=== PATIENT | male | born 1945 | race Caucasian/White ===

== ENCOUNTER 2017-10-28 10:18 | Inpatient (IN) ==
[2017-10-28] MEDS ORDERED: Nitroglycerin 0.4 MG TAB.SUBL SL PRN (10:34)
--- NOTE | 2017-10-28 10:44 | Emergency Department Note ---
Disposition Clinical Impression: NSTEMI (non-ST elevated myocardial infarction) Chest pain Qualifiers: Chest pain type: unspecified Qualified Code(s): R07.9 - Chest pain, unspecified Disposition: Admitted As Inpatient Condition: Good Referrals: Adalberto Up MD [Primary Care Provider] - Forms: ED Satisfaction Letter Time of Disposition: 12:44 Chest Pain HPI - General Chief Complaint: ED Chest Pain Stated Complaint: CP Time Seen by Provider: 10/28/17 10:20 Source: patient, family Mode of arrival: ambulatory Limitations: no limitations Vital Signs Reviewed: Yes Nursing Notes Reviewed: Yes - History of Present Illness HPI Narrative: Patient is a 71-year-old male with past medical history of hypertension, hyperlipidemia, diabetes, iliac artery stents, COPD. No previous ID or heart stents. He presents today due to chest pain. He states that over the past 3-4 days, he has had intermittent substernal chest pain. 4 days ago, he said that he was getting ready tomorrow is long, took 6 or 7 steps outside and then had substernal chest pressure that was so bad that he had to lean up against a wall and wait for the pain to subside. This has intermittently happened with exertion over the past 3 days. This morning, 45 minutes prior to arrival, the patient was taking out trash and started having chest discomfort while he was walking. He describes substernal chest pressure, no radiation anywhere else, associated sweating and shortness of breath. Pain gets worse with walking or climbing stairs. Rated at 10 out of 10 when it first started. He took aspirin 325 mg at home and states that the pain has since subsided down to a 5 out of 10 after resting. He states that this chest discomfort feels different from his usual chest tightness from COPD. He believes that this is different from COPD exacerbation and denies any wheezing or cough about his usual baseline. Denies any other recent surgeries, long car rides, leg swelling, calf pain, previous DVT or PE. Severity scale (1-10): 5 - Related Data Home Medications Medication Instructions Recorded Confirmed Aspirin Enteric Coated [Aspirin EC] 81 mg PO DAILY 01/09/16 10/28/17 Insulin Glargine,Hum.rec.anlog 60 - 70 unit SQ BID 01/09/16 10/28/17 [Lantus Solostar] Insulin LISPRO [Humalog Kwikpen 0 unit SQ TIDAC 01/09/16 10/28/17 U-100] Meloxicam [Mobic] 7.5 mg PO DAILY 01/09/16 10/28/17 Metformin HCl [Fortamet] 1,000 mg PO BID 01/09/16 10/28/17 Metoprolol XL (24 HR) Succ [Toprol 50 mg PO DAILY 01/09/16 10/28/17 Xl] Omega3/Dha/Epa/Fish Oil/Vit D3 1 each PO DAILY 01/09/16 10/28/17 [Fish Oil + Vitamin D-3 Softgel] Valsartan [Diovan] 160 mg PO DAILY 01/09/16 10/28/17 Clopidogrel [Plavix] 75 mg PO DAILY 11/17/16 10/28/17 Oxygen 1 - 2 l NS HS PRN 11/17/16 10/28/17 Tamsulosin HCl [Flomax] 0.4 mg PO DAILY 11/17/16 10/28/17 Fluticasone/Salmeterol [Advair 1 puff IH DAILY 10/28/17 10/28/17 100-50 Diskus] Allergies Allergy/AdvReac Type Severity Reaction Status Date / Time Amoxicillin Allergy Unknown UNKOWN Verified 10/28/17 10:33 lisinopril Allergy Unknown Anaphylaxis Verified 10/28/17 10:33 levofloxacin [From Levaquin] Allergy Anaphylaxis Verified 10/28/17 10:33 carvedilol [From Coreg] AdvReac Intermediate MUSCLE Verified 10/28/17 10:33 CRAMPS losartan AdvReac Intermediate MUSCLE Verified 10/28/17 10:33 CRAMPS Jgclabj-Kth-Xdz Reductase AdvReac Anaphylaxis Verified 10/28/17 10:33 Inhibitor [Statins] All systems ED: reviewed and negative except as stated. Constitutional: Denies: fever Cardiovascular: Reports: chest pain Respiratory: Reports: dyspnea. Denies: cough, wheezes Gastrointestinal: Denies: abdominal pain, nausea, vomiting, diarrhea Genitourinary: Denies: urgency, dysuria Integumentary: Denies: rash Neurological: Denies: headache, weakness, numbness, paresthesias Chest Pain PMH - Past Medical History Medical history: Reports: COPD, diabetes, hypertension, other Surgical history: Reports: herniorrhaphy, knee replacement, other Psychiatric history: Reports: no psych history - Social History Smoking Status: Former smoker Alcohol use: Reports: none Drug use: Reports: none Physical Exam - General Limitations: no limitations General appearance: alert, in no apparent distress - Head Head exam: atraumatic, normocephalic, normal inspection - Eye Eye exam: Present: normal appearance, PERRL, EOMI - ENT ENT exam: normal exam, normal oropharynx, mucous membranes moist - Neck Neck exam: Present: normal inspection, full ROM, trachea midline - Chest Chest inspection: Present: normal inspection, symmetric chest wall rise. Absent : tenderness, rash - Respiratory Respiratory exam: Present: normal lung sounds bilaterally - Cardiovascular Cardiovascular exam: Present: regular rate, normal rhythm, normal heart sounds - Abdominal Exam Abdominal exam: Present: soft, Non-Tender. Absent: tenderness, distention, guarding, rebound, rigidity - Extremities Exam Extremities exam: Present: normal inspection, full ROM. Absent: tenderness, pedal edema - Neurological Exam Neurological exam: Present: alert, oriented X3 - Psychiatric Psychiatric exam: Present: normal affect, normal mood - Skin Skin exam: Present: warm, dry, intact, normal color Course Course Narrative: EKG shows NSR with ST elevation in lead 3. T-wave inversion in lead aVF. Mild ST depression in lead 1. These are new from previous EKG on 01/06/2017. Patient already took aspirin 325 home. We will give the patient nitroglycerin to see if this helps ease his discomfort. Pain was a 10 out of 10 when it started, currently 5 or 6 out of 10 after taking aspirin. Currently concern for ACS at this time. We will perform basic blood work, troponin, chest x-ray. Patient will need to be admitted for further care. We will perform follow-up EKG in 10-15 minutes to reevaluate due to ST changes. 12:23 repeat EKG showed continued changes in leads 3, aVF but did show improvement and ST depression in lead 1, second EKG no longer shows any ST depression in lead 1. Troponin level 0.6. Patient currently rates his chest pain is 0 out of 10 before he even received any nitroglycerin. Nitroglycerin was not given. I spoke with Dr. Gama who is agreeable with us starting heparin drip here in the emergency department. He has requested that we keep the patient nothing by mouth for likely heart cath later today. Vital Signs Pulse Rate 96 10/28/17 10:25 Respiratory Rate 22 10/28/17 10:25 Blood Pressure 138/66 10/28/17 10:25 O2 Sat by Pulse Oximetry 94 10/28/17 10:25 Temperature 97.7 F 10/28/17 10:29 Pulse Rate 74 10/28/17 11:27 Respiratory Rate 20 10/28/17 11:27 Blood Pressure 137/68 10/28/17 11:27 O2 Sat by Pulse Oximetry 96 10/28/17 11:27 Oxygen Delivery Oxygen Delivery Room Air Chest Pain - MDM Narrative Medical decision making narrative: EKG shows NSR with ST elevation in lead 3. T-wave inversion in lead aVF. Mild ST depression in lead 1. These are new from previous EKG on 01/06/2017. Patient already took aspirin 325 home. We will give the patient nitroglycerin to see if this helps ease his discomfort. Pain was a 10 out of 10 when it started, currently 5 or 6 out of 10 after taking aspirin. Currently concern for ACS at this time. We will perform basic blood work, troponin, chest x-ray. Patient will need to be admitted for further care. We will perform follow-up EKG in 10-15 minutes to reevaluate due to ST changes. 12:23 repeat EKG showed continued changes in leads 3, aVF but did show improvement and ST depression in lead 1, second EKG no longer shows any ST depression in lead 1. Troponin level 0.6. Patient currently rates his chest pain is 0 out of 10 before he even received any nitroglycerin. Nitroglycerin was not given. I spoke with Dr. Gama who is agreeable with us starting heparin drip here in the emergency department. He has requested that we keep the patient nothing by mouth for likely heart cath later today. - Medical Records Medical records reviewed: Yes I reviewed the patient's medical records. - Lab Data Lab results reviewed: Yes I reviewed the patient's lab results. Result diagrams: 10/28/17 11:22 10/28/17 11:22 Lab Results 10/28/17 10/28/17 10/28/17 Range/Units 11:22 11:22 11:22 WBC 5.7 (4.3-11.1) K/mcL RBC 4.27 (4.19-5.50) M/mcL Hgb 14.1 (12.9-16.9) g/dL Hct 40.9 (37.5-50.1) % MCV 95.8 (83.0-100.0) fL MCH 33.0 (28.0-33.3) pg MCHC 34.5 (31.6-35.5) g/dL RDW 13.0 (11.5-14.5) % Plt Count 152 (140-400) K/mcL MPV 10.3 (9.4-12.4) fL Immature Gran % 0.5 (0-4) % Seg Neutrophils % 60.1 % Lymphocytes % 26.7 % Monocytes % 9.4 % Eosinophils % 2.8 % Basophils % 0.5 % Neutrophils # 3.4 (1.6-8.9) K/mcL Lymphocytes # 1.5 (0.6-4.6) K/mcL Monocytes # 0.5 (0.0-1.3) K/mcL Eosinophils # 0.2 (0.0-0.6) K/mcL Basophils # 0.0 (0.0-0.2) K/mcL PT 11.2 (9.4-12.1) Seconds INR 1.0 APTT 26.5 (26.0-36.0) Seconds Sodium 134 L (136-145) mEq/L Potassium 4.8 (3.5-5.1) mEq/L Chloride 101 (98-107) mEq/L Carbon Dioxide 24 (23-29) mEq/L BUN 28 H (8-23) mg/dL Creatinine 1.17 (0.70-1.30) mg/dL Est GFR ( Amer) > 60 (> 60) Est GFR (Non-Af Amer) > 60 (> 60) BUN/Creatinine Ratio 24 (6-26) Glucose 294 H (70-105) mg/dL Calculated Osmolality 294 (280-300) Calcium 9.2 (8.6-10.3) mg/dL Troponin I 0.60 H* (< 0.04) ng/mL - Radiology Data Radiology results reviewed: Yes I reviewed the patient's radiology results. Chest X-Ray 10/28/17 10:21 IMPRESSION: No acute process. D/ / Collin Jones MD / Collin Jones MD Interpreting Provider: Collin Jones MD - EKG Data EKG attestation: Yes I reviewed and interpreted this EKG. EKG results narrative: 10/28/2017 at 10:19. Normal sinus rhythm. Rate 96. HI 181. QRS 112. QTC 391. Normal axis. ST elevation in lead 3. T-wave inversion in lead aVF. Mild ST depression in lead 1. These are new from previous EKG on 01/06/2017. EKG #2. 10/28/2017 at 11:05. Normal sinus rhythm. Rate 66. HI 180. QRS 109. QTC 374. Normal axis. ST elevation in lead 3. T-wave inversion in lead aVF. Patient no longer has ST depression in lead 1. Heart Score - Score History: Moderately Suspicious EKG: Non Specific repolarisation Disturbance Age: Greater than 65 Risk Factors: Equal/Greater than 3 risk factor or history of atherosclerotic disease Troponin: Less than normal limit HEART Score Total: 6 S.B.A.R. - Rocco.Alen.A.Pamela Situation: Demographics, MOA Background: Presenting Complaint, Relevant PMH, Meds, & Allergies Assessment: Vital Signs, Course and respsone to treatment, Exam Concerns, Patient/Family Expectation, Pertinant Lab Results Recommendation: Barrier(s) to disposition, Recommendation based on pending studies, treatments, or consults S.B.A.Pamela Report Given to: dr. Katherine Jackson Repor Time: 12:44
--- NOTE | 2017-10-28 11:16 | Emergency Department Note ---
Disposition Clinical Impression: Chest pain Qualifiers: Chest pain type: unspecified Qualified Code(s): R07.9 - Chest pain, unspecified Disposition: Admitted As Inpatient Forms: ED Satisfaction Letter General Adult HPI - General Chief complaint: ED Chest Pain Stated complaint: CP Time Seen by Provider: 10/28/17 10:20 Source: patient, family Mode of arrival: ambulatory Limitations: no limitations - History of Present Illness Pain Scale: 5 - Related Data Home Medications Medication Instructions Recorded Confirmed Albuterol Sulfate [Proair Hfa] 2 puff IH Q6HR PRN 01/09/16 11/17/16 Aspirin Enteric Coated [Aspirin EC] 81 mg PO DAILY 01/09/16 11/17/16 Insulin Glargine,Hum.rec.anlog 45 unit SQ BID 01/09/16 11/17/16 [Lantus Solostar] Insulin LISPRO [Humalog Kwikpen 0 unit SQ TIDAC 01/09/16 11/17/16 U-100] Meloxicam [Mobic] 7.5 mg PO DAILY 01/09/16 11/17/16 Metformin HCl [Fortamet] 1,000 mg PO BID 01/09/16 11/17/16 Metoprolol XL (24 HR) Succ [Toprol 50 mg PO DAILY 01/09/16 11/17/16 Xl] Omega3/Dha/Epa/Fish Oil/Vit D3 1 each PO DAILY 01/09/16 11/17/16 [Fish Oil + Vitamin D-3 Softgel] Valsartan [Diovan] 160 mg PO DAILY 01/09/16 11/17/16 amLODIPine [Norvasc] 10 mg PO DAILY 01/09/16 11/17/16 hydroCHLOROthiazide 25 mg PO DAILY 01/09/16 11/17/16 [Hydrochlorothiazide] Clopidogrel [Plavix] 75 mg PO DAILY 11/17/16 11/17/16 Doxycycline 100 mg PO BID 11/17/16 11/17/16 Fluticasone Propionate Nasal 2 spray NS DAILY PRN 11/17/16 11/17/16 [Flonase] Furosemide [Lasix] 40 mg PO DAILY 11/17/16 11/17/16 Oxygen 1 l .ROUTE AD PRN 11/17/16 11/17/16 Tamsulosin HCl [Flomax] 0.4 mg PO DAILY 11/17/16 11/17/16 Tiotropium [Spiriva] 18 mcg IH 0700 11/17/16 11/17/16 Previous Rx's Medication Instructions Recorded HYDROcodone/Acet 7.5/325 mg [[place] 1 tab PO Q6H PRN #30 tablet 11/17/16 7.5-325 mg] Azithromycin [Azithromycin 6-Tab 250 mg PO PER PKG DI #6 tab 03/01/17 Pack] Benzonatate [Tessalon] 200 mg PO TID PRN #30 capsule 03/01/17 GuaiFENesin ER [Mucinex] 1,200 mg PO BID #20 tbbp.12hr 03/01/17 methylPREDNISolone [Medrol] 4 mg PO TAPER #21 tablet 03/01/17 Oxycodone HCl/Acetaminophen 1 each PO Q6HR PRN #7 tablet 04/08/17 [Percocet 5-325 mg Tablet] Allergies Allergy/AdvReac Type Severity Reaction Status Date / Time Amoxicillin Allergy Unknown UNKOWN Verified 10/28/17 10:33 lisinopril Allergy Unknown Anaphylaxis Verified 10/28/17 10:33 levofloxacin [From Levaquin] Allergy Anaphylaxis Verified 10/28/17 10:33 carvedilol [From Coreg] AdvReac Intermediate MUSCLE Verified 10/28/17 10:33 CRAMPS losartan AdvReac Intermediate MUSCLE Verified 10/28/17 10:33 CRAMPS Rzfcqpp-Fwi-Cke Reductase AdvReac Anaphylaxis Verified 10/28/17 10:33 Inhibitor [Statins] Constitutional: Denies: fever Cardiovascular: Reports: chest pain Respiratory: Reports: dyspnea. Denies: cough, wheezes Gastrointestinal: Denies: abdominal pain, nausea, vomiting, diarrhea Genitourinary: Denies: urgency, dysuria Integumentary: Denies: rash Neurological: Denies: headache, weakness, numbness, paresthesias Past Medical History - Past Medical History Medical history: Reports: COPD, diabetes, hypertension, other Surgical history: Reports: herniorrhaphy, knee replacement, other Psychiatric history: Reports: no psych history - Social History Smoking Status: Former smoker Smokeless Tobacco Status: No Alcohol use: Reports: none Drug use: Reports: none Physical Exam - General Limitations: no limitations General appearance: alert, in no apparent distress Course Vital Signs Pulse Rate 96 10/28/17 10:25 Respiratory Rate 22 10/28/17 10:25 Blood Pressure 138/66 10/28/17 10:25 O2 Sat by Pulse Oximetry 94 10/28/17 10:25 Temperature 97.7 F 10/28/17 10:29 Pulse Rate 96 10/28/17 10:29 Respiratory Rate 22 10/28/17 10:29 Blood Pressure 138/66 10/28/17 10:29 O2 Sat by Pulse Oximetry 94 10/28/17 10:29 Oxygen Delivery Oxygen Delivery Room Air Attestation Statement - Attestation Attestation: I examined this patient and my medical decision-making was reviewed with the Resident Physician. I agree with the documented findings, disposition and treatment plan as described except to the extent set forth below. 71 year old male prsentes to the eD for chest pain that is present during exertion (i.e. walk ing up 5 stairs, taking his garbage out) that has been worsening over the past few days and has a history of COPD and [id number] at home at night. He states he feels incresingly more dyspneic. He has minor changes on his EKG that are subtle for ischemic pathology. We will treat him with ASA and nitro and admit to medicne.
[2017-10-28 11:32] LABS: Basophils % 0.5 %; Eosinophils # 0.2 K/mcL (0.0-0.6); Eosinophils % 2.8 %; Hematocrit 40.9 % (37.5-50.1); Hemoglobin 14.1 g/dL (12.9-16.9); Immature Granulocytes % 0.5 % (0-4); Lymphocytes # 1.5 K/mcL (0.6-4.6); Lymphocytes % 26.7 %; Mean Corpuscular HGB Conc 34.5 g/dL (31.6-35.5); Mean Corpuscular Volume 95.8 fL (83.0-100.0); Mean Platelet Volume 10.3 fL (9.4-12.4); Monocytes # 0.5 K/mcL (0.0-1.3); Monocytes % 9.4 %; Neutrophils # 3.4 K/mcL (1.6-8.9); Platelet Count 152 K/mcL (140-400); Red Blood Count 4.27 M/mcL (4.19-5.50); Segmented Neutrophils % 60.1 %
[2017-10-28 11:37] LABS: Prothrombin Time 11.2 Seconds (9.4-12.1)
[2017-10-28 11:40] LABS: Activated Partial Thrombo Time 26.5 Seconds (26.0-36.0)
[2017-10-28 11:55] LABS: BUN/Creatinine Ratio 24 (6-26); Blood Urea Nitrogen 28 mg/dL (8-23); Calcium 9.2 mg/dL (8.6-10.3); Carbon Dioxide 24 mEq/L (23-29); Chloride 101 mEq/L (98-107); Glucose 294 mg/dL (70-105); Osmolality,Calculated 294 (280-300); Potassium 4.8 mEq/L (3.5-5.1); Sodium 134 mEq/L (136-145); eGFR For African Americans > 60 (> 60); eGFR For Non-African Americans > 60 (> 60)
[2017-10-28] MEDS ORDERED: *HR* Heparin 5,000 UNIT/ML VIAL IVP PRN ×2 (12:19)
[2017-10-28] MEDS ORDERED: *HR* Heparin 5,000 UNIT/ML VIAL IVP ONE (12:19)
[2017-10-28] MEDS ORDERED: Heparin 25,000 UNIT/500 ML D5W 25,000 UNIT/500 ML BAG IVC SCH (12:30)
--- NOTE | 2017-10-28 12:45 | Cardiology Consult Note ---
Date of Encounter: 10/28/17 Time of Encounter: 12:38 Assessment and Plan (1) NSTEMI (non-ST elevated myocardial infarction) Current Visit: Yes Status: Acute Initial troponin 0.60. Typical symptoms--exertional chest pain over the past week, progressively worsening, associated with dyspnea and diaphoresis, relieved with rest. Diffuse ischemic EKG changes on initial EKG, now improved. Multiple risk factors for CAD--prior tobacco abuse, HTN, HLD, DMII insulin dependent, family hx, morbid obesity, PVD, carotid disease. Recommend [facility]. R/B/A discussed. Pt agrees to proceed. [facility] today. TTE to evaluate structure and function. On Heparin gtt. Start ASA and BB. Allergy to statins--muscle aches, elevated CK. No statin due to this. Continue to follow. Discussion w patient/family: The assessment and plan as outlined above was discussed with the patient and/or family members who expressed understanding and agreement. All questions were answered. Thank you for involving us in the care of your patient. Please call with any questions. I will discuss all the above with Dr. Gama and make changes as necessary. History of Present Illness Consult date: 10/28/17 Requesting physician: uT Michaels Consult reason: NSTEMI Chief complaint: chest pain History of present illness: Mr. Saavedra is a 71 year old male with PMH of carotid stenosis, PVD with hx of iliac stents, DMII insulin dependent, CVA, hypertension, hyperlipidemia, VESTA and COPD. He presented to ED for exertional chest pain that started over the past week and has been getting progressively worse. Midsternal, burning in nature without radiation associated with dyspnea and diaphoresis. Chest pain improves with rest. EKG changes noted on presentation and initial troponin 0.60. Cardiology consulted for further recs. Pt chest pain free currently. Stress test 08/2016 Small sized, mild intensity, reversible apex/apical inferior perfusion defect possibly due to a small area of ischemia, has been medically managed. Has never had a [facility]. Past Med Surg Social Fam HX - Past Medical History Medical history: COPD, diabetes, hyperlipidemia, hypertension, other Psychiatric history: no psych history - Past Surgical History Surgical History: herniorrhaphy, knee replacement, other - Social History Smoking Status: Former smoker Smokeless Tobacco Status: No Alcohol use: none Drug use: none Medications and Allergies Aspirin Enteric Coated [Aspirin EC] 81 mg PO DAILY 01/09/16 [History] Insulin Glargine,Hum.rec.anlog [Lantus Solostar] 60 - 70 unit SQ BID 01/09/16 [ History] Insulin LISPRO [Humalog Kwikpen U-100] 0 unit SQ TIDAC 01/09/16 [History] Meloxicam [Mobic] 7.5 mg PO DAILY 01/09/16 [History] Metformin HCl [Fortamet] 1,000 mg PO BID 01/09/16 [History] Metoprolol XL (24 HR) Succ [Toprol Xl] 50 mg PO DAILY 01/09/16 [History] Omega3/Dha/Epa/Fish Oil/Vit D3 [Fish Oil + Vitamin D-3 Softgel] 1 each PO DAILY 01/09/16 [History] Valsartan [Diovan] 160 mg PO DAILY 01/09/16 [History] Clopidogrel [Plavix] 75 mg PO DAILY 11/17/16 [History] Oxygen 1 - 2 l NS HS PRN 11/17/16 [History] Tamsulosin HCl [Flomax] 0.4 mg PO DAILY 11/17/16 [History] Fluticasone/Salmeterol [Advair 100-50 Diskus] 1 puff IH DAILY 10/28/17 [History] 3 Allergy/AdvReac Type Severity Reaction Status Date / Time Amoxicillin Allergy Unknown UNKOWN Verified 10/28/17 10:33 lisinopril Allergy Unknown Anaphylaxis Verified 10/28/17 10:33 levofloxacin [From Levaquin] Allergy Anaphylaxis Verified 10/28/17 10:33 carvedilol [From Coreg] AdvReac Intermediate MUSCLE Verified 10/28/17 10:33 CRAMPS losartan AdvReac Intermediate MUSCLE Verified 10/28/17 10:33 CRAMPS Vquyuwe-Yjp-Gkx Reductase AdvReac Anaphylaxis Verified 10/28/17 10:33 Inhibitor [Statins] All Systems Review: The remainder of the systems were reviewed and are negative - Cardiovascular Cardiovascular: as per HPI, chest pain with exertion, diaphoresis, dyspnea on exertion - Respiratory Respiratory: dyspnea Physical Examination Vital Signs, Last 4 Hours Temp Pulse Resp BP Pulse Ox 10/28/17 11:27 74 20 137/68 96 10/28/17 10:29 97.7 F 96 22 138/66 94 10/28/17 10:25 96 22 138/66 94 Vital Signs Temp Pulse Resp BP Pulse Ox 10/28/17 11:27 74 20 137/68 96 10/28/17 10:29 97.7 F 96 22 138/66 94 10/28/17 10:25 96 22 138/66 94 Intake and Output 10/27/17 10/28/17 10/28/17 23:59 07:59 15:59 Other: Weight 141.067 kg Patient Weight 10/28/17 23:59 Weight 141.067 kg General: Conversant, No Apparent Distress HEENT: Atraumatic, Normocephaly, Mucus Membranes Moist Neck: No JVD, Normal carotid pulses Cardiac: Reg Rate and Rhythm, Normal S1 and S2, No Murmur Lungs: Normal Breath Sounds, No Wheeze, Rales, Rhonchi Neuro: Alert and responsive, No focal deficits noted Abdomen: Soft, Non-Tender Skin: No rashes noted on visualized skin Musculoskeletal: No Chest Wall Tenderness Extremities: No Clubbing, No Cyanosis, No Edema, Normal Pulses Results 10/28/17 11:22 10/28/17 11:22 Lab Results 10/28/17 10/28/17 10/28/17 11:22 11:22 11:22 WBC 5.7 Hgb 14.1 Hct 40.9 Plt Count 152 INR 1.0 APTT 26.5 Sodium 134 L Potassium 4.8 Chloride 101 Carbon Dioxide 24 BUN 28 H Creatinine 1.17 Glucose 294 H Calcium 9.2 Troponin I 0.60 H* Short CBC 10/28/17 Range/Units 11:22 WBC 5.7 (4.3-11.1) K/mcL Hgb 14.1 (12.9-16.9) g/dL Hct 40.9 (37.5-50.1) % Plt Count 152 (140-400) K/mcL Neutrophils # 3.4 (1.6-8.9) K/mcL BMP 10/28/17 Range/Units 11:22 Sodium 134 L (136-145) mEq/L Potassium 4.8 (3.5-5.1) mEq/L Chloride 101 (98-107) mEq/L Carbon Dioxide 24 (23-29) mEq/L BUN 28 H (8-23) mg/dL Creatinine 1.17 (0.70-1.30) mg/dL Glucose 294 H (70-105) mg/dL Calcium 9.2 (8.6-10.3) mg/dL Cardiac Enzymes 10/28/17 Range/Units 11:22 Troponin I 0.60 H* (< 0.04) ng/mL Impressions Chest X-Ray 10/28/17 10:21 IMPRESSION: No acute process. D/ / Collin Jones MD / Collin Jones MD Interpreting Provider: Collin Jones MD Active Medications Heparin Sodium (Porcine) (Heparin) 4,000 unit IVP Q6HR PRN PRN Reason: SEE COMMENTS Stop: 04/29/18 12:20 Heparin Sodium (Porcine) (Heparin) 2,000 unit IVP Q6H PRN PRN Reason: SEE COMMENTS Stop: 04/29/18 12:20 Heparin Sodium/Dextrose (Heparin 25,000 Unit/500 Ml D5w) 25,000 unit in 500 mls @ 19.998 mls/hr IVC .Q24H CECELIA; 7.088 UNIT/KG/HR PRN Reason: Protocol Stop: 04/29/18 12:31 Nitroglycerin (Nitroglycerin) 0.4 mg SL Q5MIN PRN PRN Reason: Chest Pain Stop: 04/29/18 10:35 - Imaging and Cardiology Stress Test: report reviewed - EKG Interpretation EKG results cardiology: personally reviewed (initial EKG ischemic changes diffuse.) Consult Discharge Plan - Plan Referrals: Adalberto Up MD [Primary Care Provider] -
--- NOTE | 2017-10-28 14:36 | Pre-Sedation Evaluation ---
Pre-sedation evaluation - Pre-sedation checklist Date of procedure: 10/28/17 Procedure: LHC Recent Vitals: Last Vital Signs Temp 97.7 F 10/28/17 10:29 Pulse 74 10/28/17 11:27 Resp 20 10/28/17 13:21 BP 130/66 10/28/17 13:21 Pulse Ox 96 10/28/17 11:27 ASA Classification *see protocol: CLASS II-Mild systemic disease
[2017-10-28] MEDS ORDERED: *HR* Midazolam HCl 2 MG/2 ML VIAL ONE ×2 (15:59→17:25)
[2017-10-28] MEDS ORDERED: *HR* FentaNYL (PF) 100 MCG/2 ML VIAL ONE ×2 (15:59→17:25)
[2017-10-28] MEDS ORDERED: Heparin 1,000 UNITS/500 mL 500 ML ONE (16:00)
[2017-10-28] MEDS ORDERED: 0.9 % Sodium Chloride 1,000 ML ONE ×2 (16:00→16:32)
[2017-10-28] MEDS ORDERED: ISOVUE-370 200 ML INFUS..BTL IV ONE ×2 (16:00→17:18)
[2017-10-28] MEDS ORDERED: *HR* Heparin 10,000 UNIT/10 ML VIAL ONE (16:00)
[2017-10-28] MEDS ORDERED: Nitroglycerin 1,000 MCG/10 ML VIAL IV ONE (16:06)
--- NOTE | 2017-10-28 16:18 | Internal Med History&Physical ---
Date of Encounter: 10/28/17 Time of Encounter: 15:00 Internal Medicine - H&P: HPI Chief complaint: Chest pain Admitted From: Home Plans for Post Hospital Care: Home History of present illness: Patient is a 71-year-old male with past medical history significant for hypertension, diabetes and COPD who presents to the ER on 10/28/17 due to chest pain. Patient reported a 3 to four-day history of substernal chest tightness which has gradually gotten worse. Patient denies any radiation of discomfort and denies any provoking/relieving factors. Patient does report of associated symptoms of shortness of breath with the chest tightness. Patient was concerned and decided to come to the ER for evaluation. In the ER, patient was found to have an elevated troponin of 0.60. Cardiology was consulted from the ER with recommendations for left heart catheterization this afternoon. Patient will be admitted to medical surgical floor for ACS rule out. Past Med Surg Social Fam HX - Past Medical History Medical history: COPD, diabetes, hyperlipidemia, hypertension, other Psychiatric history: no psych history - Past Surgical History Surgical History: herniorrhaphy, knee replacement, other - Social History Smoking Status: Former smoker Smokeless Tobacco Status: No Alcohol use: none Drug use: none - Family History Mother Brother Hx Family Cardiac Disorders: Yes (CAD) Internal Medicine - H&P: Meds Aspirin Enteric Coated [Aspirin EC] 81 mg PO DAILY 01/09/16 [History] Insulin Glargine,Hum.rec.anlog [Lantus Solostar] 60 - 70 unit SQ BID 01/09/16 [ History] Insulin LISPRO [Humalog Kwikpen U-100] 0 unit SQ TIDAC 01/09/16 [History] Meloxicam [Mobic] 7.5 mg PO DAILY 01/09/16 [History] Metformin HCl [Fortamet] 1,000 mg PO BID 01/09/16 [History] Metoprolol XL (24 HR) Succ [Toprol Xl] 50 mg PO DAILY 01/09/16 [History] Omega3/Dha/Epa/Fish Oil/Vit D3 [Fish Oil + Vitamin D-3 Softgel] 1 each PO DAILY 01/09/16 [History] Valsartan [Diovan] 160 mg PO DAILY 01/09/16 [History] Clopidogrel [Plavix] 75 mg PO DAILY 11/17/16 [History] Oxygen 1 - 2 l NS HS PRN 11/17/16 [History] Tamsulosin HCl [Flomax] 0.4 mg PO DAILY 11/17/16 [History] Fluticasone/Salmeterol [Advair 100-50 Diskus] 1 puff IH DAILY 10/28/17 [History] 3 Allergy/AdvReac Type Severity Reaction Status Date / Time Amoxicillin Allergy Unknown UNKOWN Verified 10/28/17 10:33 lisinopril Allergy Unknown Anaphylaxis Verified 10/28/17 10:33 levofloxacin [From Levaquin] Allergy Anaphylaxis Verified 10/28/17 10:33 carvedilol [From Coreg] AdvReac Intermediate MUSCLE Verified 10/28/17 10:33 CRAMPS losartan AdvReac Intermediate MUSCLE Verified 10/28/17 10:33 CRAMPS Fgzzxvl-Ayi-Lsw Reductase AdvReac Anaphylaxis Verified 10/28/17 10:33 Inhibitor [Statins] All Systems PM: A 10-system review of systems was performed and is negative for pertinent findings except as documented above in the HPI. - Constitutional Vitals: Temp Pulse Resp BP Pulse Ox 98.6 F 64 16 134/86 95 10/28/17 14:28 10/28/17 14:28 10/28/17 14:28 10/28/17 14:28 10/28/17 14:28 General appearance: Present: A&O X 3, no acute distress - Eye Eye exam: Present: normal appearance - ENT ENT exam: Present: mucous membranes moist - Respiratory Respiratory exam: Present: CTAB. Absent: accessory muscle use, rales, rhonchi, wheezes - Cardiovascular Cardiovascular exam: Present: RRR, +S1, +S2. Absent: diastolic murmur, gallop, rubs, systolic murmur - GI/Abdominal GI/Abdominal exam: Present: normal bowel sounds, soft, no peritoneal signs. Absent: distended, tenderness - Extremities Exam Extremities exam: Present: pedal edema - Neurological Exam Neurological exam: Present: oriented X3 - Psychiatric Psychiatric exam: Present: normal mood - Skin Skin exam: Present: normal color Internal Med - H&P Results - Labs CBC & Chem 7: 10/28/17 11:22 10/28/17 11:22 - Assessment and plan (1) NSTEMI (non-ST elevated myocardial infarction) Current Visit: Yes Status: Acute Assessment and plan: Patient reports of chest tightness for the last 3-4 days found to have elevated troponin of 0.60 in the ER Cardiology consulted with recommendations for left heart catheterization this afternoon (2) Insulin dependent diabetes mellitus Current Visit: No Status: Chronic Assessment and plan: Continue home medications (3) Obesity Current Visit: Yes Status: Acute Assessment and plan: BMI 47.3 Qualifiers: Body mass index: BMI 45.0-49.9 Qualified Code(s): E66.9 - Obesity, unspecified; Z68.42 - Body mass index (BMI) 45.0-49.9, adult (4) DVT prophylaxis Current Visit: No Status: Acute Assessment and plan: Heparin drip - Time Spent With Patient Total time spent is greater than 50% in coordination of care (as documented) at patient's floor/unit and/or counseling patient:
[2017-10-28] MEDS ORDERED: Naloxone 0.4 MG/ML INJ IVP PRN (16:24)
[2017-10-28] MEDS ORDERED: D5% in Water 1,000 ML IVC PRN (16:31)
[2017-10-28] MEDS ORDERED: *HR* Dextrose 50 % in Water (Syg) 50 ML SYRINGE IVP PRN (16:31)
[2017-10-28] MEDS ORDERED: Dextrose Gel 15 GM/37.5 ML TUBE PO PRN ×2 (16:31)
[2017-10-28] MEDS ORDERED: Tirofiban 12.5 MG/250ML 12.5 MG/250 ML BAG ONE (17:07)
[2017-10-28] MEDS ORDERED: Tirofiban 12.5 MG/250ML 12.5 MG/250 ML BAG IVC SCH (17:45)
--- NOTE | 2017-10-28 17:54 | Invasive Diagnostic Lab Proc ---
Name: Carlos Saavedra Date of Study: 10/28/2017 Date: 1945 Ht: 68.0in Medical Record#: [id number] Age: 71 Wt: 310.63lb Gender: Male BSA: 2.46 Order #: [id number] BMI: 47.24 Physicians Procedure Physician: Ammy Boggs MD Referring MD: Referring MD: Staff Name Position Time In Heidi Gooden RT (R) Scrub 04:38 PM Sammy Trevino RN Tank Welder 04:38 PM Daylin Arce RT (R) Monitor 04:39 PM Indications Indication Non-Stemi Procedures Performed Procedure L HRT ARTERY/VENTRICLE ANGIO PRQ CARD BRIANNE STENT W/ANGIO 1 VSL Pre-Procedure Checklist Informed consent is complete signed and on chart. H&P is on chart. ID band is on and ID verified with patient. Patient NPO for procedure The procedure was described for the patient and questions were answered. Blood Pressure: 146/69 ECG is on chart. Rhythm: NSR Plan of Care Patient will tolerate the procedure without complications. Adequate level of comfort will be maintained. Hemodynamics will remain stable Patient will recover from procedure without complications. Respiratory function will be maintained. Cardiac rhythm will remain stable. Patient temperature will be maintained. Patient and/or family have verbalized understanding of the procedure. Patient Education Chief Complaint/Reason for Test: Cardiac Cath Developmental Category: Geriatric (65+ years) Developmentally Appropriate for Age: Yes Learning Barriers: None Education Needs: Procedure Education Method: Verbal Information Taught: Cardiac Cath Educational Evaluation: Able to repeat information Intravenous Access Time IV Size Location DC'd Fluid/Drip Rate Units RN 04:32 PM 18g 1 1/" Peripheral-Lock On Arrival Lt Arm 0.9NaCl ml/hr Allergies Zbwhzds-Izs-Lzk Reductase Inhibitor LEVIQUIN Simvastatin Atorvastatin lisinopril Amoxicillin carvedilol losartan LEVAQUIN levofloxacin Vital Signs Time BP (mmHg) HR (bpm) O2 Sat. RR (bpm) LOC 04:32 PM / % 5 = Fully awake and oriented or at pre-proc level 04:40 PM / % 4 = Oriented but drowsy 04:40 PM / % 4 = Oriented but drowsy 04:56 PM / % 4 = Oriented but drowsy 05:11 PM / % 4 = Oriented but drowsy 04:36 PM 148 / 70 67 89 % 04:42 PM 147 / 73 59 94 % 04:46 PM 142 / 65 59 92 % 04:51 PM 142 / 66 59 91 % 04:56 PM 120 / 65 59 92 % 05:02 PM 103 / 72 71 93 % 05:07 PM 139 / 62 75 91 % 05:11 PM 133 / 65 70 92 % 05:17 PM 156 / 77 74 94 % 05:22 PM 158 / 78 72 94 % 05:27 PM 139 / 76 74 91 % 05:32 PM 146 / 69 71 95 % Procedural Medications Time Medication Dose Units Method Given By 04:40 PM Oxygen 4 L/min Oxy Mask Daylin Arce RT (R) 04:40 PM Versed 1 mg Intravenous JmthorneSammy RN 04:40 PM Fentanyl 50 mcg Intravenous Sammy Trevino RN 04:48 PM Lidocaine 2% 10 ml Subcutaneous Ammy Boggs MD 04:51 PM Lidocaine 2% 5 ml Subcutaneous Ammy Boggs MD 04:59 PM Versed 0.5 mg Intravenous SungornSammy ward RN 04:59 PM Fentanyl 25 mcg Intravenous Sammy Trevino RN 05:05 PM Heparin 5000 units Intravenous Sammy Trevino RN 05:11 PM Aggrastat Bolus: 71 ml Intravenous Sammy Trevino RN 05:11 PM Aggrastat 12.5mg/250ml 25.5 ml Intravenous Sammy Trevino RN 05:24 PM Nitroglycerin 200 mcg Intracoronary En Boggs MD 05:30 PM Plavix 300 mg Orally Sammy Trevino RN ASA Classification: CLASS II- Mild systemic disease (i.e. well-controlled diabetes, hypertension, asthma, cigarette smoking) Abdirahman Score Preprocedure Postprocedure Activity 2- Moves 4 extremities sustained head lift Activity 2- Moves 4 extremities sustained head lift Circulation 2- SBP +/= 20 points of pre-anesthetic level Circulation 2- SBP +/= 20 points of pre-anesthetic level Consciousness 2- Awake and alert oriented x 3 Consciousness 2- Awake and alert oriented x 3 O2 Saturation 2- Able to maintain O2 satruation of 92% on room air O2 Saturation 2- Able to maintain O2 satruation of 92% on room air Respiratory 2- Able to deep breathe and cough well Respiratory 2- Able to deep breathe and cough well Total Score 10 Total Score 10 Contrast Agent: Isovue Diagnostic Contrast: 181 ml Total Contrast: 181 ml Fluoro Dose: 2506 mGy Activated Clotting Time Time Seconds to Clot 05:03 PM 120 Procedure Log Time Note Enter By 04:34 PM CathStat 04:36 PM Vitals capture started with the following parameters, Patient=Adult, Interval=5 min, Initial Nwevkxko=305 mmHg, Deflation Rate=5 mmHg, Cuff placed on Right Arm 04:36 PM Recorded ECG: HR=68 Condition=Condition 1 04:36 PM HR=67 bpm, SSRW=379/70 mmhg, SpO2=89.0 %, Comment=NSR 04:38 PM Pt arrived to director of labor relations 2 at 16:38 [email or web address] 04:38 PM Heidi Gooden RT (R) Position: Scrub Time in: 16:38 [email or web address] 04:39 PM Sammy Trevino RN Position: Tank Welder Time in: 16:38 [email or web address] 04:39 PM Daylin Arce RT (R) Position: Monitor Time in: 16:39 kkner 04:39 PM Patient charges- Angio tray pack, Navilyst 3mm J, Pulse Oximetry and ACIST tubing and transducer [email or web address] 04:39 PM Hair removed from procedure site in holding area using clippers. Bilateral groin prepped with Chloraprep by Heidi Gooden RT (R), then patient was draped. Skin intact. [email or web address] 04:39 PM Physician arrived 16:39 kkallner 04:39 PM ASA Class CLASS II- Mild systemic disease (i.e. well-controlled diabetes, hypertension, asthma, cigarette smoking) [email or web address] 04:39 PM Meet and greet completed [email or web address] 04:39 PM Sign in performed according to hospital policy. [email or web address] 04:39 PM Procedure start 16:39 [email or web address] 04:40 PM Time: 16:40 Oxygen on at 4 L/min per Oxy Mask by Daylin Arce RT (R) ner 04:40 PM Time: 16:40 Versed 1 mg Intravenous Given by Sammy Trevino RN kkjens 04:40 PM Time: 16:40 Fentanyl 50 mcg Intravenous Given by Sammy Trevino RN 04:40 PM Time: 16:40 Patient comfortable and pain free: Yes [email or web address] :40 PM Time: 16:40LOC: 4 = Oriented but drowsy [email or web address] 04:42 PM HR=59 bpm, DLDY=463/73 mmhg, SpO2=94.0 % 04:45 PM Time out performed according to hospital policy [email or web address] 04:46 PM Clinical Presentation: Unstable angina [email or web address] 04:46 PM HR=59 bpm, EORM=136/65 mmhg, SpO2=92.0 % 04:48 PM Pressure channel 1 zero failed. 04:48 PM Time: 16:48 10 ml Lidocaine 2% to right groin Subcutaneous Given by Ammy Boggs MD [email or web address] 04:48 PM Micro-Introducer Kit utilized for sheath placement [email or web address] 04:48 PM Pressure channel 1 zero failed. 04:48 PM Pressure channel 1 zero failed. 04:48 PM Pressure channel 1 zero failed. 04:49 PM Pressure channel 1 zero failed. 04:49 PM Pressure channel 1 zero failed. 04:49 PM Pressure channel 1 zero failed. 04:49 PM Bolus angiogram of right Femoral complete: hand injection [email or web address] 04:50 PM Pressure channel 1 zeroed. 04:50 PM micro sheath removed. repositioning sheath kkallner 04:51 PM manual pressure applied kkallner 04:51 PM Time: 16:51 5 ml Lidocaine 2% to right groin Subcutaneous Given by Ammy Boggs MD [email or web address] 04:51 PM HR=59 bpm, UXUA=995/66 mmhg, SpO2=91.0 % 04:52 PM micro sheath reinserted [email or web address] 04:52 PM Bolus angiogram of right Femoral complete: [email or web address] 04:54 PM 5Fr FR 4 catheter inserted over the wire [facility] kkallner 04:54 PM wire removed kkallner 04:55 PM RCA angiography performed in multiple views. [email or web address] 04:55 PM Recorded Pressure: Ao, HR=62, Condition=Condition 1 (Aorta) Ao 119/78/97 04:55 PM Time: 16:40 Patient comfortable and pain free: Yes [email or web address] 04:56 PM Time: 16:40LOC: 4 = Oriented but drowsy kkallner 04:56 PM Catheter removed kkallner 04:56 PM HR=59 bpm, LDFI=843/65 mmhg, SpO2=92.0 % 04:57 PM 5Fr FL 4 catheter inserted over the wire DN kkallner 04:57 PM wire removed kkallner 04:57 PM Recorded Pressure: Ao, HR=59, Condition=Condition 1 (Aorta) Ao 131/67/91 04:59 PM Time: 16:59 Versed .5 mg Intravenous Given by Sammy Trevino RN 04:59 PM Time: 16:59 Fentanyl 25 mcg Intravenous Given by Sammy Trevino RN 05:00 PM 0.035 260cm Navilyst 3mmJ wire [id number] 05:01 PM Catheter removed 05:01 PM 5Fr Pigtail catheter inserted over the wire [facility] 05:01 PM wire removed 05:01 PM Catheter selectively placed in left ventricle kkall 05:02 PM HR=71 bpm, FGIA=945/72 mmhg, SpO2=93.0 % 05:02 PM Recorded Pressure: LV, HR=71, Condition=Condition 1 (Left Ventricle) LV 135/20/23 05:02 PM Bolus angiogram of left Ventricle complete: 10 ml/sec for a total of 20 mls 05:03 PM At 17:03 the ACT was 120 seconds. ner 05:04 PM Recorded Pressure: LV, Ao, HR=70, Condition=Condition 1 (Left Ventricle) LV 107/30/33, (Aorta) Ao 107/69/88 05:04 PM Recorded Pressure: LV, HR=73, Condition=Condition 1 (Left Ventricle) LV 4/4/4 05:05 PM Catheter removed 05:06 PM 6Fr JR 4 Runway guide catheter was used to cannulate the PCI vessel successfully. reused? No 05:06 PM wire removed 05:07 PM .014 [employer] [place] 190cm guide wire across target lesion- successful. reused? No [email or web address] 05:07 PM HR=75 bpm, EBFH=994/62 mmhg, SpO2=91.0 % 05:07 PM Inflation device was opened. [email or web address] 05:07 PM Recorded Pressure: Ao, HR=73, Condition=Condition 1 (Aorta) Ao 128/67/91 05:08 PM Time: 17:05 Heparin 5000 units Intravenous Given by Sammy Trevino RN 05:10 PM 2.0 mm x 12 mm Emerge Monorail balloon across target lesion- successful. reused? No [email or web address] 05:10 PM Time: 16:55 Patient comfortable and pain free: Yes kkner 05:11 PM Time: 16:56LOC: 4 = Oriented but drowsy [email or web address] 05:11 PM Time: 17:11 Aggrastat Bolus: 71 ml Intravenous Given by Sammy Trevino RN [place] pump kkner 05:11 PM Time: 17:11 Aggrastat 12.5mg/250ml 25.5 ml Intravenous Given by Samym Trevino RN [place] pump kkner 05:11 PM HR=70 bpm, WTBY=890/65 mmhg, SpO2=92.0 % 05:12 PM Balloon inflated @ 8 arina for 10 seconds [email or web address] 05:12 PM Balloon inflated @ 8 arina for 14 seconds [email or web address] 05:12 PM Balloon inflated @ 10 arina for 7 seconds [email or web address] 05:12 PM Balloon inflated @ 10 arina for 10 seconds kkallner 05:13 PM Balloon inflated @ 10 arina for 6 seconds kkallner 05:15 PM Balloon catheter removed intact. kkner 05:15 PM 2.75mm x 24mm Synergy drug-eluting stent across target lesion- successful Lot #[id number] [email or web address] 05:17 PM Recorded Pressure: Ao, HR=71, Condition=Condition 1 (Aorta) Ao 126/73/97 05:17 PM Stent deployed @ 11 arina for 10 seconds [email or web address] 05:17 PM HR=74 bpm, RSKH=402/77 mmhg, SpO2=94.0 % 05:17 PM Stent balloon reinflated @ 16 arina for 13 seconds [email or web address] 05:21 PM Stent delivery system removed intact. [email or web address] 05:22 PM HR=72 bpm, PTYM=688/78 mmhg, SpO2=94.0 % 05:22 PM 3.0 mm x 20mm NC Emerge balloon across target lesion- successful. reused? No [email or web address] 05:22 PM Balloon inflated @ 18 arina for 11 seconds [email or web address] 05:23 PM Balloon inflated @ 16 arina for 6 seconds [email or web address] 05:24 PM Recorded Pressure: Ao, HR=72, Condition=Condition 1 (Aorta) Ao 148/77/107 05:24 PM Time: 17:24 Nitroglycerin 200 mcg Intracoronary Given by En Boggs MD kk 05:25 PM wire removed kk 05:26 PM Time: 17:10 Patient comfortable and pain free: Yes [email or web address] 05:26 PM Recorded Pressure: Ao, HR=72, Condition=Condition 1 (Aorta) Ao 132/73/98 05:26 PM Time: 17:11LOC: 4 = Oriented but drowsy [email or web address] 05:27 PM HR=74 bpm, SRGB=694/76 mmhg, SpO2=91.0 % 05:27 PM Guide catheter removed intact. [email or web address] 05:30 PM Time: 17:30 Plavix 300 mg Orally Given by Sammy Trevino RN kkallner 05:31 PM Procedure completed at 17:31 [email or web address] 05:31 PM Did you address LINDA flow and Dominance? Yes [email or web address] 05:31 PM Sign out completed: Radiation Dose 2506.27 mGy Fluoro Time: 10.6 Isovue 370 - 200ml contrast 181 ml given by Ammy Boggs MD. Complications: NoneCardiac Rehab Consult needed: YesConfirmed administered medications: Yes [email or web address] 05:32 PM HR=71 bpm, QADV=739/69 mmhg, SpO2=95.0 % 05:35 PM Isovue 370 - 200ml,1 Bottle(s) used. [email or web address] 05:36 PM Arterial sheath pulled, Angio-seal closure device used and was Successful [id number] S/N. [email or web address] 05:36 PM Estimated Blood Loss: minimal kkallner 05:36 PM Post ECG NSR kkallner 05:36 PM Post Blood Pressure 146/69 kkallner 05:36 PM 17:36 Post Pulses Bilateral DP & PT 1+ kkallner 05:36 PM Information taught Cardiac Cath, PCI, and Angioseal kkallner 05:36 PM Education needs Procedure, Plan of Care, and Responsibilities of Patient in Care [email or web address] 05:36 PM Learning barriers :None kkallner 05:36 PM Education Methods Verbal kkallner 05:36 PM Education evaluation Able to repeat information [email or web address] 05:36 PM Site status No bleeding/hematoma - Rt Groin as reported by Heidi Gooden RT (R) at 17:36 [email or web address] 05:36 PM Opsite applied kkallner 05:37 PM Plavix, Effient or Brilinta given Yes [email or web address] 05:37 PM Delay to floor No [email or web address] 05:37 PM Patient out of room: 17:37 [email or web address] 05:37 PM Family placed in consult room. [email or web address] 05:37 PM Complications: None kkallner 05:37 PM Fluoro Time: 10.6 [email or web address] 05:37 PM Isovue 370 - 200ml contrast 181 ml given by Ammy Boggs. [email or web address] 05:37 PM Radiation Dose 2506.27 mGy kkallner 05:37 PM Coronary Dominance: right [email or web address] 05:38 PM Lesion found in Mid LAD. Pre Stenosis: 70 Pre LINDA Flow: [email or web address] 05:38 PM Lesion found in Mid RCA. Pre Stenosis: 99 Pre LINDA Flow: 3: Complete and Brisk Flow/Perfusion kkallner 05:38 PM Left Main Coronary Artery with 0% stenosis [email or web address] 05:38 PM Proximal Left Anterior Descending Coronary Artery with 0% stenosis. If graft is supplying this territory, 0 % stenosis. [email or web address] 05:38 PM Mid/Distal Left Anterior Descending Coronary Artery and diagonal branches with 70% stenosis. If graft is supplying this area, 0 % stenosis kkallner 05:38 PM Circumflex, Obtuse Marginal, Left Posterior Descending, and Left Posterolateral Coronary Arteries with 0 % stenosis. If graft is supplying this area, 0 % stenosis kkallner 05:38 PM Right Coronary, Right Posterior Descending Arteries with Right Posterolateral and Acute Marginal branches with 99 % stenosis. If graft is supplying this area, 0 % stenosis kkallner 05:38 PM Ramus with 0% stenosis. If graft is supplying this area, 0 % stenosis kkallner 05:45 PM Report given to Roseann LUQUE Pt taken to 2N Room #3. 17:45 [facility] Complications Complication None None Hemodynamics Pressures Site Systolic/A Wave Diastolic/V Wave Mean AO 119 78 97 AO 131 67 91 LV 135 20 23 LV 107 30 33 AO 107 69 88 LV 4 4 4 AO 128 67 91 AO 126 73 97 AO 148 77 107 AO 132 73 98 Post Procedure Information Blood Pressure: 146/69 mmHg Rhythm: NSR Post procedural instructions were given Closure Device Time Device Success/Fail Angio-Seal VIP Successful Site Checks Time Location Status Staff Sheath In? Note 05:36 PM Rt Groin No bleeding/hematoma Heidi Gooden RT (R) Pulses Time Site Pre-Procedure Post-Procedure Note 10/28/2017 4:32:00 PM Bilateral DP & PT 1+ 5:36:00 PM Bilateral DP & PT 1+ Updated by Jeri Craft, RT (R) on 10/28/2017 5:46:16 PM electronically signed on 10/28/2017 5:46:44 PM with status of Final
[2017-10-29] MEDS ORDERED: Acetaminophen 325 MG TABLET PO PRN ×2 (03:05→03:10)
[2017-10-29 05:39] LABS: Basophils % 0.3 %; Eosinophils # 0.2 K/mcL (0.0-0.6); Eosinophils % 3.5 %; Hemoglobin 13.6 g/dL (12.9-16.9); Immature Granulocytes % 0.3 % (0-4); Lymphocytes # 1.6 K/mcL (0.6-4.6); Lymphocytes % 26.6 %; Mean Corpuscular Hemoglobin 32.5 pg (28.0-33.3); Mean Corpuscular Volume 95.7 fL (83.0-100.0); Mean Platelet Volume 10.1 fL (9.4-12.4); Monocytes # 0.8 K/mcL (0.0-1.3); Monocytes % 12.3 %; Neutrophils # 3.5 K/mcL (1.6-8.9); Platelet Count 157 K/mcL (140-400); Red Blood Count 4.18 M/mcL (4.19-5.50); Red Cell Distribution Width 13.1 % (11.5-14.5)
[2017-10-29 05:55] LABS: BUN/Creatinine Ratio 24 (6-26); Blood Urea Nitrogen 25 mg/dL (8-23); Carbon Dioxide 25 mEq/L (23-29); Chloride 102 mEq/L (98-107); Glucose 164 mg/dL (70-105); Osmolality,Calculated 288 (280-300); Potassium 4.4 mEq/L (3.5-5.1); Sodium 135 mEq/L (136-145); eGFR For African Americans > 60 (> 60); eGFR For Non-African Americans > 60 (> 60)
[2017-10-29] MEDS ORDERED: Insulin LISPRO 300 UNITS/3 ML VIAL SQ SCH (07:30)
--- NOTE | 2017-10-29 08:50 | Cardiology Progress Note ---
Date of Encounter: 10/29/17 Time of Encounter: 08:48 Assessment and Plan (1) NSTEMI (non-ST elevated myocardial infarction) Current Visit: Yes Status: Acute Initial troponin 0.60 with typical symptoms. Diffuse ischemic EKG changes on initial EKG, now improved. LHC yesterday--received BRIANNE to mRCA. Remaining 70% mLAD lesion remains with recommendations to have staged PCI as outpt--will coordinate. DAPT (ASA and Plavix) uninterrupted x 1 year. Pt verbalizes understanding. Continue BB, ARB. Allergy to statins--muscle aches, elevated CK. No statin due to this. Right femoral access site healing well. No bleeding or hematoma noted, mild ecchymosis. Pt denies chest pain or dyspnea overnight. TTE to evaluate structure and function. Okay to d/c home once echo is completed. Does not need to wait to be read. Cardiology signing off. Reconsult PRN. Will coordinate outpt follow-up and staged PCI. (2) CAD (coronary artery disease) Current Visit: Yes Status: Acute S/P BRIANNE to mRCA, needs mLAD staged. ASA, Plavix, BB, ARB. No statin due to allergy. Qualifiers: Coronary Disease-Associated Artery/Lesion type: [place] artery [place] vs. transplanted heart: [place] heart Associated angina: angina presence unspecified Qualified Code(s): I25.10 - Atherosclerotic heart disease of [place] coronary artery without angina pectoris Discussion w patient/family: The assessment and plan as outlined above was discussed with the patient and/or family members who expressed understanding and agreement. All questions were answered. Thank you for involving us in the care of your patient. Please call with any questions. I will discuss all the above with Dr. Gama and make changes as necessary. Subjective Principal diagnosis: NSTEMI Interval history: S/P LHC yesterday for NSTEMI--BRIANNE to mRCA, recommended staged PCI to mLAD as outpt. Final report pending. Echo ordered, not yet completed. Pt denies chest pain or dyspnea overnight. Objective Vital Signs, Last 4 Hours Temp Pulse Resp BP Pulse Ox 10/29/17 07:25 98.2 F 85 18 140/87 92 Vital Signs Temp Pulse Resp BP Pulse Ox 10/29/17 07:25 98.2 F 85 18 140/87 92 10/29/17 03:41 98.0 F 66 16 133/71 96 10/28/17 23:09 98.2 F 68 18 151/76 96 10/28/17 20:00 97.6 F 59 20 129/75 91 10/28/17 18:27 97.5 F L 69 18 125/77 93 10/28/17 14:28 98.6 F 64 16 134/86 95 10/28/17 13:21 20 130/66 10/28/17 11:27 74 20 137/68 96 10/28/17 10:29 97.7 F 96 22 138/66 94 10/28/17 10:25 96 22 138/66 94 Intake and Output 10/28/17 10/29/17 10/29/17 23:59 07:59 15:59 Intake Total 840 / 840 Output Total 800 / 800 650 / 650 Balance -800 / -800 190 / 190 Intake: IV Fluids 0 / 0 Heparin 25,000 UNIT/500 ML D5W 0 / 0 25,000 unit In 500 ml @ 7.088 UNIT/KG/HR 19.998 mls/hr IVC . Q24H CECELIA Rx#:[id number] Oral 840 / 840 Output: Urine 800 / 800 650 / 650 Other: Blood Glucose* 160 General: Conversant, No Apparent Distress HEENT: Atraumatic, Normocephaly, Mucus Membranes Moist Neck: No JVD, Normal carotid pulses Cardiac: Reg Rate and Rhythm, Normal S1 and S2, No Murmur Lungs: Normal Breath Sounds, No Wheeze, Rales, Rhonchi Neuro: Alert and responsive, No focal deficits noted Abdomen: Soft, Non-Tender Skin: Other (right femoral access site healing well. No bleeding or hematoma noted, mild ecchymosis. ) Musculoskeletal: No Chest Wall Tenderness Extremities: No Clubbing, No Cyanosis, No Edema, Normal Pulses Results 10/29/17 04:59 10/29/17 04:59 Lab Results 10/28/17 10/29/17 10/29/17 18:57 04:59 04:59 WBC 6.1 Hgb 13.6 Hct 40.0 Plt Count 157 APTT 72.5 H D Sodium 135 L Potassium 4.4 Chloride 102 Carbon Dioxide 25 BUN 25 H Creatinine 1.03 Glucose 164 H Calcium 9.0 Short CBC 10/29/17 10/28/17 Range/Units 04:59 11:22 WBC 6.1 5.7 (4.3-11.1) K/mcL Hgb 13.6 14.1 (12.9-16.9) g/dL Hct 40.0 40.9 (37.5-50.1) % Plt Count 157 152 (140-400) K/mcL Neutrophils # 3.5 3.4 (1.6-8.9) K/mcL BMP 10/29/17 10/28/17 Range/Units 04:59 11:22 Sodium 135 L 134 L (136-145) mEq/L Potassium 4.4 4.8 (3.5-5.1) mEq/L Chloride 102 101 (98-107) mEq/L Carbon Dioxide 25 24 (23-29) mEq/L BUN 25 H 28 H (8-23) mg/dL Creatinine 1.03 1.17 (0.70-1.30) mg/dL Glucose 164 H 294 H (70-105) mg/dL Calcium 9.0 9.2 (8.6-10.3) mg/dL Cardiac Enzymes 10/28/17 Range/Units 11:22 Troponin I 0.60 H* (< 0.04) ng/mL Impressions Chest X-Ray 10/28/17 10:21 IMPRESSION: No acute process. D/ / Collin Jones MD / Collin Jones MD Interpreting Provider: Collin Jones MD Active Medications Acetaminophen (Tylenol) 650 mg PO Q6HR PRN PRN Reason: Headache Stop: 04/30/18 03:06 Last Admin: 10/29/17 03:19 Dose: 650 mg Aspirin (Aspirin Ec) 81 mg PO DAILY [facility] Stop: 04/30/18 09:01 Last Admin: 10/29/17 07:36 Dose: Not Given Aspirin (Aspirin) 81 mg PO DAILY [facility] Stop: 04/30/18 09:01 Last Admin: 10/29/17 07:34 Dose: 81 mg Budesonide/Formoterol Fumarate (Symbicort) 2 puff IH DAILYR [facility] Stop: 04/30/18 10:01 Last Admin: 10/29/17 07:21 Dose: Not Given Clopidogrel Bisulfate (Plavix) 75 mg PO DAILY [facility] Stop: 04/30/18 09:01 Last Admin: 10/29/17 07:34 Dose: 75 mg Dextrose/Water (Dextrose 50% (Syg)) 25 ml IVP AD PRN PRN Reason: Hypoglycemia Stop: 04/29/18 16:32 Glucagon (Glucagen) 1 mg IM ONCE PRN PRN Reason: Hypoglycemia Stop: 04/29/18 16:32 Glucose (Gluctose) 15 gm PO ONCE PRN PRN Reason: Hypoglycemia Stop: 04/29/18 16:32 Glucose (Gluctose) 30 gm PO ONCE PRN PRN Reason: Hypoglycemia Stop: 04/29/18 16:32 Heparin Sodium (Porcine) (Heparin) 4,000 unit IVP Q6HR PRN PRN Reason: SEE COMMENTS Stop: 04/29/18 12:20 Heparin Sodium (Porcine) (Heparin) 2,000 unit IVP Q6H PRN PRN Reason: SEE COMMENTS Stop: 04/29/18 12:20 Heparin Sodium/Dextrose (Heparin 25,000 Unit/500 Ml D5w) 25,000 unit in 500 mls @ 19.998 mls/hr IVC .Q24H CECELIA; 7.088 UNIT/KG/HR PRN Reason: Protocol Stop: 04/29/18 12:31 Last Titration: 10/29/17 07:42 Dose: 0 unit/kg/hr, 0 mls/hr Dextrose (Dextrose 5%) 1,000 mls @ 100 mls/hr IVC .Q10H PRN PRN Reason: HYPOGLYCEMIA Stop: 04/29/18 16:32 Insulin Human Lispro (Humalog) 0 units SQ TIDAC C[facility]IA PRN Reason: Protocol Stop: 04/30/18 07:31 Last Admin: 10/29/17 07:35 Dose: 4 units Meloxicam (Mobic) 7.5 mg PO DAILY [facility] Stop: 04/30/18 09:01 Last Admin: 10/29/17 07:34 Dose: 7.5 mg Metoprolol Succinate (Toprol Xl) 50 mg PO DAILY [facility] Stop: 04/30/18 09:01 Last Admin: 10/29/17 07:34 Dose: 50 mg Naloxone HCl (Narcan) 0.4 mg IVP Q2MIN PRN PRN Reason: SEE COMMENTS Stop: 04/29/18 16:25 Nitroglycerin (Nitroglycerin) 0.4 mg SL Q5MIN PRN PRN Reason: Chest Pain Stop: 04/29/18 10:35 Pharmacy Profile Note (Patient Taking Own Medication) 0 each PO DAILY [facility] Stop: 04/30/18 09:01 Last Admin: 10/29/17 07:36 Dose: Not Given Tamsulosin HCl (Flomax) 0.4 mg PO DAILY [facility] PRN Reason: Protocol Stop: 04/30/18 09:01 Last Admin: 10/29/17 07:34 Dose: 0.4 mg Valsartan (Diovan) 160 mg PO DAILY [facility] Stop: 04/30/18 09:01 Last Admin: 10/29/17 07:34 Dose: 160 mg - Imaging and Cardiology Echo: pending Cardiac cath: report reviewed - EKG Interpretation EKG results cardiology: other (12 hr tele AVG HR 68, SR, no significant pauses or arrhythmias noted.) Consult Discharge Plan - Plan Additional Instructions: RISK FACTORS: STOP SMOKING: If you smoke, STOP. Smoking or tobacco use significantly increases your risk of heart disease because nicotine causes the arteries to narrow or constrict. It also causes fats to stick to the artery. Your chances of having a heart attack are greatly increased if you continue to smoke. For more information, call the education line for smoking cessation 0-454-OTNXUHN EAT A LOW FAT/CHOLESTEROL/SODIUM DIET: This diet may help reduce your chances of having a heart attack. LIFTING: Avoid lifting anything more than 10 pounds for 5-7 days Prior to straining, laughing, sneezing and/or coughing, apply manual pressure directly over insertion site. ACTIVITY: You may walk or climb stairs as tolerated You can resume sexual activity as tolerated In general, you are encouraged to engage in a minimum of 30 minutes or more of moderate intensity physical activity, such as brisk walking, daily or at least 3 -4 times weekly BATHING Do not submerge the site into water (bath tub, hot tub, swimming pool) for 1 week. This can be a source for infection into the blood stream. You may shower after 24 hours SITE CARE: After 24 hours, you may remove the dressing and leave the site open to air. Keep the site clean and dry. Clean gently and pat dry. You can expect bruising and tenderness that gradually resolve within a week or two. Return to work as instructed per your physician Resume driving as instructed per physician Keep all scheduled follow up appointments Resume medications as instructed IMPORTANT: If prescribed a Platelet Aggregation Inhibitor such as, Plavix, Brilinta or Effient: Duration of therapy is minimum one year These medications are often used in combination with Aspirin in prevention of future heart attacks Never discontinue unless consult with your Hammer Setter STROKE (CVA) Risk factors for a stroke are: Age, cigarette smoking, diabetes, excessive alcohol consumption, family history, high blood pressure, overweight, physical inactivity, prior stroke, heart attack, diagnosis of carotid artery stenosis or other artery disease. Warning signs: Sudden numbness or weakness of the face, arm or leg; especially on one side of the body, sudden confusion, trouble speaking or understanding, sudden trouble seeing in one or both eyes, sudden trouble walking, dizziness, loss of balance or coordination, sudden severe headache with no cause. Call 911 or go to the Emergency Room. CONGESTIVE HEART FAILURE: If you have been diagnosed with Congestive Heart Failure (CHF) and your symptoms return, make an appointment with your physician Weigh yourself daily. Notify your physician if you have a weight gain of two or more pounds in one day or five or more pounds in one week. If you experience any difficulty breathing, please call 911 BLEEDING: Although the risk of bleeding is minimal, it can happen. If you have any bleeding from the site, apply firm pressure above the puncture site for 10-15 minutes. If the bleeding does not stop, continue manual pressure and call 911 Contact your physician if: You develop a fever greater than 101 degrees Fahrenheit Your site becomes reddened or has any drainage You have an increase in pain or burning at the site or if a large knot forms at the site. If you experience chest pain, shortness of breath, dizziness, or extreme tiredness, stop the activity and rest. Please notify your physicians office if you experience any of these symptoms and they are not relieved by rest please call 911! Referrals: Adalberto Up MD [Primary Care Provider] -
[2017-10-29] MEDS ORDERED: FISH OIL PO SCH (09:00)
[2017-10-29] MEDS ORDERED: Valsartan 160 MG TABLET PO SCH (09:00)
[2017-10-29] MEDS ORDERED: Metoprolol XL (24 HR) Succ 50 MG TAB.ER.24H PO SCH (09:00)
[2017-10-29] MEDS ORDERED: OMEGA3 PO SCH (09:00)
[2017-10-29] MEDS ORDERED: VIT D3 PO SCH (09:00)
[2017-10-29] MEDS ORDERED: DHA PO SCH (09:00)
[2017-10-29] MEDS ORDERED: Aspirin Enteric Coated 81 MG Tablet PO SCH (09:00)
[2017-10-29] MEDS ORDERED: Aspirin 81 MG TAB.CHEW PO SCH (09:00)
[2017-10-29] MEDS ORDERED: EPA PO SCH (09:00)
[2017-10-29] MEDS ORDERED: Budesonide/Formoterol 80/4.5 MDI IH SCH (10:00)
--- NOTE | 2017-10-29 10:02 | Discharge Summary ---
- NOTES TO OUTPATIENT PROVIDER Notes to Outpatient Provider: Follow-up with primary care physician within the next week. Follow-up with cardiology within next 2 weeks. Continue aspirin and Plavix. Continue metoprolol XL. Echocardiogram pending, follow up with cardiology for report Orders not resulted at time of discharge: Pending orders 10/29/17 07:00 EV echocardiogram Routine Date of Encounter: 10/29/17 Time of Encounter: 09:59 - Discharge Diagnosis (1) NSTEMI (non-ST elevated myocardial infarction) Priority: Primary Status: Acute Assessment and Plan: Status post drug-eluting stent to the RCA (2) Insulin dependent diabetes mellitus Priority: Secondary Status: Chronic (3) DVT prophylaxis Priority: Secondary Status: Acute (4) Obesity Priority: Secondary Status: Acute Assessment and Plan: Morbid obesity Qualifiers: Body mass index: BMI 45.0-49.9 Qualified Code(s): E66.9 - Obesity, unspecified; Z68.42 - Body mass index (BMI) 45.0-49.9, adult (5) Carotid stenosis Priority: Secondary Status: Acute Qualifiers: Laterality: right Qualified Code(s): I65.21 - Occlusion and stenosis of right carotid artery Hospital course: Mr. Saavedra is a 71 year old male with PMH of carotid stenosis, PVD with hx of iliac stents, DMII insulin dependent, CVA, hypertension, hyperlipidemia, VESTA and COPD. He presented to ED for exertional chest pain that started over the past week and has been getting progressively worse. Midsternal, burning in nature without radiation associated with dyspnea and diaphoresis. Chest pain improved with rest. EKG changes noted on presentation and initial troponin 0.60. Cardiology consulted.Pt chest pain free currently. Stress test 08/2016 Small sized, mild intensity, reversible apex/apical inferior perfusion defect possibly due to a small area of ischemia, has been medically managed. Has never had a LHC. Had a cardiac catheterization and received BRIANNE to mRCA. Remaining 70% mLAD lesion remains with recommendations to have staged PCI as outpt-cardiology will coordinate. DAPT (ASA and Plavix) uninterrupted x 1 year (takes Plavix for carotid stenosis already). No statin due to allergy. - Time Spent with Patient Total time spent providing and/or coordinating discharge services: Greater than 30 minutes (40 min) - Discharge Medications Prescriptions: Clopidogrel [Plavix] 75 mg PO DAILY #30 tablet Home Medications: Aspirin Enteric Coated [Aspirin EC] 81 mg PO DAILY 01/09/16 [History] Insulin Glargine,Hum.rec.anlog [Lantus Solostar] 60 - 70 unit SQ BID 01/09/16 [ History] Insulin LISPRO [Humalog Kwikpen U-100] 0 unit SQ TIDAC 01/09/16 [History] Meloxicam [Mobic] 7.5 mg PO DAILY 01/09/16 [History] Metformin HCl [Fortamet] 1,000 mg PO BID 01/09/16 [History] Metoprolol XL (24 HR) Succ [Toprol Xl] 50 mg PO DAILY 01/09/16 [History] Omega3/Dha/Epa/Fish Oil/Vit D3 [Fish Oil + Vitamin D-3 Softgel] 1 each PO DAILY 01/09/16 [History] Valsartan [Diovan] 160 mg PO DAILY 01/09/16 [History] Oxygen 1 - 2 l NS HS PRN 11/17/16 [History] Tamsulosin HCl [Flomax] 0.4 mg PO DAILY 11/17/16 [History] Fluticasone/Salmeterol [Advair 100-50 Diskus] 1 puff IH DAILY 10/28/17 [History] Clopidogrel [Plavix] 75 mg PO DAILY #30 tablet 10/29/17 [Rx] Allergies/Adverse Reactions: 3 Allergy/AdvReac Type Severity Reaction Status Date / Time Amoxicillin Allergy Unknown UNKOWN Verified 10/28/17 10:33 lisinopril Allergy Unknown Anaphylaxis Verified 10/28/17 10:33 levofloxacin [From Levaquin] Allergy Anaphylaxis Verified 10/28/17 10:33 carvedilol [From Coreg] AdvReac Intermediate MUSCLE Verified 10/28/17 10:33 CRAMPS losartan AdvReac Intermediate MUSCLE Verified 10/28/17 10:33 CRAMPS Ofkxuka-Kge-Sqe Reductase AdvReac Anaphylaxis Verified 10/28/17 10:33 Inhibitor [Statins] Date of admission: 10/28/17 17:43 Primary care physician: Adalberto Up MD - Constitutional Vitals: Temp Pulse Resp BP Pulse Ox 98.2 F 85 18 140/87 92 10/29/17 07:25 10/29/17 07:25 10/29/17 07:25 10/29/17 07:25 10/29/17 07:25 General appearance: Present: A&O X 3, morbidly obese, no acute distress - Head Head exam: Present: atraumatic, normocephalic - Eye Eye exam: Present: PERRL, conjuntiva pink, sclera anicteric Pupils: Present: PERRL - Neck Neck exam general surgery: Present: supple, trachea midline. Absent: lymphadenopathy - Respiratory Respiratory exam: Present: CTAB. Absent: accessory muscle use, rales, rhonchi, wheezes - Cardiovascular Cardiovascular exam: Present: RRR, +S1, +S2. Absent: diastolic murmur, gallop, rubs, systolic murmur - GI/Abdominal GI/Abdominal exam: Present: normal bowel sounds, soft, no peritoneal signs. Absent: distended, tenderness - Extremities Exam Extremities exam: Present: warm, radial pulses palpable and symmetrical. Absent : calf tenderness, cyanotic, pedal edema Additional comments: Right inguinal wound without signs of hematoma or infection - Neurological Exam Neurological exam: Present: CN II-XII intact, oriented X3, no focal deficits. Absent: pronater drift, facial droop, speech deficit - Skin Skin exam: Present: dry, intact - Patient Status Disposition: Home, Self-Care Condition: Good Overall status at discharge: patient is back to baseline - Discharge Instructions Follow Up With: Adalberto Up MD [Primary Care Provider] - Additional Instructions: RISK FACTORS: STOP SMOKING: If you smoke, STOP. Smoking or tobacco use significantly increases your risk of heart disease because nicotine causes the arteries to narrow or constrict. It also causes fats to stick to the artery. Your chances of having a heart attack are greatly increased if you continue to smoke. For more information, call the education line for smoking cessation 6-578-GWRGGEQ EAT A LOW FAT/CHOLESTEROL/SODIUM DIET: This diet may help reduce your chances of having a heart attack. LIFTING: Avoid lifting anything more than 10 pounds for 5-7 days Prior to straining, laughing, sneezing and/or coughing, apply manual pressure directly over insertion site. ACTIVITY: You may walk or climb stairs as tolerated You can resume sexual activity as tolerated In general, you are encouraged to engage in a minimum of 30 minutes or more of moderate intensity physical activity, such as brisk walking, daily or at least 3 -4 times weekly BATHING Do not submerge the site into water (bath tub, hot tub, swimming pool) for 1 week. This can be a source for infection into the blood stream. You may shower after 24 hours SITE CARE: After 24 hours, you may remove the dressing and leave the site open to air. Keep the site clean and dry. Clean gently and pat dry. You can expect bruising and tenderness that gradually resolve within a week or two. Return to work as instructed per your physician Resume driving as instructed per physician Keep all scheduled follow up appointments Resume medications as instructed IMPORTANT: If prescribed a Platelet Aggregation Inhibitor such as, Plavix, Brilinta or Effient: Duration of therapy is minimum one year These medications are often used in combination with Aspirin in prevention of future heart attacks Never discontinue unless consult with your Reuse Technician STROKE (CVA) Risk factors for a stroke are: Age, cigarette smoking, diabetes, excessive alcohol consumption, family history, high blood pressure, overweight, physical inactivity, prior stroke, heart attack, diagnosis of carotid artery stenosis or other artery disease. Warning signs: Sudden numbness or weakness of the face, arm or leg; especially on one side of the body, sudden confusion, trouble speaking or understanding, sudden trouble seeing in one or both eyes, sudden trouble walking, dizziness, loss of balance or coordination, sudden severe headache with no cause. Call 911 or go to the Emergency Room. CONGESTIVE HEART FAILURE: If you have been diagnosed with Congestive Heart Failure (CHF) and your symptoms return, make an appointment with your physician Weigh yourself daily. Notify your physician if you have a weight gain of two or more pounds in one day or five or more pounds in one week. If you experience any difficulty breathing, please call 911 BLEEDING: Although the risk of bleeding is minimal, it can happen. If you have any bleeding from the site, apply firm pressure above the puncture site for 10-15 minutes. If the bleeding does not stop, continue manual pressure and call 911 Contact your physician if: You develop a fever greater than 101 degrees Fahrenheit Your site becomes reddened or has any drainage You have an increase in pain or burning at the site or if a large knot forms at the site. If you experience chest pain, shortness of breath, dizziness, or extreme tiredness, stop the activity and rest. Please notify your physicians office if you experience any of these symptoms and they are not relieved by rest please call 911! - Diet and Activity Activity: increase activity as tolerated Diet: diabetic diet
[2017-10-29 11:22] VITALS: BP 134/66
[2017-10-29] MEDS ORDERED: Perflutren Lipid Microsphere 1.3 ML in 0.9 % Sodium Chloride 8.7 ML IVP ONE (13:21)
--- NOTE | 2017-10-31 05:55 | Electrocardiograph Report ---
[address] [employer] [place], [place] [address] Test Date: 2017-10-28 Pat Name: Carlos Saavedra Department: 103 Room: 2N03 Gender: M Visitor Service Assistant: [facility] : 1945 Requested By: Tu Michaels Order Number: [id number] Reading MD: Fam Gama Measurements Intervals [place] Rate: 66 P: 24 ID: 180 QRS: 6 QRSD: 109 T: -32 QT: 360 QTc: 374 Interpretive Statements SINUS RHYTHM WITH MARKED SINUS ARRHYTHMIA Electronically Signed On 10-31-2017 5:54:20 EDT by Fam Gama
--- NOTE | 2017-10-31 13:12 | Electrocardiograph Report ---
[address] [place] [address] Test Date: 2017-10-28 Pat Name: Carlos Saavedra Department: 110 Room: 2N03 Gender: M Medical Review Specialist: : 1945 Requested By: Ammy Boggs Order Number: [id number] Reading MD: Fam Gama Measurements Intervals [place] Rate: 61 P: 23 ND: 177 QRS: 1 QRSD: 113 T: -24 QT: 383 QTc: 387 Interpretive Statements SINUS RHYTHM INFERIOR MYOCARDIAL INFARCTION, OF INDETERMINATE AGE Electronically Signed On 10-31-2017 9:04:32 EDT by Fam Gama
--- NOTE | 2017-10-31 13:14 | Electrocardiograph Report ---
[place] [address] Test Date: 2017-10-28 Pat Name: Carlos Saavedra Department: 103 Room: 2N03 Gender: M Park Interpretive Ranger: JACOB : 1945 Requested By: Marco Antonio Murphy Order Number: [id number] Reading MD: Fam Gama Measurements Intervals [place] Rate: 96 P: 55 [place]: 181 QRS: 22 QRSD: 112 T: -27 QT: 337 QTc: 391 Interpretive Statements SINUS RHYTHM Electronically Signed On 10-31-2017 9:56:03 EDT by Fam Gama
== END 2017-10-29 14:01 | disposition home or self-care (01) | DRG 247 ==
LOC: 3BNU 10:18 → EMEROO 10:18 → 3BNU 14:00 → 2NNU 18:18
PROVIDERS: ADMIT Hospitalist; ATTEND Hospitalist

== ENCOUNTER 2017-12-11 18:21 | Inpatient (IN) ==
--- NOTE | 2017-12-11 19:07 | Emergency Department Note ---
Disposition Clinical Impression: Transient cerebral ischemia Qualifiers: Transient cerebral ischemia type: other Qualified Code(s): G45.8 - Other transient cerebral ischemic attacks and related syndromes Disposition: Admitted As Inpatient Condition: Fair Time of Disposition: 20:31 Neuro HPI - General Chief Complaint: ED Neuro Symptoms/Deficit Stated Complaint: stroke like symptoms Time Seen by Provider: 12/11/17 18:26 Source: patient Mode of arrival: ambulatory Limitations: no limitations Nursing Notes Reviewed: Yes Vital Signs Reviewed: Yes - History of Present Illness HPI Narrative: 72-year-old male presented to the emergency department complaining of right- sided facial droop. Patient states this all occurred approximately 30, one hour prior to his arrival. He says is also going down into his right arm and right leg where he had tingling and weakness. He said at approximately noon he had generalized dizziness. Until progress to this facial weakness and droop and where it sensation as well as right arm and leg changes. Patient states she has never had these symptoms before. Patient otherwise says he is fairly healthy. Patient had no events leading up to this. He said he was just sitting at home. Patient otherwise has no complaints including fever, nausea, vomiting, chills, chest pain, shortness of breath, abdominal pain, changes in bowel movements, pain with urination, generalized weakness. - Related Data Home Medications: Home Medications Medication Instructions Recorded Confirmed Aspirin Enteric Coated [Aspirin EC] 81 mg PO DAILY 01/09/16 11/17/17 Insulin Glargine,Hum.rec.anlog 60 - 70 unit SQ BID 01/09/16 11/17/17 [Lantus Solostar] Insulin LISPRO [Humalog Kwikpen 35 unit SQ TIDAC 01/09/16 11/17/17 U-100] Meloxicam [Mobic] 7.5 mg PO DAILY 01/09/16 11/17/17 Metformin HCl [Fortamet] 1,000 mg PO BID 01/09/16 11/17/17 Metoprolol XL (24 HR) Succ [Toprol 50 mg PO DAILY 01/09/16 11/17/17 Xl] Omega3/Dha/Epa/Fish Oil/Vit D3 1 each PO DAILY 01/09/16 11/17/17 [Fish Oil + Vitamin D-3 Softgel] Valsartan [Diovan] 160 mg PO DAILY 01/09/16 11/17/17 Oxygen 1 - 2 l NS HS PRN 11/17/16 11/17/17 Tamsulosin HCl [Flomax] 0.4 mg PO DAILY 11/17/16 11/17/17 Albuterol Sulfate [Ventolin Hfa] 1 - 2 puff IH Q4H PRN 11/17/17 11/17/17 Furosemide [Lasix] 40 mg PO DAILY 11/17/17 11/17/17 Previous Rx's Medication Instructions Recorded Clopidogrel [Plavix] 75 mg PO DAILY #30 tablet 10/29/17 Nitroglycerin 0.4 mg SL Q5MIN PRN #30 tab.subl 11/18/17 Allergies/Adverse Reactions: Allergies Allergy/AdvReac Type Severity Reaction Status Date / Time Amoxicillin Allergy Unknown UNKOWN Verified 10/28/17 10:33 lisinopril Allergy Unknown Anaphylaxis Verified 10/28/17 10:33 levofloxacin [From Levaquin] Allergy Anaphylaxis Verified 10/28/17 10:33 carvedilol [From Coreg] AdvReac Intermediate MUSCLE Verified 10/28/17 10:33 CRAMPS losartan AdvReac Intermediate MUSCLE Verified 10/28/17 10:33 CRAMPS budesonide [From Symbicort] AdvReac See Verified 11/17/17 08:46 Comments fluticasone AdvReac See Verified 11/17/17 08:45 [From Advair Diskus] Comments Formoterol [From Symbicort] AdvReac See Verified 11/17/17 08:46 Comments salmeterol AdvReac See Verified 11/17/17 08:45 [From Advair Diskus] Comments [id number] Reductase AdvReac Anaphylaxis Verified 10/28/17 10:33 Inhibitor [Statins] Review of Systems: 10 point review of systems done and negative unless otherwise stated in the history of present illness. All systems ED: reviewed and negative except as stated. Review of Systems: As Per HPI Past Medical History - Past Medical History Attestation: Yes The following information was validated with the patient. Source: patient Medical history: Reports: COPD, diabetes, hyperlipidemia, hypertension, other Surgical history: Reports: herniorrhaphy, knee replacement, other Psychiatric history: Reports: no psych history - Social History Smoking Status: Former smoker Smokeless Tobacco Status: No Alcohol use: Reports: none Drug use: Reports: none Physical Exam - General General appearance: alert - Head Head exam: atraumatic - Eye Eye exam: Present: normal appearance, PERRL, EOMI - ENT ENT exam: normal exam, normal oropharynx, mucous membranes moist - Neck Neck exam: Present: normal inspection, full ROM, trachea midline - Chest Chest inspection: Present: normal inspection, symmetric chest wall rise - Respiratory Respiratory exam: Present: normal lung sounds bilaterally - Cardiovascular Cardiovascular exam: Present: regular rate, normal rhythm, normal heart sounds - Abdominal Exam Abdominal exam: Present: soft, Non-Tender. Absent: tenderness, distention, guarding, rebound, rigidity - Extremities Exam Extremities exam: Present: normal inspection, full ROM. Absent: tenderness, pedal edema - Back Exam Back exam: Present: normal inspection, full ROM. Absent: tenderness - Neurological Exam Neurological exam: Present: alert, oriented X3, CN II-XII intact - Expanded Neurological Exam Patient oriented to: Present: person, place, time Speech: Present: fluid speech Cranial nerves: EOM function (II, III, IV, ): Normal, facial sensation (V): Normal, facial palsy (VII): Abnormal Right, spinal accessory function (XI): Normal, tongue deviation (XII): Abnormal Right Cerebellar function: finger to nose: Normal, heel to dinh: Normal Cerebellar function: normal gait Motor strength - LUE: 5/5 Motor strength - RUE: 3/5 Motor strength - LLE: 5/5 Motor strength - RLE: 3/5 Upper motor neuron exam: ele neglect: Absent bilaterally, pronator drift: Absent bilaterally, Babinski sign: Absent bilaterally, sensory extinction: Absent bilaterally Sensory exam upper extremity: light touch: Abnormal Right Sensory exam lower extremity: light touch: Abnormal Right Coma Scale Eye Opening: Spontaneous Coma Scale Motor Response: Obeys Commands Coma Scale Verbal Response: Oriented Coma Scale Total: 15 - Skin Skin exam: Present: warm, dry, intact, normal color Course Course Narrative: 9-year-old male present to the emergency department complaining of right-sided facial drooping and right-sided weakness. Stroke alert was called at that time. As his last known normal was 1830. He went over for stat head CT which came back negative. We did do normal stroke labs. NIH score was 4. - Reevaluation(s) Reevaluation #1: Tele-stroke from [facility] did see the patient and they did not recommend TPA and said patient cannot is to a normal stroke workup and that could be done her home facility. Patient's symptoms have now completely resolved where he does have mild right-sided facial droop but his strength in the right arm and right leg are back to normal. At this time we will continue the workup and plan to admit to our hospitalist service for further evaluation. Time: 19:12 - Consultations Consultation #1: Spoke with the hospitalist Dr. Ruff who agreed to admit the patient to their service and said they would see them. Time: 20:28 Vital Signs Temperature 97.7 F 12/11/17 18:39 Pulse Rate 87 12/11/17 18:39 Respiratory Rate 15 12/11/17 18:39 Blood Pressure 149/81 12/11/17 18:39 O2 Sat by Pulse Oximetry 98 12/11/17 18:39 Temperature 97.7 F 12/11/17 18:47 Pulse Rate 67 12/11/17 18:58 Respiratory Rate 16 12/11/17 18:58 Blood Pressure 151/79 12/11/17 18:58 O2 Sat by Pulse Oximetry 93 12/11/17 18:47 Oxygen Delivery Oxygen Delivery Room Air Neuro Symptoms/Deficit - MDM Narrative Medical decision making narrative: 72-year-old now presented to the emergency department complaining of strokelike symptoms. He had right sided facial droop as well as right word tongue deviation including right-sided weakness and right leg weakness he did have right arm drift. At this time we did decide to call a code stroke as his last known well was 1930 and he arrived at 2029. We are still within the three-hour window. The head CT came back with no acute changes was called to me from [facility]. At this time went to reevaluate the patient. His symptoms and his right side have nearly completely alleviated where he only had tingling but the weakness was completely gone. There was no right-sided drift. [facility] did see the patient and did not recommend TPA via their tele-neurologist. At this time we felt the patient could be admitted here. We did give patient 324 mg of aspirin. Patient also had labs drawn which all came back completely normal. Due to this most likely being a TIA we felt further evaluation is needed so we felt admission to the hospital was warranted. I spoke with the hospitalist who agreed to admit the patient to their service. Patient is admitted in stable condition. Head CT 12/11/17 18:31 IMPRESSION: No acute intracranial abnormality. Critical results were called by Dr. Antione Levine MD to Kartik Phoenix on 12/11/2017 at 18:51. D/ / Antione Levine MD / Antione Levine MD Interpreting Provider: Antione Levine MD - Medical Records Medical records reviewed: Yes I reviewed the patient's medical records. - Lab Data Lab results reviewed: Yes I reviewed the patient's lab results. Result diagrams: 12/11/17 19:05 12/11/17 18:36 Lab Results 12/11/17 12/11/17 12/11/17 Range/Units 17:09 18:36 18:36 WBC (4.3-11.1) K/mcL RBC (4.19-5.50) M/mcL Hgb (12.9-16.9) g/dL Hct (37.5-50.1) % MCV (83.0-100.0) fL MCH (28.0-33.3) pg MCHC (31.6-35.5) g/dL RDW (11.5-14.5) % Plt Count (140-400) K/mcL MPV (9.4-12.4) fL Immature Gran % (0-4) % Seg Neutrophils % % Lymphocytes % % Monocytes % % Eosinophils % % Basophils % % Neutrophils # (1.6-8.9) K/mcL Lymphocytes # (0.6-4.6) K/mcL Monocytes # (0.0-1.3) K/mcL Eosinophils # (0.0-0.6) K/mcL Basophils # (0.0-0.2) K/mcL PT (9.4-12.1) Seconds INR APTT (26.0-36.0) Seconds Sodium 136 (136-145) mEq/L Potassium 4.1 (3.5-5.1) mEq/L Chloride 100 (98-107) mEq/L Carbon Dioxide 28 (23-29) mEq/L BUN 25 H (8-23) mg/dL Creatinine 1.22 (0.70-1.30) mg/dL Est GFR ( Amer) > 60 (> 60) Est GFR (Non-Af Amer) 59 L (> 60) BUN/Creatinine Ratio 20 (6-26) Glucose 178 H (70-105) mg/dL Calculated Osmolality 291 (280-300) Calcium 9.0 (8.6-10.3) mg/dL Troponin I < 0.03 (< 0.04) ng/mL Urine Color Yellow (Yellow) Urine Clarity Clear (Clear) Urine pH 6.0 (5.0-8.0) pH Units Ur Specific [place] 1.014 (1.010-1.025) Urine Protein Negative (Neg-Trace) mg/dL Urine Glucose (UA) Normal (Normal) mg/dL Urine Ketones Negative (Negative) mg/dL Urine Blood Negative (Negative) Urine Nitrite Negative (Negative) Urine Bilirubin Negative (Negative) Urine Urobilinogen Normal (Normal) mg/dL Ur Leukocyte Esterase Negative (Negative) Ur Culture Indicated? NO (NO) Specimen Rejected Clotted 12/11/17 12/11/17 Range/Units 19:05 19:05 WBC 5.5 (4.3-11.1) K/mcL RBC 4.21 (4.19-5.50) M/mcL Hgb 13.2 (12.9-16.9) g/dL Hct 39.8 (37.5-50.1) % MCV 94.5 (83.0-100.0) fL MCH 31.4 (28.0-33.3) pg MCHC 33.2 (31.6-35.5) g/dL RDW 13.7 (11.5-14.5) % Plt Count 148 (140-400) K/mcL MPV 9.8 (9.4-12.4) fL Immature Gran % 0.2 (0-4) % Seg Neutrophils % 44.6 % Lymphocytes % 37.4 % Monocytes % 13.2 % Eosinophils % 4.2 % Basophils % 0.4 % Neutrophils # 2.5 (1.6-8.9) K/mcL Lymphocytes # 2.1 (0.6-4.6) K/mcL Monocytes # 0.7 (0.0-1.3) K/mcL Eosinophils # 0.2 (0.0-0.6) K/mcL Basophils # 0.0 (0.0-0.2) K/mcL PT 11.2 (9.4-12.1) Seconds INR 1.0 APTT 28.0 (26.0-36.0) Seconds Sodium (136-145) mEq/L Potassium (3.5-5.1) mEq/L Chloride (98-107) mEq/L Carbon Dioxide (23-29) mEq/L BUN (8-23) mg/dL Creatinine (0.70-1.30) mg/dL Est GFR ( Amer) (> 60) Est GFR (Non-Af Amer) (> 60) BUN/Creatinine Ratio (6-26) Glucose (70-105) mg/dL Calculated Osmolality (280-300) Calcium (8.6-10.3) mg/dL Troponin I (< 0.04) ng/mL Urine Color (Yellow) Urine Clarity (Clear) Urine pH (5.0-8.0) pH Units Ur Specific [place] (1.010-1.025) Urine Protein (Neg-Trace) mg/dL Urine Glucose (UA) (Normal) mg/dL Urine Ketones (Negative) mg/dL Urine Blood (Negative) Urine Nitrite (Negative) Urine Bilirubin (Negative) Urine Urobilinogen (Normal) mg/dL Ur Leukocyte Esterase (Negative) Ur Culture Indicated? (NO) Specimen Rejected - Radiology Data Radiology results reviewed: Yes I reviewed the patient's radiology results. - EKG Data EKG attestation: Yes I reviewed and interpreted this EKG. EKG results narrative: EKG done at 1918 review myself and attending shows sinus rhythm at a rate of 61 , MN interval 187, QRS 109, QTC 392. No acute ST changes no acute T-wave abnormalities no other signs of ischemia. No signs of heart block, heart strain , hypertrophy. No WPW/Brugada syndrome. No old EKG to compare with NIH Stroke Scale - Level of Consciousness LOC: Alert - LOC Questions LOC Questions: Answers both correctly - LOC Commands LOC Commands: Performs both correctly - Best Gaze Best Gaze: Normal - Visual Visual: No visual loss - Facial Palsy Facial Palsy: Partial, total, or near-total paralysis of lower face - Motor Arms Motor Arm-Left: No drift for 10 seconds Motor Arm-Right: Drift, does NOT hit bed - Motor Legs Motor Leg-Left: No drift for 5 seconds Motor Leg-Right: Drift, does NOT hit bed - Limb Ataxia Limb Ataxia: Absent of affected limb too weak to perform exam - Sensory Sensory: Normal - Best Language Best Language: No aphasia - Dysarthria Dysarthria: Normal - Extinction and Inattention Extinction and Inattention: Normal - NIHSS Total Score NIHSS Total Score: 4 TPA Checklist - LKW: 3-4.5 hrs Add. Warnings/Precautions Patient/family understanding: The patient/family members have been counseled and understood the risk, benefit , and alternatives of treatment.
[2017-12-11 19:10] LABS: BUN/Creatinine Ratio 20 (6-26); Blood Urea Nitrogen 25 mg/dL (8-23); Carbon Dioxide 28 mEq/L (23-29); Chloride 100 mEq/L (98-107); Glucose 178 mg/dL (70-105); Osmolality,Calculated 291 (280-300); Potassium 4.1 mEq/L (3.5-5.1); Sodium 136 mEq/L (136-145); Troponin I < 0.03 ng/mL (< 0.04); eGFR For African Americans > 60 (> 60); eGFR For Non-African Americans 59 (> 60)
[2017-12-11 19:16] LABS: Bilirubin,Urine Negative (Negative); Blood,Urine Negative (Negative); Clarity,Urine Clear (Clear); Color,Urine Yellow (Yellow); Glucose,Urine (UA) Normal (Normal); Ketones,Urine Negative (Negative); Leukocyte Esterase,Urine Negative (Negative); Nitrite,Urine Negative (Negative); Protein,Urine Negative (Neg-Trace); Specific Gravity,Urine 1.014 (1.010-1.025); Urobilinogen,Urine Normal (Normal)
[2017-12-11] MEDS ORDERED: Aspirin 81 MG TAB.CHEW PO ONE (19:18)
--- NOTE | 2017-12-11 19:19 | Emergency Department Note ---
Disposition Clinical Impression: Transient cerebral ischemia Qualifiers: Transient cerebral ischemia type: other Qualified Code(s): G45.8 - Other transient cerebral ischemic attacks and related syndromes Disposition: Still a Patient Forms: ED Satisfaction Letter General Adult HPI - General Chief complaint: ED Neuro Symptoms/Deficit Stated complaint: stroke like symptoms Time Seen by Provider: 12/11/17 18:26 Source: patient Mode of arrival: ambulatory Limitations: no limitations - History of Present Illness Pain Scale: 0 - Related Data Home Medications Medication Instructions Recorded Confirmed Aspirin Enteric Coated [Aspirin EC] 81 mg PO DAILY 01/09/16 11/17/17 Insulin Glargine,Hum.rec.anlog 60 - 70 unit SQ BID 01/09/16 11/17/17 [Lantus Solostar] Insulin LISPRO [Humalog Kwikpen 35 unit SQ TIDAC 01/09/16 11/17/17 U-100] Meloxicam [Mobic] 7.5 mg PO DAILY 01/09/16 11/17/17 Metformin HCl [Fortamet] 1,000 mg PO BID 01/09/16 11/17/17 Metoprolol XL (24 HR) Succ [Toprol 50 mg PO DAILY 01/09/16 11/17/17 Xl] Omega3/Dha/Epa/Fish Oil/Vit D3 1 each PO DAILY 01/09/16 11/17/17 [Fish Oil + Vitamin D-3 Softgel] Valsartan [Diovan] 160 mg PO DAILY 01/09/16 11/17/17 Oxygen 1 - 2 l NS HS PRN 11/17/16 11/17/17 Tamsulosin HCl [Flomax] 0.4 mg PO DAILY 11/17/16 11/17/17 Albuterol Sulfate [Ventolin Hfa] 1 - 2 puff IH Q4H PRN 11/17/17 11/17/17 Furosemide [Lasix] 40 mg PO DAILY 11/17/17 11/17/17 Previous Rx's Medication Instructions Recorded Clopidogrel [Plavix] 75 mg PO DAILY #30 tablet 10/29/17 Nitroglycerin 0.4 mg SL Q5MIN PRN #30 tab.subl 11/18/17 Allergies Allergy/AdvReac Type Severity Reaction Status Date / Time Amoxicillin Allergy Unknown UNKOWN Verified 10/28/17 10:33 lisinopril Allergy Unknown Anaphylaxis Verified 10/28/17 10:33 levofloxacin [From Levaquin] Allergy Anaphylaxis Verified 10/28/17 10:33 carvedilol [From Coreg] AdvReac Intermediate MUSCLE Verified 10/28/17 10:33 CRAMPS losartan AdvReac Intermediate MUSCLE Verified 10/28/17 10:33 CRAMPS budesonide [From Symbicort] AdvReac See Verified 11/17/17 08:46 Comments fluticasone AdvReac See Verified 11/17/17 08:45 [From Advair Diskus] Comments Formoterol [From Symbicort] AdvReac See Verified 11/17/17 08:46 Comments salmeterol AdvReac See Verified 11/17/17 08:45 [From Advair Diskus] Comments [id number]-Jgf Reductase AdvReac Anaphylaxis Verified 10/28/17 10:33 Inhibitor [Statins] Past Medical History - Past Medical History Medical history: Reports: COPD, diabetes, hyperlipidemia, hypertension, other Surgical history: Reports: herniorrhaphy, knee replacement, other Psychiatric history: Reports: no psych history - Social History Smoking Status: Former smoker Smokeless Tobacco Status: No Alcohol use: Reports: none Drug use: Reports: none Physical Exam - General Limitations: no limitations General appearance: alert Course Vital Signs Temperature 97.7 F 12/11/17 18:39 Pulse Rate 87 12/11/17 18:39 Respiratory Rate 15 12/11/17 18:39 Blood Pressure 149/81 12/11/17 18:39 O2 Sat by Pulse Oximetry 98 12/11/17 18:39 Temperature 97.7 F 12/11/17 18:47 Pulse Rate 67 12/11/17 18:58 Respiratory Rate 16 12/11/17 18:58 Blood Pressure 151/79 12/11/17 18:58 O2 Sat by Pulse Oximetry 93 12/11/17 18:47 Oxygen Delivery Oxygen Delivery Room Air Medical Decision Making - Lab Data Result diagrams: 12/11/17 18:36 Lab Results 12/11/17 Range/Units 18:36 Sodium 136 (136-145) mEq/L Potassium 4.1 (3.5-5.1) mEq/L Chloride 100 (98-107) mEq/L Carbon Dioxide 28 (23-29) mEq/L BUN 25 H (8-23) mg/dL Creatinine 1.22 (0.70-1.30) mg/dL Est GFR ( Amer) > 60 (> 60) Est GFR (Non-Af Amer) 59 L (> 60) BUN/Creatinine Ratio 20 (6-26) Glucose 178 H (70-105) mg/dL Calculated Osmolality 291 (280-300) Calcium 9.0 (8.6-10.3) mg/dL Troponin I < 0.03 (< 0.04) ng/mL Attestation Statement - Attestation Attestation: I examined this patient and my medical decision-making was reviewed with the Resident Physician. I agree with the documented findings, disposition and treatment plan as described except to the extent set forth below. This was a 72-year-old male presented to the emergency room for right facial droop and right leg weakness. States around noon today started feeling dizziness. Approximate one hour prior to ER arrival he started feeling numbness and weakness to the right side of his face. He also noted his tongue felt weird at that time. States he was almost unable to ambulate as he was unable to really lift his right leg. The right leg weakness has essentially dissipated at this time. On exam, he still has a right facial droop with a flattening of the right nasolabial fold. CT of the brain was unremarkable. It seems as though his symptoms are improving. His speech is clear. GCS of 15. No other focal motor or sensory deficits. The radiologist did read the head CT is negative. His labs are all pending at this time. Patient will need to be admitted for a TIA. Aspirin will be given. no critical care time
[2017-12-11 19:48] LABS: Basophils % 0.4 %; Eosinophils # 0.2 K/mcL (0.0-0.6); Eosinophils % 4.2 %; Hematocrit 39.8 % (37.5-50.1); Hemoglobin 13.2 g/dL (12.9-16.9); Immature Granulocytes % 0.2 % (0-4); Lymphocytes # 2.1 K/mcL (0.6-4.6); Lymphocytes % 37.4 %; Mean Corpuscular HGB Conc 33.2 g/dL (31.6-35.5); Mean Corpuscular Hemoglobin 31.4 pg (28.0-33.3); Mean Corpuscular Volume 94.5 fL (83.0-100.0); Mean Platelet Volume 9.8 fL (9.4-12.4); Monocytes # 0.7 K/mcL (0.0-1.3); Monocytes % 13.2 %; Neutrophils # 2.5 K/mcL (1.6-8.9); Platelet Count 148 K/mcL (140-400); Red Blood Count 4.21 M/mcL (4.19-5.50); Red Cell Distribution Width 13.7 % (11.5-14.5); Segmented Neutrophils % 44.6 %
[2017-12-11 19:55] LABS: Prothrombin Time 11.2 Seconds (9.4-12.1)
[2017-12-11] MEDS ORDERED: Acetaminophen 325 MG TABLET PO PRN (21:21)
[2017-12-11] MEDS ORDERED: Naloxone 0.4 MG/ML INJ IVP PRN (21:21)
[2017-12-11] MEDS ORDERED: D5% in Water 1,000 ML IVC PRN (21:23)
[2017-12-11] MEDS ORDERED: Dextrose Gel 15 GM/37.5 ML TUBE PO PRN ×2 (21:23)
[2017-12-11] MEDS ORDERED: *HR* Dextrose 50 % in Water (Syg) 50 ML SYRINGE IVP PRN (21:23)
[2017-12-11] MEDS ORDERED: Insulin DETEMIR 100 UNIT/ML X5UNITS SQ SCH (21:30)
--- NOTE | 2017-12-11 22:06 | Internal Med History&Physical ---
Date of Encounter: 12/11/17 Time of Encounter: 20:00 Internal Medicine - H&P: HPI Chief complaint: Right-sided weakness Admitted From: Home Plans for Post Hospital Care: Home History of present illness: Mr. Saavedra is a 72 year old male presented to ER for right-sided weakness. Past medical history is significant for diabetes, CAD S/P stent, carotid stenosis, COPD, hypertension, VESTA on BiPAP during night. Patient said started the from this afternoon around 12 PM he feels lightheaded. Around 4 PM, he started to feel dizziness, which he described as surroundings spinning. Patient has right-sided weakness, numbness, which involved both right leg and right arm. Patient has right-sided facial drop as well. Patient denies slurred speech. Patient denies chest pain or shortness of breath. In the emergency room, stroke alert was called, CT head shows no acute founding. [facility] neurology consult was also called. Patient's symptoms has improved to almost completely resolved in emergency room. [facility] neurology decide patient is not a candidate for TPA. Patient was admitted for further management. When I saw patient in 3B, he still feel dizziness but weakness has improved. Past Med Surg Social Fam HX - Past Medical History Medical history: COPD, diabetes, hyperlipidemia, hypertension, other Additional medical history: bilateral carotid artery stenosis. morbid obesity Psychiatric history: no psych history - Past Surgical History Surgical History: herniorrhaphy, knee replacement, other Additional surgical history: spinal fusion. [place] with stents - Social History Smoking Status: Former smoker Smokeless Tobacco Status: No Alcohol use: none Drug use: none - Family History Mother Living Status: Cause of : [place] Hx Family Cardiac Disorders: Yes Hx Family Respiratory Disorders: No Hx Family Cancer: No Hx Family GI Disorders: No Hx Family Genitourinary Disorders: No Hx Family Endocrine Disorder: Yes (dm) Hx Family Musculoskeletal Disorders: No Hx Family Neuromuscular Disorders: No Hx Family Neurologic Disorders: No Hx Family HEENT Disorders: No Hx Family Autoimmune Disorders: No Hx Family Reproductive Disorders: No Hx Family Psychosocial Disorders: No Hx Family Medical Disorders: No Mother Brother Hx Family Cardiac Disorders: Yes (CAD) Father Living Status: Hx Family Cardiac Disorders: Yes (mi) Hx Family Respiratory Disorders: No Hx Family Cancer: No Hx Family GI Disorders: No Hx Family Genitourinary Disorders: No Hx Family Endocrine Disorder: Yes (dm) Hx Family Musculoskeletal Disorders: No Hx Family Neuromuscular Disorders: No Hx Family Neurologic Disorders: No Hx Family HEENT Disorders: No Hx Family Autoimmune Disorders: No Hx Family Reproductive Disorders: No Hx Family Psychosocial Disorders: No Hx Family Medical Disorders: No Internal Medicine - H&P: Meds Aspirin Enteric Coated [Aspirin EC] 81 mg PO DAILY 01/09/16 [History] Insulin Glargine,Hum.rec.anlog [Lantus Solostar] 60 - 70 unit SQ BID 01/09/16 [ History] Insulin LISPRO [Humalog Kwikpen U-100] 35 unit SQ TIDAC 01/09/16 [History] Meloxicam [Mobic] 7.5 mg PO DAILY 01/09/16 [History] Metformin HCl [Fortamet] 1,000 mg PO BID 01/09/16 [History] Metoprolol XL (24 HR) Succ [Toprol Xl] 50 mg PO DAILY 01/09/16 [History] Omega3/Dha/Epa/Fish Oil/Vit D3 [Fish Oil + Vitamin D-3 Softgel] 1 each PO DAILY 01/09/16 [History] Valsartan [Diovan] 160 mg PO DAILY 01/09/16 [History] Tamsulosin HCl [Flomax] 0.4 mg PO DAILY 11/17/16 [History] Clopidogrel [Plavix] 75 mg PO DAILY #30 tablet 10/29/17 [Rx] Albuterol Sulfate [Ventolin Hfa] 1 - 2 puff IH Q4H PRN 11/17/17 [History] Furosemide [Lasix] 40 mg PO DAILY 11/17/17 [History] Nitroglycerin 0.4 mg SL Q5MIN PRN #30 tab.subl 11/18/17 [Rx] 3 Allergy/AdvReac Type Severity Reaction Status Date / Time Amoxicillin Allergy Unknown UNKOWN Verified 10/28/17 10:33 lisinopril Allergy Unknown Anaphylaxis Verified 10/28/17 10:33 levofloxacin [From Levaquin] Allergy Anaphylaxis Verified 10/28/17 10:33 carvedilol [From Coreg] AdvReac Intermediate MUSCLE Verified 10/28/17 10:33 CRAMPS losartan AdvReac Intermediate MUSCLE Verified 10/28/17 10:33 CRAMPS budesonide [From Symbicort] AdvReac See Verified 11/17/17 08:46 Comments fluticasone AdvReac See Verified 11/17/17 08:45 [From Advair Diskus] Comments Formoterol [From Symbicort] AdvReac See Verified 11/17/17 08:46 Comments salmeterol AdvReac See Verified 11/17/17 08:45 [From Advair Diskus] Comments [place]-Irv-Cve Reductase AdvReac Anaphylaxis Verified 10/28/17 10:33 Inhibitor [Statins] All Systems PM: A 10-system review of systems was performed and is negative for pertinent findings except as documented above in the HPI. - Constitutional Vitals: Temp Pulse Resp BP Pulse Ox 98.3 F 62 18 150/68 92 12/11/17 21:50 12/11/17 21:50 12/11/17 21:50 12/11/17 21:50 12/11/17 21:50 General appearance: Present: A&O X 3, no acute distress, answers questions appropriately - Head Head exam: Present: atraumatic, normocephalic - Eye Eye exam: Present: PERRL, conjuntiva pink, sclera anicteric Pupils: Present: PERRL - Neck Neck exam general surgery: Present: supple, trachea midline. Absent: lymphadenopathy - Respiratory Respiratory exam: Present: CTAB. Absent: accessory muscle use, rales, rhonchi, wheezes - Cardiovascular Cardiovascular exam: Present: RRR, +S1, +S2. Absent: diastolic murmur, gallop, rubs, systolic murmur - GI/Abdominal GI/Abdominal exam: Present: normal bowel sounds, soft, no peritoneal signs. Absent: distended, tenderness - Extremities Exam Extremities exam: Present: warm, radial pulses palpable and symmetrical. Absent : calf tenderness, cyanotic, pedal edema - Neurological Exam Neurological exam: Present: CN II-XII intact, oriented X3, no focal deficits. Absent: pronater drift, facial droop, speech deficit - Skin Skin exam: Present: dry, intact Internal Med - H&P Results - Labs CBC & Chem 7: 12/11/17 19:05 12/11/17 18:36 - Assessment and plan (1) Diabetes Current Visit: Yes Status: Acute Assessment and plan: We will continue basal and sliding scale insulin coverage. Closely monitor glucose. 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 Patient is not on statin because of allergy. (3) Vertigo Current Visit: Yes Status: Acute Assessment and plan: Need to rule out Central vertigo. Will have MRI brain tomorrow. Will give meclizine as needed (4) Transient cerebral ischemia Current Visit: Yes Status: Acute Assessment and plan: Patient has right sided weakness and right facial drop. Symptoms resolved spontaneously. Consider TIA. Patient had bilateral carotid stenosis and a history of CVA, high risk of for further stroke. - Aspirin 324 mg by mouth once given by ER - Continue cardiac monitoring - NIHSS protocol - MRI in AM - Echo - Consult vascular surgeon for carotid stenosis, nonurgent consult, day shift to call. Qualifiers: Transient cerebral ischemia type: other Qualified Code(s): G45.8 - Other transient cerebral ischemic attacks and related syndromes (5) CAD (coronary artery disease) Current Visit: No Status: Acute Assessment and plan: Denies chest pain. Continue home medications Qualifiers: Coronary Disease-Associated Artery/Lesion type: [place] artery [place] vs. transplanted heart: [place] heart Associated angina: without angina Qualified Code(s): I25.10 - Atherosclerotic heart disease of [place] coronary artery without angina pectoris (6) Carotid stenosis Current Visit: No Status: Acute Assessment and plan: We will consult vascular surgeon. Continue aspirin and Plavix. Patient had a recent CTA neck in September, no need further imaging test at this point. Qualifiers: Laterality: bilateral Qualified Code(s): I65.23 - Occlusion and stenosis of bilateral carotid arteries (7) DVT prophylaxis Current Visit: No Status: Acute Assessment and plan: Heparin subcutaneously (8) Obesity Current Visit: No Status: Acute Assessment and plan: Need the lifestyle modification as outpatient. Qualifiers: Obesity type: unspecified obesity type Body mass index: BMI 45.0-49.9 Qualified Code(s): E66.9 - Obesity, unspecified; Z68.42 - Body mass index (BMI) 45.0-49.9, adult (9) COPD (chronic obstructive pulmonary disease) Current Visit: No Status: Chronic Assessment and plan: No wheezing, continue albuterol inhaler when necessary. Qualifiers: COPD type: unspecified COPD Qualified Code(s): J44.9 - Chronic obstructive pulmonary disease, unspecified (10) VESTA (obstructive sleep apnea) Current Visit: Yes Status: Acute Assessment and plan: Patient said he uses BiPAP during night, will continue. Continuous pulse oximetry monitoring. - Time Spent With Patient Total time spent is greater than 50% in coordination of care (as documented) at patient's floor/unit and/or counseling patient: 40 minutes Greater than 35 minutes
[2017-12-12 04:58] LABS: Basophils % 0.6 %; Eosinophils # 0.2 K/mcL (0.0-0.6); Eosinophils % 4.5 %; Hematocrit 41.7 % (37.5-50.1); Hemoglobin 13.9 g/dL (12.9-16.9); Immature Granulocytes % 0.6 % (0-4); Lymphocytes % 37.3 %; Mean Corpuscular HGB Conc 33.3 g/dL (31.6-35.5); Mean Corpuscular Hemoglobin 31.9 pg (28.0-33.3); Mean Corpuscular Volume 95.6 fL (83.0-100.0); Mean Platelet Volume 10.3 fL (9.4-12.4); Monocytes # 0.7 K/mcL (0.0-1.3); Monocytes % 12.2 %; Neutrophils # 2.4 K/mcL (1.6-8.9); Platelet Count 133 K/mcL (140-400); Red Blood Count 4.36 M/mcL (4.19-5.50); Red Cell Distribution Width 13.6 % (11.5-14.5); Segmented Neutrophils % 44.8 %
[2017-12-12 05:05] LABS: BUN/Creatinine Ratio 23 (6-26); Blood Urea Nitrogen 27 mg/dL (8-23); Calcium 8.9 mg/dL (8.6-10.3); Carbon Dioxide 25 mEq/L (23-29); Chloride 103 mEq/L (98-107); Chol/HDL Ratio 5.9 (0-4.9); Cholesterol 212 mg/dL (< 200); Glucose 238 mg/dL (70-105); HDL Cholesterol 36 mg/dL (40-59); LDL Cholesterol,Calculated 126 mg/dL (0-99); Osmolality,Calculated 295 (280-300); Potassium 4.8 mEq/L (3.5-5.1); Sodium 136 mEq/L (136-145); Triglycerides 251 mg/dL (< 150); eGFR For African Americans > 60 (> 60); eGFR For Non-African Americans > 60 (> 60)
[2017-12-12] MEDS: *HR* Heparin 5,000 UNIT/ML VIAL SQ SCH ×2 (05:07→17:33)
[2017-12-12] MEDS: Furosemide 40 MG TABLET PO SCH (09:20)
[2017-12-12] MEDS: Aspirin Enteric Coated 81 MG Tablet PO SCH (09:20)
[2017-12-12] MEDS: Insulin DETEMIR 100 UNIT/ML X5UNITS SQ SCH ×2 (09:21→21:53)
[2017-12-12] MEDS: Valsartan 160 MG TABLET PO SCH (09:21)
[2017-12-12] MEDS: Metoprolol XL (24 HR) Succ 50 MG TAB.ER.24H PO SCH (09:21)
[2017-12-12] MEDS: Insulin LISPRO 300 UNITS/3 ML VIAL SQ SCH ×3 (09:27→17:34)
[2017-12-12] MEDS: VITAMIN D PO SCH (09:28)
[2017-12-12] MEDS: FISH OIL PO SCH (09:28)
--- NOTE | 2017-12-12 16:25 | Electrocardiograph Report ---
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
--- NOTE | 2017-12-12 16:33 | Internal Med Progress Note ---
Date of Encounter: 12/12/17 Time of Encounter: 16:28 - Assessment and plan (1) Transient cerebral ischemia Current Visit: Yes Status: Acute Assessment and plan: Patient has right sided weakness and right facial drop. Symptoms resolved spontaneously. Consider TIA. Patient had bilateral carotid stenosis and a history of CVA, high risk of for further stroke. - Continue DAPT and statin - Continue cardiac monitoring - NIHSS protocol - MRI completed with no acute infarct no acute intracranial abnormality minimal chronic microvascular ischemic changes - Echo-echo with grossly normal LV systolic function mild increased LV wall thickness mild left ventricular diastolic dysfunction RVs probably dilated function appears normal no significant valvular dysfunction and pulmonary hypertension IVC is not well visualized no evidence of PFO - Consult vascular surgeon for carotid stenosis,-spoke with Dr. Ortiz anticipate possible carotid endarterectomy on if patient in agreement. Patient will need to be cleared by cardiology prior to procedure since he did have a recent non-STEMI Qualifiers: Transient cerebral ischemia type: other Qualified Code(s): G45.8 - Other transient cerebral ischemic attacks and related syndromes (2) COPD (chronic obstructive pulmonary disease) Current Visit: No Status: Chronic Assessment and plan: Stable No wheezing, continue albuterol inhaler when necessary oxygen as needed Qualifiers: COPD type: unspecified COPD Qualified Code(s): J44.9 - Chronic obstructive pulmonary disease, unspecified (3) Obesity Current Visit: No Status: Acute Assessment and plan: Need the lifestyle modification as outpatient. Qualifiers: Obesity type: unspecified obesity type Obesity classification: adult class 3 (BMI >= 40) Serious obesity comorbidity presence: unspecified whether serious comorbidity present Body mass index: BMI 45.0-49.9 Qualified Code(s) : E66.9 - Obesity, unspecified; Z68.42 - Body mass index (BMI) 45.0-49.9, adult (4) CAD (coronary artery disease) Current Visit: No Status: Acute Assessment and plan: Denies chest pain. Continue home medications-aspirin Plavix statin beta nicole Continue with nitroglycerin as needed for chest pain Qualifiers: Coronary Disease-Associated Artery/Lesion type: [place] artery [place] vs. transplanted heart: [place] heart Associated angina: without angina Qualified Code(s): I25.10 - Atherosclerotic heart disease of [place] coronary artery without angina pectoris (5) Carotid stenosis Current Visit: No Status: Acute Assessment and plan: Vascular surgery was consulted I did speak with Dr. Ortiz who will review images-anticipating possible carotid endarterectomy however patient will need cardiology clearance if patient is agreement for surgery We will continue with DAPT recent CTA neck in September as well as carotid duplex no further imaging needed at this time . Qualifiers: Laterality: bilateral Qualified Code(s): I65.23 - Occlusion and stenosis of bilateral carotid arteries (6) Diabetes Current Visit: Yes Status: Acute Assessment and plan: We will continue basal and sliding scale insulin coverage. 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 Patient is not on statin because of allergy. (8) Vertigo Current Visit: Yes Status: Acute Assessment and plan: Need to rule out [place] vertigo. Will have MRI no acute intracranial abnormality no acute infarcts minimal chronic microvascular ischemic changes . Will give meclizine as needed (9) VESTA (obstructive sleep apnea) Current Visit: Yes Status: Acute Assessment and plan: Patient said he uses BiPAP during night, will continue. Continuous pulse oximetry monitoring. (10) DVT prophylaxis Current Visit: No Status: Acute Assessment and plan: Heparin subcutaneously - Time Spent With Patient Total time spent is greater than 50% in coordination of care (as documented) at patient's floor/unit and/or counseling patient: - Subjective Interval history: Patient was seen and examined at bedside neurologically is intact alert and oriented appropriate. Patient states he feels weak no dizziness at this time. Denies any pain or discomfort at this time. Review treatment plan the patient who verbalized understanding. - Constitutional Vitals: Temp Pulse Resp BP Pulse Ox 97.8 F 64 17 167/104 92 12/12/17 07:58 12/12/17 07:58 12/12/17 07:58 12/12/17 07:58 12/12/17 07:58 General appearance: Present: A&O X 3, no acute distress, answers questions appropriately - Head Head exam: Present: atraumatic, normocephalic - Eye Eye exam: Present: PERRL, conjuntiva pink, sclera anicteric Pupils: Present: PERRL - Neck Neck exam general surgery: Present: supple, trachea midline. Absent: lymphadenopathy - Respiratory Respiratory exam: Present: CTAB. Absent: accessory muscle use, rales, rhonchi, wheezes - Cardiovascular Cardiovascular exam: Present: RRR, +S1, +S2. Absent: diastolic murmur, gallop, rubs, systolic murmur - GI/Abdominal GI/Abdominal exam: Present: normal bowel sounds, soft, no peritoneal signs. Absent: distended, tenderness - Extremities Exam Extremities exam: Present: warm, radial pulses palpable and symmetrical. Absent : calf tenderness, cyanotic, pedal edema - Neurological Exam Neurological exam: Present: CN II-XII intact, oriented X3, no focal deficits, strengths equal and symetr throughout. Absent: pronater drift, facial droop, speech deficit - Skin Skin exam: Present: dry, intact Internal Medicine: Result - Labs CBC & Chem 7: 12/12/17 04:41 12/12/17 04:41 Labs: Short CBC 12/12/17 Range/Units 04:41 WBC 5.4 (4.3-11.1) K/mcL Hgb 13.9 (12.9-16.9) g/dL Hct 41.7 (37.5-50.1) % Plt Count 133 L (140-400) K/mcL Neutrophils # 2.4 (1.6-8.9) K/mcL BMP 12/12/17 04:41 Sodium 136 Potassium 4.8 Chloride 103 Carbon Dioxide 25 BUN 27 H Creatinine 1.15 Glucose 238 H Calcium 8.9 - ABG Interpretation ABG results: PT/INR, D-dimer PT 11.2 Seconds (9.4-12.1) 12/11/17 19:05 - Impressions Impressions Brain MRI 12/12/17 07:42 IMPRESSION: 1. No acute intracranial abnormality. No acute infarct. 2. Minimal chronic microvascular ischemic changes. D/ / Kalia Jama MD / Kalia Jama MD Interpreting Provider: Kalia Jama MD Echocardiogram 12/12/17 22:13 Impressions: Grossly normal LV systolic function. Not all LV wall segments were well visualized. Mild increased LV wall thickness. Mild left ventricular diastolic dysfunction. RV is probably dilated. Function appears normal. No significant valvular dysfunction. No pulmonary hypertension. IVC is not well visualized. No evidence of PFO with agitated saline contrast. Left Ventricular Wall Motion: Rest Echo Findings The apical anterior, mid anterior, basal anterior, apical lateral, mid anterior lateral and basal anterior lateral bullard were not visualized. All other wall segments showed normal motion. Findings: Study Quality * Technically adequate exam. ECG Findings * Normal sinus rhythm. Left Ventricle * Grossly normal LV systolic function. * Normal LV chamber size. * Mild left ventricular diastolic dysfunction. * Mild concentric left ventricular hypertrophy. Right Ventricle * RV is probably dilated. Function appears normal. Left Atrium * Moderately dilated left atrium. Right Atrium * Normal right atrial size. Mitral Valve * Normal mitral valve structure. * No mitral stenosis. * No mitral regurgitation. Aortic Valve * No aortic regurgitation. * Trileaflet aortic valve. * Mildly thickened aortic valve leaflets. * No aortic stenosis. Tricuspid Valve * Tricuspid valve not well visualized. * Trace tricuspid regurgitation. Pulmonic Valve * Pulmonic valve is not well visualized. * No pulmonic stenosis. * No pulmonic regurgitation. Pulmonary Artery * Pulmonary artery not well visualized. Aorta * Normally sized aortic root. Pericardium * There is no pericardial effusion present. Interatrial Septum * No evidence of PFO by color Doppler. * No evidence of PFO with agitated saline contrast. IVC * The IVC is not well evaluated. Consult Discharge Plan - Plan Referrals: Adalberto Up MD [Primary Care Provider] -
[2017-12-12] MEDS ORDERED: Nitroglycerin 0.4 MG TAB.SUBL SL PRN (16:37)
--- NOTE | 2017-12-12 18:29 | Vascular/Endovasc Consult Note ---
Date of Encounter: 12/12/17 Time of Encounter: 18:23 Assessment and Plan (1) TIA (transient ischemic attack) Current Visit: Yes Status: Acute Patient presents with left hemispheric TIA. This is resolved. A shunt is now comfortable and without neurologic deficit. Due to his known carotid artery stenosis and left vertebral stenosis as well as previous neurologic event the patient presents with a high risk profile for stroke. The patient also has multiple concomitant medical risk factors as outlined elsewhere. Because of these issues I have recommended that the patient undergo a left carotid endarterectomy this week. He should continue his dual antiplatelet therapy unabated. Of note the patient is not on statin agents. I suggested to the primary service that they consult cardiology so that they are aware of our intention for general anesthesia. The timing of this operation is not ideal as it is approximately only 1 month since his coronary intervention but his risk of stroke is real and further protection of the cerebrovascular system is indicated. This was explained in great detail to the patient and his , including risks versus benefits and complications and alternatives. All questions were answered I will request Dr. Moon to see the patient tomorrow as a second opinion at the patient's request. I have suggested the carotid endarterectomy be performed on if I am to be the operating surgeon. If they ask Dr. Moon to perform the surgery he will review his schedule for availability. Qualifiers: Transient cerebral ischemia type: other Qualified Code(s): G45.8 - Other transient cerebral ischemic attacks and related syndromes (2) NSTEMI (non-ST elevated myocardial infarction) Current Visit: No Status: Acute Patient is status post non-STEMI. Patient had coronary intervention on November 17 with placement of 3 stents. (3) Obesity Current Visit: Yes Status: Chronic Chronic obesity Qualifiers: Obesity type: unspecified obesity type Obesity classification: adult class 3 (BMI >= 40) Serious obesity comorbidity presence: unspecified whether serious comorbidity present Body mass index: BMI 45.0-49.9 Qualified Code(s) : E66.9 - Obesity, unspecified; Z68.42 - Body mass index (BMI) 45.0-49.9, adult (4) Transient cerebral ischemia Current Visit: Yes Status: Acute Left hemispheric TIA. No residual effect at this time. See above for further discussion regarding treatment plan. Qualifiers: Transient cerebral ischemia type: carotid artery syndrome (hemispheric) Qualified Code(s): G45.1 - Carotid artery syndrome (hemispheric) (5) Diabetes Current Visit: Yes Status: Chronic Patient has long history of diabetes with complications involving the cerebrovascular and cardiovascular systems. 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 Saavedra is a 72 year old male He was admitted yesterday because of the progressive onset of right-sided neurologic symptoms. The patient states he had been having headaches for the past few days on the left parietal and exited little area. When he woke up yesterday morning he had some mild dizziness and when he was at [employer] yesterday the dizziness continued. He then went home with his . He subsequently developed numbness on his face and weakness on the right side. This then progressed down into his right upper extremity and hand and the right lower extremity. When he attempted to stand up he had abnormal sensations in his right arm and right leg and was unable to walk. He then came to the hospital. He was admitted and underwent a stroke protocol. The emergent CT scan showed no acute findings. He was judged to be an appropriate candidate for thrombolytic therapy. The patient had resolution of his symptoms. On my visit with him this evening he is comfortable and awake. He has no complaints. He states he's back to his baseline with no residual effect. Of note the patient had some type of left hemispheric event in remote past. The patient has known bilateral carotid artery disease. He has been seen in the past by Dr. Moon and he was last in the clinic on October 17. The patient has had duplex scans in December 2015, July 2016, and August 2017. These have consistently shown a 60-79% stenosis bilaterally with gradual further deterioration and exacerbation of the stenosis. This then led to a CT angiogram performed in August of this year. This demonstrated at least a 75% if not greater stenosis in the proximal aspect of the internal carotid arteries bilaterally. In addition there is significant calcific changes at the proximal internal carotid artery by CT scanning which limits the stenosis and the degree of stenosis may actually be greater. In addition to this the patient was identified as having significant left vertebral artery disease. Thus 3 out of the 4 major vessels to the brain are affected by hemodynamically significant stenosis. Complicating all of this the patient suffered a non-STEMI in late October. He went on to have 3 drug-eluting stents placed on November 17. The patient has been observant of the desired medical treatment and he has been taking dual antiplatelet therapy with aspirin and clopidogrel as well as his long-term medications. This is worrisome as he has had this TIA despite active antiplatelet therapy. Past Med Surg Social Fam HX - Past Medical History Medical history: COPD, diabetes, hyperlipidemia, hypertension, other Additional medical history: bilateral carotid artery stenosis. morbid obesity Psychiatric history: no psych history - Past Surgical History Surgical History: herniorrhaphy, knee replacement, other Additional surgical history: spinal fusion. [place] with stents - Social History Smoking Status: Former smoker Smokeless Tobacco Status: No Alcohol use: none Drug use: none - Family History Mother Living Status: Cause of : [place] Hx Family Cardiac Disorders: Yes Hx Family Respiratory Disorders: No Hx Family Cancer: No Hx Family GI Disorders: No Hx Family Genitourinary Disorders: No Hx Family Endocrine Disorder: Yes (dm) Hx Family Musculoskeletal Disorders: No Hx Family Neuromuscular Disorders: No Hx Family Neurologic Disorders: No Hx Family HEENT Disorders: No Hx Family Autoimmune Disorders: No Hx Family Reproductive Disorders: No Hx Family Psychosocial Disorders: No Hx Family Medical Disorders: No Mother Brother Hx Family Cardiac Disorders: Yes (CAD) Father Living Status: Hx Family Cardiac Disorders: Yes (mi) Hx Family Respiratory Disorders: No Hx Family Cancer: No Hx Family GI Disorders: No Hx Family Genitourinary Disorders: No Hx Family Endocrine Disorder: Yes (dm) Hx Family Musculoskeletal Disorders: No Hx Family Neuromuscular Disorders: No Hx Family Neurologic Disorders: No Hx Family HEENT Disorders: No Hx Family Autoimmune Disorders: No Hx Family Reproductive Disorders: No Hx Family Psychosocial Disorders: No Hx Family Medical Disorders: No Medications and Allergies Aspirin Enteric Coated [Aspirin EC] 81 mg PO DAILY 01/09/16 [History] Insulin Glargine,Hum.rec.anlog [Lantus Solostar] 60 - 70 unit SQ BID 01/09/16 [ History] Insulin LISPRO [Humalog Kwikpen U-100] 35 unit SQ TIDAC 01/09/16 [History] Meloxicam [Mobic] 7.5 mg PO DAILY 01/09/16 [History] Metformin HCl [Fortamet] 1,000 mg PO BID 01/09/16 [History] Metoprolol XL (24 HR) Succ [Toprol Xl] 50 mg PO DAILY 01/09/16 [History] Omega3/Dha/Epa/Fish Oil/Vit D3 [Fish Oil + Vitamin D-3 Softgel] 1 each PO DAILY 01/09/16 [History] Valsartan [Diovan] 160 mg PO DAILY 01/09/16 [History] Tamsulosin HCl [Flomax] 0.4 mg PO DAILY 11/17/16 [History] Clopidogrel [Plavix] 75 mg PO DAILY #30 tablet 10/29/17 [Rx] Albuterol Sulfate [Ventolin Hfa] 1 - 2 puff IH Q4H PRN 11/17/17 [History] Furosemide [Lasix] 40 mg PO DAILY 11/17/17 [History] Nitroglycerin 0.4 mg SL Q5MIN PRN #30 tab.subl 11/18/17 [Rx] 3 Allergy/AdvReac Type Severity Reaction Status Date / Time Amoxicillin Allergy Unknown UNKOWN Verified 10/28/17 10:33 lisinopril Allergy Unknown Anaphylaxis Verified 10/28/17 10:33 levofloxacin [From Levaquin] Allergy Anaphylaxis Verified 10/28/17 10:33 carvedilol [From Coreg] AdvReac Intermediate MUSCLE Verified 10/28/17 10:33 CRAMPS losartan AdvReac Intermediate MUSCLE Verified 10/28/17 10:33 CRAMPS budesonide [From Symbicort] AdvReac See Verified 11/17/17 08:46 Comments fluticasone AdvReac See Verified 11/17/17 08:45 [From Advair Diskus] Comments Formoterol [From Symbicort] AdvReac See Verified 11/17/17 08:46 Comments salmeterol AdvReac See Verified 11/17/17 08:45 [From Advair Diskus] Comments Rxxvirw-Zlo-Lnn Reductase AdvReac Anaphylaxis Verified 10/28/17 10:33 Inhibitor [Statins] All Systems Review: The remainder of the systems were reviewed and are negative Exam General: Present: Conversant, No Apparent Distress, Well developed, Well nourished, Other (Significantly obese male with weight of over 300 pounds) HEENT: Present: Atraumatic, Normocephaly, Trachea midline, Pupils equal Neck: Absent: JVD, Lymphadenopathy, Left Carotid bruit, Right Carotid bruit, Midline deformity, Tracheal deviation Cardiac: Present: Reg Rate and Rhythm, Normal S1 and S2, No Murmur. Absent: Irregular Rhythm Lungs: Present: Normal Breath Sounds, No Wheeze, Rales, Rhonchi Neuro: Present: Alert and responsive, No focal deficits noted, Cranial nerves grossly intact, Motor nerves grossly intact, Sensory nerves grossly intact Abdomen: Present: Soft, Non-tender, Other (Obese) Vascular: Present: Pulse, normal (2+ palpable brachial and radial pulses) Skin: Present: No rashes noted on visualized skin Consult Discharge Plan - Plan Referrals: Adalberto Up MD [Primary Care Provider] -
[2017-12-12] MEDS ORDERED: Insulin LISPRO 300 UNITS/3 ML VIAL SQ SCH (21:00)
[2017-12-13] MEDS: *HR* Heparin 5,000 UNIT/ML VIAL SQ SCH (05:39)
[2017-12-13 07:24] LABS: Basophils % 0.6 %; Eosinophils # 0.2 K/mcL (0.0-0.6); Hematocrit 43.2 % (37.5-50.1); Hemoglobin 14.1 g/dL (12.9-16.9); Immature Granulocytes % 0.4 % (0-4); Lymphocytes # 1.7 K/mcL (0.6-4.6); Lymphocytes % 34.1 %; Mean Corpuscular HGB Conc 32.6 g/dL (31.6-35.5); Mean Corpuscular Hemoglobin 31.4 pg (28.0-33.3); Mean Corpuscular Volume 96.2 fL (83.0-100.0); Mean Platelet Volume 10.2 fL (9.4-12.4); Monocytes # 0.7 K/mcL (0.0-1.3); Monocytes % 12.9 %; Neutrophils # 2.4 K/mcL (1.6-8.9); Platelet Count 143 K/mcL (140-400); Red Blood Count 4.49 M/mcL (4.19-5.50); Red Cell Distribution Width 13.8 % (11.5-14.5)
[2017-12-13 07:45] LABS: BUN/Creatinine Ratio 22 (6-26); Blood Urea Nitrogen 26 mg/dL (8-23); Calcium 9.5 mg/dL (8.6-10.3); Carbon Dioxide 27 mEq/L (23-29); Chloride 102 mEq/L (98-107); Glucose 165 mg/dL (70-105); Osmolality,Calculated 292 (280-300); Potassium 4.6 mEq/L (3.5-5.1); Sodium 137 mEq/L (136-145); eGFR For African Americans > 60 (> 60); eGFR For Non-African Americans 60 (> 60)
[2017-12-13] MEDS: Metoprolol XL (24 HR) Succ 50 MG TAB.ER.24H PO SCH (09:04)
[2017-12-13] MEDS: Aspirin Enteric Coated 81 MG Tablet PO SCH (09:04)
[2017-12-13] MEDS: Valsartan 160 MG TABLET PO SCH (09:04)
[2017-12-13] MEDS: Insulin LISPRO 300 UNITS/3 ML VIAL SQ SCH ×5 (09:04→19:56)
[2017-12-13] MEDS: Furosemide 40 MG TABLET PO SCH (09:04)
[2017-12-13] MEDS: FISH OIL PO SCH (09:05)
[2017-12-13] MEDS: VITAMIN D PO SCH (09:05)
[2017-12-13] MEDS: Insulin DETEMIR 100 UNIT/ML X5UNITS SQ SCH ×2 (09:09→19:59)
[2017-12-13 09:32] LABS: Estimated Average Glucose 212 mg/dl
--- NOTE | 2017-12-13 10:33 | Cardiology Consult Note ---
Date of Encounter: 12/13/17 Time of Encounter: 09:00 Assessment and Plan (1) Preoperative cardiovascular examination Current Visit: Yes Status: Acute Preoperative risk operative stratification prior to left carotid endartecomy under general anesthesia Hx of CAD s/p recent PCI (October 2017); reports compliance with all medications including DAPT (asa + plavix). No ischemic changes noted upon ECG, troponin negative. Patient denies any chest pain symptoms or angina since PCI at the end of last month. States fatigue has resolved. TTE this admission shows grossly normal LVEF. Patient is an acceptable intermediate risk candidate to proceed with high risk surgical procedure. Recommend uninterrupted DAPT (asa + plavix) and BB in the pre and xena-operative procedure. No further recommendations from cardiology as inpatient. Will further discuss and review with Dr. Gama. (2) TIA (transient ischemic attack) Current Visit: Yes Status: Acute Hx of TIA in the past, has known severe carotid disease. Given recurrent TIA, plan for left carotid endartectomy on . Mgmt per Vascular surgery. Qualifiers: Transient cerebral ischemia type: carotid artery syndrome (hemispheric) Qualified Code(s): G45.1 - Carotid artery syndrome (hemispheric) (3) CAD (coronary artery disease) Current Visit: Yes Status: Chronic Hx of CAD s/p recent PCI 11/17/17. Recommend uninterrupted DAPT (asa + plavix) for a minimum of 1 year. Continue BB. Unfortunately not on statin d/t myalgias and elevated CK while on statin. Qualifiers: Coronary Disease-Associated Artery/Lesion type: bel[place]ski artery [place] vs. transplanted heart: belk[place]ski heart Associated angina: without angina Qualified Code(s): I25.10 - Atherosclerotic heart disease of belk[place]ski coronary artery without angina pectoris Discussion w patient/family: The assessment and plan as outlined above was discussed with the patient and/or family members who expressed understanding and agreement. All questions were answered. Thank you for involving us in the care of your patient. Please call with any questions. The patient will be discussed and reviewed with Dr. Gama; changes to be made accordingly. History of Present Illness Consult date: 12/13/17 Requesting physician: Issa Rincon Consult reason: Pre-operative risk stratification Chief complaint: TIA symptoms History of present illness: Mr. Saavedra is a 72 year old male with PMHx significant for CAD s/p recent PCI, prior TIA, HTN, HLD, DMII, COPD, VESTA on CPAP, and known carotid disease who presented to the ED after TIA symptoms that started on Tuesday and progressively worsened throughout the day. Symptoms included dizziness, right sideded lip numbness, right arm tingling, and right leg weakness. He was felt to have TIA. Given his known severe carotid disease, he was recommended to undergo left carotid endartectomy with Dr. Watts under general anesthesia, scheduled for . He denies chest pain or discomfort. He denies anginal symptoms s/p recent PCI. No ischemic ECG changes noted upon admission. Prior CV testing: [facility] 10/28/17: EF 55%, s/p successful PTCA/BRIANNE to mRCA (NSTEMI) [facility] 11/17/17 (staged): s/p successful PTCA/BRIANNE to mLAD and mid to distal LAD Past Med Surg Social Fam HX - Past Medical History Attestation: Yes The following information was validated with the patient. Source: patient Medical history: COPD, coronary artery disease, diabetes, hyperlipidemia, hypertension, peripheral artery disease, other Additional medical history: bilateral carotid artery stenosis. morbid obesity Psychiatric history: no psych history - Past Surgical History Surgical History: angioplasty/stent, herniorrhaphy, knee replacement, other Additional surgical history: spinal fusion. [place] with stents - Social History Smoking Status: Former smoker Smokeless Tobacco Status: No Alcohol use: none Drug use: none - Family History Mother Living Status: Cause of : [place] Hx Family Cardiac Disorders: Yes Hx Family Respiratory Disorders: No Hx Family Cancer: No Hx Family GI Disorders: No Hx Family Genitourinary Disorders: No Hx Family Endocrine Disorder: Yes (dm) Hx Family Musculoskeletal Disorders: No Hx Family Neuromuscular Disorders: No Hx Family Neurologic Disorders: No Hx Family HEENT Disorders: No Hx Family Autoimmune Disorders: No Hx Family Reproductive Disorders: No Hx Family Psychosocial Disorders: No Hx Family Medical Disorders: No Mother Brother Hx Family Cardiac Disorders: Yes (CAD) Father Living Status: Hx Family Cardiac Disorders: Yes (mi) Hx Family Respiratory Disorders: No Hx Family Cancer: No Hx Family GI Disorders: No Hx Family Genitourinary Disorders: No Hx Family Endocrine Disorder: Yes (dm) Hx Family Musculoskeletal Disorders: No Hx Family Neuromuscular Disorders: No Hx Family Neurologic Disorders: No Hx Family HEENT Disorders: No Hx Family Autoimmune Disorders: No Hx Family Reproductive Disorders: No Hx Family Psychosocial Disorders: No Hx Family Medical Disorders: No Medications and Allergies Aspirin Enteric Coated [Aspirin EC] 81 mg PO DAILY 01/09/16 [History] Insulin Glargine,Hum.rec.anlog [Lantus Solostar] 60 - 70 unit SQ BID 01/09/16 [ History] Insulin LISPRO [Humalog Kwikpen U-100] 35 unit SQ TIDAC 01/09/16 [History] Meloxicam [Mobic] 7.5 mg PO DAILY 01/09/16 [History] Metformin HCl [Fortamet] 1,000 mg PO BID 01/09/16 [History] Metoprolol XL (24 HR) Succ [Toprol Xl] 50 mg PO DAILY 01/09/16 [History] Omega3/Dha/Epa/Fish Oil/Vit D3 [Fish Oil + Vitamin D-3 Softgel] 1 each PO DAILY 01/09/16 [History] Valsartan [Diovan] 160 mg PO DAILY 01/09/16 [History] Tamsulosin HCl [Flomax] 0.4 mg PO DAILY 11/17/16 [History] Clopidogrel [Plavix] 75 mg PO DAILY #30 tablet 10/29/17 [Rx] Albuterol Sulfate [Ventolin Hfa] 1 - 2 puff IH Q4H PRN 11/17/17 [History] Furosemide [Lasix] 40 mg PO DAILY 11/17/17 [History] Nitroglycerin 0.4 mg SL Q5MIN PRN #30 tab.subl 11/18/17 [Rx] 3 Allergy/AdvReac Type Severity Reaction Status Date / Time Amoxicillin Allergy Unknown UNKOWN Verified 10/28/17 10:33 lisinopril Allergy Unknown Anaphylaxis Verified 10/28/17 10:33 levofloxacin [From Levaquin] Allergy Anaphylaxis Verified 10/28/17 10:33 carvedilol [From Coreg] AdvReac Intermediate MUSCLE Verified 10/28/17 10:33 CRAMPS losartan AdvReac Intermediate MUSCLE Verified 10/28/17 10:33 CRAMPS budesonide [From Symbicort] AdvReac See Verified 11/17/17 08:46 Comments fluticasone AdvReac See Verified 11/17/17 08:45 [From Advair Diskus] Comments Formoterol [From Symbicort] AdvReac See Verified 11/17/17 08:46 Comments salmeterol AdvReac See Verified 11/17/17 08:45 [From Advair Diskus] Comments Fnqjltv-Qdd-Mjd Reductase AdvReac Anaphylaxis Verified 10/28/17 10:33 Inhibitor [Statins] All Systems Review: The remainder of the systems were reviewed and are negative - Cardiovascular Cardiovascular: as per HPI Physical Examination Vital Signs, Last 4 Hours Temp Pulse Resp BP Pulse Ox 12/13/17 07:50 97.9 F 66 17 166/74 92 General: Conversant, No Apparent Distress, Other (obese) HEENT: Atraumatic, Normocephaly Cardiac: Reg Rate and Rhythm, Normal S1 and S2 Lungs: Normal Breath Sounds Neuro: Alert and responsive Abdomen: Soft Skin: No rashes noted on visualized skin Musculoskeletal: No Chest Wall Tenderness Extremities: Other (mild, non-pitting BLE edema) Results 12/13/17 06:52 12/13/17 06:52 Lab Results 12/13/17 12/13/17 06:52 06:52 WBC 5.0 Hgb 14.1 Hct 43.2 Plt Count 143 Sodium 137 Potassium 4.6 Chloride 102 Carbon Dioxide 27 BUN 26 H Creatinine 1.20 Glucose 165 H Calcium 9.5 Active Medications Acetaminophen (Tylenol) 650 mg PO Q6H PRN PRN Reason: Mild Pain/Fever Stop: 06/12/18 21:22 Albuterol Sulfate (Albuterol Inhaler) 2 puff IH [id number] PRN PRN Reason: Shortness Of Breath Stop: 06/13/18 00:01 Aspirin (Aspirin Ec) 81 mg PO DAILY CECELIA Stop: 06/13/18 09:01 Last Admin: 12/13/17 09:04 Dose: 81 mg Clopidogrel Bisulfate (Plavix) 75 mg PO DAILY CECELIA Stop: 06/13/18 09:01 Last Admin: 12/13/17 09:04 Dose: 75 mg Dextrose/Water (Dextrose 50% (Syg)) 25 ml IVP AD PRN PRN Reason: Hypoglycemia Stop: 06/12/18 21:24 Furosemide (Lasix) 40 mg PO DAILY CECELIA Stop: 06/13/18 09:01 Last Admin: 12/13/17 09:04 Dose: 40 mg Glucagon (Glucagen) 1 mg IM ONCE PRN PRN Reason: Hypoglycemia Stop: 06/12/18 21:24 Glucose (Gluctose) 15 gm PO ONCE PRN PRN Reason: Hypoglycemia Stop: 06/12/18 21:24 Glucose (Gluctose) 30 gm PO ONCE PRN PRN Reason: Hypoglycemia Stop: 06/12/18 21:24 Heparin Sodium (Porcine) (Heparin) 5,000 unit SQ Q12HCO [facility] Stop: 06/13/18 06:01 Last Admin: 12/13/17 05:39 Dose: 5,000 unit Dextrose (Dextrose 5%) 1,000 mls @ 100 mls/hr IVC .Q10H PRN PRN Reason: HYPOGLYCEMIA Stop: 06/12/18 21:24 Insulin Detemir (Levemir) 50 unit SQ BID [facility] Stop: 06/12/18 22:08 Last Admin: 12/13/17 09:09 Dose: 50 unit Insulin Human Lispro (Humalog) 0 units SQ HS [facility] PRN Reason: Protocol Stop: 06/13/18 21:01 Last Admin: 12/12/17 21:52 Dose: 3 units Insulin Human Lispro (Humalog) 0 units SQ TIDAC [facility] PRN Reason: Protocol Stop: 06/13/18 07:31 Last Admin: 12/13/17 09:04 Dose: 2 units Meclizine HCl (Antivert) 25 mg PO TID PRN PRN Reason: DIZZINESS Stop: 06/12/18 21:24 Metoprolol Succinate (Toprol Xl) 50 mg PO DAILY [facility] Stop: 06/13/18 09:01 Last Admin: 12/13/17 09:04 Dose: 50 mg Naloxone HCl (Narcan) 0.4 mg IVP Q2MIN PRN PRN Reason: SEE COMMENTS Stop: 06/12/18 21:22 Nitroglycerin (Nitroglycerin) 0.4 mg SL Q5MIN PRN PRN Reason: Chest Pain Stop: 06/13/18 16:38 (Fish Oil + Vitamin (D)) 1 each PO DAILY [facility] Stop: 06/13/18 09:01 Last Admin: 12/13/17 09:05 Dose: Not Given Tamsulosin HCl (Flomax) 0.4 mg PO DAILY [facility] PRN Reason: Protocol Stop: 06/13/18 09:01 Last Admin: 12/13/17 09:04 Dose: 0.4 mg Valsartan (Diovan) 160 mg PO DAILY [facility]IA Stop: 06/13/18 09:01 Last Admin: 12/13/17 09:04 Dose: 160 mg - Imaging and Cardiology Echo: report reviewed Cardiac cath: report reviewed Other Results: 12 hour tele: avg HR=67 SR. No significant event noted. - EKG Interpretation EKG results cardiology: personally reviewed Consult Discharge Plan - Plan Instructions: Carotid Endarterectomy (DC) Referrals: Adalberto Up MD [Primary Care Provider] -
--- NOTE | 2017-12-13 10:45 | Internal Med Progress Note ---
Date of Encounter: 12/13/17 Time of Encounter: 10:45 - Assessment and plan (1) Transient cerebral ischemia Current Visit: Yes Status: Acute Assessment and plan: Presented with right sided weakness and right facial drop Symptoms resolution of symptoms, likely 2/2 TIA H/O CVA and bilateral carotid stenosis, high risk of for further stroke Vascular surgery seeing in consultation; appreciate it d/t history, current presentation, and risk patient will likely need carotid endarterectomy; defer to vascular surgeon - Continue DAPT, not taking statin d/t allergy - Continue cardiac monitoring - NIHSS protocol - MRI completed with no acute infarct no acute intracranial abnormality minimal chronic microvascular ischemic changes - Echo-echo with grossly normal LV systolic function mild increased LV wall thickness mild left ventricular diastolic dysfunction RVs probably dilated function appears normal no significant valvular dysfunction and pulmonary hypertension IVC is not well visualized no evidence of PFO Qualifiers: Transient cerebral ischemia type: carotid artery syndrome (hemispheric) Qualified Code(s): G45.1 - Carotid artery syndrome (hemispheric) (2) COPD (chronic obstructive pulmonary disease) Current Visit: Yes Status: Chronic Assessment and plan: Stable No wheezing, continue albuterol inhaler and PRN oxygen Qualifiers: COPD type: unspecified COPD Qualified Code(s): J44.9 - Chronic obstructive pulmonary disease, unspecified (3) Obesity Current Visit: Yes Status: Chronic Assessment and plan: Discussed lifestyle modifications Qualifiers: Obesity type: unspecified obesity type Obesity classification: adult class 3 (BMI >= 40) Serious obesity comorbidity presence: unspecified whether serious comorbidity present Body mass index: BMI 45.0-49.9 Qualified Code(s) : E66.9 - Obesity, unspecified; Z68.42 - Body mass index (BMI) 45.0-49.9, adult (4) CAD (coronary artery disease) Current Visit: Yes Status: Chronic Assessment and plan: H/O CAD Denies chest pain Cont aspirin Plavix, and beta nicole Continue with nitroglycerin as needed for chest pain Qualifiers: Coronary Disease-Associated Artery/Lesion type: [place] artery [place] vs. transplanted heart: [place] heart Associated angina: without angina Qualified Code(s): I25.10 - Atherosclerotic heart disease of [place] coronary artery without angina pectoris (5) Carotid stenosis Current Visit: No Status: Acute Assessment and plan: Bilateral proximal ICA has a severe, 60-79% stenosis Dr. 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 Diabetes mellitus complication status: without complication Qualified Code(s): E11.9 - Type 2 diabetes mellitus without complications; Z79.4 - terminal system operator (current) use of insulin (7) History of CVA (cerebrovascular accident) Current Visit: Yes Status: Acute Assessment and plan: Taking DAPT, Patient is not on statin because of allergy (8) Vertigo Current Visit: Yes Status: Resolved Assessment and plan: resolved (9) VESTA (obstructive sleep apnea) Current Visit: Yes Status: Acute Assessment and plan: H/O VESTA, uses BiPAP at night, continue (10) DVT prophylaxis Current Visit: No Status: Acute Assessment and plan: SQ heparin - Time Spent With Patient Total time spent is greater than 50% in coordination of care (as documented) at patient's floor/unit and/or counseling patient: 25 - 35 minutes - Subjective Interval history: No acute changes over night. - Constitutional Vitals: Temp Pulse Resp BP Pulse Ox 97.9 F 66 17 166/74 92 12/13/17 07:50 12/13/17 07:50 12/13/17 07:50 12/13/17 07:50 12/13/17 07:50 General appearance: Present: A&O X 3, no acute distress, answers questions appropriately - Head Head exam: Present: atraumatic, normocephalic - Eye Eye exam: Present: PERRL, conjuntiva pink, sclera anicteric Pupils: Present: PERRL - Neck Neck exam general surgery: Present: supple, trachea midline. Absent: lymphadenopathy - Respiratory Respiratory exam: Present: CTAB. Absent: accessory muscle use, rales, rhonchi, wheezes - Cardiovascular Cardiovascular exam: Present: RRR, +S1, +S2. Absent: diastolic murmur, gallop, rubs, systolic murmur - GI/Abdominal GI/Abdominal exam: Present: normal bowel sounds, soft, no peritoneal signs. Absent: distended, tenderness - Extremities Exam Extremities exam: Present: warm, radial pulses palpable and symmetrical. Absent : calf tenderness, cyanotic, pedal edema - Neurological Exam Neurological exam: Present: CN II-XII intact, oriented X3, no focal deficits. Absent: pronater drift, facial droop, speech deficit - Skin Skin exam: Present: dry, intact Internal Medicine: Result - Labs CBC & Chem 7: 12/13/17 06:52 12/13/17 06:52 Labs: Short CBC 12/13/17 Range/Units 06:52 WBC 5.0 (4.3-11.1) K/mcL Hgb 14.1 (12.9-16.9) g/dL Hct 43.2 (37.5-50.1) % Plt Count 143 (140-400) K/mcL Neutrophils # 2.4 (1.6-8.9) K/mcL BMP 12/13/17 06:52 Sodium 137 Potassium 4.6 Chloride 102 Carbon Dioxide 27 BUN 26 H Creatinine 1.20 Glucose 165 H Calcium 9.5 - ABG Interpretation ABG results: PT/INR, D-dimer PT 11.2 Seconds (9.4-12.1) 12/11/17 19:05 - Impressions Impressions Echocardiogram 12/12/17 22:13 Impressions: Grossly normal LV systolic function. Not all LV wall segments were well visualized. Mild increased LV wall thickness. Mild left ventricular diastolic dysfunction. RV is probably dilated. Function appears normal. No significant valvular dysfunction. No pulmonary hypertension. IVC is not well visualized. No evidence of PFO with agitated saline contrast. Left Ventricular Wall Motion: Rest Echo Findings The apical anterior, mid anterior, basal anterior, apical lateral, mid anterior lateral and basal anterior lateral bullard were not visualized. All other wall segments showed normal motion. Findings: Study Quality * Technically adequate exam. ECG Findings * Normal sinus rhythm. Left Ventricle * Grossly normal LV systolic function. * Normal LV chamber size. * Mild left ventricular diastolic dysfunction. * Mild concentric left ventricular hypertrophy. Right Ventricle * RV is probably dilated. Function appears normal. Left Atrium * Moderately dilated left atrium. Right Atrium * Normal right atrial size. Mitral Valve * Normal mitral valve structure. * No mitral stenosis. * No mitral regurgitation. Aortic Valve * No aortic regurgitation. * Trileaflet aortic valve. * Mildly thickened aortic valve leaflets. * No aortic stenosis. Tricuspid Valve * Tricuspid valve not well visualized. * Trace tricuspid regurgitation. Pulmonic Valve * Pulmonic valve is not well visualized. * No pulmonic stenosis. * No pulmonic regurgitation. Pulmonary Artery * Pulmonary artery not well visualized. Aorta * Normally sized aortic root. Pericardium * There is no pericardial effusion present. Interatrial Septum * No evidence of PFO by color Doppler. * No evidence of PFO with agitated saline contrast. IVC * The IVC is not well evaluated. Consult Discharge Plan - Plan Instructions: Carotid Endarterectomy (DC) Referrals: Adalberto Up MD [Primary Care Provider] -
[2017-12-13] MEDS ORDERED: *HR* Heparin 5,000 UNIT/ML VIAL IVP ONE (15:25)
[2017-12-13] MEDS ORDERED: *HR* Heparin 5,000 UNIT/ML VIAL IVP PRN (15:25)
[2017-12-13 16:02] LABS: Hematocrit 45.3 % (37.5-50.1); Hemoglobin 14.9 g/dL (12.9-16.9); Mean Corpuscular HGB Conc 32.9 g/dL (31.6-35.5); Mean Corpuscular Hemoglobin 31.6 pg (28.0-33.3); Mean Platelet Volume 9.9 fL (9.4-12.4); Platelet Count 162 K/mcL (140-400); Red Blood Count 4.72 M/mcL (4.19-5.50); Red Cell Distribution Width 13.6 % (11.5-14.5)
[2017-12-13 16:08] LABS: Prothrombin Time 11.2 Seconds (9.4-12.1)
[2017-12-13 16:11] LABS: Activated Partial Thrombo Time 29.2 Seconds (26.0-36.0)
[2017-12-13] MEDS: Heparin 25,000 UNIT/500 ML D5W 25,000 UNIT/500 ML BAG IVC SCH (16:11)
--- NOTE | 2017-12-13 20:44 | Event Note ---
Date of Encounter: 12/13/17 Time of Encounter: 20:[address] Moon earlier today. We agree on indication for left carotid endarterectomy. Plan on surgery on .
[2017-12-13] MEDS: *HR* Heparin 5,000 UNIT/ML VIAL IVP PRN (23:02)
--- NOTE | 2017-12-13 23:46 | Vascular/[facility] Progress Note ---
Date of Encounter: 12/13/17 Time of Encounter: 13:15 - Assessment and plan (1) Carotid stenosis Current Visit: No Status: Chronic The patient recently had a TIA. His symptoms have resolved and not recurred. A carotid endarterectomy is recommended. The risks, benefits and alternatives were discussed and all questions were answered. He expressed understanding and wishes to proceed. Qualifiers: Laterality: bilateral Qualified Code(s): I65.23 - Occlusion and stenosis of bilateral carotid arteries - Subjective Interval history: The patient denies any recurrent symptoms of CVA, TIA or amaurosis fugax. He denies any chest pain or shortness of breath. Vital Signs, Last 4 Hours Temp Pulse Resp BP Pulse Ox 12/13/17 22:53 97.6 F 85 16 131/62 94 12/13/17 21:00 98.6 F 67 16 132/66 - Physical Examination General: Present: Conversant, No Apparent Distress HEENT: Present: Pupils equal Cardiac: Present: Reg Rate and Rhythm Lungs: Present: Normal Breath Sounds Neuro: Present: Alert and responsive, No focal deficits noted, Motor nerves grossly intact, Sensory nerves grossly intact Vascular: Present: Normal capillary refill. Absent: Cyanosis, Edema Abdomen: Present: Soft Results 12/13/17 15:42 12/13/17 06:52 Lab Results, Last 24 hours 12/13/17 12/13/17 12/13/17 06:52 06:52 15:42 WBC 5.0 5.5 Hgb 14.1 14.9 Hct 43.2 45.3 Plt Count 143 162 INR APTT Sodium 137 Potassium 4.6 Chloride 102 Carbon Dioxide 27 BUN 26 H Creatinine 1.20 Glucose 165 H Calcium 9.5 12/13/17 12/13/17 15:42 22:06 WBC Hgb Hct Plt Count INR 1.0 APTT 29.2 52.1 H D Sodium Potassium Chloride Carbon Dioxide BUN Creatinine Glucose Calcium Consult Discharge Plan - Plan Instructions: Carotid Endarterectomy (DC) Referrals: Adalberto Up MD [Primary Care Provider] - (Follow up appointment has been requested. Office will contact patient with time and day of appointment.)
[2017-12-14] MEDS: Insulin DETEMIR 100 UNIT/ML X5UNITS SQ SCH ×2 (08:59→20:40)
[2017-12-14] MEDS: Insulin LISPRO 300 UNITS/3 ML VIAL SQ SCH ×7 (08:59→20:40)
[2017-12-14] MEDS: Aspirin Enteric Coated 81 MG Tablet PO SCH (09:00)
[2017-12-14] MEDS: Valsartan 160 MG TABLET PO SCH (09:00)
[2017-12-14] MEDS: VITAMIN D PO SCH (09:00)
[2017-12-14] MEDS: Furosemide 40 MG TABLET PO SCH (09:00)
[2017-12-14] MEDS: Metoprolol XL (24 HR) Succ 50 MG TAB.ER.24H PO SCH (09:00)
[2017-12-14] MEDS: FISH OIL PO SCH (09:00)
--- NOTE | 2017-12-14 10:02 | Internal Med Progress Note ---
Date of Encounter: 12/14/17 Time of Encounter: 09:59 - Assessment and plan (1) Transient cerebral ischemia Current Visit: Yes Status: Acute Assessment and plan: Presented with right sided weakness and right facial drop Likely 2/2 TIA, has had complete resolution of symptoms without recurrence H/O CVA and severe bilateral carotid stenosis, high risk of for further stroke Vascular surgery seeing in consultation; appreciate it-plan for carotid endarterectomy tomorrow - Continue DAPT, not taking statin d/t allergy - Continue cardiac monitoring - NIHSS protocol every shift - Nothing by mouth after midnight - MRI completed with no acute infarct no acute intracranial abnormality minimal chronic microvascular ischemic changes - Echo-echo with grossly normal LV systolic function mild increased LV wall thickness mild left ventricular diastolic dysfunction RVs probably dilated function appears normal no significant valvular dysfunction and pulmonary hypertension IVC is not well visualized no evidence of PFO Qualifiers: Transient cerebral ischemia type: carotid artery syndrome (hemispheric) Qualified Code(s): G45.1 - Carotid artery syndrome (hemispheric) (2) COPD (chronic obstructive pulmonary disease) Current Visit: Yes Status: Chronic Assessment and plan: Stable No wheezing, continue albuterol inhaler and PRN oxygen Qualifiers: COPD type: unspecified COPD Qualified Code(s): J44.9 - Chronic obstructive pulmonary disease, unspecified (3) Obesity Current Visit: Yes Status: Chronic Assessment and plan: Discussed lifestyle modifications Qualifiers: Obesity type: unspecified obesity type Obesity classification: adult class 3 (BMI >= 40) Serious obesity comorbidity presence: unspecified whether serious comorbidity present Body mass index: BMI 45.0-49.9 Qualified Code(s) : E66.9 - Obesity, unspecified; Z68.42 - Body mass index (BMI) 45.0-49.9, adult (4) CAD (coronary artery disease) Current Visit: Yes Status: Chronic Assessment and plan: H/O CAD Denies chest pain Cont aspirin Plavix, and beta nicole Continue with nitroglycerin as needed for chest pain Qualifiers: Coronary Disease-Associated Artery/Lesion type: [place] artery [place] vs. transplanted heart: [place] heart Associated angina: without angina Qualified Code(s): I25.10 - Atherosclerotic heart disease of [place] coronary artery without angina pectoris (5) Carotid stenosis Current Visit: No Status: Chronic Assessment and plan: Admitted for TIA, symptoms resolved and no recurrence Severe bilateral carotid stenosis noted Vascular surgery see in consultation, appreciate recommendations-plan for surgery tomorrow Bilateral proximal ICA has a severe, 60-79% stenosis continue with DAPT Qualifiers: Laterality: bilateral Qualified Code(s): I65.23 - Occlusion and stenosis of bilateral carotid arteries (6) Diabetes Current Visit: Yes Status: Chronic Assessment and plan: H/O DM, hyperglycemia improving today, FSBG 165 continue basal and medium insulin sliding scale Accu-Cheks before meals and at bedtime Qualifiers: Diabetes mellitus type: type 2 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 longwall machine operator helper use Diabetes mellitus complication status: without complication Qualified Code(s): E11.9 - Type 2 diabetes mellitus without complications; 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.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 (7) History of CVA (cerebrovascular accident) Current Visit: Yes Status: Acute Assessment and plan: Taking DAPT, Patient is not on statin because of allergy (8) Vertigo Current Visit: Yes Status: Resolved Assessment and plan: resolved (9) VESTA (obstructive sleep apnea) Current Visit: Yes Status: Acute Assessment and plan: H/O VESTA, uses BiPAP at night, continue (10) DVT prophylaxis Current Visit: No Status: Acute Assessment and plan: Patient now on heparin drip - Time Spent With Patient Total time spent is greater than 50% in coordination of care (as documented) at patient's floor/unit and/or counseling patient: 25 - 35 minutes - Subjective Interval history: seen and examined at bedside today. No acute changes over night. No return of stroke s/sx - Constitutional Vitals: Temp Pulse Resp BP Pulse Ox 98.0 F 63 20 137/72 93 12/14/17 07:49 12/14/17 07:49 12/14/17 07:49 12/14/17 07:49 12/14/17 07:49 General appearance: Present: A&O X 3, no acute distress, answers questions appropriately - Head Head exam: Present: atraumatic, normocephalic - Eye Eye exam: Present: EOMI, PERRL, conjuntiva pink, sclera anicteric Pupils: Present: PERRL - Neck Neck exam general surgery: Present: supple, trachea midline. Absent: lymphadenopathy - Respiratory Respiratory exam: Present: CTAB. Absent: accessory muscle use, rales, rhonchi, wheezes - Cardiovascular Cardiovascular exam: Present: RRR, +S1, +S2. Absent: diastolic murmur, gallop, rubs, systolic murmur - GI/Abdominal GI/Abdominal exam: Present: normal bowel sounds, soft, no peritoneal signs. Absent: distended, tenderness - Extremities Exam Extremities exam: Present: warm, radial pulses palpable and symmetrical. Absent : calf tenderness, cyanotic, pedal edema - Neurological Exam Neurological exam: Present: alert, CN II-XII intact, oriented X3, no focal deficits, strengths equal and symetr throughout. Absent: pronater drift, facial droop, speech deficit - Psychiatric Psychiatric exam: Present: normal affect, normal mood. Absent: agitated, anxious - Skin Skin exam: Present: dry, intact Internal Medicine: Result - Labs CBC & Chem 7: 12/13/17 15:42 12/13/17 06:52 Labs: Short CBC 12/13/17 Range/Units 15:42 WBC 5.5 (4.3-11.1) K/mcL Hgb 14.9 (12.9-16.9) g/dL Hct 45.3 (37.5-50.1) % Plt Count 162 (140-400) K/mcL - ABG Interpretation ABG results: PT/INR, D-dimer PT 11.2 Seconds (9.4-12.1) 12/13/17 15:42 Consult Discharge Plan - Plan Instructions: Carotid Endarterectomy (DC) Referrals: Adalberto Up MD [Primary Care Provider] - (Follow up appointment has been requested. Office will contact patient with time and day of appointment.)
[2017-12-14] MEDS: Heparin 25,000 UNIT/500 ML D5W 25,000 UNIT/500 ML BAG IVC SCH (13:50)
[2017-12-14] MEDS: *HR* Heparin 5,000 UNIT/ML VIAL IVP PRN (14:17)
--- NOTE | 2017-12-14 22:04 | Vascular/[facility] Progress Note ---
Date of Encounter: 12/14/17 Time of Encounter: 11:05 - Assessment and plan (1) Carotid stenosis Current Visit: No Status: Chronic The patient recently had a TIA. His symptoms have resolved and not recurred. He is scheduled for a carotid endarterectomy tomorrow. Qualifiers: Laterality: bilateral Qualified Code(s): I65.23 - Occlusion and stenosis of bilateral carotid arteries - Subjective Interval history: The patient reports no changes in his health overnight. He denies any recent symptoms of CVA, TIA or amaurosis fugax. He is otherwise comfortable. He denies any chest pain or shortness of breath. Vital Signs, Last 4 Hours Temp Pulse Resp BP Pulse Ox 12/14/17 19:07 98.1 F 80 16 122/64 94 - Physical Examination General: Present: Conversant, No Apparent Distress HEENT: Present: Pupils equal Cardiac: Present: Reg Rate and Rhythm Lungs: Present: Normal Breath Sounds Neuro: Present: Alert and responsive, No focal deficits noted, Motor nerves grossly intact, Sensory nerves grossly intact Vascular: Present: Normal capillary refill. Absent: Cyanosis, Edema Abdomen: Present: Soft, Non-tender Skin: Present: No rashes noted on visualized skin Results 12/13/17 15:42 12/13/17 06:52 Lab Results, Last 24 hours 12/13/17 12/14/17 12/14/17 22:06 06:05 13:37 APTT 52.1 H D 60.0 H 51.0 H 12/14/17 20:29 APTT 65.4 H Consult Discharge Plan - Plan Instructions: Carotid Endarterectomy (DC) Referrals: Shashi Moon MD [Partnered Physician] - 01/30/18 11:00 am Alexis Farmer [Partnered Physician] - 12/23/17 2:00 pm (Dr. Up is on Vacation so they will have to see this Doctor and then they can go back to Dr. Up)
--- NOTE | 2017-12-14 22:49 | Anesthesia Evaluation PreOp ---
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 History: TIA (12/11/2017 No residual) Other Medical History: Diabetes Type II, Other (Morbid obesity, BMI 47) Anesthesia History: No Prior Anesthetic Complications, Past Anesthesia (Multiple , incl back, knee, hernia) Alcohol Use: none Drug use: none Medications and Allergies Aspirin Enteric Coated [Aspirin EC] 81 mg PO DAILY 01/09/16 [History] Insulin Glargine,Hum.rec.anlog [Lantus Solostar] 60 - 70 unit SQ BID 01/09/16 [ History] Insulin LISPRO [Humalog Kwikpen U-100] 35 unit SQ TIDAC 01/09/16 [History] Meloxicam [Mobic] 7.5 mg PO DAILY 01/09/16 [History] Metformin HCl [Fortamet] 1,000 mg PO BID 01/09/16 [History] Metoprolol XL (24 HR) Succ [Toprol Xl] 50 mg PO DAILY 01/09/16 [History] Omega3/Dha/Epa/Fish Oil/Vit D3 [Fish Oil + Vitamin D-3 Softgel] 1 each PO DAILY 01/09/16 [History] Valsartan [Diovan] 160 mg PO DAILY 01/09/16 [History] Tamsulosin HCl [Flomax] 0.4 mg PO DAILY 11/17/16 [History] Clopidogrel [Plavix] 75 mg PO DAILY #30 tablet 10/29/17 [Rx] Albuterol Sulfate [Ventolin Hfa] 1 - 2 puff IH Q4H PRN 11/17/17 [History] Furosemide [Lasix] 40 mg PO DAILY 11/17/17 [History] Nitroglycerin 0.4 mg SL Q5MIN PRN #30 tab.subl 11/18/17 [Rx] 3 Allergy/AdvReac Type Severity Reaction Status Date / Time Amoxicillin Allergy Unknown UNKOWN Verified 10/28/17 10:33 lisinopril Allergy Unknown Anaphylaxis Verified 10/28/17 10:33 levofloxacin [From Levaquin] Allergy Anaphylaxis Verified 10/28/17 10:33 carvedilol [From Coreg] AdvReac Intermediate MUSCLE Verified 10/28/17 10:33 CRAMPS losartan AdvReac Intermediate MUSCLE Verified 10/28/17 10:33 CRAMPS budesonide [From Symbicort] AdvReac See Verified 11/17/17 08:46 Comments fluticasone AdvReac See Verified 11/17/17 08:45 [From Advair Diskus] Comments Formoterol [From Symbicort] AdvReac See Verified 11/17/17 08:46 Comments salmeterol AdvReac See Verified 11/17/17 08:45 [From Advair Diskus] Comments Cwhmxaw-Pbi-Rht Reductase AdvReac Anaphylaxis Verified 10/28/17 10:33 Inhibitor [Statins] - Meds/Allergy Pre-op Review Medications Reviewed: Yes (Patient is on DAPT and heparin gtt) Allergies Reviewed: Yes Beta Blockers on Current Med List: Yes Anesthesia Results - Labs 12/13/17 15:42 12/13/17 06:52 Laboratory Tests 12/12/17 12/13/17 12/13/17 04:41 06:52 15:42 PT 11.2 INR 1.0 APTT 29.2 Creatinine 1.20 Est GFR (Non-Af Amer) 60 Hemoglobin A1c 9.0 H Calcium 9.5 - Imaging EKG: report reviewed (SINUS RHYTHM) Additional studies: [facility] 11/17/2017: Right dominant The LMCA is angiographically free of disease. * Left Anterior Descending There is a 8 mm long, 70% stenosis in the Mid LAD. The lesion has a LINDA flow of 3. An intervention was performed on the Mid LAD with a final stenosis of 0%. There were no lesion complications. The final ILNDA flow was 3. There is a 12 mm long, 70% stenosis in the Mid-Distal LAD. The lesion has a LINDA flow of 3. An intervention was performed on the Distal LAD with a final stenosis of 0%. There were no lesion complications. The final LINDA flow was 3. The Circumflex is angiographically free of disease. The 1st Marginal is angiographically free of disease. The RCA is angiographically free of disease. The Right PDA is angiographically free of disease. 2DE 12/12/2017: Grossly normal LV systolic function. Not all LV wall segments were well visualized. Mild increased LV wall thickness. Mild left ventricular diastolic dysfunction. RV is probably dilated. Function appears normal. No significant valvular dysfunction. No pulmonary hypertension. IVC is not well visualized. No evidence of PFO with agitated saline contrast. Brain MRI 12/12/2017: 1. No acute intracranial abnormality. No acute infarct. 2. Minimal chronic microvascular ischemic changes. Neck CTA 10/09/2017: AORTIC ARCH/ARCH VESSELS: There is mild atherosclerotic plaque at the aortic arch without aneurysm or dissection. There is conventional 3 vessel arch anatomy. There is mild atherosclerotic plaque involving the innominate and proximal left subclavian artery without stenosis. The right subclavian artery is unremarkable. CAROTID ARTERIES: The right common carotid artery is normal in course and caliber. There is severe fibrocalcific plaque involving the right carotid bifurcation and right carotid bulb causing 25% stenosis of the proximal right internal carotid artery. The cervical right internal carotid artery is otherwise normal in course and caliber. The right external carotid artery is patent. The left common carotid artery is normal in course and caliber. There is moderate to severe fibrocalcific plaque involving the left carotid bifurcation and left carotid bulb causing at least 75% stenosis of the proximal left internal carotid artery with the eccentric changes stenosis difficult to measure due to image resolution. The cervical left internal carotid artery is otherwise normal in course and caliber. The left external carotid artery is patent. VERTEBRAL ARTERIES: The vertebral arteries are codominant. There is moderate stenosis at the origin of the left vertebral artery secondary to calcified plaque. There is severe, nearly occlusive stenosis of the proximal intracranial left vertebral artery. No right vertebral artery stenosis is seen. Carotid Duplex 08/30/2017: There is 60-79% stenosis in the right proximal internal carotid artery with a PSV of 253 cm/s and a EDV of 78 cm/s. There is irregular heterogeneous plaque. There is 60-79% stenosis in the right mid internal carotid artery with a PSV of 293 cm/s and a EDV of 53 cm/s. There is irregular heterogeneous plaque. There is 60-79% stenosis in the left proximal internal carotid artery with a PSV of 262 cm/s and a EDV of 67 cm/s. There is irregular heterogeneous plaque. There is 60-79% stenosis in the left mid internal carotid artery with a PSV of 234 cm/s and a EDV of 84 cm/s. There is irregular heterogeneous plaque. Sleep study 10/2015: Impression: 1. Severe obstructive sleep apnea with hypoxia and mild hypersomnia with good BiPAP titration and improvement in hypoxia with using oxygen with BiPAP. Recommendation: 1. BiPAP 17/13 CWP and bi-flex of 3 and heated humidifier and oxygen at 2 L/m in BiPAP. Anesthesia Exam 2 Height 1.73 m Weight 141.5 kg BMI 47.3 Vital Signs Temp Pulse Resp BP Pulse Ox 97.7 F 87 15 149/81 98 12/11/17 18:39 12/11/17 18:39 12/11/17 18:39 12/11/17 18:39 12/11/17 18:39 Blood Glucose* 283 NPO (# of Hours): Instructed NPO after MN - HEENT Mallampati: II Teeth: Missing Denture Type: Upper: Complete Oral Opening: Greater than 3 - [employer]AL [employer] LOC: Oriented [employer]ER Motor: Normal RUE, Normal LUE, Normal RLE, Normal LLE, Normal Face - Cardiac Rhythm: Regular - Pulmonary Breath Sounds: bilateral Clear Anesthesia Assess/Plan ASA Score: 4 Modified [place] Scale for Level of Consciousness: Cooperative, oriented, and tranquil Anesthetic Plan: General Monitoring Plan: Standard Monitors, A-Line Recovery Plan: PACU Anes Supervising Prov Stmt: Patient informed and consented. CV risks (including adverse cardiac events and stroke) benefits, and alternatives discussed. Patient wishes to proceed.
[2017-12-15] MEDS ORDERED: Vancomycin 1,000 MG, Sodium Chloride IRRigation 1,000 ML IR ONE (06:00)
[2017-12-15] MEDS ORDERED: Heparin 1,000 UNITS/500 mL 500 ML ONE (06:39)
[2017-12-15] MEDS ORDERED: Lidocaine -MPF 2% 2 ML VIAL ONE (07:04)
[2017-12-15] MEDS ORDERED: Lidocaine -MPF 4% 5 ML AMPUL ONE (07:04)
[2017-12-15] MEDS ORDERED: Ondansetron 4 MG/2 ML VIAL ONE (07:04)
[2017-12-15] MEDS ORDERED: *HR* Succinylcholine 200 MG/10 ML VIAL IVP ONE (07:04)
[2017-12-15] MEDS ORDERED: *HR* Phenylephrine 10 MG/ML VIAL ONE (07:04)
[2017-12-15] MEDS ORDERED: Dexamethasone 4 MG/ML VIAL ONE (07:04)
[2017-12-15] MEDS ORDERED: *HR* FentaNYL (PF) 100 MCG/2 ML VIAL ONE (07:07)
[2017-12-15] MEDS ORDERED: *HR* Propofol 200 MG/20 ML VIAL IVP ONE (07:07)
[2017-12-15] MEDS ORDERED: *HR* Remifentanil 1 MG VIAL IVP ONE (07:13)
[2017-12-15] MEDS ORDERED: *HR* Midazolam HCl 2 MG/2 ML VIAL ONE (07:14)
[2017-12-15] MEDS ORDERED: Water for inj. (sterile) 10 ML IV ONE ×2 (07:20→07:47)
[2017-12-15] MEDS ORDERED: Protamine Sulfate 50 MG/5 ML VIAL IVP ONE (07:28)
[2017-12-15] MEDS ORDERED: Heparin 1,000 UNITS/500 mL 1,000 ML ONE (07:29)
[2017-12-15] MEDS ORDERED: Lidocaine 1% 20 ML MDV ONE (07:29)
[2017-12-15] MEDS ORDERED: Bupivacaine-MPF 0.25% 10 ML VIAL ONE (07:29)
[2017-12-15] MEDS ORDERED: *HR* Heparin 5,000 UNIT/ML VIAL ONE ×2 (07:47→09:31)
[2017-12-15] MEDS ORDERED: Vancomycin 1,000 MG VIAL ONE (07:54)
[2017-12-15] MEDS ORDERED: EPHEDrine 50 MG/ML VIAL ONE (08:09)
[2017-12-15] MEDS ORDERED: *HR* Labetalol 20 MG/4 ML SYRINGE IVP PRN ×2 (09:24→09:38)
[2017-12-15] MEDS ORDERED: Dexamethasone 4 MG/ML VIAL IVP ONE (09:24)
[2017-12-15] MEDS ORDERED: Ondansetron 4 MG/2 ML VIAL IVP ONE (09:24)
[2017-12-15] MEDS ORDERED: Acetaminophen IV 1,000 MG/100 ML INFUS..BTL IVPB PRN (09:24)
[2017-12-15] MEDS ORDERED: D5% in Water 1,000 ML IVC PRN (09:38)
[2017-12-15] MEDS ORDERED: *HR* OxyCODONE Immed Rel 5 MG TABLET PO PRN (09:38)
[2017-12-15] MEDS ORDERED: Ondansetron 4 MG/2 ML VIAL IVP PRN (09:38)
[2017-12-15] MEDS ORDERED: OXYCODONE Oral CONC 10 MG/0.5 ML ORAL.SYG SL PRN ×2 (09:38)
[2017-12-15] MEDS ORDERED: Acetaminophen 325 MG TABLET PO PRN (09:38)
[2017-12-15] MEDS ORDERED: Naloxone 0.4 MG/ML INJ IVP PRN ×2 (09:38)
[2017-12-15] MEDS ORDERED: *HR* Dextrose 50 % in Water (Syg) 50 ML SYRINGE IVP PRN (09:38)
[2017-12-15] MEDS ORDERED: Dextrose Gel 15 GM/37.5 ML TUBE PO PRN ×2 (09:38)
[2017-12-15] MEDS ORDERED: Heparin 25,000 UNIT/500 ML D5W 25,000 UNIT/500 ML BAG IVC SCH (09:38)
[2017-12-15] MEDS ORDERED: *HR* HYDROcodone/Acet 5/325 mg TABLET PO PRN (09:38)
[2017-12-15] MEDS ORDERED: Nitroglycerin 0.4 MG TAB.SUBL SL PRN (09:38)
--- NOTE | 2017-12-15 10:49 | Operative Note ---
Date of procedure: 12/15/17 Pre-op diagnosis: Symptomatic 60-79% left internal carotid artery stenosis Post-op diagnosis: same Procedure: Left carotid endarterectomy with Hemashield patch angioplasty. Complications: None Anesthesia: KEVAN Surgeon: Shashi Moon Was there an operations assistant present: No Estimated blood loss (cc): 50 Specimen: Left carotid plaque Condition: stable Disposition: PACU Procedure in Detail: Indications: The patient is a 72-year-old male with a history of diabetes, hypertension, coronary artery disease and carotid stenosis. The patient is a history of bilateral carotid artery stenosis. He recently was admitted to [facility] with complaints of a left hemispheric transient ischemic attack manifested by right facial droop and right sided paresthesias and weakness. A left carotid endarterectomy was recommended to re reduce his risk of symptoms and/or stroke. Procedure: The patient was identified in the preoperative area. The risks, benefits, and alternatives of the procedure were discussed and all questions were answered. The patient was then taken to the operating room and placed in supine position on the operating table. After the induction of general endotracheal anesthesia, the patient was cleaned and draped in normal sterile fashion. A longitudinal incision was made anterior to the left sternocleidomastoid muscle. Hemostasis was obtained via electrocautery. Through a process of blunt , sharp, and electrocautery dissection, the platysma was traversed and the jugular vein was identified. The facial vein was dissected, clamped, divided and ligated with a 2-0 silk suture ligature. The jugular vein was retracted to expose the carotid bifurcation. The patient received 2000 units of heparin intravenously at this time. Proximal dissection of the common and external carotid arteries were performed circumferentially. Dissection of the internal carotid was performed circumferentially. Vessels loops were passed around the internal and external carotid and an umbilical tape was passed from the common carotid artery. The patient received additional 3000 units of heparin intravenously. Additional heparin was given throughout the case to maintain adequate anticoagulation. After waiting adequate time for the heparin to circulate, the vessels were occluded and a longitudinal arteriotomy was made into the common carotid artery and extended into the internal carotid beyond the plaque. The plaque was long, extended distally and was heavily calcified. Vigorous pulsatile retrograde flow was noted from the internal carotid artery upon release of the vessel loop. Due to the rapid pulsatile retrograde flow, no shunt was placed. A dental [place] was then used to perform a standard endarterectomy. Proximal and distal endpoints were inspected. No elevated flaps were noted. Additional heparin was given throughout the procedure to maintain adequate anticoagulation. A Hemashield patch was cut to fit the defect and sutured in place with running 6 -0 Prolene. Prior to completing the closure, each vessel was flushed and then reoccluded. Heparinized saline was infused into the lumen. The patch was completed. Flow was restored in the external carotid artery, followed the common carotid artery, lastly the internal carotid artery was opened. A low resistance arterialized signal was present within the internal carotid artery beyond the patch. Thrombin and Gelfoam were used to aid in hemostasis. Meticulous hemostasis was obtained throughout the wound with electrocautery. Platelet rich and platelet poor plasma were infused into the wounds. The sternocleidomastoid was reapproximated with interrupted 3-0 Vicryl. Platelet rich and platelet poor plasma were infused into the wound. A TLS drain was brought through a separate stab incision and sutured in place with 0 silk suture. The platysma was reapproximated with running 3-0 Vicryl. Local anesthetic was infused in the skin. A 3-0 Monocryl was used to reapproximate the skin. A sterile dressing was applied. The patient was extubated, taken to the recovery room in stable condition.
--- NOTE | 2017-12-15 11:44 | Anesthesia Evaluation Post Op ---
Date of Encounter: 12/15/17 Time of Encounter: 11:40 - Vital Signs Vital Signs: Vital Signs/O2 Sat/Glucose, Most Current Temp Pulse Resp BP Pulse Ox 12/15/17 11:26 97.8 F 82 18 134/51 92 12/15/17 11:16 79 18 131/61 93 12/15/17 11:06 81 16 140/61 96 12/15/17 10:56 97.4 F L 85 16 163/75 95 - Lungs Lungs: Clear Ascult./Percussion - Airway Airway: Non-obstructed - Cardiovascular Baseline Rhythm - Mental Status Mental Status: Alert & Oriented, Answers Appropriately - Pain Pain Scale: 0 Pain Scale used: Numeric (1 - 10) - Nausea Vomiting Nausea Vomiting: Not Present - Hydration Hydration: Ice chips - Discharge PostOp Status: Transfer Patient to floor Anes Supervising Prov Stmt: Pt seen/evaluated,VSS and pt has met criteria for discharge to home. - MD Alize
--- NOTE | 2017-12-15 12:07 | Anesthesia Procedures ---
Date of Encounter: 12/15/17 Time of Encounter: 07:30 Procedures: Anesthesia - Arterial Line Consent obtained: verbal consent Time out performed: Yes Supplemental Oxygen via Nasal Cannula (L/min): 2 Local Anesthetic: Lidocaine 1% Amount of Anesthetic used (mls): 1 Size (Gauge): 20 Length (inches): 1 3/4 Technique Used: sterile prep, guide wire technique Post-Procedure: line taped into place Patient tolerated procedure: well, no complications Complications: none Site: Radial R
[2017-12-15] MEDS: *HR* Metoprolol 5 MG/5 ML VIAL IVP SCH ×3 (12:20→23:42)
[2017-12-15] MEDS: Insulin LISPRO 300 UNITS/3 ML VIAL SQ SCH ×4 (12:37→17:30)
--- NOTE | 2017-12-15 15:01 | Internal Med Progress Note ---
Date of Encounter: 12/15/17 Time of Encounter: 14:59 - Assessment and plan (1) Transient cerebral ischemia Current Visit: Yes Status: Acute Assessment and plan: Presented with right sided weakness, right facial drop, right-sided paresthesias and weakness 2/2 left hemispheric TIA, has had complete resolution of symptoms without recurrence H/O CVA and severe bilateral carotid stenosis, high risk of for further stroke Vascular surgery following- s/p left carotid endarterectomy this morning - Continue DAPT, not taking statin d/t allergy - Continue cardiac monitoring - Assess neurologic status per postop protocol - MRI completed with no acute infarct no acute intracranial abnormality minimal chronic microvascular ischemic changes - Echo-echo with grossly normal LV systolic function mild increased LV wall thickness mild left ventricular diastolic dysfunction RVs probably dilated function appears normal no significant valvular dysfunction and pulmonary hypertension IVC is not well visualized no evidence of PFO Qualifiers: Transient cerebral ischemia type: carotid artery syndrome (hemispheric) Qualified Code(s): G45.1 - Carotid artery syndrome (hemispheric) (2) S/P carotid endarterectomy Current Visit: Yes Status: Acute Assessment and plan: Underwent left carotid endarterectomy this morning History of bilateral carotid artery stenosis Presented with complaints of left hemispheric TIA manifested by right facial droop and right-sided paresthesias and weakness Vascular surgery following No focal neuro deficits following surgery See assessment and plan above (3) COPD (chronic obstructive pulmonary disease) Current Visit: Yes Status: Chronic Assessment and plan: History of COPD, remained stable, No wheezing per auscultation, continue albuterol inhaler and PRN oxygen Qualifiers: COPD type: unspecified COPD Qualified Code(s): J44.9 - Chronic obstructive pulmonary disease, unspecified (4) Obesity Current Visit: Yes Status: Chronic Assessment and plan: Discussed lifestyle modifications, patient verbalizes understanding, denies any further questions Qualifiers: Obesity type: unspecified obesity type Obesity classification: adult class 3 (BMI >= 40) Serious obesity comorbidity presence: unspecified whether serious comorbidity present Body mass index: BMI 45.0-49.9 Qualified Code(s) : E66.9 - Obesity, unspecified; Z68.42 - Body mass index (BMI) 45.0-49.9, adult (5) CAD (coronary artery disease) Current Visit: Yes Status: Chronic Assessment and plan: H/O CAD Continues to deny chest pain Cont aspirin Plavix, and beta nicole Continue with nitroglycerin as needed for chest pain Qualifiers: Coronary Disease-Associated Artery/Lesion type: [place] artery [place] vs. transplanted heart: [place] heart Associated angina: without angina Qualified Code(s): I25.10 - Atherosclerotic heart disease of [place] coronary artery without angina pectoris (6) Carotid stenosis Current Visit: No Status: Chronic Assessment and plan: Admitted for TIA, symptoms resolved and no recurrence s/p left carotid endarterectomy Severe bilateral carotid stenosis Bilateral proximal ICA has a severe, 60-79% stenosis continue with DAPT See above Qualifiers: Laterality: bilateral Qualified Code(s): I65.23 - Occlusion and stenosis of bilateral carotid arteries (7) Diabetes Current Visit: Yes Status: Chronic Assessment and plan: H/O DM continue basal and medium insulin sliding scale Accu-Cheks before meals and at bedtime Qualifiers: Diabetes mellitus type: type 2 Diabetes mellitus custodial insulin use: with buttermaker continuous churn use Diabetes mellitus complication status: without complication Qualified Code(s): E11.9 - Type 2 diabetes mellitus without complications; Z79.4 - senior care (current) use of insulin (8) History of CVA (cerebrovascular accident) Current Visit: Yes Status: Acute Assessment and plan: Taking DAPT, , aspirin and Plavix. Not taking simvastatin due to allergy (9) Vertigo Current Visit: Yes Status: Resolved Assessment and plan: resolved (10) VESTA (obstructive sleep apnea) Current Visit: Yes Status: Acute Assessment and plan: H/O VESTA, continue BiPAP at night (11) DVT prophylaxis Current Visit: No Status: Acute Assessment and plan: SQ heparin - Time Spent With Patient Total time spent is greater than 50% in coordination of care (as documented) at patient's floor/unit and/or counseling patient: 25 - 35 minutes - Subjective Interval history: Patient seen and examined at bedside today. S/P left carotid endarterectomy, c/ o mild pain at surgical site, otherwise no additional complaints. - Constitutional Vitals: Temp Pulse Resp BP Pulse Ox 97.2 F L 65 17 139/58 94 12/15/17 11:49 12/15/17 14:10 12/15/17 14:10 12/15/17 14:10 12/15/17 14:10 General appearance: Present: A&O X 3, no acute distress, answers questions appropriately - Head Head exam: Present: atraumatic, normocephalic - Eye Eye exam: Present: EOMI, PERRL, conjuntiva pink, sclera anicteric Pupils: Present: PERRL - Neck Neck exam general surgery: Present: supple, trachea midline. Absent: lymphadenopathy - Respiratory Respiratory exam: Present: CTAB. Absent: accessory muscle use, rales, rhonchi, wheezes - Cardiovascular Cardiovascular exam: Present: RRR, +S1, +S2. Absent: diastolic murmur, gallop, rubs, systolic murmur - GI/Abdominal GI/Abdominal exam: Present: normal bowel sounds, soft, no peritoneal signs. Absent: distended, tenderness - Extremities Exam Extremities exam: Present: warm, radial pulses palpable and symmetrical. Absent : calf tenderness, cyanotic, pedal edema - Neurological Exam Neurological exam: Present: alert, CN II-XII intact, oriented X3, no focal deficits, strengths equal and symetr throughout. Absent: pronater drift, facial droop, speech deficit - Skin Skin exam: Present: dry, intact Internal Medicine: Result - Labs CBC & Chem 7: 12/13/17 15:42 12/13/17 06:52 - ABG Interpretation ABG results: PT/INR, D-dimer PT 11.2 Seconds (9.4-12.1) 12/13/17 15:42 - VTE Documentation of Mechanical Device: Intermittent pneumatic compression device Consult Discharge Plan - Plan Instructions: Carotid Endarterectomy (DC) Referrals: Shashi Moon MD [Partnered Physician] - 01/30/18 11:00 am Alexis Farmer [Partnered Physician] - 12/23/17 2:00 pm (Dr. Up is on Vacation so they will have to see this Doctor and then they can go back to Dr. Up)
[2017-12-15] MEDS: CeFAZolin Syr 3,000MG/30 ML 3,000 MG/30 ML SYRINGE IVPB SCH ×2 (16:12→23:42)
[2017-12-15] MEDS: Insulin DETEMIR 100 UNIT/ML X5UNITS SQ SCH (21:00)
[2017-12-15] MEDS ORDERED: Insulin LISPRO 300 UNITS/3 ML VIAL SQ SCH (21:00)
[2017-12-16 03:48] LABS: Basophils % 0.1 %; Hematocrit 38.8 % (37.5-50.1); Immature Granulocytes % 0.2 % (0-4); Lymphocytes # 1.4 K/mcL (0.6-4.6); Lymphocytes % 14.9 %; Mean Corpuscular HGB Conc 33.8 g/dL (31.6-35.5); Mean Corpuscular Hemoglobin 32.6 pg (28.0-33.3); Mean Corpuscular Volume 96.5 fL (83.0-100.0); Mean Platelet Volume 9.8 fL (9.4-12.4); Monocytes % 10.6 %; Platelet Count 144 K/mcL (140-400); Red Blood Count 4.02 M/mcL (4.19-5.50); Segmented Neutrophils % 74.2 %
[2017-12-16 03:59] LABS: Hemoglobin 13.1 g/dL (12.9-16.9)
[2017-12-16] MEDS ORDERED: *HR* Heparin 5,000 UNIT/ML VIAL SQ SCH (06:00)
[2017-12-16] MEDS: Insulin DETEMIR 100 UNIT/ML X5UNITS SQ SCH (07:58)
[2017-12-16] MEDS: Insulin LISPRO 300 UNITS/3 ML VIAL SQ SCH ×4 (08:00→11:49)
[2017-12-16 08:36] LABS: BUN/Creatinine Ratio 24 (6-26); Blood Urea Nitrogen 27 mg/dL (8-23); Carbon Dioxide 25 mEq/L (23-29); Chloride 101 mEq/L (98-107); Glucose 282 mg/dL (70-105); Osmolality,Calculated 289 (280-300); Potassium 4.9 mEq/L (3.5-5.1); Sodium 132 mEq/L (136-145); eGFR For African Americans > 60 (> 60); eGFR For Non-African Americans > 60 (> 60)
[2017-12-16] MEDS ORDERED: Aspirin Enteric Coated 81 MG Tablet PO SCH (09:00)
[2017-12-16] MEDS ORDERED: Valsartan 160 MG TABLET PO SCH (09:00)
[2017-12-16] MEDS ORDERED: VITAMIN D PO SCH (09:00)
[2017-12-16] MEDS ORDERED: Furosemide 40 MG TABLET PO SCH (09:00)
[2017-12-16] MEDS ORDERED: FISH OIL PO SCH (09:00)
[2017-12-16] MEDS ORDERED: Metoprolol XL (24 HR) Succ 50 MG TAB.ER.24H PO SCH (09:00)
[2017-12-16 15:18] VITALS: BP 144/61
--- NOTE | 2017-12-16 16:23 | Discharge Summary ---
- NOTES TO OUTPATIENT PROVIDER Notes to Outpatient Provider: Follow up with PCP in 2-3 days after discharge. Recheck BMP and CBC at that time. Follow up with vascular surgery as directed. Orders not resulted at time of discharge: Pending orders 12/15/17 04:13 Red Blood Cells [BBK] Routine Type and Screen [BBK] AM 0400 12/15/17 10:57 Surgical Pathology [PTH] Routine Date of Encounter: 12/16/17 Time of Encounter: 16:21 - Discharge Diagnosis (1) Transient cerebral ischemia Priority: Primary Status: Acute Qualifiers: Transient cerebral ischemia type: carotid artery syndrome (hemispheric) Qualified Code(s): G45.1 - Carotid artery syndrome (hemispheric) (2) Carotid stenosis Priority: Secondary Status: Chronic Qualifiers: Laterality: bilateral Qualified Code(s): I65.23 - Occlusion and stenosis of bilateral carotid arteries (3) S/P carotid endarterectomy Priority: Secondary Status: Acute (4) History of CVA (cerebrovascular accident) Priority: Secondary Status: Chronic (5) COPD (chronic obstructive pulmonary disease) Priority: Secondary Status: Chronic Qualifiers: COPD type: unspecified COPD Qualified Code(s): J44.9 - Chronic obstructive pulmonary disease, unspecified (6) Obesity Priority: Secondary Status: Chronic Qualifiers: Obesity type: unspecified obesity type Obesity classification: adult class 3 (BMI >= 40) Serious obesity comorbidity presence: unspecified whether serious comorbidity present Body mass index: BMI 45.0-49.9 Qualified Code(s) : E66.9 - Obesity, unspecified; Z68.42 - Body mass index (BMI) 45.0-49.9, adult (7) CAD (coronary artery disease) Priority: Secondary Status: Chronic Qualifiers: Coronary Disease-Associated Artery/Lesion type: [place] artery [place] vs. 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 Saavedra is a 72 year old male admitted for right sided weakness likely secondary to TIA vs CVA. He was admitted to general medical floor with telemetry. All neurological deficits had resolved prior to reaching the floor, and he had no further neurological symptoms after admission. He was continued on home aspirin and plavix, and NIHSS protocol was initiated. He is not on statin. MRI brain the next day showed no acute abnormalities. ECHO showed normal LV systolic function, mild increased LV wall thickness, mild LV diastolic dysfunction, RV probably dilated, no significant valvular dysfunction , and no pulmonary hypertension. Vascular surgery was consulted for carotid stenosis. They performed left carotid endarterectomy. He tolerated procedure well. He will be discharged home with follow up with PCP in 2-3 days after discharge. He will follow up with vascular surgery as directed. Patient has met maximum benefit of this hospitalization and will be discharged home in stable condition. Discharge discussed with: patient, family, nurse, case management, other ( Pharmacist) - Time Spent with Patient Total time spent providing and/or coordinating discharge services: Greater than 30 minutes - Discharge Medications Home Medications: Aspirin Enteric Coated [Aspirin EC] 81 mg PO DAILY 01/09/16 [History] Insulin Glargine,Hum.rec.anlog [Lantus Solostar] 60 - 70 unit SQ BID 01/09/16 [ History] Insulin LISPRO [Humalog Kwikpen U-100] 35 unit SQ TIDAC 01/09/16 [History] Metformin HCl [Fortamet] 1,000 mg PO BID 01/09/16 [History] Metoprolol XL (24 HR) Succ [Toprol Xl] 50 mg PO DAILY 01/09/16 [History] Omega3/Dha/Epa/Fish Oil/Vit D3 [Fish Oil + Vitamin D-3 Softgel] 1 each PO DAILY 01/09/16 [History] Valsartan [Diovan] 160 mg PO DAILY 01/09/16 [History] Tamsulosin HCl [Flomax] 0.4 mg PO DAILY 11/17/16 [History] Clopidogrel [Plavix] 75 mg PO DAILY #30 tablet 10/29/17 [Rx] Albuterol Sulfate [Ventolin Hfa] 1 - 2 puff IH Q4H PRN 11/17/17 [History] Furosemide [Lasix] 40 mg PO DAILY 11/17/17 [History] Nitroglycerin 0.4 mg SL Q5MIN PRN #30 tab.subl 11/18/17 [Rx] Allergies/Adverse Reactions: 3 Allergy/AdvReac Type Severity Reaction Status Date / Time Amoxicillin Allergy Unknown UNKOWN Verified 10/28/17 10:33 lisinopril Allergy Unknown Anaphylaxis Verified 10/28/17 10:33 levofloxacin [From Levaquin] Allergy Anaphylaxis Verified 10/28/17 10:33 carvedilol [From Coreg] AdvReac Intermediate MUSCLE Verified 10/28/17 10:33 CRAMPS losartan AdvReac Intermediate MUSCLE Verified 10/28/17 10:33 CRAMPS budesonide [From Symbicort] AdvReac See Verified 11/17/17 08:46 Comments fluticasone AdvReac See Verified 11/17/17 08:45 [From Advair Diskus] Comments Formoterol [From Symbicort] AdvReac See Verified 11/17/17 08:46 Comments salmeterol AdvReac See Verified 11/17/17 08:45 [From Advair Diskus] Comments Ggymwdg-Haf-Ohu Reductase AdvReac Anaphylaxis Verified 10/28/17 10:33 Inhibitor [Statins] Date of admission: 12/12/17 17:47 Primary care physician: Adalberto Up MD Consults: Vascular Surgery 12/13/17 08:11 Consult to Cardiology [CONS] Routine Comment: Consulting Provider: Cardiology [place] Reason for Consult: cardiac clearance Time Notified: 08:12 Call Completed: Yes Discharging clinician: Bryan Lauren Anticipated date of discharge: 12/16/17 - Constitutional Vitals: Temp Pulse Resp BP Pulse Ox 98.2 F 80 18 144/61 92 12/16/17 15:11 12/16/17 15:11 12/16/17 15:11 12/16/17 15:11 12/16/17 15:11 General appearance: Present: cooperative, A&O X 3, morbidly obese, no acute distress, answers questions appropriately - Respiratory Respiratory exam: Present: CTAB. Absent: accessory muscle use, rales, rhonchi, wheezes Additional comments: Normal WOB - Cardiovascular Cardiovascular exam: Present: RRR, +S1, +S2. Absent: diastolic murmur, gallop, rubs, systolic murmur Additional comments: No BLE edema - GI/Abdominal GI/Abdominal exam: Present: normal bowel sounds, soft. Absent: distended, hepatomegaly, mass, splenomegaly, tenderness - Neurological Exam Neurological exam: Present: alert, CN II-XII intact, oriented X3, no focal deficits, strengths equal and symetr throughout. Absent: motor sensory deficit , facial droop, speech deficit - Psychiatric Psychiatric exam: Present: normal affect, normal mood. Absent: agitated, anxious, depressed - Skin Skin exam: Present: dry, intact, warm. Absent: cyanosis, rash - Patient Status Disposition: Home, Self-Care Condition: Good Overall status at discharge: patient is progressing back to baseline - Discharge Instructions Instructions: Myocardial Infarction (DC), Carotid Endarterectomy (DC), Diabetes Mellitus Type 2 in Adults (DC) Follow Up With: Shashi Moon MD [Partnered Physician] - 01/30/18 11:00 am Alexis Farmer [Partnered Physician] - 12/23/17 2:00 pm (Dr. Up is on Vacation so they will have to see this Doctor and then they can go back to Dr. Up) Additional Instructions: Follow up with PCP in 2-3 days after discharge. Recheck BMP and CBC at that time. Follow up with vascular surgery as directed. - Diet and Activity Activity: resume usual activities as tolerated Diet: diabetic diet, low fat, low cholesterol, low salt diet, other (Cardiac Diet)
--- NOTE | 2017-12-16 16:26 | Vascular/[facility] Progress Note ---
Date of Encounter: 12/16/17 Time of Encounter: 16:24 - Assessment and plan (1) TIA (transient ischemic attack) Current Visit: Yes Status: Acute Patient is postoperative day #1 following left carotid endarterectomy. Patient tolerated procedure well. He had no periprocedural complications. The patient is doing well neurologically on the afternoon of postoperative day #1. Patient is suitable for discharge from a vascular surgery perspective today. Patient is to follow-up with Dr. Moon. The postoperative instructions were reviewed with the patient and his prior to discharge. Qualifiers: Qualified Code(s): G45.1 - Carotid artery syndrome (hemispheric) (2) NSTEMI (non-ST elevated myocardial infarction) Current Visit: No Status: Acute Patient is status post non-STEMI. Patient had coronary intervention on November 17 with placement of 3 stents. (3) Obesity Current Visit: Yes Status: Chronic Chronic obesity Qualifiers: Qualified Code(s): E66.9 - Obesity, unspecified; Z68.42 - Body mass index ( BMI) 45.0-49.9, adult (4) Transient cerebral ischemia Current Visit: Yes Status: Acute Left hemispheric TIA. No residual effect at this time. See above for further discussion regarding treatment plan. Qualifiers: Qualified Code(s): G45.1 - Carotid artery syndrome (hemispheric) (5) Diabetes Current Visit: Yes Status: Chronic Patient has long history of diabetes with complications involving the cerebrovascular and cardiovascular systems. 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 Saavedra is postoperative day #1 following left carotid endarterectomy. He has no complaints referable to the operation. He has no neurologic symptoms. Vital Signs, Last 4 Hours Temp Pulse Resp BP Pulse Ox 12/16/17 15:11 98.2 F 80 18 144/61 92 - Physical Examination General: Present: Conversant, No Apparent Distress, Well developed, Well nourished HEENT: Present: Atraumatic, Normocephaly, Trachea midline Neck: Absent: JVD Cardiac: Present: Reg Rate and Rhythm Lungs: Present: Decreased breath sounds Neuro: Present: Alert and responsive, No focal deficits noted, Cranial nerves grossly intact, Motor nerves grossly intact, Sensory nerves grossly intact Vascular: Present: Surgical incisions (Left neck incision is clean and dry) - VTE Documentation of Mechanical Device: Intermittent pneumatic compression device Results 12/16/17 03:19 12/16/17 08:05 Lab Results, Last 24 hours 12/16/17 12/16/17 03:19 08:05 WBC 9.4 D Hgb 13.1 D Hct 38.8 Plt Count 144 Sodium 132 L Potassium 4.9 Chloride 101 Carbon Dioxide 25 BUN 27 H Creatinine 1.11 Glucose 282 H Calcium 9.0 Consult Discharge Plan - Plan Instructions: Carotid Endarterectomy (DC) Additional Instructions: Keep left neck incision dry for total of 5 days following surgery No automobile driving for 2 weeks No lifting greater than 10 pounds. No manual labor. Patient may walk inside or outside. Patient may use stairs. Patient may be a passenger in a car when necessary. Referrals: Shashi Moon MD [Partnered Physician] - 01/30/18 11:00 am Alexis Farmer [Partnered Physician] - 12/23/17 2:00 pm (Dr. Up is on Vacation so they will have to see this Doctor and then they can go back to Dr. Up)
[2017-12-16] MEDS ORDERED: Insulin LISPRO 300 UNITS/3 ML VIAL SQ SCH ×2 (16:30→21:00)
[2017-12-16] MEDS ORDERED: Insulin DETEMIR 100 UNIT/ML X5UNITS SQ SCH (21:00)
== END 2017-12-16 17:10 | disposition home or self-care (01) | DRG 38 ==
LOC: 3BNU 18:21 → EMEROO 18:21 → 3BNU 20:29 → 2NNU 12-15 11:46
PROVIDERS: ADMIT Internal Medicine; ATTEND Internal Medicine

== ENCOUNTER 2018-02-01 10:31 | Inpatient (IN) ==
--- NOTE | 2018-02-01 09:54 | Anesthesia Evaluation PreOp ---
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 (12/05, no residual) Other Medical History: Diabetes Type II, Other (morbid obesity BMI 47) Anesthesia History: No Prior Anesthetic Complications, Past Anesthesia (left CEA , back, knee, hernia) Alcohol Use: none Drug use: none Medications and Allergies Aspirin Enteric Coated [Aspirin EC] 81 mg PO DAILY 01/09/16 [History] Insulin Glargine,Hum.rec.anlog [Lantus Solostar] 80 unit SQ BID 01/09/16 [ History] Insulin LISPRO [Humalog Kwikpen U-100] 12 unit SQ TIDAC 01/09/16 [History] Metformin HCl [Fortamet] 1,000 mg PO BID 01/09/16 [History] Metoprolol XL (24 HR) Succ [Toprol Xl] 50 mg PO DAILY 01/09/16 [History] Omega3/Dha/Epa/Fish Oil/Vit D3 [Fish Oil + Vitamin D-3 Softgel] 1 each PO DAILY 01/09/16 [History] Clopidogrel [Plavix] 75 mg PO DAILY #30 tablet 10/29/17 [Rx] Albuterol Sulfate [Ventolin Hfa] 1 - 2 puff IH Q4H PRN 11/17/17 [History] Furosemide [Lasix] 40 mg PO DAILY 11/17/17 [History] Nitroglycerin 0.4 mg SL Q5MIN PRN #30 tab.subl 11/18/17 [Rx] Beclomethasone Diprop 40mcg [Qvar 40 mcg] 1 puff IH BID 02/01/18 [History] Losartan [Cozaar] 100 mg PO DAILY 02/01/18 [History] 3 Allergy/AdvReac Type Severity Reaction Status Date / Time Amoxicillin Allergy Unknown UNKOWN Verified 10/28/17 10:33 lisinopril Allergy Unknown Anaphylaxis Verified 10/28/17 10:33 levofloxacin [From Levaquin] Allergy Anaphylaxis Verified 10/28/17 10:33 carvedilol [From Coreg] AdvReac Intermediate MUSCLE Verified 10/28/17 10:33 CRAMPS losartan AdvReac Intermediate MUSCLE Verified 10/28/17 10:33 CRAMPS budesonide [From Symbicort] AdvReac See Verified 11/17/17 08:46 Comments fluticasone AdvReac See Verified 11/17/17 08:45 [From Advair Diskus] Comments Formoterol [From Symbicort] AdvReac See Verified 11/17/17 08:46 Comments salmeterol AdvReac See Verified 11/17/17 08:45 [From Advair Diskus] Comments Dllpgjm-Itr-Mgf Reductase AdvReac Anaphylaxis Verified 10/28/17 10:33 Inhibitor [Statins] - Meds/Allergy Pre-op Review Medications Reviewed: Yes Allergies Reviewed: Yes Beta Blockers on Current Med List: Yes Anesthesia Results - Labs Laboratory Tests 01/30/18 01/30/18 01/30/18 09:37 09:37 09:37 Hgb 14.5 Hct 44.2 Plt Count 181 PT 11.1 INR 1.0 APTT 30.0 Sodium 137 Potassium 4.6 Carbon Dioxide 28 BUN 24 H - Imaging EKG: report reviewed (SINUS RHYTHM) Additional studies: echo: Impressions: Grossly normal LV systolic function. Not all LV wall segments were well visualized. Mild increased LV wall thickness. Mild left ventricular diastolic dysfunction. RV is probably dilated. Function appears normal. No significant valvular dysfunction. No pulmonary hypertension. IVC is not well visualized. No evidence of PFO with agitated saline contrast. cath: Impressions: There is severe one vessel coronary artery disease. Patient had successful PTCA/Drug-Eluting Stent placement in the mid LAD. Patient had successful PTCA/Drug-Eluting Stent placement in the mid-distal LAD. Anesthesia Exam Selected Entries 02/01/18 11:03 Temperature 98.2 F Pulse Rate 86 Respiratory Rate 18 Blood Pressure 169/75 O2 Sat by Pulse Oximetry 93 Weight: 143kg BMI 48 NPO (# of Hours): 8 - HEENT Pupil (Motor): EOMI Mallampati: II Teeth: Missing Denture Type: Upper: Complete Oral Opening: Greater than 3 - INDUSTRIAL ROB[employer] MECH[employer]IC LOC: Oriented INDUST[employer]AL ROB[employer] MECH[employer]IC Motor: Normal RUE, Normal LUE, Normal RLE, Normal LLE, Normal Face INDUST[employer]AL ROB[employer] MECH[employer]IC Sensory: Normal: RUE, LUE, RLE, LLE, Face - Cardiac Rhythm: Regular Murmur: None - Pulmonary Breath Sounds: bilateral Clear Respiratory Effort: Symmetrical Anesthesia Assess/Plan ASA Score: 3 Modified Ford Scale for Level of Consciousness: Cooperative, oriented, and tranquil Anesthetic Plan: General Monitoring Plan: Standard Monitors, A-Line Recovery Plan: PACU (agrees to GA, line, blood if needed)
[~2018-02-01 10:31] MED LIST: Vancomycin 1,000 MG, Sodium Chloride IRRigation 1,000 ML IR ONE
[2018-02-01] MEDS ORDERED: CeFAZolin Syr 3,000MG/30 ML 3,000 MG/30 ML SYRINGE IVPB ONE (10:48)
[2018-02-01] MEDS ORDERED: Ringers Solution, Lactated 1,000 ML IVC SCH (11:00)
[2018-02-01] MEDS ORDERED: *HR* Propofol 200 MG/20 ML VIAL IVP ONE (11:16)
[2018-02-01] MEDS ORDERED: *HR* FentaNYL (PF) 100 MCG/2 ML VIAL ONE ×2 (11:16→16:36)
[2018-02-01] MEDS ORDERED: Lidocaine -MPF 2% 2 ML VIAL ONE (11:18)
[2018-02-01] MEDS ORDERED: *HR* Succinylcholine 200 MG/10 ML VIAL IVP ONE (11:18)
[2018-02-01] MEDS ORDERED: Lidocaine -MPF 4% 5 ML AMPUL ONE (11:19)
[2018-02-01] MEDS ORDERED: *HR* Remifentanil 1 MG VIAL IVP ONE (11:20)
[2018-02-01] MEDS ORDERED: *HR* Phenylephrine 10 MG/ML VIAL ONE ×2 (11:23→14:59)
--- NOTE | 2018-02-01 11:30 | History & Physical Report ---
Date of Encounter: 02/01/18 Time of Encounter: 11:05 24 Hour HP Update - Instructions Instructions: If the History and Physical is less than 30 days old and was completed prior to A.M. admission and or procedure and has NOT been updated on calendar day of procedure please complete this update prior to performing procedure. - Update Patient reports changes in Medical Condition: No Changes in examination, assessment, or condition: No Changes in Medication: No Preop tests/diagnostics Reviewed: Yes Surgery Remains Indicated: Yes Consent for Planned Operative Procedure(s) Verified: Yes - Pre-Operative Checklist Preoperative Checklist Indicated: Yes Prophylactic Antibiotic Ordered: Yes (vancomycin due to MRSA risk) Home Medications Include Beta Jermaine: Yes Beta Jermaine Taken Today (Day of Surgery): Yes Beta Jermaine Taken Yesterday (Day Prior to Surgery): Yes Is VTE Prophylaxis Indicated?: Yes
[2018-02-01] MEDS ORDERED: *HR* Midazolam HCl 2 MG/2 ML VIAL ONE (11:43)
[2018-02-01] MEDS ORDERED: Heparin 1,000 UNITS/500 mL 500 ML ONE (11:48)
--- NOTE | 2018-02-01 12:11 | Anesthesia Procedures ---
Date of Encounter: 02/01/18 Time of Encounter: 12:00 Procedures: Anesthesia - Arterial Line Consent obtained: written consent Time out performed: Yes Sedation: Versed (mg): 2 Supplemental Oxygen via Nasal Cannula (L/min): 2 Local Anesthetic: Lidocaine 1% Amount of Anesthetic used (mls): 0.5 Size (Gauge): 20 Length (inches): 1 3/4 Technique Used: sterile prep, guide wire technique, direct puncture technique Post-Procedure: line taped into place, dry sterile dressing placed Patient tolerated procedure: well, no complications Complications: none Site: Radial L
[2018-02-01] MEDS ORDERED: Acetaminophen IV 1,000 MG/100 ML INFUS..BTL ONE (12:40)
[2018-02-01] MEDS ORDERED: Bupivacaine-MPF 0.25% 10 ML VIAL ONE (12:50)
[2018-02-01] MEDS ORDERED: Protamine Sulfate 50 MG/5 ML VIAL IVP ONE (12:50)
[2018-02-01] MEDS ORDERED: Lidocaine 1% 20 ML MDV ONE (12:51)
[2018-02-01] MEDS ORDERED: Heparin 1,000 UNITS/500 mL 1,500 ML ONE (12:51)
[2018-02-01] MEDS ORDERED: Lidocaine -MPF 1% 5 ML AMPUL ONE (12:57)
[2018-02-01] MEDS ORDERED: EPHEDrine 50 MG/ML VIAL ONE (13:36)
[2018-02-01] MEDS ORDERED: *HR* Rocuronium Bromide 50 MG/5 ML VIAL ONE (13:39)
[2018-02-01] MEDS ORDERED: Ondansetron 4 MG/2 ML VIAL ONE (13:54)
[2018-02-01] MEDS ORDERED: Dexamethasone 4 MG/ML VIAL ONE (13:54)
[2018-02-01] MEDS ORDERED: Ondansetron 4 MG/2 ML VIAL IVP PRN ×2 (14:21→18:26)
[2018-02-01] MEDS ORDERED: *HR* OxyCODONE Immed Rel 5 MG TABLET PO PRN ×2 (14:21→18:26)
[2018-02-01] MEDS ORDERED: *HR* HYDROmorphone (PF) 1 MG/ML SYRINGE IVP PRN (14:21)
[2018-02-01] MEDS ORDERED: *HR* Labetalol 100 MG/20 ML MDV IVP PRN (14:21)
[2018-02-01] MEDS ORDERED: *HR* Heparin 5,000 UNIT/ML VIAL ONE ×3 (14:24→16:38)
[2018-02-01] MEDS ORDERED: Neostigmine Methylsulfate 3 MG/3 ML SYRINGE ONE (16:02)
[2018-02-01] MEDS ORDERED: Ketorolac 30 MG/ML VIAL ONE (16:02)
[2018-02-01] MEDS ORDERED: *HR* Metoprolol 5 MG/5 ML VIAL IVP ONE (16:31)
--- NOTE | 2018-02-01 17:05 | Operative Note ---
Date of procedure: 02/01/18 Pre-op diagnosis: 60-79% Right internal carotid artery stenosis Post-op diagnosis: same Procedure: Right carotid Endarterectomy with Hemashield patch angioplasty Complications: None Anesthesia: GETA Surgeon: Shashi Moon Was there an desk assistant present: No Estimated blood loss (cc): 200 Specimen: Right carotid plaque Condition: stable Disposition: PACU Procedure in Detail: Indications: The patient is a 72-year-old morbidly obese male with a history of hyperlipidemia, diabetes, hypertension and carotid stenosis. The patient was found have a greater than 75% right internal carotid artery stenosis. He previously sustained a left hemispheric she will vascular accident from a similar lesion In the left internal carotid artery. A right carotid endarterectomy was recommended to reduce his risk of a right hemispheric stroke. Procedure: The patient was identified in the preoperative area. The risks, benefits, and alternatives of the procedure were discussed and all questions were answered. The patient was then taken to the operating room and placed in supine position on the operating table. After the induction of general endotracheal anesthesia, the patient was cleaned and draped in normal sterile fashion. A longitudinal incision was made anterior to the right sternocleidomastoid muscle. Hemostasis was obtained via electrocautery. Through a process of blunt , sharp, and electrocautery dissection, the platysma was traversed and the jugular vein was identified. The facial vein was dissected, clamped, divided and ligated with a 2-0 silk suture ligature. The jugular vein was retracted to expose the carotid bifurcation. Multiple small vein to be teres identified overlying the right carotid artery. These veins were carefully dissected and ligated with 3-0 silk suture and then divided. The patient received 3000 units of heparin intravenously at this time. Proximal dissection of the common and external carotid arteries were performed circumferentially. Dissection of the internal carotid was performed circumferentially. Vessels loops were passed around the internal and external carotid and an umbilical tape was passed from the common carotid artery. The patient received additional 2000 units of heparin intravenously. After waiting adequate time for the heparin to circulate, the vessels were occluded and a longitudinal arteriotomy was made into the common carotid artery and extended into the internal carotid beyond the plaque. Vigorous pulsatile retrograde flow was noted from the internal carotid artery upon release of the vessel loop. Due to the rapid pulsatile retrograde flow, no shunt was placed. A dental [place] was then used to perform a standard endarterectomy. Proximal and distal endpoints were inspected. No elevated flaps were noted. A Hemashield patch was cut to fit the arteriotomy and sutured in place with running 6-0 Prolene. Prior to completing the closure, each vessel was flushed and then reoccluded. Heparinized saline was infused into the lumen. The suture line was completed and the suture was tied. Flow was restored in the external carotid artery, followed the common carotid artery, lastly the internal carotid artery was opened. A low resistance arterialized signal was present within the internal carotid artery beyond the patch. Thrombin and Gelfoam were used to aid in hemostasis. Meticulous hemostasis was obtained throughout the wound with electrocautery. Platelet rich and platelet poor plasma were infused into the wounds. The sternocleidomastoid was reapproximated with interrupted 3-0 Vicryl. Platelet rich and platelet poor plasma were infused into the wound. A TLS drain was brought through a separate stab incision and sutured in place with 0 silk suture. The platysma was reapproximated with running 3-0 Vicryl. Local anesthetic was infused in the skin. A 3-0 Monocryl was used to reapproximate the skin. A sterile dressing was applied. The patient was extubated, taken to the recovery room in stable condition.
--- NOTE | 2018-02-01 17:59 | Anesthesia Evaluation Post Op ---
Date of Encounter: 02/01/18 Time of Encounter: 17:59 - Discharge PostOp Status: Transfer Patient to floor (Patient's vital signs have been reviewed. Patient is stable postoperatively and has adequately recovered from anesthesia. Patient is determined to have stable airway patency and respiratory function including respiratory rate and oxygen saturation. Patient has a stable heart rate, blood pressure and adequate hydration. Patients mental status is acceptable. Patients temperature is appropriate. Pain and nausea are adequately controlled.)
[2018-02-01] MEDS ORDERED: Acetaminophen 325 MG TABLET PO PRN (18:26)
[2018-02-01] MEDS ORDERED: Naloxone 0.4 MG/ML INJ IVP PRN (18:26)
[2018-02-01] MEDS ORDERED: Dextrose Gel 15 GM/37.5 ML TUBE PO PRN ×2 (18:26)
[2018-02-01] MEDS ORDERED: Nitroglycerin 0.4 MG TAB.SUBL SL PRN (18:26)
[2018-02-01] MEDS ORDERED: D5% in Water 1,000 ML IVC PRN (18:26)
[2018-02-01] MEDS ORDERED: *HR* Dextrose 50 % in Water (Syg) 50 ML SYRINGE IVP PRN (18:26)
[2018-02-01] MEDS ORDERED: OXYCODONE Oral CONC 10 MG/0.5 ML ORAL.SYG SL PRN ×2 (18:26)
[2018-02-01] MEDS ORDERED: 0.9 % Sodium Chloride 1,000 ML IVC SCH (18:26)
[2018-02-01] MEDS ORDERED: *HR* HYDROcodone/Acet 5/325 mg TABLET PO PRN (18:26)
[2018-02-01] MEDS: *HR* Metoprolol 5 MG/5 ML VIAL IVP SCH (18:55)
[2018-02-01] MEDS: Beclomethasone 40mcg MDI IH SCH (19:39)
[2018-02-01] MEDS: ceFAZolin 3,000 MG in 0.9 % Sodium Chloride 100 ML IVPB SCH (20:24)
[2018-02-01] MEDS ORDERED: Insulin LISPRO 300 UNITS/3 ML VIAL SQ SCH (21:00)
[2018-02-02] MEDS: *HR* Metoprolol 5 MG/5 ML VIAL IVP SCH ×2 (00:12→05:39)
[2018-02-02] MEDS: ceFAZolin 3,000 MG in 0.9 % Sodium Chloride 100 ML IVPB SCH (00:13)
[2018-02-02] MEDS ORDERED: *HR* Heparin 5,000 UNIT/ML VIAL SQ SCH ×2 (06:00)
--- NOTE | 2018-02-02 07:00 | Discharge Summary ---
Orders not resulted at time of discharge: Pending orders 02/01/18 16:41 Surgical Pathology [PTH] Routine Date of Encounter: 02/02/18 Time of Encounter: 07:45 - Discharge Diagnosis (1) Carotid stenosis Priority: Primary Status: Chronic Comments: The patient is postoperative day #1 after right carotid endarterectomy. He is healing well. He has no neurologic deficits. He was tolerating a diet well. He will be discharged today. Qualifiers: Laterality: right Qualified Code(s): I65.21 - Occlusion and stenosis of right carotid artery (2) COPD (chronic obstructive pulmonary disease) Priority: Secondary Status: Chronic Qualifiers: COPD type: emphysema Emphysema type: panlobular Qualified Code(s): J43.1 - Panlobular emphysema (3) CAD (coronary artery disease) Priority: Secondary Status: Chronic Qualifiers: Coronary Disease-Associated Artery/Lesion type: [place] artery [place] vs. transplanted heart: [place] heart Associated angina: without angina Qualified Code(s): I25.10 - Atherosclerotic heart disease of [place] coronary artery without angina pectoris (4) VESTA (obstructive sleep apnea) Priority: Secondary Status: Chronic (5) Diabetes Priority: Secondary Status: Chronic Comments: Patient is on the insulin sliding scale. Qualifiers: Diabetes mellitus type: type 2 Diabetes mellitus long term care administrator insulin use: with long term care administrator use Diabetes mellitus complication status: with circulatory complication Diabetes mellitus complication detail: with other circulatory complications Qualified Code(s): E11.59 - Type 2 diabetes mellitus with other circulatory complications; Z79.4 - care home (current) use of insulin (6) Obesity Priority: Secondary Status: Chronic Qualifiers: Obesity type: due to excess calories Obesity classification: adult class 3 (BMI >= 40) Serious obesity comorbidity presence: unspecified whether serious comorbidity present Body mass index: BMI 50.0-59.9 Qualified Code(s): E66.01 - Morbid (severe) obesity due to excess calories; Z68.43 - Body mass index (BMI) 50-59.9 , adult (7) CKD (chronic kidney disease), stage III Priority: Secondary Status: Chronic - Hospital Course Hospital course: Mr. Saavedra is a 72 year old male with multiple medical morbidities who has a history of carotid stenosis. He was found have significant right internal carotid stenosis. He was admitted on 02/01/2018. He underwent a right carotid endarterectomy and tolerated the procedure well. On postoperative day #1 he was healing well. He was discharged home in stable condition on postoperative day #1 without complications. - Time Spent with Patient Total time spent providing and/or coordinating discharge services: - Discharge Medications Prescriptions: OxyCODONE/APAP 5/325 [Percocet 5/325 MG] 1 each PO Q6HR PRN 5 Days #20 tablet PRN Reason: postoperative pain Home Medications: Aspirin Enteric Coated [Aspirin EC] 81 mg PO DAILY 01/09/16 [History] Insulin Glargine,Hum.rec.anlog [Lantus Solostar] 80 unit SQ BID 01/09/16 [ History] Insulin LISPRO [Humalog Kwikpen U-100] 12 unit SQ TIDAC 01/09/16 [History] Metformin HCl [Fortamet] 1,000 mg PO BID 01/09/16 [History] Metoprolol XL (24 HR) Succ [Toprol Xl] 50 mg PO DAILY 01/09/16 [History] Omega3/Dha/Epa/Fish Oil/Vit D3 [Fish Oil + Vitamin D-3 Softgel] 1 each PO DAILY 01/09/16 [History] Clopidogrel [Plavix] 75 mg PO DAILY #30 tablet 10/29/17 [Rx] Albuterol Sulfate [Ventolin Hfa] 1 - 2 puff IH Q4H PRN 11/17/17 [History] Furosemide [Lasix] 40 mg PO DAILY 11/17/17 [History] Nitroglycerin 0.4 mg SL Q5MIN PRN #30 tab.subl 11/18/17 [Rx] Beclomethasone Diprop 40mcg [QVAR 40 mcg] 1 puff IH BID 02/01/18 [History] Losartan [Cozaar] 100 mg PO DAILY 02/01/18 [History] OxyCODONE/APAP 5/325 [Percocet 5/325 MG] 1 each PO Q6HR PRN 5 Days #20 tablet [Rx] Allergies/Adverse Reactions: 3 Allergy/AdvReac Type Severity Reaction Status Date / Time Amoxicillin Allergy Unknown UNKOWN Verified 10/28/17 10:33 lisinopril Allergy Unknown Anaphylaxis Verified 10/28/17 10:33 levofloxacin [From Levaquin] Allergy Anaphylaxis Verified 10/28/17 10:33 carvedilol [From Coreg] AdvReac Intermediate MUSCLE Verified 10/28/17 10:33 CRAMPS losartan AdvReac Intermediate MUSCLE Verified 10/28/17 10:33 CRAMPS budesonide [From Symbicort] AdvReac See Verified 11/17/17 08:46 Comments fluticasone AdvReac See Verified 11/17/17 08:45 [From Advair Diskus] Comments Formoterol [From Symbicort] AdvReac See Verified 11/17/17 08:46 Comments salmeterol AdvReac See Verified 11/17/17 08:45 [From Advair Diskus] Comments Kghjswi-Oes-Ycc Reductase AdvReac Anaphylaxis Verified 10/28/17 10:33 Inhibitor [Statins] Date of admission: 02/01/18 18:18 Primary care physician: Adalberto Up MD Procedure(s) Performed: Right carotid endarterectomy Discharging clinician: Shashi Moon Anticipated date of discharge: 02/02/18 Exam Vital Signs, Last 4 Hours Temp Pulse Resp BP Pulse Ox 02/02/18 04:15 98.1 F 74 19 151/73 90 General: Present: Conversant, No Apparent Distress HEENT: Present: Trachea midline, Pupils equal Neck: Present: Other (incision clean, dry and intact, no hematoma, no pulsatile mass) Cardiac: Present: Reg Rate and Rhythm Lungs: Present: Normal Breath Sounds Neuro: Present: Alert and responsive, No focal deficits noted, Cranial nerves grossly intact Abdomen: Present: Soft Vascular: Present: Normal capillary refill, Pulse, normal (radial pulses 3+). Absent: Clubbing, Cyanosis Skin: Present: No rashes noted on visualized skin - Patient Status Disposition: Home, Self-Care Functional capacity at discharge: independent ambulation Overall status at discharge: patient is back to baseline - Discharge Instructions Instructions: Oxycodone/Acetaminophen (By mouth), Carotid Endarterectomy (DC) Follow Up With: Adalberto Up MD [Primary Care Provider] - 02/08/18 9:45 am Shashi Moon MD [Partnered Physician] - 03/13/18 2:20 pm Additional Instructions: May remove bandage and shower on 02/03/2018. Wash wound gently and pat to dry. No driving for [address] Moon at [phone] with questions or concerns. - Diet and Activity Activity: increase activity as tolerated Diet: diabetic diet - VTE Documentation of Mechanical Device: Intermittent pneumatic compression device
[2018-02-02] MEDS ORDERED: Insulin LISPRO 300 UNITS/3 ML VIAL SQ SCH (07:30)
[2018-02-02 07:41] VITALS: BP 138/72
[2018-02-02] MEDS: Beclomethasone 40mcg MDI IH SCH (08:10)
[2018-02-02] MEDS ORDERED: Metoprolol XL (24 HR) Succ 50 MG TAB.ER.24H PO SCH (09:00)
[2018-02-02] MEDS ORDERED: EPA PO SCH (09:00)
[2018-02-02] MEDS ORDERED: VIT D3 PO SCH (09:00)
[2018-02-02] MEDS ORDERED: Aspirin Enteric Coated 81 MG Tablet PO SCH (09:00)
[2018-02-02] MEDS ORDERED: FISH OIL PO SCH (09:00)
[2018-02-02] MEDS ORDERED: OMEGA3 PO SCH (09:00)
[2018-02-02] MEDS ORDERED: DHA PO SCH (09:00)
[2018-02-02] MEDS ORDERED: Furosemide 40 MG TABLET PO SCH (09:00)
== END 2018-02-02 09:56 | disposition home or self-care (01) | DRG 38 ==
LOC: SAMDAY 10:31 → 2NNU 18:18
PROVIDERS: ADMIT Surgery; ATTEND Surgery

== ENCOUNTER 2018-03-24 15:44 | Observation (INO) ==
--- NOTE | 2018-03-24 15:56 | Emergency Department Note ---
Disposition Clinical Impression: Chest pain Qualifiers: Chest pain type: unspecified Qualified Code(s): R07.9 - Chest pain, unspecified Disposition: Admitted As Inpatient Condition: Good General Adult HPI - General Chief complaint: ED Chest Pain Stated complaint: chest pain Time Seen by Provider: 03/24/18 15:51 Nursing Notes Reviewed: Yes Vital Signs Reviewed: Yes - Related Data Home Medications Medication Instructions Recorded Confirmed Aspirin Enteric Coated [Aspirin EC] 81 mg PO DAILY 01/09/16 03/24/18 Insulin Glargine,Hum.rec.anlog 80 unit SQ BID 01/09/16 03/24/18 [Lantus Solostar] Insulin LISPRO [Humalog Kwikpen 12 unit SQ TIDAC 01/09/16 03/24/18 U-100] Metformin HCl [Fortamet] 1,000 mg PO BID 01/09/16 03/24/18 Metoprolol XL (24 HR) Succ [Toprol 50 mg PO DAILY 01/09/16 03/24/18 Xl] Omega3/Dha/Epa/Fish Oil/Vit D3 1 each PO DAILY 01/09/16 03/24/18 [Fish Oil + Vitamin D-3 Softgel] Albuterol Sulfate [Ventolin Hfa] 1 - 2 puff IH Q4H PRN 11/17/17 03/24/18 Furosemide [Lasix] 40 mg PO DAILY 11/17/17 03/24/18 Irbesartan [Avapro] 150 mg PO DAILY 03/24/18 03/24/18 Meloxicam [Meloxicam] 7.5 mg PO DAILY 03/24/18 03/24/18 Tamsulosin [Flomax] 0.4 mg PO DAILY 03/24/18 03/24/18 Previous Rx's Medication Instructions Recorded Clopidogrel [Plavix] 75 mg PO DAILY #30 tablet 10/29/17 Nitroglycerin 0.4 mg SL Q5MIN PRN #30 tab.subl 11/18/17 Allergies Allergy/AdvReac Type Severity Reaction Status Date / Time Amoxicillin Allergy Unknown UNKOWN Verified 10/28/17 10:33 lisinopril Allergy Unknown Anaphylaxis Verified 10/28/17 10:33 levofloxacin [From Levaquin] Allergy Anaphylaxis Verified 10/28/17 10:33 carvedilol [From Coreg] AdvReac Intermediate MUSCLE Verified 10/28/17 10:33 CRAMPS losartan AdvReac Intermediate MUSCLE Verified 10/28/17 10:33 CRAMPS budesonide [From Symbicort] AdvReac See Verified 11/17/17 08:46 Comments fluticasone AdvReac See Verified 11/17/17 08:45 [From Advair Diskus] Comments Formoterol [From Symbicort] AdvReac See Verified 11/17/17 08:46 Comments salmeterol AdvReac See Verified 11/17/17 08:45 [From Advair Diskus] Comments Wdrwzzb-Fli-Uiw Reductase AdvReac Anaphylaxis Verified 10/28/17 10:33 Inhibitor [Statins] Past Medical History - Past Medical History Medical history: Reports: COPD, coronary artery disease, CVA, diabetes, hyperlipidemia, hypertension, myocardial infarction, peripheral artery disease, TIA, other Surgical history: Reports: angioplasty/stent, herniorrhaphy, knee replacement, other Psychiatric history: Reports: no psych history - Social History Smoking Status: Former smoker Smokeless Tobacco Status: No Alcohol use: Reports: none Drug use: Reports: none Course Vital Signs Temperature 97.5 F L 03/24/18 15:51 Pulse Rate 80 03/24/18 15:51 Respiratory Rate 16 03/24/18 15:51 Blood Pressure 104/83 03/24/18 15:51 O2 Sat by Pulse Oximetry 91 03/24/18 15:51 Temperature 97.5 F L 03/24/18 15:51 Pulse Rate 63 03/24/18 17:00 Respiratory Rate 16 03/24/18 17:00 Blood Pressure 142/56 03/24/18 17:00 O2 Sat by Pulse Oximetry 96 03/24/18 17:00 Oxygen Delivery Oxygen Delivery Nasal Cannula Medical Decision Making - [facility] Narrative Medical decision making narrative: Chest X-Ray 03/24/18 15:52 IMPRESSION: No acute cardiopulmonary disease D/ / Zak Payton MD / Zak Payton MD Interpreting Provider: Zak Payton MD 1654 hrs.: Patient remains chest pain-free. Waiting on his troponin. 1741 41 hours: Patient's troponin is negative. With his history and his heart score were negative and bring him into the hospital for further management and evaluation. Chest pain resolved history of ACS. - Lab Data Result diagrams: 03/24/18 16:19 03/24/18 16:19 Lab Results 03/24/18 03/24/18 03/24/18 Range/Units 16:19 16:19 16:19 WBC 5.8 (4.3-11.1) K/mcL RBC 4.19 (4.19-5.50) M/mcL Hgb 13.1 (12.9-16.9) g/dL Hct 39.8 (37.5-50.1) % MCV 95.0 (83.0-100.0) fL MCH 31.3 (28.0-33.3) pg MCHC 32.9 (31.6-35.5) g/dL RDW 14.7 H (11.5-14.5) % Plt Count 168 (140-400) K/mcL MPV 10.0 (9.4-12.4) fL Immature Gran % 0.5 (0-4) % Seg Neutrophils % 55.2 % Lymphocytes % 30.7 % Monocytes % 11.1 % Eosinophils % 2.2 % Basophils % 0.3 % Neutrophils # 3.2 (1.6-8.9) K/mcL Lymphocytes # 1.8 (0.6-4.6) K/mcL Monocytes # 0.7 (0.0-1.3) K/mcL Eosinophils # 0.1 (0.0-0.6) K/mcL Basophils # 0.0 (0.0-0.2) K/mcL PT 11.1 (9.4-12.1) Seconds INR 1.0 APTT 28.0 (26.0-36.0) Seconds Sodium 137 (136-145) mEq/L Potassium 4.7 (3.5-5.1) mEq/L Chloride 103 (98-107) mEq/L Carbon Dioxide 26 (23-29) mEq/L BUN 30 H (8-23) mg/dL Creatinine 1.25 (0.70-1.30) mg/dL Est GFR ( Amer) > 60 (> 60) Est GFR (Non-Af Amer) 57 L (> 60) BUN/Creatinine Ratio 24 (6-26) Glucose 157 H (70-105) mg/dL Calculated Osmolality 293 (280-300) Calcium 9.3 (8.6-10.3) mg/dL Troponin I < 0.03 (< 0.04) ng/mL Attestation Statement - Attestation Attestation: This documentation is done with the assistance of Dragon dictation. Despite efforts made to ensure accuracy, there may be inaccuracies in general road production manager or spelling and typographical errors. I examined this patient and my medical decision-making was reviewed with the Resident Physician. I agree with the documented findings, disposition and treatment plan as described except to the extent set forth below. Patient seen and evaluated on arrival with EMS and Dr. Contreras, I agree with his evaluation and management plan, supervised the care of the the patient's stay. Patient presents today with chest pain. He took a nitroglycerin at home and then medics gave him a second one his pains gone down to about a 1 he did get aspirin earlier. Cardiac workup and reassessment most likely admission. He is in agreement with plan. History of coronary disease and stent in the past.
--- NOTE | 2018-03-24 15:57 | Emergency Department Note ---
Disposition Clinical Impression: Chest pain Qualifiers: Chest pain type: unspecified Qualified Code(s): R07.9 - Chest pain, unspecified Disposition: Admitted As Inpatient Condition: Good Referrals: Adalberto Up MD [Primary Care Provider] - Forms: ED Satisfaction Letter Time of Disposition: 15:59 Chest Pain HPI - General Chief Complaint: ED Chest Pain Stated Complaint: chest pain Time Seen by Provider: 03/24/18 15:51 Source: patient, EMS Mode of arrival: EMS Limitations: no limitations Vital Signs Reviewed: Yes Nursing Notes Reviewed: Yes - History of Present Illness HPI Narrative: Patient is a 72-year-old male with past medical history of [place], stent placement 3, CVA, hypertension, hyperlipidemia, diabetes, CVA, bilateral carotid artery endarterectomy. Presents today via EMS with chest discomfort. Patient states that around 2:45 PM, he started having chest discomfort while walking outside. Rated the pain an 8 out of 10 at that time, described as a sharp aching in the center of his chest with no radiation, no nausea or vomiting. He did have some sweating, pain did worsen with exertion. He states that he sat down once he got inside of his house and the pain started to get better. He took one nitroglycerin which also improved the pain. He called EMS. EMS gave the patient 1 nitroglycerin and aspirin 324 mg. He states that after the second nitroglycerin, the patient is now rating his pain a 1 out of 10. Denies any other recent fevers, abdominal pain, dysuria, hematuria, numbness tingling or weakness. - Related Data Home Medications Medication Instructions Recorded Confirmed Aspirin Enteric Coated [Aspirin EC] 81 mg PO DAILY 01/09/16 03/24/18 Insulin Glargine,Hum.rec.anlog 80 unit SQ BID 01/09/16 03/24/18 [Lantus Solostar] Insulin LISPRO [Humalog Kwikpen 12 unit SQ TIDAC 01/09/16 03/24/18 U-100] Metformin HCl [Fortamet] 1,000 mg PO BID 01/09/16 03/24/18 Metoprolol XL (24 HR) Succ [Toprol 50 mg PO DAILY 01/09/16 03/24/18 Xl] Omega3/Dha/Epa/Fish Oil/Vit D3 1 each PO DAILY 01/09/16 03/24/18 [Fish Oil + Vitamin D-3 Softgel] Albuterol Sulfate [Ventolin Hfa] 1 - 2 puff IH Q4H PRN 11/17/17 03/24/18 Furosemide [Lasix] 40 mg PO DAILY 11/17/17 03/24/18 Irbesartan [Avapro] 150 mg PO DAILY 03/24/18 03/24/18 Meloxicam [Meloxicam] 7.5 mg PO DAILY 03/24/18 03/24/18 Tamsulosin [Flomax] 0.4 mg PO DAILY 03/24/18 03/24/18 Previous Rx's Medication Instructions Recorded Clopidogrel [Plavix] 75 mg PO DAILY #30 tablet 10/29/17 Nitroglycerin 0.4 mg SL Q5MIN PRN #30 tab.subl 11/18/17 Allergies Allergy/AdvReac Type Severity Reaction Status Date / Time Amoxicillin Allergy Unknown UNKOWN Verified 10/28/17 10:33 lisinopril Allergy Unknown Anaphylaxis Verified 10/28/17 10:33 levofloxacin [From Levaquin] Allergy Anaphylaxis Verified 10/28/17 10:33 carvedilol [From Coreg] AdvReac Intermediate MUSCLE Verified 10/28/17 10:33 CRAMPS losartan AdvReac Intermediate MUSCLE Verified 10/28/17 10:33 CRAMPS budesonide [From Symbicort] AdvReac See Verified 11/17/17 08:46 Comments fluticasone AdvReac See Verified 11/17/17 08:45 [From Advair Diskus] Comments Formoterol [From Symbicort] AdvReac See Verified 11/17/17 08:46 Comments salmeterol AdvReac See Verified 11/17/17 08:45 [From Advair Diskus] Comments Pvpbsbe-Rnd-Sga Reductase AdvReac Anaphylaxis Verified 10/28/17 10:33 Inhibitor [Statins] All systems ED: reviewed and negative except as stated. Constitutional: Denies: fever Cardiovascular: Reports: chest pain Respiratory: Reports: dyspnea. Denies: cough, wheezes, hemoptysis, stridor, sputum production Gastrointestinal: Denies: abdominal pain, nausea, vomiting, diarrhea, constipation Genitourinary: Denies: urgency Integumentary: Denies: rash Neurological: Denies: headache, weakness, numbness, paresthesias Chest Pain PMH - Past Medical History Medical history: Reports: COPD, coronary artery disease, CVA, diabetes, hyperlipidemia, hypertension, myocardial infarction, peripheral artery disease, TIA, other Surgical history: Reports: angioplasty/stent, herniorrhaphy, knee replacement, other Psychiatric history: Reports: no psych history - Social History Smoking Status: Former smoker Alcohol use: Reports: none Drug use: Reports: none Physical Exam - General Limitations: no limitations General appearance: alert, in no apparent distress - Head Head exam: atraumatic, normocephalic, normal inspection - Eye Eye exam: Present: normal appearance, PERRL, EOMI - ENT ENT exam: normal exam, normal oropharynx, mucous membranes moist - Neck Neck exam: Present: normal inspection, full ROM, trachea midline - Chest Chest inspection: Present: normal inspection, symmetric chest wall rise. Absent : tenderness, rash - Respiratory Respiratory exam: Present: normal lung sounds bilaterally - Cardiovascular Cardiovascular exam: Present: regular rate, normal rhythm, normal heart sounds - Abdominal Exam Abdominal exam: Present: soft, Non-Tender. Absent: tenderness, distention, guarding, rebound, rigidity - Extremities Exam Extremities exam: Present: normal inspection, full ROM. Absent: tenderness, pedal edema - Neurological Exam Neurological exam: Present: alert, oriented X3. Absent: motor sensory deficit - Psychiatric Psychiatric exam: Present: normal affect, normal mood - Skin Skin exam: Present: warm, dry, intact, normal color Course Course Narrative: Vitals currently stable. Physical exam fairly benign. Patient does have significant cardiac history, heart score high. We will perform cardiac workup including EKG, chest x-ray, basic blood work, troponin. Even if workup is negative, will recommend admission for trending troponins. Patient was agreeable with this plan. Pain currently resolved after 2 nitroglycerin. Patient already received aspirin 325. 17:34 EKG showed no acute ST changes. CXR negative for any acute cardiopulm processes. Trop negative. Discussed admission, patient agreeable with this plan. We will admit for chest pain and trending troponin levels. Patient accepted by Dr. Nick Vital Signs Temperature 97.5 F L 03/24/18 15:51 Pulse Rate 80 03/24/18 15:51 Respiratory Rate 16 03/24/18 15:51 Blood Pressure 104/83 03/24/18 15:51 O2 Sat by Pulse Oximetry 91 03/24/18 15:51 Temperature 97.5 F L 03/24/18 15:51 Pulse Rate 63 03/24/18 17:00 Respiratory Rate 16 03/24/18 17:00 Blood Pressure 142/56 03/24/18 17:00 O2 Sat by Pulse Oximetry 96 03/24/18 17:00 Oxygen Delivery Oxygen Delivery Nasal Cannula Chest Pain - MDM Narrative Medical decision making narrative: Vitals currently stable. Physical exam fairly benign. Patient does have significant cardiac history, heart score high. We will perform cardiac workup including EKG, chest x-ray, basic blood work, troponin. Even if workup is negative, will recommend admission for trending troponins. Patient was agreeable with this plan. Pain currently resolved after 2 nitroglycerin. Patient already received aspirin 325. 17:34 EKG showed no acute ST changes. CXR negative for any acute cardiopulm processes. Trop negative. Discussed admission, patient agreeable with this plan. We will admit for chest pain and trending troponin levels. Patient accepted by Dr. Nick - Medical Records Medical records reviewed: Yes I reviewed the patient's medical records. - Lab Data Lab results reviewed: Yes I reviewed the patient's lab results. Result diagrams: 03/24/18 16:19 03/24/18 16:19 Lab Results 03/24/18 03/24/18 03/24/18 Range/Units 16:19 16:19 16:19 WBC 5.8 (4.3-11.1) K/mcL RBC 4.19 (4.19-5.50) M/mcL Hgb 13.1 (12.9-16.9) g/dL Hct 39.8 (37.5-50.1) % MCV 95.0 (83.0-100.0) fL MCH 31.3 (28.0-33.3) pg MCHC 32.9 (31.6-35.5) g/dL RDW 14.7 H (11.5-14.5) % Plt Count 168 (140-400) K/mcL MPV 10.0 (9.4-12.4) fL Immature Gran % 0.5 (0-4) % Seg Neutrophils % 55.2 % Lymphocytes % 30.7 % Monocytes % 11.1 % Eosinophils % 2.2 % Basophils % 0.3 % Neutrophils # 3.2 (1.6-8.9) K/mcL Lymphocytes # 1.8 (0.6-4.6) K/mcL Monocytes # 0.7 (0.0-1.3) K/mcL Eosinophils # 0.1 (0.0-0.6) K/mcL Basophils # 0.0 (0.0-0.2) K/mcL PT 11.1 (9.4-12.1) Seconds INR 1.0 APTT 28.0 (26.0-36.0) Seconds Sodium 137 (136-145) mEq/L Potassium 4.7 (3.5-5.1) mEq/L Chloride 103 (98-107) mEq/L Carbon Dioxide 26 (23-29) mEq/L BUN 30 H (8-23) mg/dL Creatinine 1.25 (0.70-1.30) mg/dL Est GFR ( Amer) > 60 (> 60) Est GFR (Non-Af Amer) 57 L (> 60) BUN/Creatinine Ratio 24 (6-26) Glucose 157 H (70-105) mg/dL Calculated Osmolality 293 (280-300) Calcium 9.3 (8.6-10.3) mg/dL Troponin I < 0.03 (< 0.04) ng/mL - Radiology Data Radiology results reviewed: Yes I reviewed the patient's radiology results. - EKG Data EKG attestation: Yes I reviewed and interpreted this EKG. EKG results narrative: EKG 03/24/2018 at 15:52. Normal sinus rhythm. Heart rate 80. [place] 160. QRS 101. QTC 417. Normal axis. No acute ST elevation or depression. Heart Score - Score History: Moderately Suspicious EKG: Normal Age: Greater than 65 Risk Factors: Equal/Greater than 3 risk factor or history of atherosclerotic disease Troponin: Less than normal limit HEART Score Total: 5 S.B.A.R. - S.B.A.R. Situation: Demographics, MOA Background: Presenting Complaint, Relevant PMH, Meds, & Allergies Assessment: Vital Signs, Course and respsone to treatment, Exam Concerns, Patient/Family Expectation, Pertinant Lab Results, Outstanding Labs Recommendation: Barrier(s) to disposition, Recommendation based on pending studies, treatments, or consults S.B.A.R. Report Given to: Dr. Sandoval Jackson Repor Time: 17:36
[2018-03-24 16:44] LABS: Basophils % 0.3 %; Eosinophils # 0.1 K/mcL (0.0-0.6); Eosinophils % 2.2 %; Hematocrit 39.8 % (37.5-50.1); Hemoglobin 13.1 g/dL (12.9-16.9); Immature Granulocytes % 0.5 % (0-4); Lymphocytes # 1.8 K/mcL (0.6-4.6); Lymphocytes % 30.7 %; Mean Corpuscular HGB Conc 32.9 g/dL (31.6-35.5); Mean Corpuscular Hemoglobin 31.3 pg (28.0-33.3); Monocytes # 0.7 K/mcL (0.0-1.3); Monocytes % 11.1 %; Neutrophils # 3.2 K/mcL (1.6-8.9); Platelet Count 168 K/mcL (140-400); Red Blood Count 4.19 M/mcL (4.19-5.50); Red Cell Distribution Width 14.7 % (11.5-14.5); Segmented Neutrophils % 55.2 %
[2018-03-24 16:53] LABS: Prothrombin Time 11.1 Seconds (9.4-12.1)
[2018-03-24 17:04] LABS: Troponin I < 0.03 ng/mL (< 0.04)
[2018-03-24 17:05] LABS: BUN/Creatinine Ratio 24 (6-26); Blood Urea Nitrogen 30 mg/dL (8-23); Calcium 9.3 mg/dL (8.6-10.3); Carbon Dioxide 26 mEq/L (23-29); Chloride 103 mEq/L (98-107); Glucose 157 mg/dL (70-105); Osmolality,Calculated 293 (280-300); Potassium 4.7 mEq/L (3.5-5.1); Sodium 137 mEq/L (136-145); eGFR For Non-African Americans 57 (> 60)
[2018-03-24] MEDS ORDERED: Nitroglycerin 0.4 MG TAB.SUBL SL PRN (18:40)
[2018-03-24] MEDS ORDERED: Naloxone 0.4 MG/ML INJ IVP PRN (18:45)
--- NOTE | 2018-03-24 19:02 | Internal Med History&Physical ---
Date of Encounter: 03/24/18 Time of Encounter: 19:00 Internal Medicine - H&P: HPI Chief complaint: chest pain, stable angina Admitted From: Home Plans for Post Hospital Care: Home History of present illness: Mr. Saavedra is a 72 year old male with a PMH of COPD, coronary artery disease, CVA , diabetes, hyperlipidemia, hypertension, myocardial infarction, peripheral artery disease, TIA. Surgical history including bilateral carotid endarterectomies. Patient presents with substernal chest pain without radiation. He reports he was walking around from the back to the front of his house to unlock his door and he began to experience sharp chest pain 8/10. He reports at that time he sat down to rest but the chest pain remained persistent. He then had taken one sublingual nitroglycerin and called EMS. After the initial sublingual nitroglycerin his chest pain improved and was 4/ 10. Upon arrival EMS gave 325 mg of aspirin and additional nitroglycerin and brought the patient to the ED. Upon arrival to the ED he stated that his chest pain almost completely resolved and was 1/10 and dull. Associated symptoms include shortness of breath and diaphoresis. Denies any nausea, dizziness, fatigue. History of severe CAD with recent PCI 3. Significant risk factors include obesity, HLD, DM, HTN, prior UT, family history. As of my assessment the patient is chest pain free and resting comfortably in the chair at the bedside. He appears to be in no distress. Initial lab review is unremarkable, initial troponin negative at less than 0.03. Chest x-ray without any acute pulmonary process. Given extensive cardiac history the patient will be admitted for observation overnight and we will monitor troponins and telemetry. He appears to have had stable angina and may benefit from medical management including adding a nitrate to his home medications. Past Med Surg Social Fam HX - Past Medical History Medical history: COPD, coronary artery disease, CVA, diabetes, hyperlipidemia, hypertension, myocardial infarction, peripheral artery disease, TIA, other Additional medical history: bilateral carotid artery stenosis. morbid obesity Psychiatric history: no psych history - Past Surgical History Surgical History: angioplasty/stent, herniorrhaphy, knee replacement, other Additional surgical history: left cea, right CEA. spinal fusion. UT with stents x3. [place]ac artery stents - Social History Smoking Status: Former smoker Smokeless Tobacco Status: No Alcohol use: none Drug use: none - Family History Mother Living Status: Hx Family Cardiac Disorders: Yes Hx Family Respiratory Disorders: No Hx Family Cancer: No Hx Family GI Disorders: No Hx Family Endocrine Disorder: Yes (dm) Hx Family Neuromuscular Disorders: No Hx Family Neurologic Disorders: No Hx Family HEENT Disorders: No Hx Family Autoimmune Disorders: No Mother Brother Hx Family Cardiac Disorders: Yes (CAD) Father Living Status: Hx Family Cardiac Disorders: Yes (mi) Hx Family Respiratory Disorders: No Hx Family Cancer: No Hx Family GI Disorders: No Hx Family Endocrine Disorder: Yes (dm) Hx Family Neuromuscular Disorders: No Hx Family Neurologic Disorders: No Hx Family HEENT Disorders: No Hx Family Autoimmune Disorders: No Internal Medicine - H&P: Meds Aspirin Enteric Coated [Aspirin EC] 81 mg PO DAILY 01/09/16 [History] Insulin Glargine,Hum.rec.anlog [Lantus Solostar] 80 unit SQ BID 01/09/16 [ History] Insulin LISPRO [Humalog Kwikpen U-100] 12 unit SQ TIDAC 01/09/16 [History] Metformin HCl [Fortamet] 1,000 mg PO BID 01/09/16 [History] Metoprolol XL (24 HR) Succ [Toprol Xl] 50 mg PO DAILY 01/09/16 [History] Omega3/Dha/Epa/Fish Oil/Vit D3 [Fish Oil + Vitamin D-3 Softgel] 1 each PO DAILY 01/09/16 [History] Clopidogrel [Plavix] 75 mg PO DAILY #30 tablet 10/29/17 [Rx] Albuterol Sulfate [Ventolin Hfa] 1 - 2 puff IH Q4H PRN 11/17/17 [History] Furosemide [Lasix] 40 mg PO DAILY 11/17/17 [History] Nitroglycerin 0.4 mg SL Q5MIN PRN #30 tab.subl 11/18/17 [Rx] Irbesartan [Avapro] 150 mg PO DAILY 03/24/18 [History] Meloxicam [Meloxicam] 7.5 mg PO DAILY 03/24/18 [History] Tamsulosin [Flomax] 0.4 mg PO DAILY 03/24/18 [History] 3 Allergy/AdvReac Type Severity Reaction Status Date / Time Amoxicillin Allergy Unknown UNKOWN Verified 10/28/17 10:33 lisinopril Allergy Unknown Anaphylaxis Verified 10/28/17 10:33 levofloxacin [From Levaquin] Allergy Anaphylaxis Verified 10/28/17 10:33 carvedilol [From Coreg] AdvReac Intermediate MUSCLE Verified 10/28/17 10:33 CRAMPS losartan AdvReac Intermediate MUSCLE Verified 10/28/17 10:33 CRAMPS budesonide [From Symbicort] AdvReac See Verified 11/17/17 08:46 Comments fluticasone AdvReac See Verified 11/17/17 08:45 [From Advair Diskus] Comments Formoterol [From Symbicort] AdvReac See Verified 11/17/17 08:46 Comments salmeterol AdvReac See Verified 11/17/17 08:45 [From Advair Diskus] Comments [id number] Reductase AdvReac Anaphylaxis Verified 10/28/17 10:33 Inhibitor [Statins] All Systems PM: A 10-system review of systems was performed and is negative for pertinent findings except as documented above in the HPI. - Constitutional Constitutional: as per HPI - Cardiovascular Cardiovascular ROS IM: as per HPI - Respiratory Respiratory: as per HPI - Gastrointestinal Gastrointestinal: no abdominal pain, no diarrhea, no hematemesis, no hematochezia, no melena, no nausea, no vomiting - Constitutional Vitals: Temp Pulse Resp BP Pulse Ox 97.5 F L 63 16 147/61 96 03/24/18 15:51 03/24/18 17:00 03/24/18 18:21 03/24/18 18:21 03/24/18 17:00 General appearance: Present: A&O X 3, morbidly obese Exam: . - Eye Eye exam: Present: PERRL, conjuntiva pink, sclera anicteric Pupils: Present: PERRL - Neck Neck exam general surgery: Present: supple, trachea midline. Absent: lymphadenopathy - Respiratory Respiratory exam: Present: CTAB. Absent: accessory muscle use, rales, rhonchi, wheezes - Cardiovascular Cardiovascular exam: Present: RRR, +S1, +S2. Absent: diastolic murmur, gallop, rubs, systolic murmur - Extremities Exam Extremities exam: Present: normal capillary refill, warm, radial pulses palpable and symmetrical. Absent: calf tenderness, cyanotic, normal inspection Additional comments: BLE 1+ pitting edema Internal Med - H&P Results - Labs CBC & Chem 7: 03/24/18 16:19 03/24/18 16:19 - EKG Data -: EKG Interpreted by Myself EKG shows normal: sinus rhythm Rate: normal - EKG Data Prior EKG available for review: yes When compared to previous EKG: there is no significant change - Impressions Impressions Chest X-Ray 03/24/18 15:52 IMPRESSION: No acute cardiopulmonary disease D/ / Zak Payton MD / Zak Payton MD Interpreting Provider: Zak Payton MD - Assessment and plan (1) Chest pain Current Visit: Yes Status: Acute Assessment and plan: ASSESSMENT: - Chest pain likely due to stable angina. Chest pain occur with activity and improves with rest and nitroglycerin. 2 total doses of nitroglycerin now chest pain-free. History of CAD with recent PCI 3. Multiple risk factors including obesity, hypertension, peripheral vascular disease, hyperlipidemia, diabetes, former smoker, sedentary lifestyle and family history. Continue to closely monitor. Consult cardiology for further recommendations and evaluation regarding medication optimization. May benefit from nitrate. Withhold ordering echocardiogram recent echo 12/12/17 with the following results. Grossly normal LV systolic function, mild increased LV wall thickness, mild LV DD, RV probably dilated with normal function, no significant valvular dysfunction, no pulmonary hypertension. PLAN: - cardiac enzymes x 2 q 6 hr - Initial EKG without ST-T wave changes concerning for ischemia - Continue 81 mg ASA - Continue beta nicole and ARB - CBCD, BMP in AM - Nitroglycerin for chest pain - Lovenox Qualifiers: Chest pain type: unspecified Qualified Code(s): R07.9 - Chest pain, unspecified (2) TIA (transient ischemic attack) Current Visit: No Status: Acute Assessment and plan: Per history, no neurological deficits, continue aspirin, statin and Plavix Qualifiers: Transient cerebral ischemia type: carotid artery syndrome (hemispheric) Qualified Code(s): G45.1 - Carotid artery syndrome (hemispheric) (3) Insulin dependent diabetes mellitus Current Visit: No Status: Chronic Assessment and plan: History of insulin-dependent diabetes, continue home insulin regimen, monitor glucose before meals and at bedtime (4) COPD (chronic obstructive pulmonary disease) Current Visit: No Status: Chronic Assessment and plan: Per history, not in acute exacerbation, continue COPD medications Qualifiers: COPD type: emphysema Emphysema type: panlobular Qualified Code(s): J43.1 - Panlobular emphysema (5) Obesity Current Visit: No Status: Chronic Assessment and plan: Morbid obesity with BMI of 48 Discussed lifestyle modifications, weight loss and diet Qualifiers: Obesity type: due to excess calories Obesity classification: adult class 3 (BMI >= 40) Serious obesity comorbidity presence: unspecified whether serious comorbidity present Body mass index: BMI 45.0-49.9 Qualified Code(s): E66.01 - Morbid (severe) obesity due to excess calories; Z68.42 - Body mass index (BMI) 45.0-49.9, adult (6) CAD (coronary artery disease) Current Visit: No Status: Chronic Assessment and plan: History of CAD, presents with chest pain. Currently chest pain-free. Continue all cardiac medications. As above Qualifiers: Coronary Disease-Associated Artery/Lesion type: [place] artery [place] vs. transplanted heart: [place] heart Associated angina: without angina Qualified Code(s): I25.10 - Atherosclerotic heart disease of [place] coronary artery without angina pectoris (7) S/P carotid endarterectomy Current Visit: No Status: Acute (8) CKD (chronic kidney disease), stage III Current Visit: No Status: Chronic Assessment and plan: Per history, as CR 1.25 continue to monitor and avoid nephrotoxins (9) DVT prophylaxis Current Visit: No Status: Acute Assessment and plan: Lovenox - Time Spent With Patient Total time spent is greater than 50% in coordination of care (as documented) at patient's floor/unit and/or counseling patient: less than 15 minutes
[2018-03-24] MEDS ORDERED: Dextrose Gel 15 GM/37.5 ML TUBE PO PRN ×4 (19:07→19:09)
[2018-03-24] MEDS ORDERED: *HR* Dextrose 50 % in Water (Syg) 50 ML SYRINGE IVP PRN ×2 (19:07→19:09)
[2018-03-24] MEDS ORDERED: D5% in Water 1,000 ML IVC PRN ×2 (19:07→19:09)
[2018-03-24] MEDS: Insulin DETEMIR 100 UNIT/ML X5UNITS SQ SCH (21:50)
[2018-03-25 05:20] LABS: Hematocrit 40.9 % (37.5-50.1); Hemoglobin 13.5 g/dL (12.9-16.9); Mean Corpuscular Hemoglobin 31.4 pg (28.0-33.3); Mean Corpuscular Volume 95.1 fL (83.0-100.0); Mean Platelet Volume 9.9 fL (9.4-12.4); Platelet Count 164 K/mcL (140-400); Red Cell Distribution Width 14.7 % (11.5-14.5)
[2018-03-25 05:35] LABS: BUN/Creatinine Ratio 23 (6-26); Blood Urea Nitrogen 29 mg/dL (8-23); Carbon Dioxide 27 mEq/L (23-29); Chloride 102 mEq/L (98-107); Glucose 179 mg/dL (70-105); Osmolality,Calculated 288 (280-300); Potassium 4.6 mEq/L (3.5-5.1); Sodium 134 mEq/L (136-145); eGFR For Non-African Americans 58 (> 60)
[2018-03-25] MEDS ORDERED: *HR* Enoxaparin 40 MG/0.4 ML SYRINGE SQ SCH (07:00)
[2018-03-25] MEDS ORDERED: Furosemide 40 MG TABLET PO SCH (09:00)
[2018-03-25] MEDS ORDERED: Metoprolol XL (24 HR) Succ 50 MG TAB.ER.24H PO SCH (09:00)
[2018-03-25] MEDS ORDERED: Aspirin Enteric Coated 81 MG Tablet PO SCH (09:00)
[2018-03-25] MEDS: Insulin LISPRO 300 UNITS/3 ML VIAL SQ SCH ×2 (10:01→12:16)
[2018-03-25] MEDS ORDERED: Regadenoson 0.4 MG/5 ML SYRINGE IVP ONE (10:38)
--- NOTE | 2018-03-25 10:56 | Cardiology Consult Note ---
Date of Encounter: 03/25/18 Time of Encounter: 10:54 Assessment and Plan (1) Chest pain Current Visit: Yes Status: Acute Retrosternal chest pain occurring after significant exertion resolving 40 minutes with sublingual nitroglycerin Chemical stress test to rule out ischemia Qualifiers: Chest pain type: unspecified Qualified Code(s): R07.9 - Chest pain, unspecified (2) CAD (coronary artery disease) Current Visit: No Status: Chronic History of PCI to his RCA and mid and mid to distal LAD Qualifiers: Coronary Disease-Associated Artery/Lesion type: [place] artery [place] vs. transplanted heart: [place] heart Associated angina: without angina Qualified Code(s): I25.10 - Atherosclerotic heart disease of [place] coronary artery without angina pectoris Discussion w patient/family: The assessment and plan as outlined above was discussed with the patient and/or family members who expressed understanding and agreement. All questions were answered. Thank you for involving us in the care of your patient. Please call with any questions. History of Present Illness Consult date: 03/25/18 Consult reason: Chest Pain Chief complaint: chest pain History of present illness: Mr. Saavedra is a 72 year old male with history of coronary artery disease status post-PCI to his RCA and mid LAD presents to the department complaining of chest pain. He describes chest pain as retrosternal radiating to his bilateral upper extremities occurred after significant exertion and result in approximate 40 minutes with 2 sublingual nitros. Patient was found to have mild ST changes in V3 and V4 but negative cardiac markers and no recurrent chest pain. Patient states since his PCI he has been doing fairly well exerting himself without any symptoms. He currently is resting currently denies any chest pain, shortness breath, descensus, orthopnea, PND, presyncope or syncope Past Med Surg Social Fam HX - Past Medical History Medical history: COPD, coronary artery disease, CVA, diabetes, hyperlipidemia, hypertension, myocardial infarction, peripheral artery disease, TIA, other Additional medical history: bilateral carotid artery stenosis. morbid obesity Psychiatric history: no psych history - Past Surgical History Surgical History: angioplasty/stent, herniorrhaphy, knee replacement, other Additional surgical history: left cea, right CEA. spinal fusion. [place] with stents x3. [place] artery stents - Social History Smoking Status: Former smoker Smokeless Tobacco Status: No Alcohol use: none Drug use: none - Family History Mother Living Status: Hx Family Cardiac Disorders: Yes Hx Family Respiratory Disorders: No Hx Family Cancer: No Hx Family GI Disorders: No Hx Family Endocrine Disorder: Yes (dm) Hx Family Neuromuscular Disorders: No Hx Family Neurologic Disorders: No Hx Family HEENT Disorders: No Hx Family Autoimmune Disorders: No Mother Brother Hx Family Cardiac Disorders: Yes (CAD) Father Living Status: Hx Family Cardiac Disorders: Yes (mi) Hx Family Respiratory Disorders: No Hx Family Cancer: No Hx Family GI Disorders: No Hx Family Endocrine Disorder: Yes (dm) Hx Family Neuromuscular Disorders: No Hx Family Neurologic Disorders: No Hx Family HEENT Disorders: No Hx Family Autoimmune Disorders: No Medications and Allergies Aspirin Enteric Coated [Aspirin EC] 81 mg PO DAILY 01/09/16 [History] Insulin Glargine,Hum.rec.anlog [Lantus Solostar] 80 unit SQ BID 01/09/16 [ History] Insulin LISPRO [Humalog Kwikpen U-100] 12 unit SQ TIDAC 01/09/16 [History] Metformin HCl [Fortamet] 1,000 mg PO BID 01/09/16 [History] Metoprolol XL (24 HR) Succ [Toprol Xl] 50 mg PO DAILY 01/09/16 [History] Omega3/Dha/Epa/Fish Oil/Vit D3 [Fish Oil + Vitamin D-3 Softgel] 1 each PO DAILY 01/09/16 [History] Clopidogrel [Plavix] 75 mg PO DAILY #30 tablet 10/29/17 [Rx] Albuterol Sulfate [Ventolin Hfa] 1 - 2 puff IH Q4H PRN 11/17/17 [History] Furosemide [Lasix] 40 mg PO DAILY 11/17/17 [History] Nitroglycerin 0.4 mg SL Q5MIN PRN #30 tab.subl 11/18/17 [Rx] Irbesartan [Avapro] 150 mg PO DAILY 03/24/18 [History] Meloxicam [Meloxicam] 7.5 mg PO DAILY 03/24/18 [History] Tamsulosin [Flomax] 0.4 mg PO DAILY 03/24/18 [History] 3 Allergy/AdvReac Type Severity Reaction Status Date / Time Amoxicillin Allergy Unknown UNKOWN Verified 10/28/17 10:33 lisinopril Allergy Unknown Anaphylaxis Verified 10/28/17 10:33 levofloxacin [From Levaquin] Allergy Anaphylaxis Verified 10/28/17 10:33 carvedilol [From Coreg] AdvReac Intermediate MUSCLE Verified 10/28/17 10:33 CRAMPS losartan AdvReac Intermediate MUSCLE Verified 10/28/17 10:33 CRAMPS budesonide [From Symbicort] AdvReac See Verified 11/17/17 08:46 Comments fluticasone AdvReac See Verified 11/17/17 08:45 [From Advair Diskus] Comments Formoterol [From Symbicort] AdvReac See Verified 11/17/17 08:46 Comments salmeterol AdvReac See Verified 11/17/17 08:45 [From Advair Diskus] Comments Oucwuzu-Zzw-Aho Reductase AdvReac Anaphylaxis Verified 10/28/17 10:33 Inhibitor [Statins] All Systems Review: The remainder of the systems were reviewed and are negative Physical Examination Vital Signs, Last 4 Hours Temp Pulse Resp BP Pulse Ox 03/25/18 08:05 96 03/25/18 07:53 97.5 F L 79 16 166/69 96 General: Conversant, No Apparent Distress HEENT: Atraumatic, Normocephaly, Mucus Membranes Moist Neck: No JVD, Normal carotid pulses Cardiac: Reg Rate and Rhythm, Normal S1 and S2, No Murmur Lungs: Normal Breath Sounds, No Wheeze, Rales, Rhonchi Neuro: Alert and responsive, No focal deficits noted Abdomen: Soft, Non-Tender Skin: No rashes noted on visualized skin Musculoskeletal: No Chest Wall Tenderness Extremities: No Clubbing, No Cyanosis, No Edema, Normal Pulses Results 03/25/18 04:53 03/25/18 04:53 Lab Results 03/24/18 03/25/18 03/25/18 22:40 04:53 04:53 WBC 5.7 Hgb 13.5 Hct 40.9 Plt Count 164 Sodium 134 L Potassium 4.6 Chloride 102 Carbon Dioxide 27 BUN 29 H Creatinine 1.24 Glucose 179 H Calcium 9.0 Troponin I < 0.03 03/25/18 04:53 WBC Hgb Hct Plt Count Sodium Potassium Chloride Carbon Dioxide BUN Creatinine Glucose Calcium Troponin I < 0.03 Consult Discharge Plan - Plan Referrals: Adalberto Up MD [Primary Care Provider] - (Follow up appointment has been requested)
[2018-03-25 12:02] VITALS: BP 173/76
[2018-03-25] MEDS: Insulin DETEMIR 100 UNIT/ML X5UNITS SQ SCH (12:15)
--- NOTE | 2018-03-25 12:40 | Discharge Summary ---
Orders not resulted at time of discharge: Pending orders 03/25/18 10:03 NM jess perf SPECT multi [NM] Routine Date of Encounter: 03/25/18 Time of Encounter: 12:34 - Discharge Diagnosis (1) Chest pain Priority: Primary Status: Acute Assessment and Plan: ASSESSMENT: - Chest pain likely due to stable angina. Chest pain occur with activity and improves with rest and nitroglycerin. 2 total doses of nitroglycerin now chest pain-free. History of CAD with recent PCI 3; RCA and mid LAD as well as mid to distal LAD. Multiple risk factors including obesity, hypertension, peripheral vascular disease, hyperlipidemia, diabetes, former smoker, sedentary lifestyle and family history. Continue to closely monitor. Consult cardiology for further recommendations and evaluation regarding medication optimization. May benefit from nitrate. Withhold ordering echocardiogram recent echo 12/12/17 with the following results. Grossly normal LV systolic function, mild increased LV wall thickness, mild LV DD, RV probably dilated with normal function, no significant valvular dysfunction, no pulmonary hypertension. PLAN: - cardiac enzymes x 2 q 6 hr - Initial EKG without ST-T wave changes concerning for ischemia - Continue 81 mg ASA - Continue beta nicole and ARB - CBCD, BMP in AM - Nitroglycerin for chest pain - Lovenox 03/25--per cardiology recommendations; patient will need today's stress test. Underwent first a stress test this morning. However, patient is refusing to stay for second part of stress test on Tuesday. He reports that he is leaving today regardless of recommendations. This was discussed with Dr. Starkey for cardiology reports that if the first stress test today is negative the patient may discharge and follow-up outpatient for the second half of stress test. The patient is chest pain-free, no events on telemetry overnight. No changes to cardiac medications. It has been discussed that d/t prior hx of VA and CAD with recent PCI it would be within his best interest to stay for further monitoring and evaluation. However he remains adamant discharge and is agreed to follow-up outpatient for second part of stress test. He has been instructed to return to the ED should chest pain and/or shortness of breath return. The patient verbalizes understanding denies any further questions at this time. Qualifiers: Chest pain type: unspecified Qualified Code(s): R07.9 - Chest pain, unspecified (2) TIA (transient ischemic attack) Priority: Secondary Status: Acute Qualifiers: Transient cerebral ischemia type: carotid artery syndrome (hemispheric) Qualified Code(s): G45.1 - Carotid artery syndrome (hemispheric) (3) Insulin dependent diabetes mellitus Priority: Secondary Status: Chronic (4) COPD (chronic obstructive pulmonary disease) Priority: Secondary Status: Chronic Qualifiers: COPD type: emphysema Emphysema type: panlobular Qualified Code(s): J43.1 - Panlobular emphysema (5) Obesity Priority: Secondary Status: Chronic Qualifiers: Obesity type: due to excess calories Obesity classification: adult class 3 (BMI >= 40) Serious obesity comorbidity presence: unspecified whether serious comorbidity present Body mass index: BMI 45.0-49.9 Qualified Code(s): E66.01 - Morbid (severe) obesity due to excess calories; Z68.42 - Body mass index (BMI) 45.0-49.9, adult (6) CAD (coronary artery disease) Priority: Secondary Status: Chronic Qualifiers: Coronary Disease-Associated Artery/Lesion type: [place] artery [place] vs. transplanted heart: [place] heart Associated angina: without angina Qualified Code(s): I25.10 - Atherosclerotic heart disease of [place] coronary artery without angina pectoris (7) S/P carotid endarterectomy Priority: Secondary Status: Acute (8) CKD (chronic kidney disease), stage III Priority: Secondary Status: Chronic (9) DVT prophylaxis Priority: Secondary Status: Acute Hospital course: Mr. Saavedra is a 72 year old male admitted with exertional chest pain. Prior history of PCI with 3 stents. Stents placed recently. Concern for ACS. Underwent stress test on day of discharge. This was to be a 2 day stress test however, patient refused to stay for additional testing. Cardiology notified and discussed case with forestry support specialist who reports that step one stress test negative for ischemia. Cardiology states patient is okay to DC in follow-up Tuesday for second part of stress test. Patient has been without chest pain since admission. Hemodynamically stable without any events on telemetry. He was instructed to follow-up with cardiology on Tuesday for second part of stress test. Additionally, he was informed to return to the ED should chest pain return. The patient verbalizes understanding and denies any further questions. Additionally, he was informed that it was beneficial to stay for further monitoring and evaluation given his history and presentation. However, the patient declined further monitoring and requested discharge. See assessment and plan for hospital course Discharge discussed with: patient, nurse, platform consultant - Time Spent with Patient Total time spent providing and/or coordinating discharge services: Less than 30 minutes - Discharge Medications Home Medications: Aspirin Enteric Coated [Aspirin EC] 81 mg PO DAILY 01/09/16 [History] Insulin Glargine,Hum.rec.anlog [Lantus Solostar] 80 unit SQ BID 01/09/16 [ History] Insulin LISPRO [Humalog Kwikpen U-100] 12 unit SQ TIDAC 01/09/16 [History] Metformin HCl [Fortamet] 1,000 mg PO BID 01/09/16 [History] Metoprolol XL (24 HR) Succ [Toprol Xl] 50 mg PO DAILY 01/09/16 [History] Omega3/Dha/Epa/Fish Oil/Vit D3 [Fish Oil + Vitamin D-3 Softgel] 1 each PO DAILY 01/09/16 [History] Clopidogrel [Plavix] 75 mg PO DAILY #30 tablet 10/29/17 [Rx] Albuterol Sulfate [Ventolin Hfa] 1 - 2 puff IH Q4H PRN 11/17/17 [History] Furosemide [Lasix] 40 mg PO DAILY 11/17/17 [History] Nitroglycerin 0.4 mg SL Q5MIN PRN #30 tab.subl 11/18/17 [Rx] Irbesartan [Avapro] 150 mg PO DAILY 03/24/18 [History] Meloxicam 7.5 mg PO DAILY 03/24/18 [History] Tamsulosin [Flomax] 0.4 mg PO DAILY 03/24/18 [History] Allergies/Adverse Reactions: 3 Allergy/AdvReac Type Severity Reaction Status Date / Time Amoxicillin Allergy Unknown UNKOWN Verified 10/28/17 10:33 lisinopril Allergy Unknown Anaphylaxis Verified 10/28/17 10:33 levofloxacin [From Levaquin] Allergy Anaphylaxis Verified 10/28/17 10:33 carvedilol [From Coreg] AdvReac Intermediate MUSCLE Verified 10/28/17 10:33 CRAMPS losartan AdvReac Intermediate MUSCLE Verified 10/28/17 10:33 CRAMPS budesonide [From Symbicort] AdvReac See Verified 11/17/17 08:46 Comments fluticasone AdvReac See Verified 11/17/17 08:45 [From Advair Diskus] Comments Formoterol [From Symbicort] AdvReac See Verified 11/17/17 08:46 Comments salmeterol AdvReac See Verified 11/17/17 08:45 [From Advair Diskus] Comments Qjpwqsa-Xep-Ndf Reductase AdvReac Anaphylaxis Verified 10/28/17 10:33 Inhibitor [Statins] Date of admission: 03/24/18 17:38 Primary care physician: Adalberto Up MD Consults: 03/24/18 18:58 Consult to Cardiology [CONS] Routine Comment: Consulting Provider: Cardiology [place] Reason for Consult: Stable angina; medication recommendations. Recent PCI x3. Call Completed: No Discharging clinician: Issa Rincon Anticipated date of discharge: 03/25/18 - Constitutional Vitals: Temp Pulse Resp BP Pulse Ox 97.7 F 81 16 173/76 94 03/25/18 12:01 03/25/18 12:01 03/25/18 12:01 03/25/18 12:01 03/25/18 12:01 General appearance: Present: A&O X 3, morbidly obese Exam: . - Patient Status Disposition: Home, Self-Care Condition: Good Functional capacity at discharge: independent ambulation Overall status at discharge: patient is back to baseline - Discharge Instructions Instructions: Chest Pain (DC) Follow Up With: Adalberto Up MD [Primary Care Provider] - (Follow up appointment has been requested) Additional Instructions: Return on Tuesday at 8:30 a.m. to have your second part of your stress test done. - Diet and Activity Activity: increase activity as tolerated, resume usual activities as tolerated Diet: diabetic diet, low fat, low cholesterol, low salt diet
--- NOTE | 2018-03-27 16:43 | Electrocardiograph Report ---
[address] [address] Test Date: 2018-03-24 Pat Name: Carlos Saavedra Department: [id number] Room: 3B Gender: M [employer]: : [id number] Requested By: Tu Michaels Order Number: [id number] Reading MD: Jimi Meneses Measurements Intervals [place] Rate: 80 P: 45 MS: 160 QRS: 23 QRSD: 101 T: 18 QT: 361 QTc: 417 Interpretive Statements Sinus rhythm Electronically Signed On 03-27-2018 16:42:22 EDT by Jimi Meneses
== END 2018-03-25 14:43 | disposition home or self-care (01) ==
LOC: EMEROOARM 15:44 → 3BNU 15:44
PROVIDERS: ADMIT Internal Medicine; ATTEND Internal Medicine

== ENCOUNTER 2018-09-19 10:43 | Inpatient (IN) ==
[2018-09-19 12:16] LABS: Basophils % 0.2 %; Eosinophils # 0.1 K/mcL (0.0-0.6); Eosinophils % 1.3 %; Hematocrit 45.6 % (37.5-50.1); Hemoglobin 15.4 g/dL (12.9-16.9); Immature Granulocytes % 0.4 % (0-4); Lymphocytes # 1.8 K/mcL (0.6-4.6); Lymphocytes % 17.8 %; Mean Corpuscular HGB Conc 33.8 g/dL (31.6-35.5); Mean Corpuscular Hemoglobin 31.2 pg (28.0-33.3); Mean Corpuscular Volume 92.3 fL (83.0-100.0); Monocytes # 1.1 K/mcL (0.0-1.3); Monocytes % 10.5 %; Neutrophils # 7.1 K/mcL (1.6-8.9); Platelet Count 187 K/mcL (140-400); Red Blood Count 4.94 M/mcL (4.19-5.50); Red Cell Distribution Width 13.8 % (11.5-14.5); Segmented Neutrophils % 69.8 %
[2018-09-19 12:30] LABS: Alanine Aminotransferase 28 Units/L (7-52); Albumin 4.1 g/dL (3.5-5.7); Albumin/Globulin Ratio 1.1 (1.1-2.2); Alkaline Phosphatase 47 Units/L (34-104); Aspartate Amino Transferase 22 Units/L (13-39); BUN/Creatinine Ratio 15 (6-26); Bilirubin,Direct 0.2 mg/dL (0.0-0.2); Bilirubin,Indirect 0.5 mg/dL (0.0-1.2); Bilirubin,Total 0.7 mg/dL (0.3-1.0); Blood Urea Nitrogen 16 mg/dL (8-23); Calcium 9.9 mg/dL (8.6-10.3); Carbon Dioxide 24 mEq/L (23-29); Chloride 97 mEq/L (98-107); Globulin 3.8 g/dL (2.4-3.5); Glucose 183 mg/dL (70-105); Lipase 338 Units/L (11-82); Osmolality,Calculated 280 (280-300); Potassium 4.2 mEq/L (3.5-5.1); Sodium 132 mEq/L (136-145); Total Protein 7.9 g/dL (6.4-8.9); eGFR For Non-African Americans > 60 (> 60)
--- NOTE | 2018-09-19 13:57 | Emergency Department Note ---
Disposition Clinical Impression: Pancreatitis, Obesity, CAD (coronary artery disease), Diabetes Disposition: Admitted As Inpatient Referrals: Adalberto Up MD [Primary Care Provider] - Forms: ED Satisfaction Letter, Work/School Release General Adult HPI - General Chief complaint: ED Abdominal Pain Stated complaint: "pancreaititis" Time Seen by Provider: 09/19/18 11:03 Source: patient, family Limitations: no limitations - History of Present Illness HPI Narrative: 72-year-old male reports emergency department complaining of midabdominal pain, he was evaluated by his primary care physician who did an outpatient CT scan which demonstrated pancreatitis. The patient was sent in to the emergency Department for further evaluation and recommendations for hospitalization per his PCP. The patient has had no vomiting diarrhea or trauma. There is no history of chest pain shortness of breath or fever or rash or cough. No leg swelling or pain or syncope. The patient reports he has a history of pancreatitis and feels this is exactly the same as prior. There is no history of fever. He is currently taking antiplatelet agents but no Coumadin or other anticoagulants. There is no history of bloody stool. No bleeding of any sort. No history of confusion. Pain Scale: 8 - Related Data Home Medications Medication Instructions Recorded Confirmed Aspirin Enteric Coated [Aspirin EC] 81 mg PO DAILY 01/09/16 09/19/18 Insulin Glargine,Hum.rec.anlog 70 unit SQ BID 01/09/16 09/19/18 [Lantus Solostar] Insulin LISPRO [Humalog Kwikpen 0 unit SQ TIDAC 01/09/16 09/19/18 U-100] Metoprolol XL (24 HR) Succ [Toprol 50 mg PO DAILY 01/09/16 09/19/18 Xl] Omega3/Dha/Epa/Fish Oil/Vit D3 1,000 mg PO DAILY 01/09/16 09/19/18 [Fish Oil + Vitamin D-3 Softgel] Albuterol Sulfate [Ventolin Hfa] 2 puff IH Q4H PRN 11/17/17 09/19/18 Budesonide/Formoterol 160/4.5 2 puff IH BIDR 08/23/18 09/19/18 [Symbicort 160/4.5] amLODIPine [Norvasc] 5 mg PO DAILY 09/19/18 09/19/18 metFORMIN [Glucophage] 1,000 mg PO BIDWM 09/19/18 09/19/18 Previous Rx's Medication Instructions Recorded Clopidogrel [Plavix] 75 mg PO DAILY #30 tablet 10/29/17 Allergies Allergy/AdvReac Type Severity Reaction Status Date / Time Amoxicillin Allergy Unknown UNKOWN Verified 09/12/18 17:38 lisinopril Allergy Unknown Anaphylaxis Verified 09/12/18 17:38 levofloxacin [From Levaquin] Allergy Anaphylaxis Verified 09/12/18 17:38 carvedilol [From Coreg] AdvReac Intermediate MUSCLE Verified 09/12/18 17:38 CRAMPS losartan AdvReac Intermediate MUSCLE Verified 09/12/18 17:38 CRAMPS budesonide [From Symbicort] AdvReac See Verified 09/12/18 17:38 Comments fluticasone AdvReac See Verified 09/12/18 17:38 [From Advair Diskus] Comments salmeterol AdvReac See Verified 09/12/18 17:38 [From Advair Diskus] Comments Whwpfxs-Omn-Ayw Reductase AdvReac Anaphylaxis Verified 09/12/18 17:38 Inhibitor [Statins] All systems ED: reviewed and negative except as stated. Past Medical History - Past Medical History Medical history: Reports: coronary artery disease, diabetes, hypertension Surgical history: Reports: angioplasty/stent, herniorrhaphy, knee replacement, other Psychiatric history: Reports: no psych history - Social History Smoking Status: Never smoker Smokeless Tobacco Status: No Alcohol use: Reports: none Drug use: Reports: none Physical Exam - General Limitations: no limitations General appearance: alert, in no apparent distress - Head Head exam: atraumatic, normocephalic, normal inspection - Eye Eye exam: Present: normal appearance, PERRL, EOMI - ENT ENT exam: normal exam, normal oropharynx, mucous membranes moist - Neck Neck exam: Present: normal inspection, full ROM, trachea midline - Chest Chest inspection: Present: normal inspection, symmetric chest wall rise. Absent: tenderness - Respiratory Respiratory exam: Absent: respiratory distress Course Vital Signs Temperature 98.7 F 09/19/18 10:50 Pulse Rate 107 09/19/18 10:50 Respiratory Rate 20 09/19/18 10:50 Blood Pressure 196/101 09/19/18 10:50 O2 Sat by Pulse Oximetry 94 09/19/18 10:50 Temperature 98.7 F 09/19/18 10:50 Pulse Rate 92 09/19/18 13:35 Respiratory Rate 15 09/19/18 13:35 Blood Pressure 155/76 09/19/18 13:35 O2 Sat by Pulse Oximetry 96 09/19/18 13:35 Oxygen Delivery Oxygen Delivery Room Air Medical Decision Making - MDM Narrative Medical decision making narrative: The patient presents to the emergency department with abdominal pain which has been progressive over the last 3 days. He reports he develops severe abdominal pain even when eating Jell-O. The patient is known to have a history of pancreatitis, he is diabetic, and was evaluated by his primary care physician who did a CT scan and found changes suggestive of pancreatitis. Lipase slightly elevated. The patient does not feel comfortable going home, he has significant pain postprandial, his primary care physician recommended hospitalization the patient highly prefers hospitalization for pain control and management of his pancreatitis. Based on the patient's apparent acute pancreatitis with significant discomfort and comorbidities including diabetes mellitus I consulted with the hospitalist on-call who has accepted the patient to her care. - Lab Data Lab results reviewed: Yes I reviewed the patient's lab results. Result diagrams: 09/19/18 11:59 09/19/18 11:59 Lab Results 09/19/18 09/19/18 Range/Units 11:59 11:59 WBC 10.2 (4.3-11.1) K/mcL RBC 4.94 (4.19-5.50) M/mcL Hgb 15.4 (12.9-16.9) g/dL Hct 45.6 (37.5-50.1) % MCV 92.3 (83.0-100.0) fL MCH 31.2 (28.0-33.3) pg MCHC 33.8 (31.6-35.5) g/dL RDW 13.8 (11.5-14.5) % Plt Count 187 (140-400) K/mcL MPV 10.0 (9.4-12.4) fL Immature Gran % 0.4 (0-4) % Seg Neutrophils % 69.8 % Lymphocytes % 17.8 % Monocytes % 10.5 % Eosinophils % 1.3 % Basophils % 0.2 % Neutrophils # 7.1 (1.6-8.9) K/mcL Lymphocytes # 1.8 (0.6-4.6) K/mcL Monocytes # 1.1 (0.0-1.3) K/mcL Eosinophils # 0.1 (0.0-0.6) K/mcL Basophils # 0.0 (0.0-0.2) K/mcL Sodium 132 L (136-145) mEq/L Potassium 4.2 (3.5-5.1) mEq/L Chloride 97 L (98-107) mEq/L Carbon Dioxide 24 (23-29) mEq/L BUN 16 (8-23) mg/dL Creatinine 1.09 (0.70-1.30) mg/dL Est GFR ( Amer) > 60 (> 60) Est GFR (Non-Af Amer) > 60 (> 60) BUN/Creatinine Ratio 15 (6-26) Glucose 183 H (70-105) mg/dL Calculated Osmolality 280 (280-300) Calcium 9.9 (8.6-10.3) mg/dL Total Bilirubin 0.7 (0.3-1.0) mg/dL Direct Bilirubin 0.2 (0.0-0.2) mg/dL Indirect Bilirubin 0.5 (0.0-1.2) mg/dL AST 22 (13-39) Units/L ALT 28 (7-52) Units/L Alkaline Phosphatase 47 (34-104) Units/L Troponin I 0.03 (< 0.04) ng/mL Serum Total Protein 7.9 (6.4-8.9) g/dL Albumin 4.1 (3.5-5.7) g/dL Globulin 3.8 H (2.4-3.5) g/dL Albumin/Globulin Ratio 1.1 (1.1-2.2) Lipase 338 H (11-82) Units/L - Radiology Data Radiology results reviewed: Yes I reviewed the patient's radiology results.
[2018-09-19] MEDS ORDERED: *HR* HYDROmorphone (PF) 1 MG/ML SYRINGE IVP ONE (14:22)
[2018-09-19] MEDS ORDERED: Ondansetron 4 MG/2 ML VIAL IVP ONE (14:22)
[2018-09-19] MEDS ORDERED: 0.9 % Sodium Chloride 1,000 ML IVC ONE ×2 (14:22→17:16)
[2018-09-19 15:07] LABS: Troponin I 0.03 ng/mL (< 0.04)
[2018-09-19 15:13] LABS: Bilirubin,Urine Negative (Negative); Blood,Urine Negative (Negative); Clarity,Urine Clear (Clear); Color,Urine Yellow (Yellow); Glucose,Urine (UA) Normal (Normal); Ketones,Urine Negative (Negative); Leukocyte Esterase,Urine Negative (Negative); Nitrite,Urine Negative (Negative); PH,Urine 5.5 pH Units (5.0-8.0); Protein,Urine 30 mg/dL (Neg-Trace); Specific Gravity,Urine 1.017 (1.010-1.025); Urobilinogen,Urine Normal (Normal)
[2018-09-19 15:16] LABS: Bacteria,Urine None Seen per hpf (None-Few); Hyaline Casts,Urine None Seen per lpf (None-Few); RBC,Urine 0-3 per hpf (0-3); Squamous Epithelial Cell,Urine Moderate per lpf (None-Few); WBC,Urine 0-3 per hpf (0-3)
[2018-09-19] MEDS ORDERED: OXYCODONE Oral CONC 10 MG/0.5 ML ORAL.SYG SL PRN ×2 (17:14)
[2018-09-19] MEDS ORDERED: Ondansetron 4 MG/2 ML VIAL IVP PRN (17:14)
[2018-09-19] MEDS ORDERED: Naloxone 0.4 MG/ML INJ IVP PRN (17:14)
[2018-09-19] MEDS ORDERED: *HR* Dextrose 50 % in Water (Syg) 50 ML SYRINGE IVP PRN (17:16)
[2018-09-19] MEDS ORDERED: Dextrose Gel 15 GM/37.5 ML TUBE PO PRN ×2 (17:16)
[2018-09-19] MEDS ORDERED: D5% in Water 1,000 ML IVC PRN (17:16)
--- NOTE | 2018-09-19 17:30 | Internal Med History&Physical ---
<Zak Monreal - Last Filed: 09/19/18 17:42> Date of Encounter: 09/19/18 Time of Encounter: 17:21 Internal Medicine - H&P: HPI Chief complaint: Abdominal pain Admitted From: Emergency Dept Plans for Post Hospital Care: Home History of present illness: Mr. Saavedra is a 72 year old male with past medical history of COPD, uncontrolled diabetes, CAD with NE one year ago presents to the emergency department with complaint of abdominal pain. Pain onset 1 week ago which has been waxing and waning in nature and progressively worsening since onset. He describes the pain as sharp and located in his epigastric, right upper quadrant, right lower quadrant with some radiation to his left shoulder blade. Pain is exacerbated with eating and is no relieving symptoms. He is currently pain-free after receiving Dilaudid in the emergency room. He states he may have had a fever at home but has not measured anything. He denies any symptoms of nausea, vomiting, hematochezia/melena, diarrhea. He does admit to some constipation which is slightly abnormal for him. It has been 3 days since last bowel movement. He is also been unable to tolerate oral intake the previous 3 days. Denies any associated symptoms of numbness, tingling, focal weakness, rashes, bruises, joint pains outside of his baseline. He does state that he has experienced this pain before and feels like his previous pancreatitis flare which occurred in 2014. Review of medical chart shows a previous visit in June 2014 with a lip ase at that time and the 400s. He patient states that no known etiology was found at that time. He denies recent travel, heavy alcohol use, hyperlipidemia, recent medication changes. In the emergency room, vital signs are significant for heart rate of 107, respiratory rate 20, blood pressure 196/101. He is tolerating room air with medications. Laboratory results were significant for sodium of 132, chloride 97, glucose of 183, lipase of 338. CT scan obtained on 09/18 by PCP shows mild diffuse peripancreatic stranding compatible with acute on, acute pancreatitis with no evidence of choledocholithiasis or biliary duct dilatation. Also noted was diffuse hepatic state ptosis and colonic diverticulosis. He was given pain control as well as 1 L fluid bolus with resolution of symptoms. Past medical history: COPD, insulin-dependent diabetes, CAD with NE and stents placed 1 year ago Past surgical history: Bilateral inguinal hernia repair Social history: Rare drinker, denies heavy use previously, former smoker, quit 15 years ago. Denies illicit drug use Family history: CAD in multiple members of family including brothers, parents Past Med Surg Social Fam HX - Past Medical History Medical history: coronary artery disease, diabetes, hypertension Additional medical history: bilateral carotid artery stenosis. morbid obesity Psychiatric history: no psych history - Past Surgical History Surgical History: angioplasty/stent, herniorrhaphy, knee replacement, other Additional surgical history: left cea, right CEA. spinal fusion. NE with stents x3. [place] artery stents - Social History Smoking Status: Never smoker Smokeless Tobacco Status: No Alcohol use: none Drug use: none - Family History Mother Living Status: Hx Family Cardiac Disorders: Yes Hx Family Respiratory Disorders: No Hx Family Cancer: No Hx Family GI Disorders: No Hx Family Endocrine Disorder: Yes (dm) Hx Family Neuromuscular Disorders: No Hx Family Neurologic Disorders: No Hx Family HEENT Disorders: No Hx Family Autoimmune Disorders: No Mother Brother Hx Family Cardiac Disorders: Yes (CAD) Father Living Status: Hx Family Cardiac Disorders: Yes (mi) Hx Family Respiratory Disorders: No Hx Family Cancer: No Hx Family GI Disorders: No Hx Family Endocrine Disorder: Yes (dm) Hx Family Neuromuscular Disorders: No Hx Family Neurologic Disorders: No Hx Family HEENT Disorders: No Hx Family Autoimmune Disorders: No Internal Medicine - H&P: Meds Aspirin Enteric Coated [Aspirin EC] 81 mg PO DAILY 01/09/16 [History] Insulin Glargine,Hum.rec.anlog [Lantus Solostar] 70 unit SQ BID 01/09/16 [H istory] Insulin LISPRO [Humalog Kwikpen U-100] 0 unit SQ TIDAC 01/09/16 [History] Metoprolol XL (24 HR) Succ [Toprol Xl] 50 mg PO DAILY 01/09/16 [History] Omega3/Dha/Epa/Fish Oil/Vit D3 [Fish Oil + Vitamin D-3 Softgel] 1,000 mg PO DAILY 01/09/16 [History] Clopidogrel [Plavix] 75 mg PO DAILY #30 tablet 10/29/17 [Rx] Albuterol Sulfate [Ventolin Hfa] 2 puff IH Q4H PRN 11/17/17 [History] Budesonide/Formoterol 160/4.5 [Symbicort 160/4.5] 2 puff IH BIDR 08/23/18 [History] amLODIPine [Norvasc] 5 mg PO DAILY 09/19/18 [History] metFORMIN [Glucophage] 1,000 mg PO BIDWM 09/19/18 [History] Allergy/AdvReac Type Severity Reaction Status Date / Time Amoxicillin Allergy Unknown UNKOWN Verified 09/12/18 17:38 lisinopril Allergy Unknown Anaphylaxis Verified 09/12/18 17:38 levofloxacin [From Levaquin] Allergy Anaphylaxis Verified 09/12/18 17:38 carvedilol [From Coreg] AdvReac Intermediate MUSCLE Verified 09/12/18 17:38 CRAMPS losartan AdvReac Intermediate MUSCLE Verified 09/12/18 17:38 CRAMPS budesonide [From Symbicort] AdvReac See Verified 09/12/18 17:38 Comments fluticasone AdvReac See Verified 09/12/18 17:38 [From Advair Diskus] Comments salmeterol AdvReac See Verified 09/12/18 17:38 [From Advair Diskus] Comments [id number]-Qqz-Qyx Reductase AdvReac Anaphylaxis Verified 09/12/18 17:38 Inhibitor [Statins] All Systems PM: A 10-system review of systems was performed and is negative for pertinent findings except as documented above in the HPI. Review of systems: - Constitutional: Admits to subjective fever. Denies chills, weight loss, generalized fatigue - Head/Neck: Denies [place], neck stiffness - EENT: Denies vision changes/blurriness, congestion, sore throat, odynaphagia - CVS: Denies chest pain, palpitations, [place], orthopnea, edema, PND, - Pulm: Admits to some dyspnea due to inability to take a deep breath. Denies SOB, cough, sputum, hematemesis, wheezing - GI: Admits to abdominal pain. Denies nausea, vomiting, diarrhea, constipation, melena - : Denies dysuria, increased frequency, urgency, hematuria, - Heme: Denies ease of bleeding or bruising - MSK: Denies joint pain, limited ROM - Skin: Denies rashes, ulcers, color changes, - Neuro: Denies [place], paresthesias, focal deficits, ataxia, - Constitutional Vitals: Temp Pulse Resp BP Pulse Ox 98.7 F 92 17 147/67 96 09/19/18 10:50 09/19/18 13:35 09/19/18 16:16 09/19/18 16:16 09/19/18 13:35 Exam: Gen.: Vitals noted. No acute distress. AAOx3, resting comfortably in bed. HEENT: PERRL/EOMI, oropharynx clear, Normocephalic, atraumatic, mildly dry mucus membranes Cardiac: RRR, occasional PVC, no murmur, +S1/S2, trace BLE edema Pulmonary: CTA bilaterally, no wheezes, rales or rhonchi, equal chest expansion, unlabored breathing Abdomen: soft, minimally tender to palpation in epigastric, RLQ, RUQ. , BS noted, no guarding, no palpable HSM Back: Nontender throughout. Skin: warm and dry, no visible lesions. MSK: ROM intact, no joint swelling noted, gait no assessed while in bed. Non tender calf or clubbing Neuro: A&Ox3, moves all extremities, no focal deficits, sensation intact Psych: Appropriate mood and behavior, AOx3 Internal Med - H&P Results - Labs CBC & Chem 7: 09/19/18 11:59 09/19/18 11:59 Labs: Short CBC 09/19/18 Range/Units 11:59 WBC 10.2 (4.3-11.1) K/mcL Hgb 15.4 (12.9-16.9) g/dL Hct 45.6 (37.5-50.1) % Plt Count 187 (140-400) K/mcL Neutrophils # 7.1 (1.6-8.9) K/mcL BMP 09/19/18 11:59 Sodium 132 L Potassium 4.2 Chloride 97 L Carbon Dioxide 24 BUN 16 Creatinine 1.09 Glucose 183 H Calcium 9.9 Cardiac Enzymes 09/19/18 Range/Units 11:59 Troponin I 0.03 (< 0.04) ng/mL Liver Function 09/19/18 Range/Units 11:59 Total Bilirubin 0.7 (0.3-1.0) mg/dL Direct Bilirubin 0.2 (0.0-0.2) mg/dL AST 22 (13-39) Units/L ALT 28 (7-52) Units/L Alkaline Phosphatase 47 (34-104) Units/L Albumin 4.1 (3.5-5.7) g/dL Urine 09/19/18 Range/Units 14:35 Urine Color Yellow (Yellow) Urine Clarity Clear (Clear) Urine pH 5.5 (5.0-8.0) pH Units Ur Specific [place] 1.017 (1.010-1.025) Urine Protein 30 H (Neg-Trace) mg/dL Urine Glucose (UA) Normal (Normal) mg/dL - Assessment and Plan (1) Pancreatitis Current Visit: Yes Status: Suspected Assessment and plan: - As demonstrated by elevated lipase of [address] scan obtained as outpatient on 09/18 - Patient does report self history of pancreatitis, thought to be idiopathic at this time - Low suspicion for drug induced, alcohol induced, hypertriglyceridemia. CT scan does remark on no significant biliary dilatation suggesting gallstone disease - Patient is a poorly controlled diabetic - Received 1 L of fluids in the emergency department - Pain is currently controlled - No evidence of additional organ damage. Kidney function at baseline, LFTs within normal limits Plan - Pain control with opioids - Nothing by mouth except for sparing ice chips - We will give additional fluids and maintenance fluids after - Supportive care with antiemetics - Plan to advance diet as tolerated Qualifiers: Chronicity: acute Pancreatitis type: idiopathic Acute pancreatitis complication: no infection or necrosis Qualified Code(s): K85.00 - Idiopathic acute pancreatitis without necrosis or infection (2) Insulin dependent diabetes mellitus Current Visit: Yes Status: Chronic Assessment and plan: - Poorly controlled per patient and recent laboratory results - Most recent hemoglobin A1c of 9.3% on 08/11/18 - Per patient and home medications, he is on insulin and metformin - Low suspicion for medication-induced pancreatitis at this time - Patient is nothing by mouth for pancreatitis as above. - Every 6 hours Accu-Cheks, sliding scale insulin coverage, basal insulin (3) COPD (chronic obstructive pulmonary disease) Current Visit: Yes Status: Chronic Assessment and plan: Does not appear to be in acute exacerbation. We will continue home medications and bronchodilators once reconciled Qualifiers: COPD type: emphysema Emphysema type: panlobular Qualified Code(s): J43.1 - Panlobular emphysema (4) CAD (coronary artery disease) Current Visit: Yes Status: Chronic Assessment and plan: - Patient reports very significant history of CAD - He reports NE in summer 2017 - Reports compliance on dual antiplatelets - Denies chest pain at this time - We will continue home medications - Troponin negative in emergency room, EKG pending - We will trend troponin in case this is an atypical ACS, however there is low suspicion at this time Qualifiers: Coronary Disease-Associated Artery/Lesion type: [place] artery [place] vs. transplanted heart: [place] heart Associated angina: without angina Qualified Code(s): I25.10 - Atherosclerotic heart disease of [place] coronary artery without angina pectoris (5) DVT prophylaxis Current Visit: Yes Status: Acute Assessment and plan: Subcutaneous heparin (6) Hypertension Current Visit: Yes Status: Chronic Assessment and plan: - Uncontrolled at time of presentation in the 190/100s - May be artificially elevated in the setting of pain - We will continue home medications once reconciled and start when necessary hydralazine Qualifiers: Hypertension type: essential hypertension Qualified Code(s): I10 - Essential (primary) hypertension - Time Spent With Patient Total time spent is greater than 50% in coordination of care (as documented) at patient's floor/unit and/or counseling patient: <FranciscoDavid Angelito - Last Filed: 09/19/18 19:23> Date of Encounter: 09/19/18 Internal Medicine - H&P: HPI History of present illness: Mr. Saavedra is a 72 year old male All Systems PM: A 10-system review of systems was performed and is negative for pertinent findings except as documented above in the HPI. - Constitutional Vitals: Temp Pulse Resp BP Pulse Ox 98.1 F 78 16 184/96 92 09/19/18 17:25 09/19/18 17:25 09/19/18 17:25 09/19/18 17:25 09/19/18 17:25 Internal Med - H&P Results - Labs CBC & Chem 7: 09/19/18 11:59 09/19/18 11:59 Labs: Short CBC 09/19/18 Range/Units 11:59 WBC 10.2 (4.3-11.1) K/mcL Hgb 15.4 (12.9-16.9) g/dL Hct 45.6 (37.5-50.1) % Plt Count 187 (140-400) K/mcL Neutrophils # 7.1 (1.6-8.9) K/mcL BMP 09/19/18 11:59 Sodium 132 L Potassium 4.2 Chloride 97 L Carbon Dioxide 24 BUN 16 Creatinine 1.09 Glucose 183 H Calcium 9.9 Cardiac Enzymes 09/19/18 09/19/18 Range/Units 11:59 18:19 Troponin I 0.03 < 0.03 (< 0.04) ng/mL Liver Function 09/19/18 Range/Units 11:59 Total Bilirubin 0.7 (0.3-1.0) mg/dL Direct Bilirubin 0.2 (0.0-0.2) mg/dL AST 22 (13-39) Units/L ALT 28 (7-52) Units/L Alkaline Phosphatase 47 (34-104) Units/L Albumin 4.1 (3.5-5.7) g/dL Urine 09/19/18 Range/Units 14:35 Urine Color Yellow (Yellow) Urine Clarity Clear (Clear) Urine pH 5.5 (5.0-8.0) pH Units Ur Specific [place] 1.017 (1.010-1.025) Urine Protein 30 H (Neg-Trace) mg/dL Urine Glucose (UA) Normal (Normal) mg/dL - Assessment and Plan (1) Pancreatitis Current Visit: Yes Status: Suspected Qualifiers: Chronicity: acute Pancreatitis type: idiopathic Acute pancreatitis complication: no infection or necrosis Qualified Code(s): K85.00 - Idiopathic acute pancreatitis without necrosis or infection (2) Insulin dependent diabetes mellitus Current Visit: Yes Status: Chronic (3) COPD (chronic obstructive pulmonary disease) Current Visit: Yes Status: Chronic Qualifiers: COPD type: emphysema Emphysema type: panlobular Qualified Code(s): J43.1 - Panlobular emphysema (4) DVT prophylaxis Current Visit: Yes Status: Acute (5) CAD (coronary artery disease) Current Visit: Yes Status: Chronic Qualifiers: Coronary Disease-Associated Artery/Lesion type: [place] artery [place] vs. transplanted heart: [place] heart Associated angina: without angina Qualified Code(s): I25.10 - Atherosclerotic heart disease of [place] coronary artery without angina pectoris (6) Hypertension Current Visit: Yes Status: Chronic Qualifiers: Hypertension type: essential hypertension Qualified Code(s): I10 - Essential (primary) hypertension (7) Morbid obesity with BMI of 45.0-49.9, adult Current Visit: Yes Status: Chronic - Time Spent With Patient Total time spent is greater than 50% in coordination of care (as documented) at patient's floor/unit and/or counseling patient: - Attending Attestation I examined this patient and my medical decision-making was reviewed with the Resident Physician on 09/19/18. I agree with the documented findings, disposition and treatment plan as described except to the extent set forth below. Mr Saavedra is 72 y/o male with hx diabetes presents with abdominal pain and CT evidence of pancreatitis. He was seen in ED and given pain medication. He has prior hx of pancreatitis once before and no etiology was found. At this time he is still feeling some pain and has no appetite. He feels bloated as well. Has been having constipation prior to this and recently broke a heel spur on his R foot. He has been taking Tylenol. Exam Alert Comfortable up in chair. Bloated Mucus membranes dry Heart reg and not tachy No wheeze Abd soft and distended. Tender in epigastric area No edema I/P 1. Acute pancreatitis - no clear etiology. Pain control. NPO except ice. 2. DM - coverage ordered 3. Bloating - simethicone ordered Further diagnoses and plan as above.
[2018-09-19] MEDS: Insulin LISPRO 300 UNITS/3 ML VIAL SQ SCH (19:24)
[2018-09-19] MEDS: *HR* Heparin 5,000 UNIT/ML VIAL SQ SCH (19:29)
[2018-09-19] MEDS: Simethicone 80 MG TAB.CHEW PO SCH (20:02)
[2018-09-19] MEDS: Insulin DETEMIR 100 UNIT/ML X5UNITS SQ SCH (20:06)
[2018-09-19] MEDS: 0.9 % Sodium Chloride 1,000 ML IVC SCH (21:18)
[2018-09-19] MEDS: Budesonide/Formoterol 160/4.5 1 PUFF INH IH SCH (22:02)
[2018-09-20] MEDS: Insulin LISPRO 300 UNITS/3 ML VIAL SQ SCH ×4 (00:36→17:57)
[2018-09-20] MEDS: Simethicone 80 MG TAB.CHEW PO SCH ×5 (00:36→23:54)
[2018-09-20 01:12] LABS: Basophils % 0.4 %; Eosinophils # 0.1 K/mcL (0.0-0.6); Eosinophils % 1.4 %; Immature Granulocytes % 0.4 % (0-4); Lymphocytes # 1.6 K/mcL (0.6-4.6); Lymphocytes % 20.6 %; Mean Corpuscular HGB Conc 32.7 g/dL (31.6-35.5); Mean Corpuscular Hemoglobin 31.1 pg (28.0-33.3); Mean Corpuscular Volume 95.1 fL (83.0-100.0); Mean Platelet Volume 9.8 fL (9.4-12.4); Monocytes # 0.9 K/mcL (0.0-1.3); Monocytes % 11.3 %; Neutrophils # 5.2 K/mcL (1.6-8.9); Platelet Count 179 K/mcL (140-400); Red Blood Count 4.31 M/mcL (4.19-5.50); Red Cell Distribution Width 13.8 % (11.5-14.5); Segmented Neutrophils % 65.9 %
[2018-09-20 01:13] LABS: Hemoglobin 13.4 g/dL (12.9-16.9)
[2018-09-20 01:29] LABS: BUN/Creatinine Ratio 18 (6-26); Blood Urea Nitrogen 19 mg/dL (8-23); Calcium 8.9 mg/dL (8.6-10.3); Carbon Dioxide 22 mEq/L (23-29); Chloride 102 mEq/L (98-107); Chol/HDL Ratio 4.6 (0-4.9); Cholesterol 194 mg/dL (< 200); Glucose 164 mg/dL (70-105); HDL Cholesterol 42 mg/dL (40-59); LDL Cholesterol,Calculated 127 mg/dL (0-99); Magnesium 1.6 mg/dL (1.6-2.6); Osmolality,Calculated 282 (280-300); Potassium 4.2 mEq/L (3.5-5.1); Sodium 133 mEq/L (136-145); Triglycerides 126 mg/dL (< 150); eGFR For Non-African Americans > 60 (> 60)
[2018-09-20] MEDS: *HR* Heparin 5,000 UNIT/ML VIAL SQ SCH ×2 (06:34→17:56)
[2018-09-20] MEDS: 0.9 % Sodium Chloride 1,000 ML IVC SCH ×2 (06:35→21:19)
[2018-09-20] MEDS: Budesonide/Formoterol 160/4.5 1 PUFF INH IH SCH ×2 (07:49→20:00)
[2018-09-20] MEDS: Aspirin Enteric Coated 81 MG Tablet PO SCH (09:05)
[2018-09-20] MEDS: Metoprolol XL (24 HR) Succ 50 MG TAB.ER.24H PO SCH (09:05)
[2018-09-20] MEDS: amLODIPine 5 MG TABLET PO SCH (09:05)
[2018-09-20] MEDS: Insulin DETEMIR 100 UNIT/ML X5UNITS SQ SCH ×2 (09:07→21:18)
[2018-09-20] MEDS ORDERED: Milk and Molasses Enema 200 ML RC ONE (10:42)
--- NOTE | 2018-09-20 10:42 | Internal Med Progress Note ---
Hospitalist Progress Note - Encounter Date of Encounter: 09/20/18 Time of Encounter: 09:30 - Subjective Interval History: Patient seen and examined at bedside this morning, he states he is slightly improved but still complains of abdominal distention and discomfort. He states that this may be secondary to constipation and has not had a bowel movement in several days. Colace did not help overnight. He does continue to have some epigastric tenderness but no nausea. States that he is hungry. - Exam Vitals: Temp Pulse Resp BP Pulse Ox 97.6 F 77 17 150/73 94 09/20/18 10:38 09/20/18 10:38 09/20/18 10:38 09/20/18 10:38 09/20/18 10:38 Exam: Gen.: Vitals noted. No acute distress. AAOx3, resting comfortably in bed. HEENT: PERRL/EOMI, oropharynx clear, Normocephalic, atraumatic, mildly dry mucus membranes Cardiac: Regular rate and rhythm, no murmurs Pulmonary: Clear to auscultation bilaterally, no rales rhonchi or wheezing Abdomen: Mild tenderness to palpation in the epigastric region, no guarding rigidity. The abdomen is distended and he has some tenderness in the right and left lower quadrants as well.\ Skin: warm and dry, no visible lesions. MSK: No cyanosis clubbing or edema Neuro: Alert and oriented, no obvious focal neurological deficits Psych: Appropriate mood and behavior, AOx3 - Assessment and Plan (1) Pancreatitis Current Visit: Yes Status: Suspected Assessment and Plan: Continue pain control and provide as needed anti-medics We will advance diet and start clear liquids Continue IV fluids until patient can tolerate an adequate diet Patient also complained of abdominal distention and constipation with little relief from Colace. Will provide MiraLAX and Senokot twice a day today with plans to escalate to an enema tonight if needed. Right upper quadrant gallbladder ultrasound pending (2) Insulin dependent diabetes mellitus Current Visit: Yes Status: Chronic Assessment and Plan: A1c 9.2% on 08/11/2018 We will continue sliding scale insulin with basal insulin coverage as well (3) COPD (chronic obstructive pulmonary disease) Current Visit: Yes Status: Chronic Assessment and Plan: Not in exacerbation Continue home medications (4) CAD (coronary artery disease) Current Visit: Yes Status: Chronic Assessment and Plan: Continue home dual antiplatelet Troponins have been negative 3 Do not suspect ACS as a cause of patient's epigastric pain (5) Hypertension Current Visit: Yes Status: Chronic Assessment and Plan: Has had several elevated blood pressure readings We will continue home medications Hydralazine ordered as needed (6) DVT prophylaxis Current Visit: Yes Status: Acute Assessment and Plan: Subcutaneous heparin - Time Spent with Patient Total time spent is greater than 50% in coordination of care (as documented) at patient's floor/unit and/or counseling patient: Internal Medicine: Result - Labs CBC & Chem 7: 09/20/18 00:47 09/20/18 00:47 Labs: Short CBC 09/19/18 09/20/18 Range/Units 11:59 00:47 WBC 10.2 7.9 (4.3-11.1) K/mcL Hgb 15.4 13.4 D (12.9-16.9) g/dL Hct 45.6 41.0 (37.5-50.1) % Plt Count 187 179 (140-400) K/mcL Neutrophils # 7.1 5.2 (1.6-8.9) K/mcL BMP 09/19/18 09/20/18 11:59 00:47 Sodium 132 L 133 L Potassium 4.2 4.2 Chloride 97 L 102 Carbon Dioxide 24 22 L BUN 16 19 Creatinine 1.09 1.06 Glucose 183 H 164 H Calcium 9.9 8.9 Cardiac Enzymes 09/19/18 09/19/18 09/20/18 Range/Units 11:59 18:19 00:47 Troponin I 0.03 < 0.03 0.03 (< 0.04) ng/mL Liver Function 09/19/18 Range/Units 11:59 Total Bilirubin 0.7 (0.3-1.0) mg/dL Direct Bilirubin 0.2 (0.0-0.2) mg/dL AST 22 (13-39) Units/L ALT 28 (7-52) Units/L Alkaline Phosphatase 47 (34-104) Units/L Albumin 4.1 (3.5-5.7) g/dL Urine 09/19/18 Range/Units 14:35 Urine Color Yellow (Yellow) Urine Clarity Clear (Clear) Urine pH 5.5 (5.0-8.0) pH Units Ur Specific [place] 1.017 (1.010-1.025) Urine Protein 30 H (Neg-Trace) mg/dL Urine Glucose (UA) Normal (Normal) mg/dL Consult Discharge Plan - Plan Referrals: Adalberto Up MD [Primary Care Provider] - (1) Pancreatitis Qualifiers: Chronicity: acute Pancreatitis type: idiopathic Acute pancreatitis complication: no infection or necrosis Qualified Code(s): K85.00 - Idiopathic acute pancreatitis without necrosis or infection (3) COPD (chronic obstructive pulmonary disease) Qualifiers: COPD type: emphysema Emphysema type: panlobular Qualified Code(s): J43.1 - Panlobular emphysema (4) CAD (coronary artery disease) Qualifiers: Coronary Disease-Associated Artery/Lesion type: [place] artery [place] vs. transplanted heart: [place] heart Associated angina: without angina Qualified Code(s): I25.10 - Atherosclerotic heart disease of [place] coronary artery without angina pectoris (5) Hypertension Qualifiers: Hypertension type: essential hypertension Qualified Code(s): I10 - Essential (primary) hypertension
--- NOTE | 2018-09-20 10:49 | Event Note ---
Date of Encounter: 09/20/18 Time of Encounter: 10:44 Patient seen and examined. I agree with the progress note as written by the resident physician Patient with abdominal discomfort for a few days. Was found to have acute complicated pancreatitis. This is the second time with acute Pancreatitis in the last 6 years. He is not a drinker. CT abdomen pelvis showed no choledocholithiasis. He was planned to undergo a right upper quadrant ultrasound. It could not be done due to abdominal distention and inability to visualize the gallbladder. The patient has not had a bowel movement for 5 days. Usually has one every other day. Feels bloated. Somewhat nauseous. No appetite but feels that he can be tried on clears. GEN: NAD CVS: RRR. S1, S2, No m/r/g RESP: CTAB ABD: Abdominal distention. Mild tenderness in the epigastric area but no rebound. +BS EXT: No edema. 2+ DP. No rashes NEURO: Nonfocal Continue maintenance IV fluids. Pain control and antiemetics. Start clear liquid diet. Can schedule MiraLAX and Senokot BID today. We will use an enema if he fails to have bowel movement. Right upper quadrant ultrasound once he has a couple of bowel movements. Continue home medications. Heparin subcutaneous for DVT prophylaxis.
[2018-09-20] MEDS: Sennosides/Docusate Sodium TABLET PO SCH ×2 (11:55→21:18)
[2018-09-21] MEDS: Insulin LISPRO 300 UNITS/3 ML VIAL SQ SCH ×3 (01:05→12:14)
[2018-09-21] MEDS: 0.9 % Sodium Chloride 1,000 ML IVC SCH (03:58)
[2018-09-21 04:28] LABS: Basophils % 0.5 %; Eosinophils # 0.2 K/mcL (0.0-0.6); Eosinophils % 3.2 %; Hematocrit 37.3 % (37.5-50.1); Hemoglobin 12.4 g/dL (12.9-16.9); Immature Granulocytes % 0.3 % (0-4); Lymphocytes # 1.7 K/mcL (0.6-4.6); Lymphocytes % 29.1 %; Mean Corpuscular HGB Conc 33.2 g/dL (31.6-35.5); Mean Corpuscular Hemoglobin 31.4 pg (28.0-33.3); Mean Corpuscular Volume 94.4 fL (83.0-100.0); Mean Platelet Volume 9.8 fL (9.4-12.4); Monocytes # 0.8 K/mcL (0.0-1.3); Monocytes % 13.5 %; Neutrophils # 3.2 K/mcL (1.6-8.9); Platelet Count 182 K/mcL (140-400); Red Blood Count 3.95 M/mcL (4.19-5.50); Red Cell Distribution Width 13.7 % (11.5-14.5); Segmented Neutrophils % 53.4 %
[2018-09-21 04:51] LABS: BUN/Creatinine Ratio 13 (6-26); Blood Urea Nitrogen 14 mg/dL (8-23); Calcium 8.5 mg/dL (8.6-10.3); Carbon Dioxide 26 mEq/L (23-29); Chloride 104 mEq/L (98-107); Glucose 106 mg/dL (70-105); Osmolality,Calculated 283 (280-300); Potassium 3.9 mEq/L (3.5-5.1); Sodium 136 mEq/L (136-145); eGFR For Non-African Americans > 60 (> 60)
[2018-09-21] MEDS: Simethicone 80 MG TAB.CHEW PO SCH ×2 (05:53→12:14)
[2018-09-21] MEDS: *HR* Heparin 5,000 UNIT/ML VIAL SQ SCH (05:54)
--- NOTE | 2018-09-21 07:17 | Internal Med Progress Note ---
Hospitalist Progress Note - Encounter Date of Encounter: 09/21/18 - Exam Vitals: Temp Pulse Resp BP Pulse Ox 98.1 F 79 15 155/71 94 09/21/18 06:57 09/21/18 06:57 09/21/18 06:57 09/21/18 06:57 09/21/18 06:57 - Assessment and Plan (1) Pancreatitis Current Visit: Yes Status: Suspected (2) Insulin dependent diabetes mellitus Current Visit: Yes Status: Chronic (3) COPD (chronic obstructive pulmonary disease) Current Visit: Yes Status: Chronic (4) CAD (coronary artery disease) Current Visit: Yes Status: Chronic (5) Hypertension Current Visit: Yes Status: Chronic (6) DVT prophylaxis Current Visit: Yes Status: Acute - Time Spent with Patient Total time spent is greater than 50% in coordination of care (as documented) at patient's floor/unit and/or counseling patient: Internal Medicine: Result - Labs CBC & Chem 7: 09/21/18 04:00 09/21/18 04:00 Labs: Short CBC 09/21/18 Range/Units 04:00 WBC 5.9 (4.3-11.1) K/mcL Hgb 12.4 L (12.9-16.9) g/dL Hct 37.3 L (37.5-50.1) % Plt Count 182 (140-400) K/mcL Neutrophils # 3.2 (1.6-8.9) K/mcL BMP 09/21/18 04:00 Sodium 136 Potassium 3.9 Chloride 104 Carbon Dioxide 26 BUN 14 Creatinine 1.04 Glucose 106 H Calcium 8.5 L Consult Discharge Plan - Plan Referrals: Adalberto Up MD [Primary Care Provider] - (1) Pancreatitis Qualifiers: Chronicity: acute Pancreatitis type: idiopathic Acute pancreatitis complication: no infection or necrosis Qualified Code(s): K85.00 - Idiopathic acute pancreatitis without necrosis or infection (3) COPD (chronic obstructive pulmonary disease) Qualifiers: COPD type: emphysema Emphysema type: panlobular Qualified Code(s): J43.1 - Panlobular emphysema (4) CAD (coronary artery disease) Qualifiers: Coronary Disease-Associated Artery/Lesion type: [place] artery [place] vs. transplanted heart: [place] heart Associated angina: without angina Qualified Code(s): I25.10 - Atherosclerotic heart disease of [place] coronary artery without angina pectoris (5) Hypertension Qualifiers: Hypertension type: essential hypertension Qualified Code(s): I10 - Essential (primary) hypertension
[2018-09-21] MEDS: Budesonide/Formoterol 160/4.5 1 PUFF INH IH SCH (07:30)
--- NOTE | 2018-09-21 09:10 | Discharge Summary ---
<ThaliaelizabethHowie Bro - Last Filed: 09/21/18 16:51> - NOTES TO OUTPATIENT PROVIDER Notes to Outpatient Provider: Follow-up with patient regarding his pancreatitis to assess if he is tolerating a full regular diet. Suspicion at this time is for idiopathic pancreatitis as no other pathology was identified. Patient den ies alcohol intake, his medications were reviewed and not believed to be the cause for his pancreatitis, and right upper quadrant ultrasound was negative for cholelithiasis. Patient also requires follow-up for right foot pain as he states that he suffered a fracture found on imaging in August. He states that he is not a surgical candidate due to significant peripheral vascular disease. He follows with outpatient podiatry. Orders not resulted at time of discharge: Pending orders 09/21/18 07:38 XR foot 3V RT [XR] Routine 09/21/18 08:30 US gall bladder [US] Routine Date of Encounter: 09/21/18 Time of Encounter: 08:30 - Discharge Diagnosis (1) Pancreatitis Priority: Primary Status: Suspected Qualifiers: Chronicity: acute Pancreatitis type: idiopathic Acute pancreatitis complication: no infection or necrosis Qualified Code(s): K85.00 - Idiopathic acute pancreatitis without necrosis or infection (2) Insulin dependent diabetes mellitus Priority: Secondary Status: Chronic (3) COPD (chronic obstructive pulmonary disease) Priority: Secondary Status: Chronic Qualifiers: COPD type: emphysema Emphysema type: panlobular Qualified Code(s): J43.1 - Panlobular emphysema (4) CAD (coronary artery disease) Priority: Secondary Status: Chronic Qualifiers: Coronary Disease-Associated Artery/Lesion type: [place] artery [place] vs. transplanted heart: [place] heart Associated angina: without angina Qualified Code(s): I25.10 - Atherosclerotic heart disease of [place] coronary artery without angina pectoris (5) Hypertension Priority: Secondary Status: Chronic Qualifiers: Hypertension type: essential hypertension Qualified Code(s): I10 - Essential (primary) hypertension (6) Fracture of right foot Priority: Secondary Status: Chronic Qualifiers: Encounter type: subsequent encounter Fracture type: closed Fracture healing: with routine healing Qualified Code(s): S92.901D - Unspecified fracture of right foot, subsequent encounter for fracture with routine healing Hospital course: Mr. Saavedra is a 72 year old male with a history of COPD, diabetes, coronary artery disease with ID 1 year ago, and prior history of pancreatitis who presented to the emergency department with complaints of abdominal pain for 1 week. The pain was progressively worsening, associated with eating, and described as sharp and in the epigastric region. Workup in the emergency department revealed an elevation of his lipase at [address] scan performed on 09/18 by his PCP revealed diffuse peripancreatic stranding compatible with acute pancreatitis with no evidence of choledocholithiasis or biliary duct dilation dilatation. Patient was admitted to the hospital. His pain was well- controlled, he was made nothing by mouth the first night and started on a clear liquid diet the following day which he tolerated well and was subsequently advanced to a full liquid diet on day of discharge. His abdominal examination improved and he was pain-free on day of discharge. No cause was identified for his pancreatitis, no choledocholithiasis, his medications were reviewed, and he denied alcohol intake. He was also constipated during his admission and required laxatives and an enema which helped his significant stool burden and abdominal distention. He underwent a right upper quadrant ultrasound which was negative for choledocholithiasis. During his admission patient also complained of pain in his right foot in which he has suffered a fracture previously noted on imaging dated 08/23 last thousand 19. Patient states that he follows outpatient podiatry and surgery was not recommended due to his history of peripheral vascular disease. Repeat imaging was performed and negative for any changes. Patient discharged to home with follow-up with his PCP and outpatient physical therapist assistant - Time Spent with Patient Total time spent providing and/or coordinating discharge services: - Discharge Medications Prescriptions: Continue RX: Insulin LISPRO [Humalog Kwikpen U-100] 0 unit SQ TIDAC RX: Aspirin Enteric Coated [Aspirin EC] 81 mg PO DAILY RX: Omega3/Dha/Epa/Fish Oil/Vit D3 [Fish Oil + Vitamin D-3 Softgel] 1,000 mg PO DAILY RX: Metoprolol XL (24 HR) Succ [Toprol Xl] 50 mg PO DAILY RX: Insulin Glargine,Hum.rec.anlog [Lantus Solostar] 70 unit SQ BID RX: Clopidogrel [Plavix] 75 mg PO DAILY #30 tablet RX: Albuterol Sulfate [Ventolin Hfa] 2 puff IH Q4H PRN PRN Reason: Shortness Of Breath RX: Budesonide/Formoterol 160/4.5 [Symbicort 160/4.5] 2 puff IH BIDR RX: amLODIPine [Norvasc] 5 mg PO DAILY RX: metFORMIN [Glucophage] 1,000 mg PO BIDWM Home Medications: RX: Aspirin Enteric Coated [Aspirin EC] 81 mg PO DAILY 01/09/16 [History] RX: Insulin Glargine,Hum.rec.anlog [Lantus Solostar] 70 unit SQ BID 01/09/16 [History] RX: Insulin LISPRO [Humalog Kwikpen U-100] 0 unit SQ TIDAC 01/09/16 [History] RX: Metoprolol XL (24 HR) Succ [Toprol Xl] 50 mg PO DAILY 01/09/16 [History] RX: Omega3/Dha/Epa/Fish Oil/Vit D3 [Fish Oil + Vitamin D-3 Softgel] 1,000 mg PO DAILY 01/09/16 [History] RX: Clopidogrel [Plavix] 75 mg PO DAILY #30 tablet 10/29/17 [Rx] RX: Albuterol Sulfate [Ventolin Hfa] 2 puff IH Q4H PRN 11/17/17 [History] RX: Budesonide/Formoterol 160/4.5 [Symbicort 160/4.5] 2 puff IH BIDR 08/23/18 [History] RX: amLODIPine [Norvasc] 5 mg PO DAILY 09/19/18 [History] RX: metFORMIN [Glucophage] 1,000 mg PO BIDWM 09/19/18 [History] Allergies/Adverse Reactions: Allergy/AdvReac Type Severity Reaction Status Date / Time Amoxicillin Allergy Unknown UNKOWN Verified 09/12/18 17:38 lisinopril Allergy Unknown Anaphylaxis Verified 09/12/18 17:38 levofloxacin [From Levaquin] Allergy Anaphylaxis Verified 09/12/18 17:38 carvedilol [From Coreg] AdvReac Intermediate MUSCLE Verified 09/12/18 17:38 CRAMPS losartan AdvReac Intermediate MUSCLE Verified 09/12/18 17:38 CRAMPS budesonide [From Symbicort] AdvReac See Verified 09/12/18 17:38 Comments fluticasone AdvReac See Verified 09/12/18 17:38 [From Advair Diskus] Comments salmeterol AdvReac See Verified 09/12/18 17:38 [From Advair Diskus] Comments [id number] Reductase AdvReac Anaphylaxis Verified 09/12/18 17:38 Inhibitor [Statins] Date of admission: 09/20/18 13:17 Primary care physician: Adalberto Up MD Discharging clinician: Howie Hayes Anticipated date of discharge: 09/21/18 - Constitutional Vitals: Temp Pulse Resp BP Pulse Ox 98.1 F 79 18 155/71 94 09/21/18 06:57 09/21/18 06:57 09/21/18 07:30 09/21/18 06:57 09/21/18 07:30 Exam: Gen.: Vitals noted. No acute distress. AAOx3, resting comfortably out of bed in chair HEENT: PERRL/EOMI, oropharynx clear, Normocephalic, atraumatic, mildly dry mucus membranes Cardiac: Regular rate and rhythm, no murmurs Pulmonary: Clear to auscultation bilaterally, no rales rhonchi or wheezing Abdomen: No tenderness to palpation, abdomen is soft and obese. No guarding or rigidity. Skin: warm and dry, no visible lesions. MSK: No cyanosis clubbing or edema Neuro: Alert and oriented, no obvious focal neurological deficits Psych: Appropriate mood and behavior, AOx3 - Patient Status Disposition: Home, Self-Care Condition: Fair Overall status at discharge: patient is back to baseline - Discharge Instructions Follow Up With: Adalberto Up MD [Primary Care Provider] - - Diet and Activity Diet: other (Advance diet as tolerated) <Marin Guido M - Last Filed: 09/21/18 17:44> Date of Encounter: 09/21/18 - Discharge Diagnosis (1) Insulin dependent diabetes mellitus Status: Chronic (2) COPD (chronic obstructive pulmonary disease) Status: Chronic Qualifiers: COPD type: emphysema Emphysema type: panlobular Qualified Code(s): J43.1 - Panlobular emphysema (3) DVT prophylaxis Status: Acute (4) CAD (coronary artery disease) Status: Chronic Qualifiers: Coronary Disease-Associated Artery/Lesion type: [place] artery [place] vs. transplanted heart: [place] heart Associated angina: without angina Qualified Code(s): I25.10 - Atherosclerotic heart disease of [place] coronary artery without angina pectoris (5) Pancreatitis Status: Suspected Qualifiers: Chronicity: acute Pancreatitis type: idiopathic Acute pancreatitis complication: no infection or necrosis Qualified Code(s): K85.00 - Idiopathic acute pancreatitis without necrosis or infection (6) Hypertension Status: Chronic Qualifiers: Hypertension type: essential hypertension Qualified Code(s): I10 - Essential (primary) hypertension (7) Morbid obesity with BMI of 45.0-49.9, adult Status: Chronic Hospital course: Mr. Saavedra is a 72 year old male - Time Spent with Patient Total time spent providing and/or coordinating discharge services: Time spent: Greater than 30 minutes Date of admission: 09/20/18 13:17 Primary care physician: Adalberto Up MD - Constitutional Vitals: Temp Pulse Resp BP Pulse Ox 97.9 F 66 15 143/89 97 09/21/18 14:37 09/21/18 14:37 09/21/18 14:37 09/21/18 14:37 09/21/18 14:37 - Attending Attestation Patient was seen and examined. I agree with the discharge document as written by the resident physician. Patient admitted with acute pancreatitis. Unclear etiology. Treated conservatively. RUQ US negative. GEN: NAD CVS: RRR. S1, S2, No m/r/g RESP: CTAB ABD: Soft, NT, ND, +BS EXT: No edema. 2+ DP. No rashes NEURO: Nonfocal
[2018-09-21] MEDS: amLODIPine 5 MG TABLET PO SCH (10:35)
[2018-09-21] MEDS: Aspirin Enteric Coated 81 MG Tablet PO SCH (10:35)
[2018-09-21] MEDS: Sennosides/Docusate Sodium TABLET PO SCH (10:35)
[2018-09-21] MEDS: Metoprolol XL (24 HR) Succ 50 MG TAB.ER.24H PO SCH (10:35)
[2018-09-21 14:41] VITALS: BP 143/89
== END 2018-09-21 18:40 | disposition home or self-care (01) | DRG 439 ==
LOC: 3ANU 10:43 → EMEROOARM 10:43 → SUATTDRO 15:34 → 3ANU 17:09
PROVIDERS: ADMIT Internal Medicine Nephrology; ATTEND Internal Medicine

== ENCOUNTER 2018-10-30 08:52 | Observation (INO) ==
--- NOTE | 2018-10-30 09:32 | Emergency Department Note ---
Disposition Clinical Impression: Vertigo, Elevated troponin Disposition: Admitted As Inpatient Condition: Fair Time of Disposition: 12:55 General Adult HPI - General Stated complaint: Dizzy Time Seen by Provider: 10/30/18 09:03 Source: patient Mode of arrival: wheelchair Limitations: no limitations Nursing Notes Reviewed: Yes Vital Signs Reviewed: Yes - History of Present Illness HPI Narrative: Patient is a 72-year-old male with a past medical history of coronary artery disease, diabetes, hypertension, bilateral carotid artery stenosis status post carotid endarterectomy as well as cardiac stents 3 presents to the emergency department for evaluation of dizziness since this morning upon waking up. Deandre orona describes it as a room spinning sensation that is worsened with position change and movement associated with nausea but no emesis. He denies any focal neurological deficits. Denies history of vertigo. He has had a stroke in the past but states that these symptoms are not similar states that when he is had a stroke she had numbness in his extremities and around his mouth. He denies any presyncopal, lightheadedness, chest pain or shortness of breath. He states that when he moves his head to the right this causes worsening onset of his symptoms and they improve when he looks straight ahead within seconds. - Related Data Home Medications Medication Instructions Recorded Confirmed Aspirin Enteric Coated [Aspirin EC] 81 mg PO DAILY 01/09/16 10/30/18 Insulin Glargine,Hum.rec.anlog 70 unit SQ BID 01/09/16 10/30/18 [Lantus Solostar] Insulin LISPRO [Humalog Kwikpen 0 unit SQ TIDAC 01/09/16 10/30/18 U-100] Metoprolol XL (24 HR) Succ [Toprol 50 mg PO DAILY 01/09/16 10/30/18 Xl] Omega3/Dha/Epa/Fish Oil/Vit D3 1,000 mg PO DAILY 01/09/16 10/30/18 [Fish Oil + Vitamin D-3 Softgel] Albuterol Sulfate [Ventolin Hfa] 2 puff IH Q4H PRN 11/17/17 10/30/18 Budesonide/Formoterol 160/4.5 2 puff IH BIDR 08/23/18 10/30/18 [Symbicort 160/4.5] amLODIPine [Norvasc] 5 mg PO DAILY 09/19/18 10/30/18 metFORMIN [Glucophage] 1,000 mg PO BIDWM 09/19/18 10/30/18 Furosemide [Lasix] 40 mg PO DAILY 10/30/18 10/30/18 Insulin LISPRO [Humalog Kwikpen 12 unit SQ TIDWM 10/30/18 10/30/18 U-100] Previous Rx's Medication Instructions Recorded Clopidogrel [Plavix] 75 mg PO DAILY #30 tablet 10/29/17 Allergies Allergy/AdvReac Type Severity Reaction Status Date / Time Amoxicillin Allergy Unknown UNKOWN Verified 09/12/18 17:38 lisinopril Allergy Unknown Anaphylaxis Verified 09/12/18 17:38 levofloxacin [From Levaquin] Allergy Anaphylaxis Verified 09/12/18 17:38 carvedilol [From Coreg] AdvReac Intermediate MUSCLE Verified 09/12/18 17:38 CRAMPS losartan AdvReac Intermediate MUSCLE Verified 09/12/18 17:38 CRAMPS budesonide [From Symbicort] AdvReac See Verified 09/12/18 17:38 Comments fluticasone AdvReac See Verified 09/12/18 17:38 [From Advair Diskus] Comments salmeterol AdvReac See Verified 09/12/18 17:38 [From Advair Diskus] Comments Lfwywoa-Mzi-Tkk Reductase AdvReac Anaphylaxis Verified 09/12/18 17:38 Inhibitor [Statins] All systems ED: reviewed and negative except as stated. Review of Systems: As Per HPI Constitutional: Denies: fever, chills Cardiovascular: Denies: chest pain, palpitations, dyspnea on exertion Respiratory: Denies: cough, dyspnea, wheezes Gastrointestinal: Reports: nausea. Denies: abdominal pain, vomiting Integumentary: Denies: rash Neurological: Reports: abnormal gait (Difficulty walking due to room spinning), vertigo. Denies: headache, weakness, numbness, paresthesias, confusion Past Medical History - Past Medical History Attestation: Yes The following information was validated with the patient. Medical history: Reports: coronary artery disease, diabetes, hypertension Surgical history: Reports: angioplasty/stent, herniorrhaphy, knee replacement, other Psychiatric history: Reports: no psych history - Social History Smoking Status: Never smoker Smokeless Tobacco Status: No Alcohol use: Reports: none Drug use: Reports: none Physical Exam - General Limitations: no limitations General appearance: alert - Head Head exam: atraumatic, normocephalic, normal inspection - Eye Eye exam: Present: normal appearance, PERRL, EOMI, nystagmus (To the right horizontally that is fatigable). Absent: miosis, mydriasis, periorbital swelling - ENT ENT exam: normal exam, normal oropharynx, mucous membranes moist, TM's normal bilaterally - Neck Neck exam: Present: normal inspection, full ROM, trachea midline - Chest Chest inspection: Present: normal inspection. Absent: symmetric chest wall rise, tenderness - Respiratory Respiratory exam: Present: normal lung sounds bilaterally. Absent: respiratory distress, wheezes, stridor, accessory muscle use, prolonged expiratory phase - Cardiovascular Cardiovascular exam: Present: regular rate, normal rhythm, +S1, +S2. Absent: irregular rhythm - Abdominal Exam Abdominal exam: Present: soft, Non-Tender, normal bowel sounds - Extremities Exam Extremities exam: Present: normal inspection, full ROM. Absent: tenderness - Back Exam Back exam: Present: normal inspection, full ROM. Absent: tenderness - Neurological Exam Neurological exam: Present: alert, oriented X3, CN II-XII intact, reflexes normal. Absent: motor sensory deficit - Expanded Neurological Exam Patient oriented to: Present: person, place, time Speech: Present: fluid speech Cranial nerves: EOM function (II, III, IV, ): Normal, facial sensation (V): Normal, facial palsy (VII): Normal, gag reflex (IX): Normal, spinal accessory function (XI): Normal, tongue deviation (XII): Normal Cerebellar function: finger to nose: Normal, heel to dinh: Normal Motor strength - LUE: 5/5 Motor strength - RUE: 5/5 Motor strength - LLE: 5/5 Motor strength - RLE: 5/5 Sensory exam upper extremity: light touch: Normal Sensory exam lower extremity: light touch: Normal DTR: bicep (L): 2+, bicep (R): 2+, patellar (L): 2+, patellar (R): 2+ Coma Scale Eye Opening: Spontaneous Coma Scale Motor Response: Obeys Commands Coma Scale Verbal Response: Oriented Coma Scale Total: 15 - Psychiatric Psychiatric exam: Present: normal affect - Skin Skin exam: Present: warm, dry, intact Course Course Narrative: In January 2018 the patient underwent a right carotid endarterectomy with Hemash[place] patch angioplasty in November 2017 the patient underwent a left carotid endarterectomy. Prior to surgery the patient had a carotid ultrasound that showed a right mid ICA with moderate stenosis in the left proximal ICA with severe stenosis. Of note the patient also underwent cardiac stent placement re quiring 3 stents in March 2018. He had a brain MRI in November 2017 which showed no acute intracranial abnormality and no acute infarct with minimal chronic microvascular ischemic changes. Given the patient's acute onset of symptoms and they are acute worsening with movement and resolution within seconds of keeping his head still concerned this time is more for a peripheral process as a source of the patient's symptoms. His symptoms are worse when he turns his head to the right and improved with looking forward. The symptoms are not worsened with palpation of the right side of the neck. The patient is denying any localized pain, numbness, tingling or other associated neurological deficit. He will undergo basic lab workup for the evaluation of dizziness which include a cardiac evaluation as well as basic labs. He will be treated with meclizine and then reassess. - Reevaluation(s) Reevaluation #1: The patient did initially have improvement of symptoms with meclizine however when he is taken down the head CT the movement from the head CT caused him to have vertigo worsening. His lab work was unremarkable except for mildly elevated troponin of 0.04 however the patient is denying any chest pain or shortness of breath as EKG was nonischemic. Discussed his case with the hospitalist on-call plan to admit the patient for refractory vertigo and further evaluation of his elevated troponin I discussed this with the patient and he agrees with that plan. Vital Signs Temperature 98.3 F 10/30/18 09:33 Pulse Rate 73 10/30/18 09:33 Respiratory Rate 20 10/30/18 09:33 Blood Pressure 146/81 10/30/18 09:33 O2 Sat by Pulse Oximetry 94 10/30/18 09:33 Temperature 98.3 F 10/30/18 09:33 Pulse Rate 62 10/30/18 12:06 Respiratory Rate 18 10/30/18 12:06 Blood Pressure 154/62 10/30/18 12:06 O2 Sat by Pulse Oximetry 93 10/30/18 12:06 Oxygen Delivery Oxygen Delivery Room Air Medical Decision Making - Medical Records Medical records reviewed: Yes I reviewed the patient's medical records. - Lab Data Lab results reviewed: Yes I reviewed the patient's lab results. Result diagrams: 10/30/18 10:00 10/30/18 10:00 Lab Results 10/30/18 10/30/18 10/30/18 Range/Units 10:00 10:00 10:09 WBC 5.6 (4.3-11.1) K/mcL RBC 4.41 (4.19-5.50) M/mcL Hgb 14.0 (12.9-16.9) g/dL Hct 42.8 (37.5-50.1) % MCV 97.1 (83.0-100.0) fL MCH 31.7 (28.0-33.3) pg MCHC 32.7 (31.6-35.5) g/dL RDW 13.7 (11.5-14.5) % Plt Count 165 (140-400) K/mcL MPV 10.0 (9.4-12.4) fL Immature Gran % 0.5 (0-4) % Seg Neutrophils % 63.2 % Lymphocytes % 23.3 % Monocytes % 10.5 % Eosinophils % 2.1 % Basophils % 0.4 % Neutrophils # 3.6 (1.6-8.9) K/mcL Lymphocytes # 1.3 (0.6-4.6) K/mcL Monocytes # 0.6 (0.0-1.3) K/mcL Eosinophils # 0.1 (0.0-0.6) K/mcL Basophils # 0.0 (0.0-0.2) K/mcL Sodium 134 L (136-145) mEq/L Potassium 4.1 (3.5-5.1) mEq/L Chloride 100 (98-107) mEq/L Carbon Dioxide 25 (23-29) mEq/L BUN 21 (8-23) mg/dL Creatinine 1.04 (0.70-1.30) mg/dL Est GFR ( Amer) > 60 (> 60) Est GFR (Non-Af Amer) > 60 (> 60) BUN/Creatinine Ratio 20 (6-26) Glucose 275 H (70-105) mg/dL Calculated Osmolality 291 (280-300) Calcium 9.1 (8.6-10.3) mg/dL Total Bilirubin 0.4 (0.3-1.0) mg/dL AST 21 (13-39) Units/L ALT 26 (7-52) Units/L Alkaline Phosphatase 45 (34-104) Units/L Troponin I 0.04 H* (< 0.04) ng/mL Serum Total Protein 6.8 (6.4-8.9) g/dL Albumin 3.9 (3.5-5.7) g/dL Globulin 2.9 (2.4-3.5) g/dL Albumin/Globulin Ratio 1.3 (1.1-2.2) Urine Color Yellow (Yellow) Urine Clarity Clear (Clear) Urine pH 6.0 (5.0-8.0) pH Units Ur Specific [place] 1.013 (1.010-1.025) Urine Protein 30 H (Neg-Trace) mg/dL Urine Glucose (UA) 100 H (Normal) mg/dL Urine Ketones Negative (Negative) mg/dL Urine Blood Negative (Negative) Urine Nitrite Negative (Negative) Urine Bilirubin Negative (Negative) Urine Urobilinogen Normal (Normal) mg/dL Ur Leukocyte Esterase Negative (Negative) Urine Microscopic RBC 0-3 (0-3) per hpf Urine Microscopic WBC 0-3 (0-3) per hpf Ur Squamous Epith Cells None Seen (None-Few) per lpf Urine Bacteria None Seen (None-Few) per hpf Hyaline Casts None Seen (None-Few) per lpf Ur Culture Indicated? NO (NO) - Radiology Data Radiology results reviewed: Yes I reviewed the patient's radiology results. Chest X-Ray 10/30/18 09:29 IMPRESSION: No significant findings in the chest. D/ / Francisco Randle MD / Francisco Randle MD Interpreting Provider: Francisco Randle MD Head CT 10/30/18 10:43 IMPRESSION: No acute intracranial abnormality. D/ / Elpidio Noonan MD / Elpidio Noonan MD Interpreting Provider: Elpidio Noonan MD - EKG Data EKG #1 EKG attestation: Yes I reviewed and interpreted this EKG. EKG results narrative: EKG done at 9:35 shows NSR at rate of 71 BPM. Normal [place]. Intervals within normal limits. No signs of ST elevation, ST depression or Q waves present in this is unchanged from EKG done on September 2018. Attestation Statement - Attestation Attestation: I, Tanmay Godoy, examined this patient and my medical decision-making was reviewed with the [employer]/PA/Advanced Practice Nurse/Resident Physician. I agree with the documented findings, disposition and treatment plan as described except to the extent set forth below. 72-year-old male presents emergency Department with concerns of near syncopal episode with lightheadedness and a sensation of room spinning. Patient's symptoms started acutely this morning. He denies associated chest pain or shortness of breath, recent trauma, changes in medications. He does report associated nausea but has not vomited. Patient is concerned that his vertigo worsens when he touches the right side of his neck, he has a history of previous carotid stenting bilaterally. Patient denies history of similar vertigo in the past. Vertigo was reproducible on exam and improved within seconds of remaining still. Vertigo likely secondary to BPPV however central causes are still under consideration. CT of his head was negative for acute fracture or intracranial hemorrhage or obvious ischemic area. Initial troponin was elevated compared to his baseline. EKG did not show evidence of acute STEMI. Patient will be admitted to the hospitalist for further care and evaluation.
[2018-10-30 10:12] LABS: Basophils % 0.4 %; Eosinophils # 0.1 K/mcL (0.0-0.6); Eosinophils % 2.1 %; Hematocrit 42.8 % (37.5-50.1); Immature Granulocytes % 0.5 % (0-4); Lymphocytes # 1.3 K/mcL (0.6-4.6); Lymphocytes % 23.3 %; Mean Corpuscular HGB Conc 32.7 g/dL (31.6-35.5); Mean Corpuscular Hemoglobin 31.7 pg (28.0-33.3); Mean Corpuscular Volume 97.1 fL (83.0-100.0); Monocytes # 0.6 K/mcL (0.0-1.3); Monocytes % 10.5 %; Neutrophils # 3.6 K/mcL (1.6-8.9); Platelet Count 165 K/mcL (140-400); Red Blood Count 4.41 M/mcL (4.19-5.50); Red Cell Distribution Width 13.7 % (11.5-14.5); Segmented Neutrophils % 63.2 %
[2018-10-30 10:18] LABS: Bilirubin,Urine Negative (Negative); Blood,Urine Negative (Negative); Clarity,Urine Clear (Clear); Color,Urine Yellow (Yellow); Glucose,Urine (UA) 100 mg/dL (Normal); Ketones,Urine Negative (Negative); Leukocyte Esterase,Urine Negative (Negative); Nitrite,Urine Negative (Negative); Protein,Urine 30 mg/dL (Neg-Trace); Specific Gravity,Urine 1.013 (1.010-1.025); Urobilinogen,Urine Normal (Normal)
[2018-10-30 10:19] LABS: Bacteria,Urine None Seen per hpf (None-Few); Hyaline Casts,Urine None Seen per lpf (None-Few); RBC,Urine 0-3 per hpf (0-3); Squamous Epithelial Cell,Urine None Seen per lpf (None-Few); WBC,Urine 0-3 per hpf (0-3)
[2018-10-30 10:38] LABS: Alanine Aminotransferase 26 Units/L (7-52); Albumin 3.9 g/dL (3.5-5.7); Albumin/Globulin Ratio 1.3 (1.1-2.2); Alkaline Phosphatase 45 Units/L (34-104); Aspartate Amino Transferase 21 Units/L (13-39); BUN/Creatinine Ratio 20 (6-26); Bilirubin,Total 0.4 mg/dL (0.3-1.0); Blood Urea Nitrogen 21 mg/dL (8-23); Calcium 9.1 mg/dL (8.6-10.3); Carbon Dioxide 25 mEq/L (23-29); Chloride 100 mEq/L (98-107); Globulin 2.9 g/dL (2.4-3.5); Glucose 275 mg/dL (70-105); Osmolality,Calculated 291 (280-300); Potassium 4.1 mEq/L (3.5-5.1); Sodium 134 mEq/L (136-145); Total Protein 6.8 g/dL (6.4-8.9); Troponin I 0.04 ng/mL (< 0.04); eGFR For Non-African Americans > 60 (> 60)
[2018-10-30] MEDS ORDERED: Ondansetron 4 MG/2 ML VIAL IVP ONE (11:43)
--- NOTE | 2018-10-30 13:44 | Internal Med History&Physical ---
Date of Encounter: 10/30/18 Time of Encounter: 13:29 Internal Medicine - H&P: HPI Chief complaint: Vertigo Admitted From: Emergency Dept History of present illness: Carlos Saavedra is a 72 M w hx TIA/CVAs, DM2, COPD, HTN, CAD s/p PCI, PAD s/p bilate ral CAEs, who p/w vertigo. Pt says that he's had small short lived episodes of dizziness in the past, but nothing like this. Woke up this AM and rolled over in bed to get comfortable, and symptoms began immediately. [place] the room was spinning and was immediately nauseated, no vomiting. Rolled back to his back with resolution of symptoms. Tried again to roll sideways with recurrence. Since then, attempts at standing or turning his head have resulted in recurrence of symptoms. Feels he will fall over if tries to walk. Did take some meclizine of his 's at home with mild improvement. However, symptoms persisted so he came to ED. Pt denies hearing loss, ear fullness or pain, fevers, chills, sweats, abd pain, diarrhea, CP, or SOB. Of note, pt in last year has had b/l carotid surgeries and has hx TIA/CVAs without deficit. In the ED, pt vitals unremarkable (HR 70s, RR 18, SBP 140-150s, O2 94%). CXR unremarkable. ECG normal. CT head showing only mild microvascular disease. Labs w Hb 14, Na 134, Cr 1, gluc 275, trop 0.04. Pt's symptoms not improved w meclizine and w elevated troponin, pt admitted for further evaluation. Past medical, surgical, social, and family histories reviewed and updated as below, with addition to social history that patient is former smoker and quit in 2002, and no family history of vertigo or BPPV. Past Med Surg Social Fam HX - Past Medical History Medical history: coronary artery disease, diabetes, hypertension Additional medical history: bilateral carotid artery stenosis. morbid obesity Psychiatric history: no psych history - Past Surgical History Surgical History: angioplasty/stent, herniorrhaphy, knee replacement, other Additional surgical history: left cea, right CEA. spinal fusion. NM with stents x3. illeac artery stents - Social History Smoking Status: Never smoker Smokeless Tobacco Status: No Alcohol use: none Drug use: none - Family History Mother Living Status: Hx Family Cardiac Disorders: Yes Hx Family Respiratory Disorders: No Hx Family Cancer: No Hx Family GI Disorders: No Hx Family Endocrine Disorder: Yes (dm) Hx Family Neuromuscular Disorders: No Hx Family Neurologic Disorders: No Hx Family HEENT Disorders: No Hx Family Autoimmune Disorders: No Mother Brother Hx Family Cardiac Disorders: Yes (CAD) Father Living Status: Hx Family Cardiac Disorders: Yes (mi) Hx Family Respiratory Disorders: No Hx Family Cancer: No Hx Family GI Disorders: No Hx Family Endocrine Disorder: Yes (dm) Hx Family Neuromuscular Disorders: No Hx Family Neurologic Disorders: No Hx Family HEENT Disorders: No Hx Family Autoimmune Disorders: No Internal Medicine - H&P: Meds Aspirin Enteric Coated [Aspirin EC] 81 mg PO DAILY 01/09/16 [History] Insulin Glargine,Hum.rec.anlog [Lantus Solostar] 70 unit SQ BID 01/09/16 [Histor y] Insulin LISPRO [Humalog Kwikpen U-100] 0 unit SQ TIDAC 01/09/16 [History] Metoprolol XL (24 HR) Succ [Toprol Xl] 50 mg PO DAILY 01/09/16 [History] Omega3/Dha/Epa/Fish Oil/Vit D3 [Fish Oil + Vitamin D-3 Softgel] 1,000 mg PO DAILY 01/09/16 [History] Clopidogrel [Plavix] 75 mg PO DAILY #30 tablet 10/29/17 [Rx] Albuterol Sulfate [Ventolin Hfa] 2 puff IH Q4H PRN 11/17/17 [History] Budesonide/Formoterol 160/4.5 [Symbicort 160/4.5] 2 puff IH BIDR 08/23/18 [History] amLODIPine [Norvasc] 5 mg PO DAILY 09/19/18 [History] metFORMIN [Glucophage] 1,000 mg PO BIDWM 09/19/18 [History] Allergy/AdvReac Type Severity Reaction Status Date / Time Amoxicillin Allergy Unknown UNKOWN Verified 09/12/18 17:38 lisinopril Allergy Unknown Anaphylaxis Verified 09/12/18 17:38 levofloxacin [From Levaquin] Allergy Anaphylaxis Verified 09/12/18 17:38 carvedilol [From Coreg] AdvReac Intermediate MUSCLE Verified 09/12/18 17:38 CRAMPS losartan AdvReac Intermediate MUSCLE Verified 09/12/18 17:38 CRAMPS budesonide [From Symbicort] AdvReac See Verified 09/12/18 17:38 Comments fluticasone AdvReac See Verified 09/12/18 17:38 [From Advair Diskus] Comments salmeterol AdvReac See Verified 09/12/18 17:38 [From Advair Diskus] Comments Kgzbrra-Tjt-Flr Reductase AdvReac Anaphylaxis Verified 09/12/18 17:38 Inhibitor [Statins] All Systems PM: A 10-system review of systems was performed and is negative for pertinent findings except as documented above in the HPI. - Constitutional Vitals: Temp Pulse Resp BP Pulse Ox 98.3 F 62 18 154/62 93 10/30/18 09:33 10/30/18 12:06 10/30/18 12:06 10/30/18 12:06 10/30/18 12:06 Exam: General: NAD, good eye contact, well appearing, obese Head: Atraumatic, normocephalic. Face symmetric Eyes: EOMI, sclerae anicteric ENT: Mucous membranes moist. Trachea midline. Thoracic: No visible chest wall deformities. Normal breath sounds b/l, no wheezing or crackles Cardio: Normal S1 and S2, regular rate and rhythm, no murmurs. Abdomen: Soft, nontender, nondistended. Bowel sounds present. No rebound. Obese. Extremities: Warm, well perfused. DP pulses 2+ b/l. No clubbing, cyanosis. No edema Skin: Intact. No rashes, bruises, or ulcers Neuro: Awake, fully oriented. Good memory, concentration, attention. Speech fluent. CN II-XII grossly intact. Strength 5/5 in b/l UE and LE. Sensation grossly preserved in all extremities. Normal ANJALI and FTN Internal Med - H&P Results - Labs CBC & Chem 7: 10/30/18 10:00 10/30/18 10:00 Labs: Short CBC 10/30/18 Range/Units 10:00 WBC 5.6 (4.3-11.1) K/mcL Hgb 14.0 (12.9-16.9) g/dL Hct 42.8 (37.5-50.1) % Plt Count 165 (140-400) K/mcL Neutrophils # 3.6 (1.6-8.9) K/mcL BMP 10/30/18 10:00 Sodium 134 L Potassium 4.1 Chloride 100 Carbon Dioxide 25 BUN 21 Creatinine 1.04 Glucose 275 H Calcium 9.1 Cardiac Enzymes 10/30/18 Range/Units 10:00 Troponin I 0.04 H* (< 0.04) ng/mL Liver Function 10/30/18 Range/Units 10:00 Total Bilirubin 0.4 (0.3-1.0) mg/dL AST 21 (13-39) Units/L ALT 26 (7-52) Units/L Alkaline Phosphatase 45 (34-104) Units/L Albumin 3.9 (3.5-5.7) g/dL Urine 10/30/18 Range/Units 10:09 Urine Color Yellow (Yellow) Urine Clarity Clear (Clear) Urine pH 6.0 (5.0-8.0) pH Units Ur Specific [place] 1.013 (1.010-1.025) Urine Protein 30 H (Neg-Trace) mg/dL Urine Glucose (UA) 100 H (Normal) mg/dL - Impressions ITS Impressions Chest X-Ray 10/30/18 09:29 IMPRESSION: No significant findings in the chest. D/ / Francisco Randle MD / Francisco Randle MD Interpreting Provider: Francisco Randle MD Head CT 10/30/18 10:43 IMPRESSION: No acute intracranial abnormality. D/ / Elpidio Noonan MD / Elpidio Noonan MD Interpreting Provider: Elpidio Noonan MD - Summary of Assessment and Plan Summary of Assessment and Plan: Carlos Saavedra is a 72 M w hx TIA/CVAs, DM2, COPD, HTN, CAD s/p PCI, PAD s/p bilateral CAEs, who p/w positional vertigo Vertigo: hx recurrent TIA/CVAs and is s/p b/l endarterectomy last year, CT head unremarkable, BP controlled, occurs with movement, concern for peripheral cause - PT consult for corky maneuver - Neuro consult for further eval Elevated troponin: hx CAD, no CP, trop at 0.04, - tele - trend trops TIA/CAD/PAD/HLD: home ASA, plavix, not on statin due to reported anaphylaxis HTN: home amlodipine 5 daily, toprol 50 DM2: home Lantus 70 bid plus SSI COPD: home advair and albuterol Morbid obesity: BMI 51 PPx: lovenox FEN: cardiac ADA, no MIVF Lines: PIV Consults: Code: Full Dispo: obs for vertigo, anticipate 1-2 days, will be homegoing
[2018-10-30] MEDS ORDERED: *HR* Promethazine 25 MG/ML VIAL IVP PRN (13:47)
[2018-10-30] MEDS ORDERED: Ondansetron 4 MG/2 ML VIAL IVP PRN (13:47)
[2018-10-30] MEDS ORDERED: Acetaminophen 325 MG TABLET PO PRN (13:47)
[2018-10-30] MEDS ORDERED: Dextrose Gel 15 GM/37.5 ML TUBE PO PRN ×2 (13:50)
[2018-10-30] MEDS ORDERED: D5% in Water 1,000 ML IVC PRN (13:50)
[2018-10-30] MEDS ORDERED: *HR* Dextrose 50 % in Water (Syg) 50 ML SYRINGE IVP PRN (13:50)
--- NOTE | 2018-10-30 15:29 | Neurology - Consult Note ---
Date of Encounter: 10/30/18 Time of Encounter: 15:23 Assessment and Plan (1) Vertigo Current Visit: No Status: Resolved Neuro c/s for dizziness evaluation Reporting Dizziness; onset 6am. Vertigo nonsustaining. Not dizzy initially on my exam; Reproducible with Isamar-Hallpike and rolling over in bed. Suppression with visual fixation. Fatigable nystagmus present bilaterally, otherwise neuro exam is non focal and non lateralizing. There is no dysmetria or gait dysfunction noted. Low suspicion for central neurological cause of dizziness; consider a peripheral cause Rec PT/OT for corky maneuver Meclizine for vertigo Will get MRI, echo and carotid duplex to r/o neurological cause History of Present Illness Chief complaint: dizziness HPI: Mr. Saavedra is a 72 year old male with a PMH of CVA most recently in 2016, DM 2, COPD, HTN, CAD S/P PTCI, bilateral CEAs, PAD. He presents for evaluation with symptoms of dizziness which began around 6 AM this morning. He reports that he rolled over in bed and states "the whole world spinning out from under me ". He notes that he rolled to his back with temporary resolution of symptoms however, once arising from bed the symptoms recurred and persisted prompting evaluation in the ED. By the time of my assessment he is no longer dizzy and was sitting at side of the bed. However, I was able to reproduce dizziness with Isamar- Hallpike maneuver. He denies any other sx such as chest pain, dyspnea, palpitations, visual disturbances, headaches, head/neck pain, tinnitus, ear pain or pressure, dysphagia, dysarthria, or unilateral extremity weakness or numbness. CT head unremarkable, CBC, CMP unremarkable. Past Med Surg Social Fam HX - Past Medical History Medical history: coronary artery disease, diabetes, hypertension Additional medical history: bilateral carotid artery stenosis. morbid obesity Psychiatric history: no psych history - Past Surgical History Surgical History: angioplasty/stent, herniorrhaphy, knee replacement, other Additional surgical history: left cea, right CEA. spinal fusion. [place] with stents x3. illeac artery stents - Social History Smoking Status: Never smoker Smokeless Tobacco Status: No Alcohol use: none Drug use: none - Family History Mother Living Status: Hx Family Cardiac Disorders: Yes Hx Family Respiratory Disorders: No Hx Family Cancer: No Hx Family GI Disorders: No Hx Family Endocrine Disorder: Yes (dm) Hx Family Neuromuscular Disorders: No Hx Family Neurologic Disorders: No Hx Family HEENT Disorders: No Hx Family Autoimmune Disorders: No Mother Brother Hx Family Cardiac Disorders: Yes (CAD) Father Living Status: Hx Family Cardiac Disorders: Yes (mi) Hx Family Respiratory Disorders: No Hx Family Cancer: No Hx Family GI Disorders: No Hx Family Endocrine Disorder: Yes (dm) Hx Family Neuromuscular Disorders: No Hx Family Neurologic Disorders: No Hx Family HEENT Disorders: No Hx Family Autoimmune Disorders: No Medications and Allergies Aspirin Enteric Coated [Aspirin EC] 81 mg PO DAILY 01/09/16 [History] Insulin Glargine,Hum.rec.anlog [Lantus Solostar] 70 unit SQ BID 01/09/16 [History] Insulin LISPRO [Humalog Kwikpen U-100] 0 unit SQ TIDAC 01/09/16 [History] Metoprolol XL (24 HR) Succ [Toprol Xl] 50 mg PO DAILY 01/09/16 [History] Omega3/Dha/Epa/Fish Oil/Vit D3 [Fish Oil + Vitamin D-3 Softgel] 1,000 mg PO DAILY 01/09/16 [History] Clopidogrel [Plavix] 75 mg PO DAILY #30 tablet 10/29/17 [Rx] Albuterol Sulfate [Ventolin Hfa] 2 puff IH Q4H PRN 11/17/17 [History] Budesonide/Formoterol 160/4.5 [Symbicort 160/4.5] 2 puff IH BIDR 08/23/18 [History] amLODIPine [Norvasc] 5 mg PO DAILY 09/19/18 [History] metFORMIN [Glucophage] 1,000 mg PO BIDWM 09/19/18 [History] Furosemide [Lasix] 40 mg PO DAILY 10/30/18 [History] Insulin LISPRO [Humalog Kwikpen U-100] 12 unit SQ TIDWM 10/30/18 [History] Allergy/AdvReac Type Severity Reaction Status Date / Time Amoxicillin Allergy Unknown UNKOWN Verified 09/12/18 17:38 lisinopril Allergy Unknown Anaphylaxis Verified 09/12/18 17:38 levofloxacin [From Levaquin] Allergy Anaphylaxis Verified 09/12/18 17:38 carvedilol [From Coreg] AdvReac Intermediate MUSCLE Verified 09/12/18 17:38 CRAMPS losartan AdvReac Intermediate MUSCLE Verified 09/12/18 17:38 CRAMPS budesonide [From Symbicort] AdvReac See Verified 09/12/18 17:38 Comments fluticasone AdvReac See Verified 09/12/18 17:38 [From Advair Diskus] Comments salmeterol AdvReac See Verified 09/12/18 17:38 [From Advair Diskus] Comments Njhowpj-Lrr-Lfr Reductase AdvReac Anaphylaxis Verified 09/12/18 17:38 Inhibitor [Statins] All Systems: The remainder of the systems were reviewed and are negative Review of Systems: REVIEW OF SYSTEMS GENERAL: Negative for any nausea, vomiting, fevers, chills NEUROLOGIC: Negative for any blurry vision, blind spots, double vision, facial asymmetry, dysphagia, dysarthria, hemiparesis, hemisensory deficits, vertigo, ataxia, seizures, paralysis, tingling, numbness, unilateral weakness or numbness/tingling, +vertigo HEENT: Negative for any head trauma, neck trauma, neck stiffness, tinnitus, ear fullness or pain CARDIAC: Negative for any chest pain, dyspnea,opticians MUSCULOSKELETAL: - loss of strength Physical Examination - Vital Signs Vital Signs: Initial Vital Signs Temp Pulse Resp BP Pulse Ox 98.3 F 73 20 146/81 94 10/30/18 09:33 10/30/18 09:33 10/30/18 09:33 10/30/18 09:33 10/30/18 09:33 - Exam Exam: Examination: General Examination: *CONSTITUTIONAL: Alert and oriented x3, no acute distress, *GENERAL APPEARANCE OF PATIENT generally health appearing elderly obese male *EYES: pupils equal, round, reactive to light and accommodation, conjunctiva clear without masses or ulcerations, fundi normal. *CARDIOVASCULAR RRR, S1, S2, no peripheral edema, distal temperature normal, dorsalis pedis pulses normal. see vital signs Musculoskeletal: *GAIT AND STATION normal, with normal Romberg testing, no abnormalities such as broad base gait or spasticity *ASSESSMENT OF MUSCLE STRENGTH IN THE UPPER AND LOWER EXTREMITIES bilateral deltoid, bicep, tricep, turbine blade assembler strength, hip flexors ,anterior tibialis, dorsoflexion of the foot 5/5 *MUSCLE TONE IN THE UPPER AND LOWER EXTREMITIES normal. No abnormal movements, fasciculations or atrophy identified. Neurological: *ORIENTATION to person, situation, time and place *RECURRENT AND REMOTE MEMORY intact *ATTENTION AND CONCENTRATION are normal *LANGUAGE FUNCTION no significant aphasia or dysarthia was noted. *FUND OF KNOWLEDGE aware of current events, past history, vocabulary *MENTAL attention span and concentration normal. *CN II optic fundi were normal, no papilledema noted. *CN III,IV, PERRLA extraocular eye movements were full, and no ptosis noted. fatigable nystagmus noted b/l eyes *CN V shows normal sensation and jaw opens symmetrically. *CN VII shows normal facial movement symmetrically, upper and lower bilaterally. *CN VIII shows no significant hearing loss on exam *CN IX,,X palate elevated symmetrically *CN XI normal strength in the sternocleidomastoid muscles, symmetrical shoulder shrugging. *CN XII tongue protruded in the midline, with normal strength and movement. *SENSORY EXAMINATION light touch intact *REFLEXES: deep tendon reflexes were normal and symmetrical , grade 2/4 diffusely, no pathological reflexes were noted. *CEREBELLAR TESTING normal finger to nose, heel/knee/dinh *PAIN LEVEL 0/10 Results - Laboratory Findings CBC and BMP: 10/30/18 10:00 10/30/18 10:00 Abnormal lab findings: Abnormal lab results Sodium 134 mEq/L (136-145) L 10/30/18 10:00 Glucose 275 mg/dL (70-105) H 10/30/18 10:00 0.04 ng/mL (< 0.04) H* 10/30/18 10:00 30 mg/dL (Neg-Trace) H 10/30/18 10:09 100 mg/dL (Normal) H 10/30/18 10:09 - Diagnostic Findings Additional findings: CT/CT head/brain wo con IMPRESSION: No acute intracranial abnormality. Consult Discharge Plan - Plan Referrals: Adalberto Up MD [Primary Care Provider] -
[2018-10-30] MEDS: Insulin LISPRO 300 UNITS/3 ML VIAL SQ SCH (17:52)
[2018-10-30] MEDS: Budesonide/Formoterol 160/4.5 1 PUFF INH IH SCH (19:57)
[2018-10-30] MEDS ORDERED: Insulin LISPRO 300 UNITS/3 ML VIAL SQ SCH (21:00)
[2018-10-30] MEDS ORDERED: Perflutren Lipid Microsphere 1.3 ML in 0.9 % Sodium Chloride 8.7 ML IVP ONE (21:06)
[2018-10-30] MEDS ORDERED: Perflutren Lipid Microsphere 2 ML VIAL ONE (21:13)
[2018-10-30] MEDS: Insulin DETEMIR 100 UNIT/ML X5UNITS SQ SCH (22:24)
--- NOTE | 2018-10-31 03:56 | Electrocardiograph Report ---
[facility] Test Date: 2018-10-30 Pat Name: Carlos Saavedra Department: EXAM9 Room: 2A44 Gender: M Manager Pacu: : 1945 Requested By: Roldan Godfrey Order Number: [id number] Reading MD: Adalberto Up Measurements Intervals [place] Rate: 71 P: 58 ME: 170 QRS: 31 QRSD: 103 T: 49 QT: 394 QTc: 429 Interpretive Statements Sinus rhythm Electronically Signed On 10-31-2018 3:54:12 EDT by Adalberto Up
[2018-10-31] MEDS: Budesonide/Formoterol 160/4.5 1 PUFF INH IH SCH (07:31)
--- NOTE | 2018-10-31 08:00 | Internal Med Progress Note ---
Hospitalist Progress Note - Encounter Date of Encounter: 10/31/18 Time of Encounter: 08:00 - Exam Vitals: Temp Pulse Resp BP Pulse Ox 97.7 F 81 18 160/81 91 10/31/18 06:49 10/31/18 06:49 10/31/18 06:49 10/31/18 06:49 10/31/18 06:49 - Assessment and Plan (1) Vertigo Current Visit: Yes Status: Acute Assessment and Plan: - Patient reported dizziness starting at 6 AM; mild improvement with meclizine - Known history of previous CVA/TIA - Reproducible with Chandler-Hallpike maneuver - Fatigable nystagmus was present bilaterally - Per neurology, a central cause is unlikely; peripheral cause more likely - Meclizine was ordered - CT of the head demonstrated no acute intracranial process Plan: - MRI of the head without contrast has been ordered by neurology and is currently pending - Neurology is following; recommends a complete stroke workup including brain MRI, carotid artery duplex, echocardiogram - Neurology also recommends that ENT specialist evaluates patient either in the inpatient setting or the outpatient setting for evaluation of benign positional vertigo - Zofran, Phenergan PRN - PT/OT Consulted (2) Elevated troponin Current Visit: Yes Status: Acute Assessment and Plan: - Troponin was elevated on presentation at 0.04; subsequent troponins are 0.03, 0.04 - Patient does have a past medical history of CAD; denies chest pain - CXR and EKG on presentation were unremarkable, vital signs within normal limits - Low suspicion for cardiac etiology at this time (3) CAD (coronary artery disease) Current Visit: No Status: Chronic Assessment and Plan: - Currently on aspirin and Plavix - Patient does not take a statin; reported history of anaphylaxis (4) Hypertension Current Visit: No Status: Chronic Assessment and Plan: - Continue home medication (5) Diabetes Current Visit: No Status: Chronic Assessment and Plan: - Home Lantus plus sliding scale insulin - Time Spent with Patient Total time spent is greater than 50% in coordination of care (as documented) at patient's floor/unit and/or counseling patient: Internal Medicine: Result - Labs CBC & Chem 7: 10/30/18 10:00 10/30/18 10:00 Labs: Short CBC 10/30/18 Range/Units 10:00 WBC 5.6 (4.3-11.1) K/mcL Hgb 14.0 (12.9-16.9) g/dL Hct 42.8 (37.5-50.1) % Plt Count 165 (140-400) K/mcL Neutrophils # 3.6 (1.6-8.9) K/mcL BMP 10/30/18 10:00 Sodium 134 L Potassium 4.1 Chloride 100 Carbon Dioxide 25 BUN 21 Creatinine 1.04 Glucose 275 H Calcium 9.1 Cardiac Enzymes 10/30/18 10/30/18 10/30/18 Range/Units 10:00 15:51 22:10 Troponin I 0.04 H* 0.03 0.04 H* (< 0.04) ng/mL Liver Function 10/30/18 Range/Units 10:00 Total Bilirubin 0.4 (0.3-1.0) mg/dL AST 21 (13-39) Units/L ALT 26 (7-52) Units/L Alkaline Phosphatase 45 (34-104) Units/L Albumin 3.9 (3.5-5.7) g/dL Urine 10/30/18 Range/Units 10:09 Urine Color Yellow (Yellow) Urine Clarity Clear (Clear) Urine pH 6.0 (5.0-8.0) pH Units Ur Specific [place]yle 1.013 (1.010-1.025) Urine Protein 30 H (Neg-Trace) mg/dL Urine Glucose (UA) 100 H (Normal) mg/dL - Impressions Impressions Chest X-Ray 10/30/18 09:29 IMPRESSION: No significant findings in the chest. D/ / Francisco Randle MD / Francisco Randle MD Interpreting Provider: Francisco Randle MD Head CT 10/30/18 10:43 IMPRESSION: No acute intracranial abnormality. D/ / Elpidio Noonan MD / Elpidio Noonan MD Interpreting Provider: Elpidio Noonan MD Consult Discharge Plan - Plan Referrals: Adalberto Up MD [Primary Care Provider] - (3) CAD (coronary artery disease) Qualifiers: Coronary Disease-Associated Artery/Lesion type: [place] artery [place] vs. transplanted heart: [place] heart Associated angina: without angina Qualified Code(s): I25.10 - Atherosclerotic heart disease of [place] coronary artery without angina pectoris (4) Hypertension Qualifiers: Hypertension type: essential hypertension Qualified Code(s): I10 - Essential (primary) hypertension (5) Diabetes Qualifiers:
[2018-10-31] MEDS ORDERED: Metoprolol XL (24 HR) Succ 50 MG TAB.ER.24H PO SCH (09:00)
[2018-10-31] MEDS ORDERED: NON-FORMULARY MEDICATION 1 EACH EACH (Omega3/Dha/Epa/Fish Oil/Vit D3 [Fish Oil + Vitamin D PO SCH (09:00)
[2018-10-31] MEDS ORDERED: Aspirin Enteric Coated 81 MG Tablet PO SCH (09:00)
[2018-10-31] MEDS ORDERED: amLODIPine 5 MG TABLET PO SCH (09:00)
[2018-10-31 09:07] LABS: Hematocrit 44.9 % (37.5-50.1); Hemoglobin 14.6 g/dL (12.9-16.9); Mean Corpuscular HGB Conc 32.5 g/dL (31.6-35.5); Mean Corpuscular Hemoglobin 31.5 pg (28.0-33.3); Mean Platelet Volume 10.2 fL (9.4-12.4); Platelet Count 181 K/mcL (140-400); Red Blood Count 4.63 M/mcL (4.19-5.50); Red Cell Distribution Width 13.8 % (11.5-14.5)
[2018-10-31 09:14] LABS: BUN/Creatinine Ratio 17 (6-26); Blood Urea Nitrogen 19 mg/dL (8-23); Calcium 9.8 mg/dL (8.6-10.3); Carbon Dioxide 29 mEq/L (23-29); Chloride 99 mEq/L (98-107); Glucose 175 mg/dL (70-105); Magnesium 1.8 mg/dL (1.6-2.6); Osmolality,Calculated 291 (280-300); Potassium 4.4 mEq/L (3.5-5.1); Sodium 137 mEq/L (136-145); Troponin I 0.03 ng/mL (< 0.04); eGFR For Non-African Americans > 60 (> 60)
[2018-10-31] MEDS ORDERED: *HR* LORazepam 2 MG/ML VIAL IVP ONE (11:57)
[2018-10-31] MEDS: Insulin LISPRO 300 UNITS/3 ML VIAL SQ SCH ×2 (13:06)
[2018-10-31] MEDS: Insulin DETEMIR 100 UNIT/ML X5UNITS SQ SCH (13:07)
--- NOTE | 2018-10-31 13:29 | Discharge Summary ---
<Star Mueller - Last Filed: 10/31/18 14:32> - NOTES TO OUTPATIENT PROVIDER Notes to Outpatient Provider: Patient will need follow-up with ENT and physical therapy for suspected benign positional vertigo. Date of Encounter: 10/31/18 Time of Encounter: 08:15 - Discharge Diagnosis (1) Vertigo Priority: Primary Status: Acute (2) Elevated troponin Priority: Secondary Status: Acute (3) CAD (coronary artery disease) Priority: Secondary Status: Chronic Qualifiers: Coronary Disease-Associated Artery/Lesion type: [place] artery [place] vs. transplanted heart: [place] heart Associated angina: without angina Qualified Code(s): I25.10 - Atherosclerotic heart disease of [place] coronary artery without angina pectoris (4) Hypertension Priority: Secondary Status: Chronic Qualifiers: Hypertension type: essential hypertension Qualified Code(s): I10 - Essential (primary) hypertension (5) Diabetes Priority: Secondary Status: Chronic Qualifiers: Diabetes mellitus type: type 2 Qualified Code(s): E11.9 - Type 2 diabetes mellitus without complications Hospital course: Mr. Saavedra is a 72 year old male with a past medical history of previous CVA/TIA, diabetes mellitus type 2, COPD, hypertension, coronary artery disease status post PCI, peripheral artery disease status post bilateral CAEs who presented to [facility] ED on 10/30/18 with a chief complaint of vertigo. Patient reported that he had woken up at approximately 6 AM that morning, and his symptoms began immediately as soon as he rolled over. He felt as if the room was spinning, and immediately felt nauseated. He reported that he had prior episodes of dizziness in the past, but never this severe. Patient also reported difficulty ambulating as a result. He took some meclizine with only minimal improvement. He denied having any hearing loss, ear fullness, ear pain, fever, chills, vomiting, or visual disturbances. Upon presentation to the emergency department, patients vital signs were within normal limits. CT scan of the head showed no acute process. Laboratory analysis showed hyperglycemia at 275. Patient was started on sliding scale insulin. Patients laboratory analysis was also significant for an elevated troponin 0.04. Subsequent troponins were 0.03, and 0.04. Patient does have known past medical history of coronary artery disease, but denied chest pain on presentation. Both his chest x-ray and EKG on presentation were unremarkable. His vital signs were within normal limits. Patient normally takes aspirin and Plavix for his coronary artery disease. He also has known history of CVA and TIA. Patient is not on a statin, due to a reported anaphylactic allergy. Due to patients symptoms, neurology was consulted. On presentation, patients symptoms were reproducible with a Isamar-Hallpike maneuver. Fatigable nystagmus was noted bilaterally. Patient did not have any focal neurologic weakness or deficits. MRI of the head without contrast was ordered. MRI of the head demonstrated no acute intracranial abnormality, minimal parenchymal volume loss, mild chronic microvascular disease, and a mild left- sided mastoid effusion Per neurology note, patients symptoms were likely peripheral, and not central. Physical therapy was consulted. Neurology also recommended the patient follow up in the outpatient setting with ENT specialist for benign positional vertigo. He was given Zofran and Phenergan in the inpatient setting as needed. Patient was seen by physical therapy. He was able to perform all functional mobility tasks without assistance. He demonstrated good balance. He declined a Isamar-Hallpike maneuver and Corky maneuver when he was evaluated. He stated that he would prefer to follow-up in the outpatient setting.On date of discharge, patient states that he is feeling well. He experienced a mild dizziness in the morning when he first got out of bed, but since this episode, he has not experienced any dizziness this morning. His gait is intact, and he has no focal neurologic deficits. Strength is intact bilaterally. Cranial nerves II through XII are intact. No nystagmus is visible. Patient was complaining of some sinus congestion, and states that this has been going on for the past week. He will be sent home with Mucinex. He has no complaints at this time. - Time Spent with Patient Total time spent providing and/or coordinating discharge services: Time spent: Greater than 30 minutes - Discharge Medications Prescriptions: New GuaiFENesin ER [Mucinex] 600 mg PO BID #14 tbbp.12hr Continued Insulin LISPRO [Humalog Kwikpen U-100] 0 unit SQ TIDAC Aspirin Enteric Coated [Aspirin EC] 81 mg PO DAILY Omega3/Dha/Epa/Fish Oil/Vit D3 [Fish Oil + Vitamin D-3 Softgel] 1,000 mg PO DAILY Metoprolol XL (24 HR) Succ [Toprol Xl] 50 mg PO DAILY Insulin Glargine,Hum.rec.anlog [Lantus Solostar] 70 unit SQ BID Clopidogrel [Plavix] 75 mg PO DAILY #30 tablet Albuterol Sulfate [Ventolin Hfa] 2 puff IH Q4H PRN PRN Reason: Shortness Of Breath Budesonide/Formoterol 160/4.5 [Symbicort 160/4.5] 2 puff IH BIDR amLODIPine [Norvasc] 5 mg PO DAILY metFORMIN [Glucophage] 1,000 mg PO BIDWM Furosemide [Lasix] 40 mg PO DAILY Insulin LISPRO [Humalog Kwikpen U-100] 12 unit SQ TIDWM Home Medications: Aspirin Enteric Coated [Aspirin EC] 81 mg PO DAILY 01/09/16 [History] Insulin Glargine,Hum.rec.anlog [Lantus Solostar] 70 unit SQ BID 01/09/16 [History] Insulin LISPRO [Humalog Kwikpen U-100] 0 unit SQ TIDAC 01/09/16 [History] Metoprolol XL (24 HR) Succ [Toprol Xl] 50 mg PO DAILY 01/09/16 [History] Omega3/Dha/Epa/Fish Oil/Vit D3 [Fish Oil + Vitamin D-3 Softgel] 1,000 mg PO DAILY 01/09/16 [History] Clopidogrel [Plavix] 75 mg PO DAILY #30 tablet 10/29/17 [Rx] Albuterol Sulfate [Ventolin Hfa] 2 puff IH Q4H PRN 11/17/17 [History] Budesonide/Formoterol 160/4.5 [Symbicort 160/4.5] 2 puff IH BIDR 08/23/18 [History] amLODIPine [Norvasc] 5 mg PO DAILY 09/19/18 [History] metFORMIN [Glucophage] 1,000 mg PO BIDWM 09/19/18 [History] Furosemide [Lasix] 40 mg PO DAILY 10/30/18 [History] Insulin LISPRO [Humalog Kwikpen U-100] 12 unit SQ TIDWM 10/30/18 [History] GuaiFENesin ER [Mucinex] 600 mg PO BID #14 tbbp.12hr 10/31/18 [Rx] Allergies/Adverse Reactions: Allergy/AdvReac Type Severity Reaction Status Date / Time Amoxicillin Allergy Unknown UNKOWN Verified 09/12/18 17:38 lisinopril Allergy Unknown Anaphylaxis Verified 09/12/18 17:38 levofloxacin [From Levaquin] Allergy Anaphylaxis Verified 09/12/18 17:38 carvedilol [From Coreg] AdvReac Intermediate MUSCLE Verified 09/12/18 17:38 CRAMPS losartan AdvReac Intermediate MUSCLE Verified 09/12/18 17:38 CRAMPS budesonide [From Symbicort] AdvReac See Verified 09/12/18 17:38 Comments fluticasone AdvReac See Verified 09/12/18 17:38 [From Advair Diskus] Comments salmeterol AdvReac See Verified 09/12/18 17:38 [From Advair Diskus] Comments [id number] Reductase AdvReac Anaphylaxis Verified 09/12/18 17:38 Inhibitor [Statins] Date of admission: 10/30/18 14:14 Primary care physician: Adalberto Up MD Consults: 10/30/18 13:46 Consult to Neurology [CONS] Routine Consulting Provider: Neurology [facility] Reason for Consult: vertigo, hx TIA/CVAs Call Completed: No 10/30/18 13:49 Consult to Physical Therapy [CONS] Routine Comment: Evaluate, develop and implement POC Reason for Consult: vertigo, needs corky Does patient have active BEDREST order?: No Is patient medically & hemodynamically stable?: Yes Discharging clinician: Star Mueller Anticipated date of discharge: 10/31/18 - Constitutional Vitals: Temp Pulse Resp BP Pulse Ox 97.8 F 84 18 166/81 93 10/31/18 11:02 10/31/18 11:02 10/31/18 11:02 10/31/18 11:02 10/31/18 11:02 Exam: General: A&O X3, conversant, no acute distress Head: atraumatic, normocephalic, face symmetric Eye: PERRL, EOMI, conjuntiva pink, sclera anicteric Neck: Supple, trachea midline; No lymphadenopathy Respiratory: CTAB. No accessory muscle use, wheezes, rales, or rhonchi Cardiovascular: RRR, +S1, +S2; no murmurs, rubs, gallops Abdomen: Soft, nontender Extremities: warm, radial pulses palpable and symmetrical Neurological: CN II-XII intact; no nystagmus noted; no focal deficits Psychiatric: Normal affect, normal mood Skin: Dry, intact Other: Gait intact - Patient Status Disposition: Home, Self-Care Condition: Fair Overall status at discharge: patient is progressing back to baseline - Discharge Instructions Follow Up With: Adalberto Up MD [Primary Care Provider] - Forms: ED Satisfaction Letter - Diet and Activity Activity: increase activity as tolerated Diet: advance to your usual diet <Sreekanth Prince - Last Filed: 10/31/18 15:07> Date of Encounter: 10/31/18 Hospital course: Mr. Saavedra is a 72 year old male - Time Spent with Patient Total time spent providing and/or coordinating discharge services: Date of admission: 10/30/18 14:14 Primary care physician: Adalberto Up MD Consults: 10/30/18 13:46 Consult to Neurology [CONS] Routine Consulting Provider: Neurology [facility] Reason for Consult: vertigo, hx TIA/CVAs Call Completed: No 10/30/18 13:49 Consult to Physical Therapy [CONS] Routine Comment: Evaluate, develop and implement POC Reason for Consult: vertigo, needs corky Does patient have active BEDREST order?: No Is patient medically & hemodynamically stable?: Yes - Constitutional Vitals: Temp Pulse Resp BP Pulse Ox 97.8 F 84 18 166/81 93 10/31/18 11:02 10/31/18 11:02 10/31/18 11:02 10/31/18 11:02 10/31/18 11:02 - Attending Attestation I examined this patient and my medical decision-making was reviewed with the Resident Physician. I agree with the documented findings, disposition and treatment plan as described except to the extent set forth below.
--- NOTE | 2018-10-31 14:02 | Neurology Progress Note ---
Date of Encounter: 10/31/18 Time of Encounter: 13:59 Assessment and Plan (1) Vertigo Current Visit: No Status: Resolved Patient seen in follow-up for dizziness evaluation. Neurological cause ruled out with MRI negative for acute intracranial abnormalities or ischemia. Mild left mastoid effusion seen. Patient reports today that dizziness has subsided. Recommend outpatient follow-up with ENT. Neurology will sign-off. Okay to d/c at the discretion of the primary team. Subjective Principal diagnosis: dizziness Interval history: Patient seen in follow-up for dizziness. He reports that the dizziness has subsided and he is back to baseline status. No new complaints overnight. Discussed neuroimaging findings. Patient and spouse deny any further questions at this time. Objective - Constitutional Vitals: Temp Pulse Resp BP Pulse Ox 97.8 F 84 18 166/81 93 10/31/18 11:02 10/31/18 11:02 10/31/18 11:02 10/31/18 11:02 10/31/18 11:02 Exam: Examination: General Examination: *CONSTITUTIONAL: Alert and oriented x3, no acute distress, *GENERAL APPEARANCE OF PATIENT generally health appearing elderly obese male *EYES: pupils equal, round, reactive to light and accommodation, conjunctiva clear without masses or ulcerations, fundi normal. *CARDIOVASCULAR RRR, S1, S2, no peripheral edema, distal temperature normal, dorsalis pedis pulses normal. see vital signs Musculoskeletal: *GAIT AND STATION able to walk throughout room without gait instability, Romberg's negative *ASSESSMENT OF MUSCLE STRENGTH IN THE UPPER AND LOWER EXTREMITIES bilateral deltoid, bicep, tricep, business unit manager strength, hip flexors ,anterior tibialis, dorsoflexion of the foot 5/5 *MUSCLE TONE IN THE UPPER AND LOWER EXTREMITIES normal. No abnormal movements, fasciculations or atrophy identified. Neurological: *ORIENTATION to person, situation, time and place *RECURRENT AND REMOTE MEMORY intact *ATTENTION AND CONCENTRATION are normal *LANGUAGE FUNCTION no significant aphasia or dysarthia was noted. *FUND OF KNOWLEDGE aware of current events, past history, vocabulary *MENTAL attention span and concentration normal. *CN II optic fundi were normal, no papilledema noted. *CN III,IV, PERRLA extraocular eye movements were full, and no ptosis noted. fatigable nystagmus noted b/l eyes *CN V shows normal sensation and jaw opens symmetrically. *CN VII shows normal facial movement symmetrically, upper and lower bilaterally. *CN VIII shows no significant hearing loss on exam *CN IX,,X palate elevated symmetrically *CN XI normal strength in the sternocleidomastoid muscles, symmetrical shoulder shrugging. *CN XII tongue protruded in the midline, with normal strength and movement. *SENSORY EXAMINATION light touch intact *REFLEXES: deep tendon reflexes were normal and symmetrical , grade 2/4 diffusely, no pathological reflexes were noted. *CEREBELLAR TESTING normal finger to nose, heel/knee/dinh *PAIN LEVEL 0/10 Results - Laboratory Findings CBC and BMP: 10/31/18 08:02 10/31/18 08:02 Abnormal lab findings: Abnormal lab results Sodium 134 mEq/L (136-145) L 10/30/18 10:00 Glucose 175 mg/dL (70-105) H 10/31/18 08:02 POC Glucose 295 mg/dL (70-99) H 10/30/18 19:03 0.04 ng/mL (< 0.04) H* 10/30/18 22:10 30 mg/dL (Neg-Trace) H 10/30/18 10:09 100 mg/dL (Normal) H 10/30/18 10:09 Consult Discharge Plan - Plan Referrals: Adalberto Up MD [Primary Care Provider] -
[2018-10-31 15:25] VITALS: BP 151/78
[2018-11-01] MEDS ORDERED: Furosemide 40 MG TABLET PO SCH (09:00)
== END 2018-10-31 15:55 | disposition home or self-care (01) ==
LOC: EMEROOARM 08:52 → 2ANU 08:52 → SUATTDRO 14:14 → 2ANU 15:55
PROVIDERS: ADMIT Internal Medicine; ATTEND Student in an Organized Health Care Education/Training Program

== ENCOUNTER 2019-04-06 22:34 | Observation (INO) ==
[2019-04-06] MEDS ORDERED: Aspirin 81 MG TAB.CHEW PO ONE (22:36)
[2019-04-06 23:23] LABS: Basophils % 0.3 %; Eosinophils # 0.1 K/mcL (0.0-0.6); Eosinophils % 1.8 %; Hemoglobin 14.2 g/dL (12.9-16.9); Immature Granulocytes % 0.2 % (0-4); Lymphocytes # 2.3 K/mcL (0.6-4.6); Lymphocytes % 37.2 %; Mean Corpuscular Hemoglobin 32.1 pg (28.0-33.3); Mean Corpuscular Volume 97.3 fL (83.0-100.0); Mean Platelet Volume 9.3 fL (9.4-12.4); Monocytes # 0.8 K/mcL (0.0-1.3); Monocytes % 13.3 %; Neutrophils # 2.9 K/mcL (1.6-8.9); Platelet Count 190 K/mcL (140-400); Red Blood Count 4.42 M/mcL (4.19-5.50); Segmented Neutrophils % 47.2 %; White Blood Count 6.2 K/mcL (4.3-11.1)
[2019-04-06 23:30] LABS: INR 1.1; Prothrombin Time 12.1 Seconds (9.4-12.1)
[2019-04-06 23:33] LABS: Activated Partial Thrombo Time 31.9 Seconds (26.0-36.0)
[2019-04-06 23:49] LABS: BUN/Creatinine Ratio 20 (6-26); Blood Urea Nitrogen 25 mg/dL (8-23); Carbon Dioxide 25 mEq/L (23-29); Chloride 102 mEq/L (98-107); Glucose 104 mg/dL (70-105); Osmolality,Calculated 285 (280-300); Potassium 4.2 mEq/L (3.5-5.1); Sodium 135 mEq/L (136-145); Troponin I < 0.03 ng/mL (< 0.04); eGFR For African Americans > 60 (> 60); eGFR For Non-African Americans 55 (> 60)
[2019-04-07] MEDS ORDERED: Naloxone 0.4 MG/ML INJ IVP PRN (02:40)
[2019-04-07] MEDS ORDERED: Dextrose Gel 15 GM/37.5 ML TUBE PO PRN ×2 (02:44)
[2019-04-07] MEDS ORDERED: *HR* Dextrose 50 % in Water (Syg) 50 ML SYRINGE IVP PRN (02:44)
[2019-04-07] MEDS ORDERED: D5% in Water 1,000 ML IVC PRN (02:44)
[2019-04-07] MEDS: Nitroglycerin 0.4 MG TAB.SUBL SL SCH ×3 (05:31→05:35)
[2019-04-07] MEDS: *HR* Heparin 5,000 UNIT/ML VIAL SQ SCH ×2 (05:35→16:19)
[2019-04-07] MEDS: Insulin LISPRO 300 UNITS/3 ML VIAL SQ SCH ×3 (07:16→16:59)
[2019-04-07] MEDS: Regadenoson 0.4 MG/5 ML SYRINGE IVP ONE ×2 (07:47→08:37)
[2019-04-07 10:18] LABS: Basophils % 0.3 %; Eosinophils # 0.2 K/mcL (0.0-0.6); Eosinophils % 2.6 %; Hematocrit 44.5 % (37.5-50.1); Hemoglobin 14.6 g/dL (12.9-16.9); Immature Granulocytes % 0.3 % (0-4); Lymphocytes # 1.5 K/mcL (0.6-4.6); Lymphocytes % 22.6 %; Mean Corpuscular HGB Conc 32.8 g/dL (31.6-35.5); Mean Corpuscular Hemoglobin 32.2 pg (28.0-33.3); Mean Corpuscular Volume 98.2 fL (83.0-100.0); Mean Platelet Volume 9.4 fL (9.4-12.4); Monocytes # 0.7 K/mcL (0.0-1.3); Neutrophils # 4.1 K/mcL (1.6-8.9); Platelet Count 187 K/mcL (140-400); Red Blood Count 4.53 M/mcL (4.19-5.50); Segmented Neutrophils % 63.2 %; White Blood Count 6.5 K/mcL (4.3-11.1)
[2019-04-07 10:34] LABS: BUN/Creatinine Ratio 19 (6-26); Blood Urea Nitrogen 23 mg/dL (8-23); Carbon Dioxide 28 mEq/L (23-29); Chloride 100 mEq/L (98-107); Glucose 201 mg/dL (70-105); Osmolality,Calculated 289 (280-300); Potassium 4.4 mEq/L (3.5-5.1); Sodium 135 mEq/L (136-145); eGFR For African Americans > 60 (> 60); eGFR For Non-African Americans > 60 (> 60)
[2019-04-08] MEDS: Insulin LISPRO 300 UNITS/3 ML VIAL SQ SCH ×3 (00:06→12:48)
[2019-04-08] MEDS: *HR* Heparin 5,000 UNIT/ML VIAL SQ SCH (05:33)
[2019-04-08] MEDS ORDERED: Furosemide 40 MG TABLET PO SCH (09:00)
[2019-04-08] MEDS ORDERED: Metoprolol XL (24 HR) Succ 50 MG TAB.ER.24H PO SCH (09:00)
[2019-04-08] MEDS ORDERED: amLODIPine 5 MG TABLET PO SCH (09:00)
[2019-04-08] MEDS ORDERED: Aspirin Enteric Coated 81 MG Tablet PO SCH (09:00)
[2019-04-08] MEDS ORDERED: Isosorbide MONOnitrate (24 HR) 30 MG TAB.ER.24H PO SCH (10:39)
[2019-04-08 12:23] VITALS: BP 194/81
== END 2019-04-08 15:40 | disposition home or self-care (01) ==
LOC: 3BNU 22:34 → EMEROOARM 22:34 → SUATTDRO 04-07 01:15 → 3BNU 04-07 01:39
PROVIDERS: ADMIT Internal Medicine; ATTEND Internal Medicine

== ENCOUNTER 2019-04-23 22:50 | Observation (INO) ==
[2019-04-23] MEDS ORDERED: Nitroglycerin 1 INCH/GM PACKET TP ONE (22:56)
[2019-04-23] MEDS ORDERED: Aspirin 81 MG TAB.CHEW PO ONE (22:56)
[2019-04-23 23:32] LABS: Basophils % 0.3 %; Eosinophils # 0.1 K/mcL (0.0-0.6); Eosinophils % 0.6 %; Hematocrit 45.8 % (37.5-50.1); Hemoglobin 15.7 g/dL (12.9-16.9); Immature Granulocytes % 0.6 % (0-4); Lymphocytes # 2.2 K/mcL (0.6-4.6); Lymphocytes % 22.2 %; Mean Corpuscular HGB Conc 34.3 g/dL (31.6-35.5); Mean Corpuscular Hemoglobin 32.5 pg (28.0-33.3); Mean Corpuscular Volume 94.8 fL (83.0-100.0); Mean Platelet Volume 9.5 fL (9.4-12.4); Monocytes # 0.9 K/mcL (0.0-1.3); Monocytes % 8.7 %; Neutrophils # 6.7 K/mcL (1.6-8.9); Platelet Count 229 K/mcL (140-400); Red Blood Count 4.83 M/mcL (4.19-5.50); Red Cell Distribution Width 13.9 % (11.5-14.5); Segmented Neutrophils % 67.6 %
[2019-04-23 23:36] LABS: Prothrombin Time 11.1 Seconds (9.4-12.1)
[2019-04-23 23:39] LABS: Activated Partial Thrombo Time 26.3 Seconds (26.0-36.0)
[2019-04-23 23:53] LABS: BUN/Creatinine Ratio 27 (6-26); Blood Urea Nitrogen 35 mg/dL (8-23); Calcium 9.2 mg/dL (8.6-10.3); Carbon Dioxide 27 mEq/L (23-29); Chloride 98 mEq/L (98-107); Glucose 201 mg/dL (70-105); Osmolality,Calculated 294 (280-300); Potassium 4.3 mEq/L (3.5-5.1); Sodium 135 mEq/L (136-145); eGFR For African Americans > 60 (> 60); eGFR For Non-African Americans 55 (> 60)
[2019-04-23 23:54] LABS: Troponin I < 0.03 ng/mL (< 0.04)
[2019-04-24] MEDS ORDERED: Morphine Sulfate 2 MG/ML SYRINGE IVP PRN (05:10)
[2019-04-24] MEDS ORDERED: Dextrose Gel 15 GM/37.5 ML TUBE PO PRN ×2 (05:10)
[2019-04-24] MEDS ORDERED: Ondansetron ODT 4 MG TAB.RAPDIS SL PRN (05:10)
[2019-04-24] MEDS ORDERED: *HR* Dextrose 50 % in Water (Syg) 50 ML SYRINGE IVP PRN (05:10)
[2019-04-24] MEDS ORDERED: D5% in Water 1,000 ML IVC PRN (05:10)
[2019-04-24] MEDS ORDERED: Naloxone 0.4 MG/ML INJ IVP PRN (05:10)
[2019-04-24] MEDS ORDERED: Nitroglycerin 0.4 MG TAB.SUBL SL PRN (05:10)
[2019-04-24] MEDS ORDERED: 0.9 % Sodium Chloride 1,000 ML IVC SCH (05:30)
[2019-04-24 06:58] LABS: Basophils % 0.5 %; Eosinophils # 0.1 K/mcL (0.0-0.6); Eosinophils % 0.9 %; Hematocrit 44.1 % (37.5-50.1); Immature Granulocytes % 0.2 % (0-4); Lymphocytes # 2.6 K/mcL (0.6-4.6); Lymphocytes % 30.2 %; Mean Corpuscular Hemoglobin 32.4 pg (28.0-33.3); Mean Corpuscular Volume 95.2 fL (83.0-100.0); Mean Platelet Volume 9.6 fL (9.4-12.4); Monocytes # 0.9 K/mcL (0.0-1.3); Monocytes % 10.3 %; Platelet Count 203 K/mcL (140-400); Red Blood Count 4.63 M/mcL (4.19-5.50); Red Cell Distribution Width 14.1 % (11.5-14.5); Segmented Neutrophils % 57.9 %; White Blood Count 8.6 K/mcL (4.3-11.1)
[2019-04-24 07:06] LABS: Prothrombin Time 11.2 Seconds (9.4-12.1)
[2019-04-24 07:22] LABS: Alanine Aminotransferase 46 Units/L (7-52); Albumin 3.7 g/dL (3.5-5.7); Albumin/Globulin Ratio 1.2 (1.1-2.2); Alkaline Phosphatase 40 Units/L (34-104); Aspartate Amino Transferase 29 Units/L (13-39); BUN/Creatinine Ratio 27 (6-26); Bilirubin,Total 0.4 mg/dL (0.3-1.0); Blood Urea Nitrogen 32 mg/dL (8-23); Calcium 9.1 mg/dL (8.6-10.3); Carbon Dioxide 27 mEq/L (23-29); Chloride 100 mEq/L (98-107); Chol/HDL Ratio 4.4 (0-4.9); Cholesterol 214 mg/dL (< 200); Glucose 103 mg/dL (70-105); HDL Cholesterol 49 mg/dL (40-59); LDL Cholesterol,Calculated 146 mg/dL (0-99); Magnesium 1.8 mg/dL (1.6-2.6); Osmolality,Calculated 289 (280-300); Phosphorous 4.3 mg/dL (2.7-4.5); Potassium 4.1 mEq/L (3.5-5.1); Sodium 136 mEq/L (136-145); Total Protein 6.7 g/dL (6.4-8.9); Triglycerides 94 mg/dL (< 150); eGFR For African Americans > 60 (> 60); eGFR For Non-African Americans > 60 (> 60)
[2019-04-24] MEDS ORDERED: Insulin LISPRO 300 UNITS/3 ML VIAL SQ SCH (07:30)
[2019-04-24 08:30] LABS: Amphetamine Screen,Urine Negative ng/mL (Cutoff=1000); Barbiturate Screen,Urine Negative ng/mL (Cutoff=200); Benzodiazepines Screen,Urine Negative ng/mL (Cutoff=200); Cannabinoid Screen,Urine Negative ng/mL (Cutoff = 50); Cocaine Screen,Urine Negative ng/mL (Cutoff= 300); Opiate Screen,Urine Negative ng/mL (Cutoff=300); Phencyclidine Screen,Urine Negative ng/mL (Cutoff=25)
[2019-04-24] MEDS ORDERED: Isosorbide MONOnitrate (24 HR) 30 MG TAB.ER.24H PO SCH ×2 (09:00→21:00)
[2019-04-24] MEDS ORDERED: Metoprolol XL (24 HR) Succ 50 MG TAB.ER.24H PO SCH (09:00)
[2019-04-24] MEDS ORDERED: amLODIPine 5 MG TABLET PO SCH (09:00)
[2019-04-24] MEDS ORDERED: Furosemide 40 MG TABLET PO SCH (09:00)
[2019-04-24] MEDS ORDERED: Aspirin Enteric Coated 81 MG Tablet PO SCH (09:00)
[2019-04-24] MEDS ORDERED: Insulin DETEMIR 100 UNIT/ML X5UNITS SQ SCH (09:00)
[2019-04-24] MEDS ORDERED: Budesonide/Formoterol 160/4.5 1 PUFF INH IH SCH (10:00)
[2019-04-24 14:26] VITALS: BP 129/66
[2019-04-25] MEDS ORDERED: *HR* Heparin 5,000 UNIT/ML VIAL SQ SCH (05:12)
== END 2019-04-24 14:49 | disposition home or self-care (01) ==
LOC: CDU 22:50 → EMEROOARM 22:50 → SUATTDRO 04-24 01:23 → CDU 04-24 04:10
PROVIDERS: ADMIT Internal Medicine; ATTEND Internal Medicine

== ENCOUNTER 2021-12-07 03:59 | Inpatient (IN) ==
[2021-12-07] MEDS ORDERED: Ipratropium/Albuterol Neb 3 ML IH ONE (04:06)
[2021-12-07] MEDS ORDERED: 0.9 % Sodium Chloride 1,000 ML IVC ONE (04:06)
[2021-12-07] MEDS ORDERED: cefTRIAXone 1,000 MG in 0.9 % Sodium Chloride 10 ML IVP ONE (04:06)
[2021-12-07] MEDS ORDERED: methylPREDNISolone 125 MG/2 ML VIAL IVP ONE (04:06)
[2021-12-07] MEDS ORDERED: *HR* Labetalol 20 MG/4 ML SYRINGE IVP ONE (04:22)
[2021-12-07 04:30] LABS: Basophils % 0.3 %; Eosinophils # 0.2 K/mcL (0.0-0.6); Eosinophils % 2.2 %; Hematocrit 43.7 % (37.5-50.1); Hemoglobin 14.3 g/dL (12.9-16.9); Immature Granulocytes % 0.4 % (0-4); Lymphocytes # 2.5 K/mcL (0.6-4.6); Lymphocytes % 24.1 %; Mean Corpuscular HGB Conc 32.7 g/dL (31.6-35.5); Mean Corpuscular Hemoglobin 30.8 pg (28.0-33.3); Mean Platelet Volume 9.7 fL (9.4-12.4); Monocytes % 9.3 %; Neutrophils # 6.6 K/mcL (1.6-8.9); Platelet Count 170 K/mcL (140-400); Red Blood Count 4.65 M/mcL (4.19-5.50); Segmented Neutrophils % 63.7 %; White Blood Count 10.4 K/mcL (4.3-11.1)
[2021-12-07 04:36] LABS: ABG Base Excess 0 mEq/L (-2 to 3); ABG HCO3 25 mEq/L (21-27); ABG Oxygen Saturation 98 % (95-98); ABG PCO2 43 mmHg (35-45); ABG PH 7.38 pH Units (7.32-7.45); ABG PO2 111 mmHg (85-104); ABG TCO2 26 mEq/L (20-26)
[2021-12-07 04:41] LABS: Activated Partial Thrombo Time 30.2 Seconds (26.0-36.0)
[2021-12-07] MEDS ORDERED: Iopamidol - 370 500 ML MLS IVP ONE (04:43)
[2021-12-07 04:51] LABS: BUN/Creatinine Ratio 20 (6-26); Blood Urea Nitrogen 24 mg/dL (8-23); Calcium 9.3 mg/dL (8.6-10.3); Carbon Dioxide 25 mEq/L (23-29); Chloride 102 mEq/L (98-107); Glucose 163 mg/dL (70-105); Osmolality,Calculated 290 (280-300); Potassium 4.2 mEq/L (3.5-5.1); Sodium 136 mEq/L (136-145); eGFR For African Americans > 60 (> 60); eGFR For Non-African Americans 59 (> 60)
[2021-12-07 04:52] LABS: Troponin I 0.03 ng/mL (< 0.04)
[2021-12-07 05:52] LABS: Adenovirus Not Detected (Not Detect); Bordetella Pertussis Not Detected (Not Detect); Chlamydophila pneumoniae Not Detected (Not Detect); Coronavirus 229E Not Detected (Not Detect); Coronavirus HKU1 Not Detected (Not Detect); Coronavirus NL63 Not Detected (Not Detect); Coronavirus OC43 Not Detected (Not Detect); Human Metapneumovirus Not Detected (Not Detect); Human Rhinovirus/Enterovirus Not Detected (Not Detect); Influenza A Subtype 2009 H1 Not Detected (Not Detect); Influenza B Not Detected (Not Detect); Mycoplasma pneumoniae Not Detected (Not Detect); Parainfluenza Virus 1 Not Detected (Not Detect); Parainfluenza Virus 2 Not Detected (Not Detect); Parainfluenza Virus 3 Not Detected (Not Detect); Parainfluenza Virus 4 Not Detected (Not Detect); Respiratory Syncytial Virus Not Detected (Not Detect); SARS-CoV-2 Not Detected (Not Detect)
[2021-12-07] MEDS ORDERED: *HR* Heparin 5,000 UNIT/ML VIAL IVP ONE (06:02)
[2021-12-07] MEDS ORDERED: *HR* Heparin 5,000 UNIT/ML VIAL IVP PRN ×2 (06:02)
[2021-12-07] MEDS: Heparin 25,000UNIT/250ML 1/2NS 25,000 UNIT/250 ML IV.SOLN IVC SCH ×2 (06:36→21:34)
[2021-12-07] MEDS ORDERED: Perflutren Lipid Microsphere 1.3 ML in 0.9 % Sodium Chloride 8.7 ML IVP PRN (07:36)
[2021-12-07] MEDS ORDERED: Spironolactone 25 MG TABLET PO SCH (09:00)
[2021-12-07] MEDS ORDERED: NIFEdipine XL (24 HR) 60 MG TAB.ER.24 PO SCH (09:00)
[2021-12-07] MEDS ORDERED: Naloxone 0.4 MG/ML INJ IVP PRN (09:29)
[2021-12-07] MEDS: Isosorbide MONOnitrate (24 HR) 30 MG TAB.ER.24H PO SCH (11:28)
[2021-12-07] MEDS: Furosemide 40 MG TABLET PO SCH (11:28)
[2021-12-07] MEDS ORDERED: D5% in Water 1,000 ML IVC PRN (11:45)
[2021-12-07] MEDS ORDERED: Dextrose Gel 15 GM/37.5 ML TUBE PO PRN ×2 (11:45)
[2021-12-07] MEDS ORDERED: *HR* Dextrose 50 % in Water (Syg) 50 ML SYRINGE IVP PRN (11:45)
[2021-12-07] MEDS: Insulin LISPRO 300 UNITS/3 ML VIAL SUBQ SCH ×2 (12:17→16:51)
[2021-12-07 14:57] LABS: Magnesium 1.6 mg/dL (1.6-2.6)
[2021-12-07] MEDS ORDERED: Warfarin perPT PO PRN (18:00)
[2021-12-07] MEDS ORDERED: *HR* Warfarin 5 MG TABLET PO ONE (18:00)
[2021-12-07] MEDS ORDERED: Insulin LISPRO 300 UNITS/3 ML VIAL SUBQ SCH (21:00)
[2021-12-08 05:31] LABS: Heparin anti-factor XA UFH 0.41 IU/mL (0.30-0.70); Prothrombin Time 11.6 Seconds (9.4-12.1)
[2021-12-08] MEDS ORDERED: Nitroglycerin 0.4 MG TAB.SUBL SL PRN (07:46)
[2021-12-08] MEDS: Furosemide 40 MG TABLET PO SCH (08:49)
[2021-12-08] MEDS: cloNIDine HCL 0.1 MG TABLET PO SCH ×2 (08:49→20:44)
[2021-12-08] MEDS: Insulin LISPRO 300 UNITS/3 ML VIAL SUBQ SCH ×4 (08:49→20:46)
[2021-12-08] MEDS: Isosorbide MONOnitrate (24 HR) 30 MG TAB.ER.24H PO SCH (08:49)
[2021-12-08] MEDS: NIFEdipine XL (24 HR) 30 MG TAB.ER.24 PO SCH (08:49)
[2021-12-08] MEDS: Spironolactone 25 MG TABLET PO SCH (08:49)
[2021-12-08] MEDS ORDERED: NON-FORMULARY MEDICATION 1 EACH EACH (Insulin Glargine [Lantus] 300 UNIT/3 ML Mls) SQ SCH (09:00)
[2021-12-08] MEDS: Budesonide/Formoterol 160/4.5 1 PUFF INH IH SCH ×2 (10:53→19:31)
[2021-12-08] MEDS: Insulin DETEMIR 100 UNIT/ML X5UNITS SUBQ SCH ×2 (11:53→20:46)
[2021-12-08] MEDS: Heparin 25,000UNIT/250ML 1/2NS 25,000 UNIT/250 ML IV.SOLN IVC SCH (13:36)
[2021-12-08] MEDS ORDERED: *HR* Warfarin 5 MG TABLET PO ONE (18:00)
[2021-12-09] MEDS: Heparin 25,000UNIT/250ML 1/2NS 25,000 UNIT/250 ML IV.SOLN IVC SCH ×2 (05:38→22:46)
[2021-12-09 05:44] LABS: Hematocrit 40.8 % (37.5-50.1); Hemoglobin 13.3 g/dL (12.9-16.9); Mean Corpuscular HGB Conc 32.6 g/dL (31.6-35.5); Mean Corpuscular Hemoglobin 31.4 pg (28.0-33.3); Mean Corpuscular Volume 96.2 fL (83.0-100.0); Mean Platelet Volume 9.8 fL (9.4-12.4); Platelet Count 149 K/mcL (140-400); Red Blood Count 4.24 M/mcL (4.19-5.50)
[2021-12-09 06:01] LABS: Heparin anti-factor XA UFH 0.24 IU/mL (0.30-0.70)
[2021-12-09 06:02] LABS: INR 1.1; Prothrombin Time 11.8 Seconds (9.4-12.1)
[2021-12-09 06:09] LABS: BUN/Creatinine Ratio 26 (6-26); Blood Urea Nitrogen 35 mg/dL (8-23); Carbon Dioxide 25 mEq/L (23-29); Chloride 100 mEq/L (98-107); Glucose 270 mg/dL (70-105); Osmolality,Calculated 292 (280-300); Potassium 4.7 mEq/L (3.5-5.1); Sodium 132 mEq/L (136-145); eGFR For African Americans > 60 (> 60); eGFR For Non-African Americans 53 (> 60)
[2021-12-09] MEDS: Isosorbide MONOnitrate (24 HR) 30 MG TAB.ER.24H PO SCH (07:52)
[2021-12-09] MEDS: NIFEdipine XL (24 HR) 30 MG TAB.ER.24 PO SCH (07:52)
[2021-12-09] MEDS: Furosemide 40 MG TABLET PO SCH (07:52)
[2021-12-09] MEDS: cloNIDine HCL 0.1 MG TABLET PO SCH ×2 (07:53→21:33)
[2021-12-09] MEDS: Spironolactone 25 MG TABLET PO SCH (07:53)
[2021-12-09] MEDS: Insulin DETEMIR 100 UNIT/ML X5UNITS SUBQ SCH ×2 (08:00→21:34)
[2021-12-09] MEDS: Insulin LISPRO 300 UNITS/3 ML VIAL SUBQ SCH ×5 (08:00→21:34)
[2021-12-09] MEDS ORDERED: Insulin LISPRO 300 UNITS/3 ML VIAL SUBQ SCH (09:00)
[2021-12-09] MEDS: Budesonide/Formoterol 160/4.5 1 PUFF INH IH SCH ×2 (11:46→22:49)
[2021-12-09] MEDS ORDERED: Acetaminophen 325 MG TABLET PO PRN (12:02)
[2021-12-09] MEDS ORDERED: *HR* Warfarin 5 MG TABLET PO ONE (18:00)
[2021-12-09] MEDS: Sennosides/Docusate Sodium TABLET PO PRN (21:33)
[2021-12-10 05:05] LABS: INR 1.1; Prothrombin Time 12.2 Seconds (9.4-12.1)
[2021-12-10 05:07] LABS: Heparin anti-factor XA UFH 1.05 IU/mL (0.30-0.70)
[2021-12-10 05:15] LABS: Calcium 8.9 mg/dL (8.6-10.3); Potassium 4.8 mEq/L (3.5-5.1)
[2021-12-10 05:23] LABS: Hematocrit 40.8 % (37.5-50.1); Hemoglobin 13.1 g/dL (12.9-16.9); Mean Corpuscular HGB Conc 32.1 g/dL (31.6-35.5); Mean Corpuscular Hemoglobin 30.5 pg (28.0-33.3); Mean Corpuscular Volume 95.1 fL (83.0-100.0); Platelet Count 170 K/mcL (140-400); Red Blood Count 4.29 M/mcL (4.19-5.50); Red Cell Distribution Width 14.3 % (11.5-14.5); White Blood Count 8.1 K/mcL (4.3-11.1)
[2021-12-10] MEDS: Budesonide/Formoterol 160/4.5 1 PUFF INH IH SCH ×2 (07:59→20:51)
[2021-12-10] MEDS: cloNIDine HCL 0.1 MG TABLET PO SCH ×2 (08:10→21:41)
[2021-12-10] MEDS: NIFEdipine XL (24 HR) 30 MG TAB.ER.24 PO SCH (08:10)
[2021-12-10] MEDS: Isosorbide MONOnitrate (24 HR) 30 MG TAB.ER.24H PO SCH (08:10)
[2021-12-10] MEDS: Insulin LISPRO 300 UNITS/3 ML VIAL SUBQ SCH ×7 (08:11→21:42)
[2021-12-10] MEDS: Insulin DETEMIR 100 UNIT/ML X5UNITS SUBQ SCH ×2 (08:15→21:41)
[2021-12-10] MEDS: Sennosides/Docusate Sodium TABLET PO PRN (08:15)
[2021-12-10] MEDS: Azithromycin 500 MG in 0.9 % Sodium Chloride 250 ML IVPB SCH (13:36)
[2021-12-10] MEDS: Heparin 25,000UNIT/250ML 1/2NS 25,000 UNIT/250 ML IV.SOLN IVC SCH (14:24)
[2021-12-10] MEDS: Cefepime HCl 2,000 MG in 0.9 % Sodium Chloride 10 ML IVP SCH ×2 (16:36→23:41)
[2021-12-10] MEDS ORDERED: *HR* Warfarin 7.5 MG TABLET PO ONE (18:00)
[2021-12-11] MEDS: Heparin 25,000UNIT/250ML 1/2NS 25,000 UNIT/250 ML IV.SOLN IVC SCH (02:55)
[2021-12-11 08:58] LABS: Hematocrit 41.6 % (37.5-50.1); Hemoglobin 13.4 g/dL (12.9-16.9); Mean Corpuscular HGB Conc 32.2 g/dL (31.6-35.5); Mean Corpuscular Hemoglobin 30.7 pg (28.0-33.3); Mean Corpuscular Volume 95.2 fL (83.0-100.0); Platelet Count 167 K/mcL (140-400); Red Blood Count 4.37 M/mcL (4.19-5.50); Red Cell Distribution Width 14.3 % (11.5-14.5)
[2021-12-11 09:11] LABS: INR 1.1; Prothrombin Time 12.8 Seconds (9.4-12.1)
[2021-12-11 09:26] LABS: BUN/Creatinine Ratio 21 (6-26); Blood Urea Nitrogen 27 mg/dL (8-23); Carbon Dioxide 26 mEq/L (23-29); Chloride 100 mEq/L (98-107); Glucose 280 mg/dL (70-105); Osmolality,Calculated 291 (280-300); Sodium 133 mEq/L (136-145); eGFR For African Americans > 60 (> 60); eGFR For Non-African Americans 53 (> 60)
[2021-12-11] MEDS: NIFEdipine XL (24 HR) 30 MG TAB.ER.24 PO SCH (09:29)
[2021-12-11] MEDS: cloNIDine HCL 0.1 MG TABLET PO SCH ×2 (09:30→21:15)
[2021-12-11] MEDS: Isosorbide MONOnitrate (24 HR) 30 MG TAB.ER.24H PO SCH (09:30)
[2021-12-11] MEDS: Cefepime HCl 2,000 MG in 0.9 % Sodium Chloride 10 ML IVP SCH (09:30)
[2021-12-11] MEDS: Insulin LISPRO 300 UNITS/3 ML VIAL SUBQ SCH ×7 (09:32→21:15)
[2021-12-11] MEDS: Insulin DETEMIR 100 UNIT/ML X5UNITS SUBQ SCH ×2 (09:47→21:16)
[2021-12-11] MEDS: Budesonide/Formoterol 160/4.5 1 PUFF INH IH SCH ×2 (10:11→20:33)
[2021-12-11] MEDS: Azithromycin 500 MG in 0.9 % Sodium Chloride 250 ML IVPB SCH (11:15)
[2021-12-11] MEDS: polyethylene glycoL 3350 17 GM POWD.PACK PO PRN (13:31)
[2021-12-11] MEDS ORDERED: *HR* Warfarin 7.5 MG TABLET PO ONE (18:00)
[2021-12-11] MEDS: *HR* Enoxaparin 150 MG/ML SYRINGE SQ SCH (18:05)
[2021-12-11] MEDS: cefTRIAXone 1,000 MG in 0.9 % Sodium Chloride 10 ML IVP SCH (18:07)
[2021-12-12] MEDS: polyethylene glycoL 3350 17 GM POWD.PACK PO PRN (00:08)
[2021-12-12] MEDS: Sennosides/Docusate Sodium TABLET PO PRN (00:08)
[2021-12-12] MEDS ORDERED: *HR* Labetalol 20 MG/4 ML SYRINGE IVP ONE (04:44)
[2021-12-12] MEDS: *HR* Enoxaparin 150 MG/ML SYRINGE SQ SCH ×2 (06:06→17:17)
[2021-12-12 06:50] LABS: INR 1.3; Prothrombin Time 14.2 Seconds (9.4-12.1)
[2021-12-12] MEDS: cloNIDine HCL 0.1 MG TABLET PO SCH ×2 (07:52→20:46)
[2021-12-12] MEDS: NIFEdipine XL (24 HR) 30 MG TAB.ER.24 PO SCH (07:52)
[2021-12-12] MEDS: Isosorbide MONOnitrate (24 HR) 30 MG TAB.ER.24H PO SCH (07:52)
[2021-12-12] MEDS: Insulin LISPRO 300 UNITS/3 ML VIAL SUBQ SCH ×8 (07:53→20:47)
[2021-12-12] MEDS: Insulin DETEMIR 100 UNIT/ML X5UNITS SUBQ SCH ×2 (07:55→21:00)
[2021-12-12 09:27] LABS: Hemoglobin 12.9 g/dL (12.9-16.9); Mean Corpuscular HGB Conc 31.5 g/dL (31.6-35.5); Mean Corpuscular Hemoglobin 30.4 pg (28.0-33.3); Mean Corpuscular Volume 96.7 fL (83.0-100.0); Mean Platelet Volume 10.2 fL (9.4-12.4); Platelet Count 159 K/mcL (140-400); Red Blood Count 4.24 M/mcL (4.19-5.50); Red Cell Distribution Width 14.3 % (11.5-14.5)
[2021-12-12] MEDS: Budesonide/Formoterol 160/4.5 1 PUFF INH IH SCH ×2 (09:38→20:17)
[2021-12-12 09:40] LABS: Blood Urea Nitrogen 26 mg/dL (8-23); Calcium 8.8 mg/dL (8.6-10.3); Carbon Dioxide 28 mEq/L (23-29); Chloride 97 mEq/L (98-107); Glucose 365 mg/dL (70-105); Osmolality,Calculated 292 (280-300); Potassium 5.3 mEq/L (3.5-5.1); Sodium 131 mEq/L (136-145)
[2021-12-12] MEDS ORDERED: *HR* Dextrose 50 % in Water (Syg) 50 ML SYRINGE IVP ONE (10:29)
[2021-12-12] MEDS ORDERED: Calcium Gluconate 1gm/50mL 1 GM/50 ML BAG IVPB ONE (10:29)
[2021-12-12] MEDS ORDERED: Insulin Human Regular 10 UNIT in 0.9 % Sodium Chloride 10 ML IV ONE (10:29)
[2021-12-12] MEDS ORDERED: Furosemide 20 MG/2 ML VIAL IVP ONE (10:30)
[2021-12-12] MEDS ORDERED: lisinopriL 5 MG TABLET PO SCH (10:30)
[2021-12-12] MEDS ORDERED: Isosorbide MONOnitrate (24 HR) 30 MG TAB.ER.24H PO ONE (10:38)
[2021-12-12 11:28] LABS: BUN/Creatinine Ratio 19 (6-26); eGFR For African Americans > 60 (> 60); eGFR For Non-African Americans 50 (> 60)
[2021-12-12] MEDS ORDERED: EVOLOCUMAB 140 MG SUBQ SCH (12:30)
[2021-12-12] MEDS: Azithromycin 500 MG in 0.9 % Sodium Chloride 250 ML IVPB SCH (12:40)
[2021-12-12] MEDS ORDERED: carvediloL 25 MG TABLET PO SCH (17:00)
[2021-12-12] MEDS: cefTRIAXone 1,000 MG in 0.9 % Sodium Chloride 10 ML IVP SCH (17:16)
[2021-12-12] MEDS: carvediloL 25 MG TABLET PO SCH (17:17)
[2021-12-12] MEDS ORDERED: *HR* Warfarin 7.5 MG TABLET PO ONE (18:00)
[2021-12-12] MEDS ORDERED: Insulin DETEMIR 100 UNIT/ML X5UNITS SUBQ ONE (21:15)
[2021-12-13 01:55] LABS: Hematocrit 40.3 % (37.5-50.1); Mean Corpuscular HGB Conc 32.3 g/dL (31.6-35.5); Mean Corpuscular Hemoglobin 30.7 pg (28.0-33.3); Mean Corpuscular Volume 95.3 fL (83.0-100.0); Platelet Count 173 K/mcL (140-400); Red Blood Count 4.23 M/mcL (4.19-5.50); Red Cell Distribution Width 14.3 % (11.5-14.5); White Blood Count 7.9 K/mcL (4.3-11.1)
[2021-12-13 02:03] LABS: INR 1.4; Prothrombin Time 15.1 Seconds (9.4-12.1)
[2021-12-13 02:15] LABS: Calcium 9.2 mg/dL (8.6-10.3); Potassium 5.3 mEq/L (3.5-5.1)
[2021-12-13] MEDS ORDERED: Calcium Gluconate 1gm/50mL 1 GM/50 ML BAG IVPB ONE (03:06)
[2021-12-13] MEDS: *HR* Enoxaparin 150 MG/ML SYRINGE SQ SCH ×2 (04:54→17:36)
[2021-12-13] MEDS: cloNIDine HCL 0.1 MG TABLET PO SCH ×2 (08:19→19:55)
[2021-12-13] MEDS: carvediloL 25 MG TABLET PO SCH ×2 (08:19→17:33)
[2021-12-13] MEDS: Isosorbide MONOnitrate (24 HR) 60 MG TAB.ER.24H PO SCH (08:19)
[2021-12-13] MEDS: NIFEdipine XL (24 HR) 30 MG TAB.ER.24 PO SCH (08:19)
[2021-12-13] MEDS: Insulin LISPRO 300 UNITS/3 ML VIAL SUBQ SCH ×7 (08:35→19:51)
[2021-12-13] MEDS: Insulin DETEMIR 100 UNIT/ML X5UNITS SUBQ SCH ×2 (08:35→19:57)
[2021-12-13] MEDS ORDERED: Isosorbide MONOnitrate (24 HR) 60 MG TAB.ER.24H PO SCH (09:00)
[2021-12-13] MEDS: Budesonide/Formoterol 160/4.5 1 PUFF INH IH SCH ×2 (10:35→20:27)
[2021-12-13] MEDS: Azithromycin 500 MG in 0.9 % Sodium Chloride 250 ML IVPB SCH (11:18)
[2021-12-13] MEDS ORDERED: Furosemide 20 MG/2 ML VIAL IVP SCH (11:30)
[2021-12-13] MEDS: cefTRIAXone 1,000 MG in 0.9 % Sodium Chloride 10 ML IVP SCH (17:34)
[2021-12-13] MEDS ORDERED: *HR* Warfarin 5 MG TABLET PO ONE (18:00)
[2021-12-14] MEDS: *HR* Enoxaparin 150 MG/ML SYRINGE SQ SCH ×2 (04:40→17:12)
[2021-12-14 05:53] LABS: Hematocrit 41.4 % (37.5-50.1); Hemoglobin 13.3 g/dL (12.9-16.9); Mean Corpuscular HGB Conc 32.1 g/dL (31.6-35.5); Mean Corpuscular Volume 96.5 fL (83.0-100.0); Mean Platelet Volume 10.2 fL (9.4-12.4); Platelet Count 169 K/mcL (140-400); Red Blood Count 4.29 M/mcL (4.19-5.50); Red Cell Distribution Width 14.2 % (11.5-14.5); White Blood Count 7.5 K/mcL (4.3-11.1)
[2021-12-14 05:57] LABS: INR 1.4; Prothrombin Time 15.7 Seconds (9.4-12.1)
[2021-12-14 06:22] LABS: Calcium 9.3 mg/dL (8.6-10.3); Potassium 4.5 mEq/L (3.5-5.1)
[2021-12-14] MEDS: Isosorbide MONOnitrate (24 HR) 60 MG TAB.ER.24H PO SCH (07:52)
[2021-12-14] MEDS: carvediloL 25 MG TABLET PO SCH ×2 (07:52→16:58)
[2021-12-14] MEDS: cloNIDine HCL 0.1 MG TABLET PO SCH ×2 (07:52→21:17)
[2021-12-14] MEDS: Insulin LISPRO 300 UNITS/3 ML VIAL SUBQ SCH ×7 (07:52→21:20)
[2021-12-14] MEDS: NIFEdipine XL (24 HR) 30 MG TAB.ER.24 PO SCH (07:52)
[2021-12-14] MEDS: Insulin DETEMIR 100 UNIT/ML X5UNITS SUBQ SCH ×2 (07:58→21:22)
[2021-12-14] MEDS: Budesonide/Formoterol 160/4.5 1 PUFF INH IH SCH ×2 (08:25→20:21)
[2021-12-14] MEDS: Azithromycin 500 MG in 0.9 % Sodium Chloride 250 ML IVPB SCH (12:15)
[2021-12-14] MEDS ORDERED: polyethylene glycoL 3350 17 GM POWD.PACK PO PRN (14:35)
[2021-12-14] MEDS: cefTRIAXone 1,000 MG in 0.9 % Sodium Chloride 10 ML IVP SCH (16:59)
[2021-12-14] MEDS ORDERED: *HR* Warfarin 10 MG TABLET PO ONE (18:00)
[2021-12-14] MEDS: Sennosides/Docusate Sodium TABLET PO PRN (21:19)
[2021-12-15] MEDS: *HR* Enoxaparin 150 MG/ML SYRINGE SQ SCH ×2 (06:00→16:33)
[2021-12-15 06:34] LABS: Hematocrit 38.3 % (37.5-50.1); Hemoglobin 12.2 g/dL (12.9-16.9); Mean Corpuscular HGB Conc 31.9 g/dL (31.6-35.5); Mean Corpuscular Hemoglobin 30.5 pg (28.0-33.3); Mean Corpuscular Volume 95.8 fL (83.0-100.0); Platelet Count 159 K/mcL (140-400); Red Cell Distribution Width 13.9 % (11.5-14.5); White Blood Count 7.1 K/mcL (4.3-11.1)
[2021-12-15 06:41] LABS: INR 1.6; Prothrombin Time 17.3 Seconds (9.4-12.1)
[2021-12-15 07:37] LABS: Calcium 8.6 mg/dL (8.6-10.3); Potassium 4.7 mEq/L (3.5-5.1)
[2021-12-15] MEDS: Budesonide/Formoterol 160/4.5 1 PUFF INH IH SCH ×2 (07:38→22:16)
[2021-12-15] MEDS: carvediloL 25 MG TABLET PO SCH ×2 (07:47→16:32)
[2021-12-15] MEDS: Isosorbide MONOnitrate (24 HR) 60 MG TAB.ER.24H PO SCH (07:48)
[2021-12-15] MEDS: cloNIDine HCL 0.1 MG TABLET PO SCH ×2 (07:48→22:05)
[2021-12-15] MEDS: NIFEdipine XL (24 HR) 30 MG TAB.ER.24 PO SCH (07:48)
[2021-12-15] MEDS: Insulin LISPRO 300 UNITS/3 ML VIAL SUBQ SCH ×7 (07:49→22:06)
[2021-12-15] MEDS: Insulin DETEMIR 100 UNIT/ML X5UNITS SUBQ SCH ×2 (07:50→22:06)
[2021-12-15] MEDS ORDERED: Saline Nasal Spray 44 ML BOTTLE NS PRN (10:56)
[2021-12-15] MEDS: Azithromycin 500 MG in 0.9 % Sodium Chloride 250 ML IVPB SCH (12:13)
[2021-12-15] MEDS: Sennosides/Docusate Sodium TABLET PO PRN (13:21)
[2021-12-15] MEDS: hydrALAZINE 25 MG TABLET PO SCH (16:32)
[2021-12-15] MEDS ORDERED: *HR* Warfarin 10 MG TABLET PO ONE (18:00)
[2021-12-16] MEDS: hydrALAZINE 25 MG TABLET PO SCH ×4 (00:31→23:49)
[2021-12-16] MEDS: *HR* Enoxaparin 150 MG/ML SYRINGE SQ SCH ×2 (05:13→18:17)
[2021-12-16 05:54] LABS: Hematocrit 38.5 % (37.5-50.1); Hemoglobin 12.4 g/dL (12.9-16.9); Mean Corpuscular HGB Conc 32.2 g/dL (31.6-35.5); Mean Corpuscular Hemoglobin 30.4 pg (28.0-33.3); Mean Corpuscular Volume 94.4 fL (83.0-100.0); Platelet Count 167 K/mcL (140-400); Red Blood Count 4.08 M/mcL (4.19-5.50); Red Cell Distribution Width 13.6 % (11.5-14.5); White Blood Count 6.7 K/mcL (4.3-11.1)
[2021-12-16 06:31] LABS: Calcium 8.5 mg/dL (8.6-10.3); Potassium 4.7 mEq/L (3.5-5.1)
[2021-12-16 06:38] LABS: Bilirubin,Urine Negative (Negative); Blood,Urine Negative (Negative); Clarity,Urine Clear (Clear); Color,Urine Light-Yellow (Yellow); Glucose,Urine (UA) 30 mg/dL (Normal); Ketones,Urine Negative (Negative); Leukocyte Esterase,Urine Negative (Negative); Nitrite,Urine Negative (Negative); Protein,Urine 70 mg/dL (Neg-Trace); RBC,Urine 0-3 per hpf (0-3); Specific Gravity,Urine 1.015 (1.010-1.025); Squamous Epithelial Cell,Urine Few per hpf (None-Few); Urobilinogen,Urine Normal (Normal); WBC,Urine 0-3 per hpf (0-3)
[2021-12-16] MEDS: Budesonide/Formoterol 160/4.5 1 PUFF INH IH SCH ×2 (07:43→19:27)
[2021-12-16 07:58] LABS: INR 1.6; Prothrombin Time 17.4 Seconds (9.4-12.1)
[2021-12-16 08:01] LABS: Protein/Creatinine Ratio,Urine 0.8 mg/mg (0.00-0.20)
[2021-12-16] MEDS: Insulin LISPRO 300 UNITS/3 ML VIAL SUBQ SCH ×7 (08:20→23:47)
[2021-12-16] MEDS: cloNIDine HCL 0.1 MG TABLET PO SCH ×2 (08:22→23:46)
[2021-12-16] MEDS: carvediloL 25 MG TABLET PO SCH ×2 (08:22→16:52)
[2021-12-16] MEDS: Isosorbide MONOnitrate (24 HR) 60 MG TAB.ER.24H PO SCH (08:23)
[2021-12-16] MEDS: NIFEdipine XL (24 HR) 30 MG TAB.ER.24 PO SCH (08:23)
[2021-12-16] MEDS: Insulin DETEMIR 100 UNIT/ML X5UNITS SUBQ SCH ×2 (08:25→23:47)
[2021-12-16] MEDS ORDERED: Furosemide 40 MG/4 ML VIAL IVP ONE ×2 (08:31→18:23)
[2021-12-16] MEDS: Sennosides/Docusate Sodium TABLET PO PRN (15:19)
[2021-12-16] MEDS ORDERED: Warfarin 10 MG, Warfarin 2.5 MG PO ONE (18:00)
[2021-12-17] MEDS: hydrALAZINE 25 MG TABLET PO SCH ×3 (00:01→17:17)
[2021-12-17 03:49] LABS: Hematocrit 38.5 % (37.5-50.1); Hemoglobin 12.3 g/dL (12.9-16.9); Mean Corpuscular HGB Conc 31.9 g/dL (31.6-35.5); Mean Corpuscular Hemoglobin 30.5 pg (28.0-33.3); Mean Corpuscular Volume 95.5 fL (83.0-100.0); Mean Platelet Volume 10.2 fL (9.4-12.4); Platelet Count 176 K/mcL (140-400); Red Blood Count 4.03 M/mcL (4.19-5.50); Red Cell Distribution Width 13.9 % (11.5-14.5); White Blood Count 6.8 K/mcL (4.3-11.1)
[2021-12-17 03:56] LABS: INR 1.7
[2021-12-17 04:11] LABS: BUN/Creatinine Ratio 24 (6-26); Blood Urea Nitrogen 33 mg/dL (8-23); Calcium 8.7 mg/dL (8.6-10.3); Carbon Dioxide 29 mEq/L (23-29); Chloride 98 mEq/L (98-107); Glucose 162 mg/dL (70-105); Osmolality,Calculated 293 (280-300); Potassium 4.4 mEq/L (3.5-5.1); Sodium 136 mEq/L (136-145); eGFR For African Americans > 60 (> 60); eGFR For Non-African Americans 50 (> 60)
[2021-12-17] MEDS: Budesonide/Formoterol 160/4.5 1 PUFF INH IH SCH ×2 (07:22→20:04)
[2021-12-17] MEDS: Insulin LISPRO 300 UNITS/3 ML VIAL SUBQ SCH ×7 (07:50→20:04)
[2021-12-17] MEDS: cloNIDine HCL 0.1 MG TABLET PO SCH ×3 (07:57→20:03)
[2021-12-17] MEDS: *HR* Enoxaparin 150 MG/ML SYRINGE SQ SCH ×2 (07:58→17:17)
[2021-12-17] MEDS: carvediloL 25 MG TABLET PO SCH ×2 (07:58→17:17)
[2021-12-17] MEDS: Insulin DETEMIR 100 UNIT/ML X5UNITS SUBQ SCH ×2 (07:58→20:04)
[2021-12-17] MEDS: NIFEdipine XL (24 HR) 30 MG TAB.ER.24 PO SCH (07:58)
[2021-12-17] MEDS: Isosorbide MONOnitrate (24 HR) 60 MG TAB.ER.24H PO SCH (07:58)
[2021-12-17] MEDS ORDERED: Warfarin 10 MG, Warfarin 2.5 MG PO ONE (18:00)
[2021-12-17 19:08] VITALS: TEMP 98
[2021-12-17] MEDS: Doxycycline 100 MG CAPSULE PO SCH (20:04)
[2021-12-18] MEDS: hydrALAZINE 25 MG TABLET PO SCH ×2 (00:07→07:27)
[2021-12-18 00:46] LABS: Hematocrit 35.1 % (37.5-50.1); Hemoglobin 11.3 g/dL (12.9-16.9); Mean Corpuscular HGB Conc 32.2 g/dL (31.6-35.5); Mean Corpuscular Hemoglobin 30.9 pg (28.0-33.3); Mean Corpuscular Volume 95.9 fL (83.0-100.0); Platelet Count 158 K/mcL (140-400); Red Blood Count 3.66 M/mcL (4.19-5.50); Red Cell Distribution Width 13.6 % (11.5-14.5); White Blood Count 6.4 K/mcL (4.3-11.1)
[2021-12-18 00:58] LABS: Prothrombin Time 22.6 Seconds (9.4-12.1)
[2021-12-18 01:00] LABS: BUN/Creatinine Ratio 24 (6-26); Blood Urea Nitrogen 30 mg/dL (8-23); Carbon Dioxide 26 mEq/L (23-29); Chloride 106 mEq/L (98-107); Glucose 120 mg/dL (70-105); Magnesium 1.9 mg/dL (1.6-2.6); Osmolality,Calculated 289 (280-300); Potassium 3.7 mEq/L (3.5-5.1); Sodium 136 mEq/L (136-145); eGFR For African Americans > 60 (> 60); eGFR For Non-African Americans 55 (> 60)
[2021-12-18 04:29] VITALS: PULSE 62; O2SAT 94
[2021-12-18] MEDS: *HR* Enoxaparin 150 MG/ML SYRINGE SQ SCH (05:22)
[2021-12-18 05:24] VITALS: BP 163/46
[2021-12-18] MEDS: Insulin DETEMIR 100 UNIT/ML X5UNITS SUBQ SCH (07:27)
[2021-12-18] MEDS: Doxycycline 100 MG CAPSULE PO SCH (07:27)
[2021-12-18] MEDS: carvediloL 25 MG TABLET PO SCH (07:27)
[2021-12-18] MEDS: Insulin LISPRO 300 UNITS/3 ML VIAL SUBQ SCH ×2 (07:27→07:28)
[2021-12-18] MEDS: cloNIDine HCL 0.1 MG TABLET PO SCH (07:27)
[2021-12-18] MEDS: NIFEdipine XL (24 HR) 30 MG TAB.ER.24 PO SCH (07:27)
[2021-12-18] MEDS: Isosorbide MONOnitrate (24 HR) 60 MG TAB.ER.24H PO SCH (07:27)
[2021-12-18] MEDS: Budesonide/Formoterol 160/4.5 1 PUFF INH IH SCH (07:43)
[2021-12-18 09:46] LABS: ANA IgG by ELISA NONE DETECTED (None Detected); Kappa Qnt Free Light Chains 52.31 mg/L (3.30-19.40); Lambda Qnt Free Light Chains 26.03 mg/L (5.71-26.30)
[2021-12-18] MEDS ORDERED: Warfarin 10 MG, Warfarin 2.5 MG PO ONE (18:00)
[2021-12-19 09:11] LABS: IFE Reflexed NOT DONE
== END 2021-12-18 12:18 | disposition home or self-care (01) | DRG 175 ==
LOC: 2NENU 03:59 → EMEROOARM 03:59 → SUATTDRO 08:07 → 2NENU 10:15 → SUATTDRO 12-08 08:16
PROVIDERS: ADMIT Student in an Organized Health Care Education/Training Program; ATTEND Internal Medicine

== ENCOUNTER 2022-01-26 04:54 | Inpatient (IN) ==
[2022-01-26] MEDS ORDERED: Iopamidol - 370 500 ML MLS IVP ONE (05:29)
[2022-01-26] MEDS ORDERED: cefTRIAXone 1,000 MG in 0.9 % Sodium Chloride 10 ML IVP ONE (05:30)
[2022-01-26 06:02] LABS: Basophils % 0.3 %; Eosinophils % 0.4 %; Hematocrit 37.5 % (37.5-50.1); Immature Granulocytes % 0.7 % (0-4); Lymphocytes # 1.2 K/mcL (0.6-4.6); Lymphocytes % 11.5 %; Mean Corpuscular Hemoglobin 30.2 pg (28.0-33.3); Mean Corpuscular Volume 94.2 fL (83.0-100.0); Mean Platelet Volume 9.1 fL (9.4-12.4); Monocytes % 9.8 %; Neutrophils # 7.7 K/mcL (1.6-8.9); Platelet Count 205 K/mcL (140-400); Red Blood Count 3.98 M/mcL (4.19-5.50); Red Cell Distribution Width 14.6 % (11.5-14.5); Segmented Neutrophils % 77.3 %
[2022-01-26 06:15] LABS: INR 2.1; Prothrombin Time 23.5 Seconds (9.4-12.1)
[2022-01-26 06:18] LABS: Activated Partial Thrombo Time 39.4 Seconds (26.0-36.0)
[2022-01-26 06:31] LABS: Alanine Aminotransferase 18 Units/L (7-52); Albumin 3.8 g/dL (3.5-5.7); Albumin/Globulin Ratio 1.1 (1.1-2.2); Alkaline Phosphatase 43 Units/L (34-104); Aspartate Amino Transferase 20 Units/L (13-39); BUN/Creatinine Ratio 24 (6-26); Bilirubin,Direct 0.1 mg/dL (0.0-0.2); Bilirubin,Indirect 0.3 mg/dL (0.0-1.0); Bilirubin,Total 0.4 mg/dL (0.3-1.0); Blood Urea Nitrogen 32 mg/dL (8-23); Calcium 8.8 mg/dL (8.6-10.3); Carbon Dioxide 24 mEq/L (23-29); Chloride 103 mEq/L (98-107); Globulin 3.4 g/dL (2.4-3.5); Glucose 160 mg/dL (70-105); Magnesium 1.6 mg/dL (1.6-2.6); Osmolality,Calculated 294 (280-300); Phosphorous 3.3 mg/dL (2.7-4.5); Potassium 4.5 mEq/L (3.5-5.1); Sodium 137 mEq/L (136-145); Total Protein 7.2 g/dL (6.4-8.9); Troponin I 0.06 ng/mL (< 0.04); eGFR For African Americans > 60 (> 60); eGFR For Non-African Americans 52 (> 60)
[2022-01-26 06:41] LABS: Bilirubin,Urine Negative (Negative); Blood,Urine Small (Negative); Clarity,Urine Clear (Clear); Color,Urine Light-Yellow (Yellow); Glucose,Urine (UA) Normal (Normal); Ketones,Urine Negative (Negative); Leukocyte Esterase,Urine Negative (Negative); Nitrite,Urine Negative (Negative); Protein,Urine >=300 mg/dL (Neg-Trace); RBC,Urine 0-3 per hpf (0-3); Specific Gravity,Urine 1.019 (1.010-1.025); Squamous Epithelial Cell,Urine Few per hpf (None-Few); Urobilinogen,Urine Normal (Normal); WBC,Urine 0-3 per hpf (0-3)
[2022-01-26 06:42] LABS: ABG Base Excess -1 mEq/L (-2 to 3); ABG HCO3 23 mEq/L (21-27); ABG Oxygen Saturation 96 % (95-98); ABG PCO2 36 mmHg (35-45); ABG PH 7.41 pH Units (7.32-7.45); ABG PO2 79 mmHg (85-104); ABG TCO2 24 mEq/L (20-26)
[2022-01-26 06:49] LABS: Influenza A PCR Negative (Negative); Influenza B PCR Negative (Negative); Resp. Syncytial Virus PCR Negative (Negative)
[2022-01-26 07:09] LABS: SARS-CoV-2 by PCR (In House) Positive (Negative)
[2022-01-26] MEDS ORDERED: D5% in Water 1,000 ML IVC PRN (08:48)
[2022-01-26] MEDS ORDERED: Naloxone 0.4 MG/ML INJ IVP PRN (08:48)
[2022-01-26] MEDS ORDERED: Acetaminophen 325 MG TABLET PO PRN (08:48)
[2022-01-26] MEDS ORDERED: *HR* Dextrose 50 % in Water (Syg) 50 ML SYRINGE IVP PRN (08:48)
[2022-01-26] MEDS ORDERED: Ondansetron 4 MG/2 ML VIAL IVP PRN (08:48)
[2022-01-26] MEDS ORDERED: Dextrose Gel 15 GM/37.5 ML TUBE PO PRN ×2 (08:48)
[2022-01-26] MEDS: Insulin LISPRO 300 UNITS/3 ML VIAL SUBQ SCH ×3 (12:09→21:04)
[2022-01-26] MEDS: Nitroglycerin 0.4 MG TAB.SUBL SL PRN ×3 (17:54→21:01)
[2022-01-26] MEDS ORDERED: Warfarin perPT PO PRN (18:00)
[2022-01-26] MEDS ORDERED: *HR* Warfarin 5 MG TABLET PO ONE (18:00)
[2022-01-26] MEDS ORDERED: Morphine Sulfate 2 MG/ML SYRINGE IVP ONE (19:30)
[2022-01-26 20:58] LABS: INR 1.8; Prothrombin Time 19.5 Seconds (9.4-12.1)
[2022-01-26] MEDS: Insulin DETEMIR 100 UNIT/ML X5UNITS SUBQ SCH (21:04)
[2022-01-26] MEDS ORDERED: *HR* Heparin 5,000 UNIT/ML VIAL IVP PRN (23:13)
[2022-01-26] MEDS ORDERED: *HR* Heparin 5,000 UNIT/ML VIAL IVP ONE (23:13)
[2022-01-26] MEDS ORDERED: *HR* LORazepam 2 MG/ML VIAL IVP ONE (23:15)
[2022-01-26] MEDS: Heparin 25,000UNIT/250ML 1/2NS 25,000 UNIT/250 ML IV.SOLN IVC SCH (23:41)
[2022-01-27 06:29] LABS: Basophils % 0.2 %; Hemoglobin 12.8 g/dL (12.9-16.9); Immature Granulocytes % 0.9 % (0-4); Lymphocytes # 0.8 K/mcL (0.6-4.6); Lymphocytes % 7.2 %; Mean Corpuscular HGB Conc 31.2 g/dL (31.6-35.5); Mean Corpuscular Hemoglobin 30.7 pg (28.0-33.3); Mean Corpuscular Volume 98.3 fL (83.0-100.0); Mean Platelet Volume 9.3 fL (9.4-12.4); Neutrophils # 8.9 K/mcL (1.6-8.9); Platelet Count 171 K/mcL (140-400); Red Blood Count 4.17 M/mcL (4.19-5.50); Red Cell Distribution Width 14.7 % (11.5-14.5); Segmented Neutrophils % 82.7 %; White Blood Count 10.7 K/mcL (4.3-11.1)
[2022-01-27 06:37] LABS: INR 1.7; Prothrombin Time 18.5 Seconds (9.4-12.1)
[2022-01-27 06:50] LABS: Troponin I 1.04 ng/mL (< 0.04)
[2022-01-27 07:13] LABS: Calcium 8.2 mg/dL (8.6-10.3); Potassium 5.2 mEq/L (3.5-5.1)
[2022-01-27] MEDS: Insulin DETEMIR 100 UNIT/ML X5UNITS SUBQ SCH ×2 (08:26→21:43)
[2022-01-27] MEDS: Insulin LISPRO 300 UNITS/3 ML VIAL SUBQ SCH ×4 (08:26→21:04)
[2022-01-27] MEDS ORDERED: Furosemide 40 MG/4 ML VIAL IVP ONE (11:40)
[2022-01-27] MEDS ORDERED: *HR* Heparin 10,000 UNIT/10 ML VIAL ONE ×2 (14:30→16:25)
[2022-01-27] MEDS ORDERED: 0.9 % Sodium Chloride 1,000 ML ONE ×2 (14:30→14:53)
[2022-01-27] MEDS ORDERED: Nitroglycerin 1,000 MCG/5 ML VIAL IV ONE (14:30)
[2022-01-27] MEDS ORDERED: Heparin 1,000 UNITS/500 mL 500 ML ONE (14:30)
[2022-01-27] MEDS ORDERED: Iopamidol - 370 200 ML INFUS..BTL ONE (14:30)
[2022-01-27] MEDS: Heparin 25,000UNIT/250ML 1/2NS 25,000 UNIT/250 ML IV.SOLN IVC SCH (14:36)
[2022-01-27] MEDS ORDERED: *HR* Midazolam HCl 2 MG/2 ML VIAL ONE (14:50)
[2022-01-27] MEDS ORDERED: *HR* FentaNYL (PF) 100 MCG/2 ML VIAL ONE (14:50)
[2022-01-27] MEDS: NIFEdipine XL (24 HR) 30 MG TAB.ER.24 PO SCH (17:59)
[2022-01-27] MEDS ORDERED: Furosemide 40 MG/4 ML VIAL IVP STA (18:38)
[2022-01-27] MEDS ORDERED: Furosemide 40 MG/4 ML VIAL ONE ×2 (18:40)
[2022-01-27 18:45] LABS: ABG Base Excess -4 mEq/L (-2 to 3); ABG HCO3 25 mEq/L (21-27); ABG Oxygen Saturation 93 % (95-98); ABG PCO2 59 mmHg (35-45); ABG PH 7.24 pH Units (7.32-7.45); ABG PO2 78 mmHg (85-104); ABG TCO2 27 mEq/L (20-26); Blood Gas Modality avaps; Blood Gas Pressure Support 15 cm H2O; Blood Gas VT 550 cc
[2022-01-27 19:56] LABS: ABG Base Excess -1 mEq/L (-2 to 3); ABG HCO3 26 mEq/L (21-27); ABG Oxygen Saturation 96 % (95-98); ABG PCO2 46 mmHg (35-45); ABG PH 7.35 pH Units (7.32-7.45); ABG PO2 84 mmHg (85-104); ABG TCO2 27 mEq/L (20-26); Blood Gas Modality AVAPS; Blood Gas VT 550 cc
[2022-01-27] MEDS ORDERED: *HR* LORazepam 2 MG/ML VIAL IVP ONE (20:38)
[2022-01-27] MEDS: Budesonide/Formoterol 160/4.5 1 PUFF INH IH SCH (20:55)
[2022-01-27] MEDS: Isosorbide MONOnitrate (24 HR) 30 MG TAB.ER.24H PO SCH (21:02)
[2022-01-28 02:49] LABS: INR 1.7; Prothrombin Time 18.7 Seconds (9.4-12.1)
[2022-01-28] MEDS: Budesonide/Formoterol 160/4.5 1 PUFF INH IH SCH ×2 (08:02→20:16)
[2022-01-28] MEDS: NIFEdipine XL (24 HR) 30 MG TAB.ER.24 PO SCH (08:04)
[2022-01-28] MEDS: Sennosides/Docusate Sodium TABLET PO SCH (08:05)
[2022-01-28] MEDS: Isosorbide MONOnitrate (24 HR) 30 MG TAB.ER.24H PO SCH ×2 (08:05→21:13)
[2022-01-28] MEDS: Insulin DETEMIR 100 UNIT/ML X5UNITS SUBQ SCH ×2 (08:05→21:15)
[2022-01-28] MEDS: Insulin LISPRO 300 UNITS/3 ML VIAL SUBQ SCH ×4 (08:06→21:17)
[2022-01-28] MEDS ORDERED: NIFEdipine XL (24 HR) 30 MG TAB.ER.24 PO SCH (09:00)
[2022-01-28] MEDS ORDERED: Furosemide 40 MG/4 ML VIAL IVP SCH (09:00)
[2022-01-28 10:04] LABS: Basophils % 0.1 %; Hematocrit 36.2 % (37.5-50.1); Hemoglobin 11.7 g/dL (12.9-16.9); Immature Granulocytes % 0.9 % (0-4); Lymphocytes # 0.8 K/mcL (0.6-4.6); Mean Corpuscular HGB Conc 32.3 g/dL (31.6-35.5); Mean Corpuscular Hemoglobin 30.7 pg (28.0-33.3); Mean Platelet Volume 9.6 fL (9.4-12.4); Monocytes # 1.2 K/mcL (0.0-1.3); Monocytes % 9.4 %; Neutrophils # 10.8 K/mcL (1.6-8.9); Platelet Count 202 K/mcL (140-400); Red Blood Count 3.81 M/mcL (4.19-5.50); Segmented Neutrophils % 83.6 %; White Blood Count 12.9 K/mcL (4.3-11.1)
[2022-01-28 10:20] LABS: Calcium 7.9 mg/dL (8.6-10.3); Potassium 5.3 mEq/L (3.5-5.1)
[2022-01-28] MEDS: *HR* Heparin 5,000 UNIT/ML VIAL IVP PRN (10:57)
[2022-01-28] MEDS: Aspirin Enteric Coated 81 MG Tablet PO SCH (14:28)
[2022-01-28] MEDS ORDERED: Furosemide 40 MG/4 ML VIAL IVP ONE (14:30)
[2022-01-28] MEDS: Furosemide 40 MG/4 ML VIAL IVP SCH (16:47)
[2022-01-28] MEDS: Albumin 25% 25gram/100mL 25 GM/100 ML IV.SOLN IVPB SCH (16:57)
[2022-01-28] MEDS: *HR* Acetylcysteine 20% 600 MG/3 ML ORAL SYRINGE PO SCH (18:15)
[2022-01-28] MEDS ORDERED: Morphine Sulfate 2 MG/ML SYRINGE IVP ONE (18:35)
[2022-01-28] MEDS ORDERED: Morphine Sulfate 2 MG/ML SYRINGE SQ ONE (20:37)
[2022-01-28] MEDS ORDERED: *HR* Metoprolol 5 MG/5 ML VIAL IVP ONE (20:53)
[2022-01-29] MEDS: Albumin 25% 25gram/100mL 25 GM/100 ML IV.SOLN IVPB SCH ×3 (00:30→14:15)
[2022-01-29] MEDS: Furosemide 40 MG/4 ML VIAL IVP SCH ×3 (00:32→16:12)
[2022-01-29 05:28] LABS: Basophils % 0.1 %; Hematocrit 32.7 % (37.5-50.1); Hemoglobin 10.8 g/dL (12.9-16.9); Immature Granulocytes % 0.9 % (0-4); Lymphocytes # 1.2 K/mcL (0.6-4.6); Lymphocytes % 10.7 %; Mean Corpuscular Hemoglobin 30.9 pg (28.0-33.3); Mean Corpuscular Volume 93.7 fL (83.0-100.0); Mean Platelet Volume 9.7 fL (9.4-12.4); Monocytes # 1.2 K/mcL (0.0-1.3); Neutrophils # 8.6 K/mcL (1.6-8.9); Platelet Count 171 K/mcL (140-400); Red Blood Count 3.49 M/mcL (4.19-5.50); Red Cell Distribution Width 13.9 % (11.5-14.5); Segmented Neutrophils % 77.3 %; White Blood Count 11.2 K/mcL (4.3-11.1)
[2022-01-29 05:37] LABS: INR 1.6; Prothrombin Time 18.3 Seconds (9.4-12.1)
[2022-01-29 05:44] LABS: Calcium 8.3 mg/dL (8.6-10.3); Potassium 4.8 mEq/L (3.5-5.1)
[2022-01-29] MEDS: Budesonide/Formoterol 160/4.5 1 PUFF INH IH SCH ×2 (07:18→22:11)
[2022-01-29] MEDS: Aspirin Enteric Coated 81 MG Tablet PO SCH (08:14)
[2022-01-29] MEDS: Sennosides/Docusate Sodium TABLET PO SCH (08:14)
[2022-01-29] MEDS: NIFEdipine XL (24 HR) 30 MG TAB.ER.24 PO SCH (08:15)
[2022-01-29] MEDS: Isosorbide MONOnitrate (24 HR) 30 MG TAB.ER.24H PO SCH ×2 (08:19→20:36)
[2022-01-29] MEDS: Insulin LISPRO 300 UNITS/3 ML VIAL SUBQ SCH ×4 (08:21→21:04)
[2022-01-29] MEDS: Insulin DETEMIR 100 UNIT/ML X5UNITS SUBQ SCH ×2 (08:36→22:19)
[2022-01-29] MEDS: Heparin 25,000UNIT/250ML 1/2NS 25,000 UNIT/250 ML IV.SOLN IVC SCH ×3 (09:59→19:01)
[2022-01-29 10:36] LABS: Rheumatoid Factor 13 IU/mL (Less than 14)
[2022-01-29 10:37] LABS: Complement C3 140 mg/dL (87-200)
[2022-01-29 11:37] LABS: Hepatitis B Surface Antigen Nonreactive (Nonreactive)
[2022-01-29 12:06] LABS: Hepatitis C Virus Antibody Nonreactive (Nonreactive)
[2022-01-29 12:07] LABS: Hepatitis A Antibody IgM Nonreactive (Nonreactive); Hepatitis B Core IgM Nonreactive (Nonreactive)
[2022-01-29 12:32] LABS: ABG Base Excess 0 mEq/L (-2 to 3); ABG HCO3 26 mEq/L (21-27); ABG Oxygen Saturation 96 % (95-98); ABG PCO2 48 mmHg (35-45); ABG PH 7.35 pH Units (7.32-7.45); ABG PO2 88 mmHg (85-104); ABG TCO2 28 mEq/L (20-26)
[2022-01-29] MEDS: Cefepime HCl 2,000 MG in 0.9 % Sodium Chloride 10 ML IVP SCH (15:15)
[2022-01-29] MEDS ORDERED: *HR* LORazepam 2 MG/ML VIAL IVP ONE (15:25)
[2022-01-29] MEDS ORDERED: *HR* Succinylcholine 200 MG/10 ML VIAL IVP ONE (15:25)
[2022-01-29] MEDS ORDERED: *HR* Propofol 200 MG/20 ML VIAL IVP ONE (15:25)
[2022-01-29] MEDS: Pantoprazole 40 MG VIAL IVP SCH (16:12)
[2022-01-29] MEDS ORDERED: *HR* Metoprolol 5 MG/5 ML VIAL IVP ONE (17:51)
[2022-01-29] MEDS: *HR* Metoprolol 5 MG/5 ML VIAL IVP PRN (17:56)
[2022-01-29] MEDS ORDERED: Dexmedetomidine HCl 400 MCG/100 ML MLS IVC ONE (18:23)
[2022-01-29] MEDS: *HR* Acetylcysteine 20% 600 MG/3 ML ORAL SYRINGE PO SCH (18:40)
[2022-01-29] MEDS: Doxycycline 100 MG in 0.9 % Sodium Chloride Mini Bag 100 ML IVPB SCH (19:01)
[2022-01-29] MEDS: Dexmedetomidine HCl 400 MCG/100 ML MLS IVC SCH (19:01)
[2022-01-29] MEDS ORDERED: *HR* Norepinephrine 4 MG/4 ML VIAL IVC ONE (19:47)
[2022-01-29] MEDS ORDERED: 0.9 % Sodium Chloride 250 ML ONE (19:47)
[2022-01-29] MEDS: FentaNYL (PF) 1,000 MCG/100 ML IV.SOLN IVC SCH (20:24)
[2022-01-29] MEDS ORDERED: Artificial Tears SOLN 15 ML BOTTLE BOTH EYES PRN (20:38)
[2022-01-29 20:42] LABS: ABG Base Excess 0 mEq/L (-2 to 3); ABG HCO3 27 mEq/L (21-27); ABG Oxygen Saturation 93 % (95-98); ABG PCO2 59 mmHg (35-45); ABG PH 7.28 pH Units (7.32-7.45); ABG PO2 77 mmHg (85-104); ABG TCO2 29 mEq/L (20-26); Blood Gas Modality AF; Blood Gas VT 500 cc
[2022-01-29] MEDS ORDERED: Furosemide 40 MG/4 ML VIAL IVP ONE (20:43)
[2022-01-29] MEDS: *HR* Midazolam HCl 2 MG/2 ML VIAL IV ONE (21:01)
[2022-01-29] MEDS: Midazolam HCl 50 MG/50 ML IV.SOLN IVC SCH (21:03)
[2022-01-29] MEDS: Chlorhexidine Rinse 15 ML MOUTHWASH MM SCH (21:04)
[2022-01-29 22:11] LABS: ABG Base Excess 1 mEq/L (-2 to 3); ABG HCO3 29 mEq/L (21-27); ABG Oxygen Saturation 95 % (95-98); ABG PCO2 63 mmHg (35-45); ABG PH 7.27 pH Units (7.32-7.45); ABG PO2 88 mmHg (85-104); ABG TCO2 31 mEq/L (20-26); Blood Gas Modality AF; Blood Gas VT 500 cc
[2022-01-29] MEDS: Cisatracurium 200 MG in 0.9 % Sodium Chloride 80 ML IVC SCH (22:19)
[2022-01-30] MEDS: Dexmedetomidine HCl 400 MCG/100 ML MLS IVC SCH ×5 (00:02→21:17)
[2022-01-30] MEDS: Artificial Tears SOLN 15 ML BOTTLE BOTH EYES SCH ×7 (00:03→23:45)
[2022-01-30] MEDS: Albumin 25% 25gram/100mL 25 GM/100 ML IV.SOLN IVPB SCH ×4 (00:04→23:45)
[2022-01-30] MEDS: Furosemide 40 MG/4 ML VIAL IVP SCH ×4 (00:05→23:45)
[2022-01-30] MEDS: *HR* Midazolam HCl 2 MG/2 ML VIAL IV ONE (00:40)
[2022-01-30 00:41] LABS: ABG Base Excess 0 mEq/L (-2 to 3); ABG HCO3 28 mEq/L (21-27); ABG Oxygen Saturation 97 % (95-98); ABG PCO2 62 mmHg (35-45); ABG PH 7.26 pH Units (7.32-7.45); ABG PO2 108 mmHg (85-104); ABG TCO2 30 mEq/L (20-26); Blood Gas VT 400 cc
[2022-01-30] MEDS ORDERED: Bumetanide 1 MG/4 ML VIAL IVP ONE (01:33)
[2022-01-30] MEDS: Cefepime HCl 2,000 MG in 0.9 % Sodium Chloride 10 ML IVP SCH ×2 (02:12→15:52)
[2022-01-30 03:46] LABS: ABG Base Excess 0 mEq/L (-2 to 3); ABG HCO3 27 mEq/L (21-27); ABG Oxygen Saturation 99 % (95-98); ABG PCO2 60 mmHg (35-45); ABG PH 7.27 pH Units (7.32-7.45); ABG PO2 151 mmHg (85-104); ABG TCO2 29 mEq/L (20-26); Blood Gas VT 400 cc
[2022-01-30 04:20] LABS: Hematocrit 29.2 % (37.5-50.1); Hemoglobin 9.5 g/dL (12.9-16.9); Immature Granulocytes % 1.1 % (0-4); Lymphocytes # 0.8 K/mcL (0.6-4.6); Lymphocytes % 12.4 %; Mean Corpuscular HGB Conc 32.5 g/dL (31.6-35.5); Mean Corpuscular Hemoglobin 30.9 pg (28.0-33.3); Mean Corpuscular Volume 95.1 fL (83.0-100.0); Mean Platelet Volume 9.8 fL (9.4-12.4); Monocytes # 0.7 K/mcL (0.0-1.3); Platelet Count 130 K/mcL (140-400); Red Blood Count 3.07 M/mcL (4.19-5.50); Red Cell Distribution Width 13.6 % (11.5-14.5); Segmented Neutrophils % 75.5 %; White Blood Count 6.6 K/mcL (4.3-11.1)
[2022-01-30 04:31] LABS: Heparin anti-factor XA UFH 0.45 IU/mL (0.30-0.70)
[2022-01-30 04:32] LABS: INR 1.4; Prothrombin Time 16.1 Seconds (9.4-12.1)
[2022-01-30 04:39] LABS: Calcium 8.1 mg/dL (8.6-10.3)
[2022-01-30] MEDS: Heparin 25,000UNIT/250ML 1/2NS 25,000 UNIT/250 ML IV.SOLN IVC SCH ×2 (04:46→20:54)
[2022-01-30] MEDS: Doxycycline 100 MG in 0.9 % Sodium Chloride Mini Bag 100 ML IVPB SCH ×2 (04:46→16:50)
[2022-01-30] MEDS: Budesonide/Formoterol 160/4.5 1 PUFF INH IH SCH ×2 (08:12→19:47)
[2022-01-30] MEDS: Insulin DETEMIR 100 UNIT/ML X5UNITS SUBQ SCH ×2 (08:19→20:54)
[2022-01-30] MEDS: Chlorhexidine Rinse 15 ML MOUTHWASH MM SCH ×2 (08:20→20:54)
[2022-01-30] MEDS: Pantoprazole 40 MG VIAL IVP SCH (08:20)
[2022-01-30] MEDS: Isosorbide MONOnitrate (24 HR) 30 MG TAB.ER.24H PO SCH ×2 (08:21→20:54)
[2022-01-30] MEDS: Sennosides/Docusate Sodium TABLET PO SCH (08:21)
[2022-01-30] MEDS: Aspirin Enteric Coated 81 MG Tablet PO SCH (08:21)
[2022-01-30] MEDS: NIFEdipine XL (24 HR) 30 MG TAB.ER.24 PO SCH (08:21)
[2022-01-30] MEDS ORDERED: Insulin LISPRO 300 UNITS/3 ML VIAL SUBQ SCH (12:00)
[2022-01-30 13:46] LABS: Protein/Creatinine Ratio,Urine 0.77 mg/mg (0.00-0.20); Sodium, Urine 44.8 mEq/L
[2022-01-30 16:06] LABS: ABG Base Excess 1 mEq/L (-2 to 3); ABG HCO3 28 mEq/L (21-27); ABG Oxygen Saturation 99 % (95-98); ABG PCO2 60 mmHg (35-45); ABG PH 7.28 pH Units (7.32-7.45); ABG PO2 152 mmHg (85-104); ABG TCO2 30 mEq/L (20-26); Blood Gas Modality ASSIST CONTROL; Blood Gas VT 400 cc
[2022-01-30] MEDS: Midazolam HCl 50 MG/50 ML IV.SOLN IVC SCH (16:46)
[2022-01-30] MEDS: Insulin LISPRO 300 UNITS/3 ML VIAL SUBQ SCH ×3 (16:47→18:44)
[2022-01-30] MEDS: FentaNYL (PF) 1,000 MCG/100 ML IV.SOLN IVC SCH (16:48)
[2022-01-30] MEDS: Cisatracurium 200 MG in 0.9 % Sodium Chloride 80 ML IVC SCH (21:16)
[2022-01-31] MEDS: Cefepime HCl 2,000 MG in 0.9 % Sodium Chloride 10 ML IVP SCH ×2 (02:12→13:14)
[2022-01-31] MEDS: Artificial Tears SOLN 15 ML BOTTLE BOTH EYES SCH ×5 (03:24→20:31)
[2022-01-31 03:49] LABS: Basophils % 0.3 %; Eosinophils % 0.3 %; Hematocrit 29.9 % (37.5-50.1); Hemoglobin 9.6 g/dL (12.9-16.9); Immature Granulocytes % 2.6 % (0-4); Lymphocytes % 14.7 %; Mean Corpuscular HGB Conc 32.1 g/dL (31.6-35.5); Mean Corpuscular Hemoglobin 30.6 pg (28.0-33.3); Mean Corpuscular Volume 95.2 fL (83.0-100.0); Mean Platelet Volume 10.2 fL (9.4-12.4); Monocytes # 0.6 K/mcL (0.0-1.3); Neutrophils # 4.8 K/mcL (1.6-8.9); Platelet Count 144 K/mcL (140-400); Red Blood Count 3.14 M/mcL (4.19-5.50); Red Cell Distribution Width 13.8 % (11.5-14.5); Segmented Neutrophils % 73.1 %; White Blood Count 6.5 K/mcL (4.3-11.1)
[2022-01-31 03:50] LABS: Calcium 8.5 mg/dL (8.6-10.3); Magnesium 2.3 mg/dL (1.6-2.6); Phosphorous 5.2 mg/dL (2.7-4.5); Potassium 4.5 mEq/L (3.5-5.1)
[2022-01-31 03:52] LABS: Heparin anti-factor XA UFH 0.31 IU/mL (0.30-0.70); INR 1.2; Prothrombin Time 13.8 Seconds (9.4-12.1)
[2022-01-31 04:47] LABS: ABG Base Excess 1 mEq/L (-2 to 3); ABG HCO3 28 mEq/L (21-27); ABG Oxygen Saturation 99 % (95-98); ABG PCO2 55 mmHg (35-45); ABG PH 7.31 pH Units (7.32-7.45); ABG PO2 154 mmHg (85-104); ABG TCO2 29 mEq/L (20-26); Blood Gas Modality ASSIST CONTROL; Blood Gas VT 400 cc
[2022-01-31] MEDS: Dexmedetomidine HCl 400 MCG/100 ML MLS IVC SCH ×3 (05:16→13:30)
[2022-01-31] MEDS: Doxycycline 100 MG in 0.9 % Sodium Chloride Mini Bag 100 ML IVPB SCH ×2 (05:31→18:02)
[2022-01-31] MEDS: Insulin LISPRO 300 UNITS/3 ML VIAL SUBQ SCH ×3 (05:50→18:03)
[2022-01-31] MEDS: FentaNYL (PF) 1,000 MCG/100 ML IV.SOLN IVC SCH ×5 (07:43→23:35)
[2022-01-31] MEDS: Budesonide/Formoterol 160/4.5 1 PUFF INH IH SCH (07:48)
[2022-01-31] MEDS: NIFEdipine XL (24 HR) 30 MG TAB.ER.24 PO SCH (08:16)
[2022-01-31] MEDS: Isosorbide MONOnitrate (24 HR) 30 MG TAB.ER.24H PO SCH ×2 (08:17→20:37)
[2022-01-31] MEDS: Albumin 25% 25gram/100mL 25 GM/100 ML IV.SOLN IVPB SCH ×2 (08:25→15:56)
[2022-01-31] MEDS: Sennosides/Docusate Sodium TABLET PO SCH (08:49)
[2022-01-31] MEDS: Chlorhexidine Rinse 15 ML MOUTHWASH MM SCH ×2 (08:50→20:37)
[2022-01-31] MEDS: Pantoprazole 40 MG VIAL IVP SCH (08:50)
[2022-01-31] MEDS: Furosemide 40 MG/4 ML VIAL IVP SCH ×2 (08:50→16:15)
[2022-01-31] MEDS: Insulin DETEMIR 100 UNIT/ML X5UNITS SUBQ SCH ×2 (08:51→20:38)
[2022-01-31] MEDS: Aspirin Enteric Coated 81 MG Tablet PO SCH (08:51)
[2022-01-31] MEDS: Heparin 25,000UNIT/250ML 1/2NS 25,000 UNIT/250 ML IV.SOLN IVC SCH ×2 (10:11→16:15)
[2022-01-31 10:25] LABS: ANA IgG by ELISA NONE DETECTED (None Detected)
[2022-01-31 10:25] LABS: Lambda Qnt Free Light Chains 15.78 mg/L (5.71-26.30)
[2022-01-31] MEDS: Docusate Oral Soln 100 MG/10 ML UDC GTUBE SCH (20:37)
[2022-02-01] MEDS: Artificial Tears SOLN 15 ML BOTTLE BOTH EYES SCH ×7 (00:29→23:54)
[2022-02-01] MEDS: Insulin LISPRO 300 UNITS/3 ML VIAL SUBQ SCH ×6 (00:29→23:55)
[2022-02-01] MEDS: Furosemide 40 MG/4 ML VIAL IVP SCH ×4 (00:31→23:54)
[2022-02-01 04:01] LABS: ABG Base Excess 1 mEq/L (-2 to 3); ABG HCO3 29 mEq/L (21-27); ABG Oxygen Saturation 94 % (95-98); ABG PCO2 61 mmHg (35-45); ABG PH 7.28 pH Units (7.32-7.45); ABG PO2 80 mmHg (85-104); ABG TCO2 31 mEq/L (20-26); Blood Gas VT 400 cc
[2022-02-01] MEDS: Cefepime HCl 2,000 MG in 0.9 % Sodium Chloride 10 ML IVP SCH ×2 (04:21→15:37)
[2022-02-01 04:25] LABS: Basophils % 0.3 %; Eosinophils # 0.1 K/mcL (0.0-0.6); Eosinophils % 1.1 %; Hematocrit 29.7 % (37.5-50.1); Hemoglobin 9.6 g/dL (12.9-16.9); Immature Granulocytes % 2.6 % (0-4); Lymphocytes # 1.3 K/mcL (0.6-4.6); Lymphocytes % 20.4 %; Mean Corpuscular HGB Conc 32.3 g/dL (31.6-35.5); Mean Corpuscular Volume 95.8 fL (83.0-100.0); Mean Platelet Volume 10.2 fL (9.4-12.4); Monocytes # 0.7 K/mcL (0.0-1.3); Monocytes % 10.3 %; Neutrophils # 4.2 K/mcL (1.6-8.9); Platelet Count 136 K/mcL (140-400); Red Cell Distribution Width 13.8 % (11.5-14.5); Segmented Neutrophils % 65.3 %; White Blood Count 6.4 K/mcL (4.3-11.1)
[2022-02-01 04:29] LABS: VBG Ionized Calcium 1.11 mmol/L (1.15-1.35)
[2022-02-01 04:42] LABS: Calcium 8.5 mg/dL (8.6-10.3); Potassium 4.9 mEq/L (3.5-5.1)
[2022-02-01] MEDS: FentaNYL (PF) 1,000 MCG/100 ML IV.SOLN IVC SCH ×4 (05:15→22:30)
[2022-02-01 05:16] LABS: ABG Base Excess 1 mEq/L (-2 to 3); ABG HCO3 29 mEq/L (21-27); ABG Oxygen Saturation 86 % (95-98); ABG PCO2 63 mmHg (35-45); ABG PH 7.28 pH Units (7.32-7.45); ABG PO2 59 mmHg (85-104); ABG TCO2 31 mEq/L (20-26); Blood Gas VT 400 cc
[2022-02-01] MEDS: Doxycycline 100 MG in 0.9 % Sodium Chloride Mini Bag 100 ML IVPB SCH ×2 (05:52→17:07)
[2022-02-01] MEDS: Cisatracurium 200 MG in 0.9 % Sodium Chloride 80 ML IVC SCH ×3 (05:53→21:23)
[2022-02-01] MEDS: *HR* Heparin 5,000 UNIT/ML VIAL IVP PRN ×2 (06:14→15:37)
[2022-02-01] MEDS: Docusate Oral Soln 100 MG/10 ML UDC GTUBE SCH ×2 (07:35→20:08)
[2022-02-01] MEDS: Sennosides/Docusate Sodium TABLET PO SCH (07:35)
[2022-02-01] MEDS: Pantoprazole 40 MG VIAL IVP SCH (07:35)
[2022-02-01] MEDS: Chlorhexidine Rinse 15 ML MOUTHWASH MM SCH ×2 (07:36→20:06)
[2022-02-01] MEDS: Aspirin Enteric Coated 81 MG Tablet PO SCH (07:36)
[2022-02-01] MEDS: Isosorbide MONOnitrate (24 HR) 30 MG TAB.ER.24H PO SCH ×2 (07:37→20:08)
[2022-02-01] MEDS: NIFEdipine XL (24 HR) 30 MG TAB.ER.24 PO SCH (07:37)
[2022-02-01] MEDS: Dexmedetomidine HCl 400 MCG/100 ML MLS IVC SCH ×4 (07:37→11:29)
[2022-02-01] MEDS: Insulin DETEMIR 100 UNIT/ML X5UNITS SUBQ SCH ×2 (07:40→20:08)
[2022-02-01 07:53] LABS: ABG Base Excess 1 mEq/L (-2 to 3); ABG HCO3 29 mEq/L (21-27); ABG Oxygen Saturation 98 % (95-98); ABG PCO2 62 mmHg (35-45); ABG PH 7.27 pH Units (7.32-7.45); ABG PO2 122 mmHg (85-104); ABG TCO2 31 mEq/L (20-26); Blood Gas VT 400 cc
[2022-02-01] MEDS: Midazolam HCl 50 MG/50 ML IV.SOLN IVC SCH (08:11)
[2022-02-01] MEDS: Heparin 25,000UNIT/250ML 1/2NS 25,000 UNIT/250 ML IV.SOLN IVC SCH ×2 (08:12→11:28)
[2022-02-01 08:45] LABS: Alpha 2 Globulin (PEP) 1.06 g/dL (0.48-1.05)
[2022-02-01 09:20] LABS: IFE Reflexed NOT DONE
[2022-02-01 23:25] LABS: ABG Base Excess 1 mEq/L (-2 to 3); ABG HCO3 28 mEq/L (21-27); ABG Oxygen Saturation 98 % (95-98); ABG PCO2 59 mmHg (35-45); ABG PH 7.29 pH Units (7.32-7.45); ABG PO2 112 mmHg (85-104); ABG TCO2 30 mEq/L (20-26); Blood Gas Modality ASSIST CONTROL; Blood Gas VT 400 cc
[2022-02-02] MEDS: Cefepime HCl 2,000 MG in 0.9 % Sodium Chloride 10 ML IVP SCH ×2 (03:11→15:40)
[2022-02-02] MEDS: FentaNYL (PF) 1,000 MCG/100 ML IV.SOLN IVC SCH ×4 (03:30→20:38)
[2022-02-02] MEDS: Midazolam HCl 50 MG/50 ML IV.SOLN IVC SCH ×2 (03:30→21:50)
[2022-02-02 04:35] LABS: ABG Base Excess 0 mEq/L (-2 to 3); ABG HCO3 27 mEq/L (21-27); ABG Oxygen Saturation 91 % (95-98); ABG PCO2 56 mmHg (35-45); ABG PH 7.29 pH Units (7.32-7.45); ABG PO2 69 mmHg (85-104); ABG TCO2 29 mEq/L (20-26); Blood Gas Modality ASSIST CONTROL; Blood Gas VT 400 cc
[2022-02-02] MEDS: Insulin LISPRO 300 UNITS/3 ML VIAL SUBQ SCH ×6 (04:36→23:58)
[2022-02-02] MEDS: Artificial Tears SOLN 15 ML BOTTLE BOTH EYES SCH ×6 (04:36→23:58)
[2022-02-02 04:56] LABS: Basophils % 0.4 %; Eosinophils # 0.3 K/mcL (0.0-0.6); Eosinophils % 3.7 %; Hematocrit 29.2 % (37.5-50.1); Hemoglobin 9.4 g/dL (12.9-16.9); Immature Granulocytes % 3.7 % (0-4); Lymphocytes # 1.2 K/mcL (0.6-4.6); Lymphocytes % 13.7 %; Mean Corpuscular HGB Conc 32.2 g/dL (31.6-35.5); Mean Corpuscular Hemoglobin 30.6 pg (28.0-33.3); Mean Corpuscular Volume 95.1 fL (83.0-100.0); Mean Platelet Volume 10.5 fL (9.4-12.4); Monocytes # 0.9 K/mcL (0.0-1.3); Monocytes % 10.3 %; Neutrophils # 5.8 K/mcL (1.6-8.9); Platelet Count 140 K/mcL (140-400); Red Blood Count 3.07 M/mcL (4.19-5.50); Red Cell Distribution Width 14.2 % (11.5-14.5); Segmented Neutrophils % 68.2 %; White Blood Count 8.5 K/mcL (4.3-11.1)
[2022-02-02 04:59] LABS: VBG Ionized Calcium 1.15 mmol/L (1.15-1.35)
[2022-02-02 05:15] LABS: Calcium 8.4 mg/dL (8.6-10.3); Magnesium 2.4 mg/dL (1.6-2.6); Phosphorous 5.9 mg/dL (2.7-4.5); Potassium 5.1 mEq/L (3.5-5.1)
[2022-02-02] MEDS: Doxycycline 100 MG in 0.9 % Sodium Chloride Mini Bag 100 ML IVPB SCH ×2 (05:23→17:21)
[2022-02-02] MEDS: Cisatracurium 200 MG in 0.9 % Sodium Chloride 80 ML IVC SCH ×3 (05:57→21:50)
[2022-02-02] MEDS: Heparin 25,000UNIT/250ML 1/2NS 25,000 UNIT/250 ML IV.SOLN IVC SCH ×2 (05:59→20:52)
[2022-02-02] MEDS: Dexmedetomidine HCl 400 MCG/100 ML MLS IVC SCH ×4 (07:17→23:44)
[2022-02-02] MEDS: Chlorhexidine Rinse 15 ML MOUTHWASH MM SCH ×2 (07:18→20:55)
[2022-02-02] MEDS: Docusate Oral Soln 100 MG/10 ML UDC GTUBE SCH ×2 (07:18→20:55)
[2022-02-02] MEDS: Sennosides/Docusate Sodium TABLET PO SCH (07:18)
[2022-02-02] MEDS: Pantoprazole 40 MG VIAL IVP SCH (07:19)
[2022-02-02] MEDS: Furosemide 40 MG/4 ML VIAL IVP SCH ×2 (07:19→08:36)
[2022-02-02] MEDS: Aspirin Enteric Coated 81 MG Tablet PO SCH (07:19)
[2022-02-02] MEDS: Isosorbide MONOnitrate (24 HR) 30 MG TAB.ER.24H PO SCH ×2 (07:19→20:55)
[2022-02-02] MEDS: NIFEdipine XL (24 HR) 30 MG TAB.ER.24 PO SCH (07:20)
[2022-02-02] MEDS: Insulin DETEMIR 100 UNIT/ML X5UNITS SUBQ SCH ×2 (07:21→20:51)
[2022-02-02 08:15] LABS: ANCA IFA Titer <1:20 (<1:20)
[2022-02-02 10:56] LABS: ANCA IFA Pattern NONE DETECTED (None Detected); Serine Protease-3 Antibody 2 AU/mL (0-19)
[2022-02-02 11:24] LABS: Chol/HDL Ratio 3.2 (0-4.9)
[2022-02-02] MEDS ORDERED: Insulin DETEMIR 100 UNIT/ML X5UNITS SUBQ ONE (11:36)
[2022-02-03] MEDS: FentaNYL (PF) 1,000 MCG/100 ML IV.SOLN IVC SCH ×4 (01:50→19:15)
[2022-02-03] MEDS: Heparin 25,000UNIT/250ML 1/2NS 25,000 UNIT/250 ML IV.SOLN IVC SCH ×2 (03:17→14:40)
[2022-02-03] MEDS: Cefepime HCl 2,000 MG in 0.9 % Sodium Chloride 10 ML IVP SCH ×2 (03:37→15:34)
[2022-02-03] MEDS: Insulin LISPRO 300 UNITS/3 ML VIAL SUBQ SCH ×6 (03:58→23:36)
[2022-02-03] MEDS: Artificial Tears SOLN 15 ML BOTTLE BOTH EYES SCH ×6 (03:58→23:38)
[2022-02-03] MEDS: Dexmedetomidine HCl 400 MCG/100 ML MLS IVC SCH ×4 (04:11→23:33)
[2022-02-03 04:23] LABS: ABG Base Excess 0 mEq/L (-2 to 3); ABG HCO3 26 mEq/L (21-27); ABG Oxygen Saturation 89 % (95-98); ABG PCO2 49 mmHg (35-45); ABG PH 7.34 pH Units (7.32-7.45); ABG PO2 61 mmHg (85-104); ABG TCO2 28 mEq/L (20-26); Blood Gas Modality ASSIST CONTROL; Blood Gas VT 400 cc
[2022-02-03 04:50] LABS: Calcium 8.6 mg/dL (8.6-10.3); Potassium 5.1 mEq/L (3.5-5.1)
[2022-02-03 04:58] LABS: Basophils # 0.1 K/mcL (0.0-0.2); Basophils % 0.6 %; Eosinophils # 0.3 K/mcL (0.0-0.6); Eosinophils % 2.9 %; Hematocrit 30.9 % (37.5-50.1); Hemoglobin 10.1 g/dL (12.9-16.9); Immature Granulocytes % 5.1 % (0-4); Lymphocytes # 1.3 K/mcL (0.6-4.6); Mean Corpuscular HGB Conc 32.7 g/dL (31.6-35.5); Mean Corpuscular Hemoglobin 30.4 pg (28.0-33.3); Mean Corpuscular Volume 93.1 fL (83.0-100.0); Mean Platelet Volume 10.8 fL (9.4-12.4); Monocytes # 0.9 K/mcL (0.0-1.3); Monocytes % 9.4 %; Platelet Count 157 K/mcL (140-400); Red Blood Count 3.32 M/mcL (4.19-5.50); Red Cell Distribution Width 14.6 % (11.5-14.5); White Blood Count 9.8 K/mcL (4.3-11.1)
[2022-02-03 05:08] LABS: Neutrophils # 6.8 K/mcL (1.6-8.9)
[2022-02-03] MEDS: Doxycycline 100 MG in 0.9 % Sodium Chloride Mini Bag 100 ML IVPB SCH ×2 (05:33→18:46)
[2022-02-03 05:49] LABS: Platelet Estimate Normal (Normal)
[2022-02-03] MEDS: Pantoprazole 40 MG VIAL IVP SCH (08:24)
[2022-02-03] MEDS: Chlorhexidine Rinse 15 ML MOUTHWASH MM SCH ×2 (08:24→20:39)
[2022-02-03] MEDS: NIFEdipine XL (24 HR) 30 MG TAB.ER.24 PO SCH (08:27)
[2022-02-03] MEDS: Isosorbide MONOnitrate (24 HR) 30 MG TAB.ER.24H PO SCH (08:27)
[2022-02-03] MEDS: Docusate Oral Soln 100 MG/10 ML UDC GTUBE SCH ×2 (08:35→20:39)
[2022-02-03] MEDS: Furosemide 40 MG/4 ML VIAL IVP SCH (08:35)
[2022-02-03] MEDS: Aspirin Enteric Coated 81 MG Tablet PO SCH (08:36)
[2022-02-03] MEDS: Sennosides/Docusate Sodium TABLET PO SCH (08:36)
[2022-02-03] MEDS: Insulin DETEMIR 100 UNIT/ML X5UNITS SUBQ SCH ×2 (08:36→20:39)
[2022-02-03] MEDS: Cisatracurium 200 MG in 0.9 % Sodium Chloride 80 ML IVC SCH (10:03)
[2022-02-03] MEDS: Aspirin 81 MG TAB.CHEW PO SCH (12:54)
[2022-02-04] MEDS: FentaNYL (PF) 1,000 MCG/100 ML IV.SOLN IVC SCH ×5 (01:40→21:48)
[2022-02-04] MEDS: Midazolam HCl 50 MG/50 ML IV.SOLN IVC SCH ×2 (03:47→17:00)
[2022-02-04 03:51] LABS: ABG Base Excess -2 mEq/L (-2 to 3); ABG HCO3 25 mEq/L (21-27); ABG Oxygen Saturation 81 % (95-98); ABG PCO2 51 mmHg (35-45); ABG PH 7.31 pH Units (7.32-7.45); ABG PO2 51 mmHg (85-104); ABG TCO2 27 mEq/L (20-26); Blood Gas Modality ASSIST CONTROL; Blood Gas VT 400 cc
[2022-02-04] MEDS: Cefepime HCl 2,000 MG in 0.9 % Sodium Chloride 10 ML IVP SCH ×2 (04:00→15:42)
[2022-02-04] MEDS: Insulin LISPRO 300 UNITS/3 ML VIAL SUBQ SCH ×6 (04:26→23:33)
[2022-02-04] MEDS: Artificial Tears SOLN 15 ML BOTTLE BOTH EYES SCH ×6 (04:26→23:32)
[2022-02-04 04:51] LABS: Hematocrit 29.8 % (37.5-50.1); Hemoglobin 9.8 g/dL (12.9-16.9); Mean Corpuscular HGB Conc 32.9 g/dL (31.6-35.5); Mean Corpuscular Hemoglobin 31.4 pg (28.0-33.3); Mean Corpuscular Volume 95.5 fL (83.0-100.0); Mean Platelet Volume 10.5 fL (9.4-12.4); Nucleated Red Blood Cells 0.4 /100 WBC (0); Platelet Count 143 K/mcL (140-400); Red Blood Count 3.12 M/mcL (4.19-5.50); Red Cell Distribution Width 15.2 % (11.5-14.5); White Blood Count 9.8 K/mcL (4.3-11.1)
[2022-02-04] MEDS: Dexmedetomidine HCl 400 MCG/100 ML MLS IVC SCH ×2 (04:57→10:43)
[2022-02-04 05:09] LABS: Calcium 8.3 mg/dL (8.6-10.3)
[2022-02-04] MEDS: Doxycycline 100 MG in 0.9 % Sodium Chloride Mini Bag 100 ML IVPB SCH ×2 (06:00→18:32)
[2022-02-04 06:06] LABS: Basophils # 0.2 K/mcL (0.0-0.2); Lymphocytes # 0.6 K/mcL (0.6-4.6); Monocytes # 0.6 K/mcL (0.0-1.3); Neutrophils # 8.4 K/mcL (1.6-8.9); Platelet Estimate Normal (Normal); Smudge Cells Present (Not Present)
[2022-02-04] MEDS: Heparin 25,000UNIT/250ML 1/2NS 25,000 UNIT/250 ML IV.SOLN IVC SCH ×2 (09:25→10:44)
[2022-02-04] MEDS: Docusate Oral Soln 100 MG/10 ML UDC GTUBE SCH ×2 (09:35→20:19)
[2022-02-04] MEDS: Chlorhexidine Rinse 15 ML MOUTHWASH MM SCH ×2 (09:35→20:19)
[2022-02-04] MEDS: Aspirin 81 MG TAB.CHEW PO SCH (09:36)
[2022-02-04] MEDS: Sennosides/Docusate Sodium TABLET PO SCH (09:36)
[2022-02-04] MEDS: Furosemide 40 MG/4 ML VIAL IVP SCH (09:36)
[2022-02-04] MEDS: Insulin DETEMIR 100 UNIT/ML X5UNITS SUBQ SCH ×2 (09:37→20:19)
[2022-02-04] MEDS: Pantoprazole 40 MG VIAL IVP SCH (09:37)
[2022-02-04 17:10] LABS: Hematocrit 33.7 % (37.5-50.1); Mean Corpuscular HGB Conc 34.7 g/dL (31.6-35.5); Mean Corpuscular Hemoglobin 33.5 pg (28.0-33.3); Mean Corpuscular Volume 96.6 fL (83.0-100.0); Mean Platelet Volume 11.1 fL (9.4-12.4); Nucleated Red Blood Cells 0.4 /100 WBC (0); Platelet Count 142 K/mcL (140-400); Red Blood Count 3.49 M/mcL (4.19-5.50); Red Cell Distribution Width 15.5 % (11.5-14.5); White Blood Count 9.7 K/mcL (4.3-11.1)
[2022-02-04 17:14] LABS: Hemoglobin 11.7 g/dL (12.9-16.9)
[2022-02-04 18:28] LABS: Smudge Cells Present (Not Present)
[2022-02-04 18:29] LABS: Platelet Estimate Normal (Normal)
[2022-02-04 19:17] LABS: Eosinophils # 0.1 K/mcL (0.0-0.6); Lymphocytes # 0.4 K/mcL (0.6-4.6); Monocytes # 0.1 K/mcL (0.0-1.3); Neutrophils # 8.3 K/mcL (1.6-8.9)
[2022-02-05] MEDS: FentaNYL (PF) 1,000 MCG/100 ML IV.SOLN IVC SCH ×4 (03:20→19:39)
[2022-02-05] MEDS: Insulin LISPRO 300 UNITS/3 ML VIAL SUBQ SCH ×5 (03:54→19:58)
[2022-02-05] MEDS: Artificial Tears SOLN 15 ML BOTTLE BOTH EYES SCH ×6 (03:55→23:12)
[2022-02-05 04:38] LABS: VBG Ionized Calcium 1.14 mmol/L (1.15-1.35)
[2022-02-05 04:48] LABS: ABG Base Excess -4 mEq/L (-2 to 3); ABG HCO3 23 mEq/L (21-27); ABG Oxygen Saturation 96 % (95-98); ABG PCO2 50 mmHg (35-45); ABG PH 7.27 pH Units (7.32-7.45); ABG PO2 92 mmHg (85-104); ABG TCO2 24 mEq/L (20-26); Blood Gas Modality ASSIST CONTROL; Blood Gas VT 400 cc
[2022-02-05 05:06] LABS: Albumin 3.5 g/dL (3.5-5.7); Albumin/Globulin Ratio 1.1 (1.1-2.2); Bilirubin,Direct 0.1 mg/dL (0.0-0.2); Bilirubin,Indirect 0.3 mg/dL (0.0-1.0); Bilirubin,Total 0.4 mg/dL (0.3-1.0); Calcium 8.8 mg/dL (8.6-10.3); Globulin 3.1 g/dL (2.4-3.5); Magnesium 2.8 mg/dL (1.6-2.6); Phosphorous 8.7 mg/dL (2.7-4.5); Potassium 5.6 mEq/L (3.5-5.1); Total Protein 6.6 g/dL (6.4-8.9)
[2022-02-05 05:09] LABS: Hematocrit 34.6 % (37.5-50.1); Hemoglobin 11.1 g/dL (12.9-16.9); Mean Corpuscular HGB Conc 32.1 g/dL (31.6-35.5); Mean Corpuscular Hemoglobin 30.7 pg (28.0-33.3); Mean Corpuscular Volume 95.6 fL (83.0-100.0); Mean Platelet Volume 11.1 fL (9.4-12.4); Nucleated Red Blood Cells 0.4 /100 WBC (0); Platelet Count 160 K/mcL (140-400); Red Blood Count 3.62 M/mcL (4.19-5.50); Red Cell Distribution Width 15.1 % (11.5-14.5); White Blood Count 11.7 K/mcL (4.3-11.1)
[2022-02-05 08:12] LABS: Lymphocytes # 1.9 K/mcL (0.6-4.6); Monocytes # 0.7 K/mcL (0.0-1.3); Neutrophils # 8.9 K/mcL (1.6-8.9); Platelet Estimate Normal (Normal); Reactive Lymphocytes Present (Not Present)
[2022-02-05] MEDS: Insulin DETEMIR 100 UNIT/ML X5UNITS SUBQ SCH ×2 (08:18→20:45)
[2022-02-05] MEDS: Chlorhexidine Rinse 15 ML MOUTHWASH MM SCH ×2 (08:19→19:23)
[2022-02-05] MEDS: Sennosides/Docusate Sodium TABLET PO SCH (08:19)
[2022-02-05] MEDS: Pantoprazole 40 MG VIAL IVP SCH (08:19)
[2022-02-05] MEDS: Docusate Oral Soln 100 MG/10 ML UDC GTUBE SCH ×2 (08:19→20:45)
[2022-02-05] MEDS: Aspirin 81 MG TAB.CHEW PO SCH (08:19)
[2022-02-05] MEDS: Midazolam HCl 50 MG/50 ML IV.SOLN IVC SCH (08:20)
[2022-02-05] MEDS: Furosemide 40 MG/4 ML VIAL IVP SCH (08:20)
[2022-02-05 09:22] LABS: INR 1.1; Prothrombin Time 11.7 Seconds (9.4-12.1)
[2022-02-05] MEDS ORDERED: Heparin 1,000 UNITS/500 mL 500 ML ONE (13:01)
[2022-02-05] MEDS ORDERED: Iopamidol - 300 100 ML INFUS..BTL ONE (13:01)
[2022-02-05 14:33] LABS: Total Volume 24 Hour,Urine 2.28 Liters (0.80-1.80)
[2022-02-05 14:46] LABS: Sodium, Urine 59.5 mEq/L
[2022-02-05] MEDS ORDERED: *HR* Heparin 5,000 UNIT/ML VIAL IVP PRN ×2 (20:21)
[2022-02-05] MEDS: Heparin 25,000UNIT/250ML 1/2NS 25,000 UNIT/250 ML IV.SOLN IVC SCH (20:46)
[2022-02-05 22:45] LABS: Hematocrit 33.4 % (37.5-50.1); Mean Corpuscular HGB Conc 31.7 g/dL (31.6-35.5); Mean Corpuscular Volume 97.7 fL (83.0-100.0); Mean Platelet Volume 10.4 fL (9.4-12.4); Platelet Count 136 K/mcL (140-400); Red Blood Count 3.42 M/mcL (4.19-5.50); Red Cell Distribution Width 15.8 % (11.5-14.5)
[2022-02-05 22:46] LABS: Hemoglobin 10.6 g/dL (12.9-16.9)
[2022-02-05 23:35] LABS: Heparin anti-factor XA UFH 0.38 IU/mL (0.30-0.70)
[2022-02-05 23:36] LABS: Prothrombin Time 11.2 Seconds (9.4-12.1)
[2022-02-06] MEDS: Insulin LISPRO 300 UNITS/3 ML VIAL SUBQ SCH ×6 (00:02→20:16)
[2022-02-06] MEDS: FentaNYL (PF) 1,000 MCG/100 ML IV.SOLN IVC SCH ×3 (01:32→14:53)
[2022-02-06] MEDS: Artificial Tears SOLN 15 ML BOTTLE BOTH EYES SCH ×5 (03:41→20:10)
[2022-02-06 03:49] LABS: ABG Base Excess -6 mEq/L (-2 to 3); ABG HCO3 21 mEq/L (21-27); ABG Oxygen Saturation 95 % (95-98); ABG PCO2 49 mmHg (35-45); ABG PH 7.25 pH Units (7.32-7.45); ABG PO2 88 mmHg (85-104); ABG TCO2 23 mEq/L (20-26); Blood Gas VT 400 cc
[2022-02-06 04:13] LABS: Basophils # 0.1 K/mcL (0.0-0.2); Basophils % 0.6 %; Eosinophils # 0.4 K/mcL (0.0-0.6); Eosinophils % 3.5 %; Hematocrit 33.6 % (37.5-50.1); Hemoglobin 10.7 g/dL (12.9-16.9); Immature Granulocytes % 5.7 % (0-4); Lymphocytes # 1.3 K/mcL (0.6-4.6); Lymphocytes % 10.8 %; Mean Corpuscular HGB Conc 31.8 g/dL (31.6-35.5); Mean Corpuscular Hemoglobin 31.1 pg (28.0-33.3); Mean Corpuscular Volume 97.7 fL (83.0-100.0); Mean Platelet Volume 10.9 fL (9.4-12.4); Monocytes # 1.1 K/mcL (0.0-1.3); Monocytes % 9.8 %; Neutrophils # 8.1 K/mcL (1.6-8.9); Nucleated Red Blood Cells 0.2 /100 WBC (0); Platelet Count 134 K/mcL (140-400); Red Blood Count 3.44 M/mcL (4.19-5.50); Red Cell Distribution Width 15.9 % (11.5-14.5); Segmented Neutrophils % 69.6 %; White Blood Count 11.6 K/mcL (4.3-11.1)
[2022-02-06 04:17] LABS: VBG Ionized Calcium 1.09 mmol/L (1.15-1.35)
[2022-02-06 04:45] LABS: Albumin 3.3 g/dL (3.5-5.7); Albumin/Globulin Ratio 1.2 (1.1-2.2); Bilirubin,Direct 0.2 mg/dL (0.0-0.2); Bilirubin,Indirect 0.2 mg/dL (0.0-1.0); Bilirubin,Total 0.4 mg/dL (0.3-1.0); Calcium 8.7 mg/dL (8.6-10.3); Globulin 2.8 g/dL (2.4-3.5); Magnesium 2.8 mg/dL (1.6-2.6); Phosphorous 10.4 mg/dL (2.7-4.5); Potassium 5.9 mEq/L (3.5-5.1); Total Protein 6.1 g/dL (6.4-8.9)
[2022-02-06 05:05] LABS: Prothrombin Time 11.6 Seconds (9.4-12.1)
[2022-02-06] MEDS ORDERED: Calcium Gluconate 1gm/50mL 1 GM/50 ML BAG IVPB ONE (05:27)
[2022-02-06] MEDS: SODIUM ZIRCONIUM CYCLOSILICATE 5 GM POWD.PACK PO SCH ×3 (05:45→14:58)
[2022-02-06] MEDS: Aspirin 81 MG TAB.CHEW PO SCH (07:38)
[2022-02-06] MEDS: Sennosides/Docusate Sodium TABLET PO SCH (07:38)
[2022-02-06] MEDS: Furosemide 40 MG/4 ML VIAL IVP SCH (07:38)
[2022-02-06] MEDS: Pantoprazole 40 MG VIAL IVP SCH (07:38)
[2022-02-06] MEDS: Chlorhexidine Rinse 15 ML MOUTHWASH MM SCH ×2 (07:39→20:10)
[2022-02-06] MEDS: Insulin DETEMIR 100 UNIT/ML X5UNITS SUBQ SCH ×2 (07:41→20:09)
[2022-02-06] MEDS: Docusate Oral Soln 100 MG/10 ML UDC GTUBE SCH ×2 (07:47→20:10)
[2022-02-06] MEDS: Heparin 25,000UNIT/250ML 1/2NS 25,000 UNIT/250 ML IV.SOLN IVC SCH (11:25)
[2022-02-06] MEDS: Midazolam HCl 50 MG/50 ML IV.SOLN IVC SCH (14:35)
[2022-02-06] MEDS: *HR* Metoprolol 5 MG/5 ML VIAL IVP PRN (17:56)
[2022-02-07] MEDS: Artificial Tears SOLN 15 ML BOTTLE BOTH EYES SCH ×3 (00:04→08:20)
[2022-02-07] MEDS: Insulin LISPRO 300 UNITS/3 ML VIAL SUBQ SCH ×2 (00:11→03:54)
[2022-02-07] MEDS: Heparin 25,000UNIT/250ML 1/2NS 25,000 UNIT/250 ML IV.SOLN IVC SCH (00:59)
[2022-02-07] MEDS: FentaNYL (PF) 1,000 MCG/100 ML IV.SOLN IVC SCH ×2 (03:53→11:22)
[2022-02-07 04:07] LABS: VBG Ionized Calcium 1.02 mmol/L (1.15-1.35)
[2022-02-07 04:27] LABS: ABG Base Excess -10 mEq/L (-2 to 3); ABG HCO3 18 mEq/L (21-27); ABG Oxygen Saturation 97 % (95-98); ABG PCO2 43 mmHg (35-45); ABG PH 7.22 pH Units (7.32-7.45); ABG PO2 107 mmHg (85-104); ABG TCO2 19 mEq/L (20-26); Blood Gas Modality ASSIST CONTROL; Blood Gas VT 400 cc
[2022-02-07 04:31] LABS: Albumin 3.2 g/dL (3.5-5.7); Albumin/Globulin Ratio 1.1 (1.1-2.2); Bilirubin,Direct 0.3 mg/dL (0.0-0.2); Bilirubin,Indirect 0.3 mg/dL (0.0-1.0); Bilirubin,Total 0.6 mg/dL (0.3-1.0); Calcium 8.5 mg/dL (8.6-10.3); Phosphorous 13.2 mg/dL (2.7-4.5); Potassium 6.9 mEq/L (3.5-5.1); Total Protein 6.2 g/dL (6.4-8.9)
[2022-02-07] MEDS ORDERED: *HR* Dextrose 50 % in Water (Syg) 50 ML SYRINGE IVP ONE (04:32)
[2022-02-07] MEDS ORDERED: Insulin Human Regular 10 UNIT in 0.9 % Sodium Chloride 10 ML IV ONE (04:32)
[2022-02-07 04:36] LABS: Basophils # 0.1 K/mcL (0.0-0.2); Basophils % 0.4 %; Eosinophils # 0.1 K/mcL (0.0-0.6); Eosinophils % 1.1 %; Hematocrit 32.1 % (37.5-50.1); Hemoglobin 10.3 g/dL (12.9-16.9); Lymphocytes # 0.7 K/mcL (0.6-4.6); Mean Corpuscular HGB Conc 32.1 g/dL (31.6-35.5); Mean Corpuscular Hemoglobin 31.3 pg (28.0-33.3); Mean Corpuscular Volume 97.6 fL (83.0-100.0); Mean Platelet Volume 11.3 fL (9.4-12.4); Monocytes # 1.2 K/mcL (0.0-1.3); Monocytes % 10.6 %; Platelet Count 116 K/mcL (140-400); Red Blood Count 3.29 M/mcL (4.19-5.50); Red Cell Distribution Width 15.9 % (11.5-14.5); Segmented Neutrophils % 78.9 %; White Blood Count 11.4 K/mcL (4.3-11.1)
[2022-02-07] MEDS: Calcium Gluconate 1gm/50mL 1 GM/50 ML BAG IVPB SCH ×2 (04:54→05:46)
[2022-02-07] MEDS ORDERED: Sodium Bicarbonate 75 MEQ in 0.45 % Sodium Chloride 1,000 ML IVC SCH (05:00)
[2022-02-07] MEDS: SODIUM ZIRCONIUM CYCLOSILICATE 5 GM POWD.PACK PO SCH ×2 (05:07→07:43)
[2022-02-07 05:51] LABS: INR 1.2; Prothrombin Time 12.9 Seconds (9.4-12.1)
[2022-02-07] MEDS: Midazolam HCl 50 MG/50 ML IV.SOLN IVC SCH (07:00)
[2022-02-07] MEDS: Furosemide 40 MG/4 ML VIAL IVP SCH (07:43)
[2022-02-07] MEDS: Docusate Oral Soln 100 MG/10 ML UDC GTUBE SCH (07:43)
[2022-02-07] MEDS: Sennosides/Docusate Sodium TABLET PO SCH (07:43)
[2022-02-07] MEDS: Chlorhexidine Rinse 15 ML MOUTHWASH MM SCH (07:43)
[2022-02-07] MEDS: Pantoprazole 40 MG VIAL IVP SCH (07:43)
[2022-02-07] MEDS: Aspirin 81 MG TAB.CHEW PO SCH (07:44)
[2022-02-07] MEDS: Insulin DETEMIR 100 UNIT/ML X5UNITS SUBQ SCH (08:19)
[2022-02-07 09:12] VITALS: TEMP 99
[2022-02-07] MEDS ORDERED: *HR* LORazepam 2 MG/ML VIAL IVP PRN (11:25)
[2022-02-07 11:29] VITALS: BP 124/50; PULSE 88; O2SAT 92
[2022-02-07] MEDS ORDERED: Atropine Sulfate 1% 40 DROP/2 ML BOTTLE SL PRN (11:30)
== END 2022-02-07 11:45 | disposition expired ==
LOC: EMEROOARM 04:54 → 3BNU 16:59 → 2NENU 01-27 20:07 → ICNU 01-29 16:58
PROVIDERS: ADMIT Internal Medicine; ATTEND Internal Medicine